=== PATIENT | female | born 1935 | race African-American/Black ===

== ENCOUNTER 2016-08-04 17:17 | Emergency (ER) | payer OTHER ==
--- NOTE | 2016-08-04 17:25 | PDOC ---
History of Present Illness - General Stated Complaint: POSSIBLE UTI Time Seen by Provider: 08/04/16 17:25 - History of Present Illness Initial Comments: 08/04/16 17:28 He patient is a 80 year old female with a history of diabetes, HTN, history of bilateral knee replacement and recurrent UTIs presents complaining of dysuria and fever x2 days. The pt had fever 103 yesterday and 101 today. She also is more lethargic than usual. The pt also noticed that her blood sugar was elevated today to 237 despite taking her diabetic medications. She denies SOB, abdominal pain, N/V, diarrhea, constipation. She denies pain in her right buttock where she has diabetic ulcer. She denies dizziness, headache, LOC. The pt lives alone and has visiting nurse who changes her dressing on right buttock where she has ulcer. PCP: Dr. Coyne Past History - Past Medical History Allergies/Adverse Reactions: Allergies Allergy/AdvReac Type Severity Reaction Status Date / Time No Known Allergies Allergy Verified 09/18/13 16:00 Home Medications: Ambulatory Orders Aspirin [ASA -] 81 mg PO DAILY #30 tab.chew 09/09/13 Lisinopril [Prinivil] 5 mg PO DAILY #30 tablet 09/09/13 Oxycodone HCl/Acetaminophen [Percocet 5-325 mg Tablet] 1 combo PO Q6H PRN #60 tablet 09/09/13 Acetaminophen [Tylenol .Regular Strength -] 650 mg PO Q4H 09/18/13 Calcium 250Mg/Vit-D 125 Units [Oscal 250 mg+D -] 1 combo PO BID 09/18/13 Heparin - 5,000 unit SQ BID 09/18/13 Metformin HCl [Glucophage -] 500 mg PO BID 09/18/13 Sennosides [Senna] 8.6 mg PO HS 09/18/13 Simvastatin [Zocor -] 40 mg PO HS 09/18/13 Ergocalciferol (Vitamin D2) [Vitamin D] 50,000 unit PO WEEKLY 09/24/13 Gabapentin [Neurontin] 100 mg PO BID 09/24/13 Diabetes: Yes (NIDDM) Suicide Attempt (Hx): No - Immunization History Immunization Up to Date: Yes - Psycho/Social/Smoking Cessation Hx Anxiety: No Suicidal Ideation: No Smoking History: Never smoked Number of Cigarettes Smoked Daily: 0 Cigars Per Day: 0 Hx Alcohol Use: No Substance Use Type: Alcohol Review of Systems - Review of Systems Able to Perform ROS?: Yes Comments:: 08/04/16 17:52 REVIEW OF SYSTEMS CONSTITUTIONAL: fever, chills, loss of appetite, generalized weakness, Absent: diaphoresis, malaise, weight change HEENT: Absent: rhinorrhea, nasal congestion, throat pain, throat swelling, difficulty swallowing, mouth swelling, ear pain, eye pain, visual changes CARDIOVASCULAR: Absent: chest pain, syncope, palpitations, irregular heart rate, lightheadedness , peripheral edema RESPIRATORY: Absent: cough, shortness of breath, dyspnea with exertion, orthopnea, wheezing, stridor, hemoptysis GASTROINTESTINAL: Absent: abdominal pain, abdominal distension, nausea, vomiting, diarrhea, constipation, melena, hematochezia GENITOURINARY: dysuria, Absent: frequency, urgency, hesitancy, hematuria, flank pain, genital pain MUSCULOSKELETAL: Absent: myalgia, arthralgia, joint swelling, back pain, neck pain SKIN: Absent: rash, itching, pallor NEUROLOGIC: Absent: headache, focal weakness or paresthesias, dizziness, unsteady gait, seizure, mental status changes, bladder or bowel incontinence Is the patient limited Welsh proficient: No *Physical Exam - Physical Exam Comments: 08/04/16 17:53 GENERAL: The patient is awake, alert, and fully oriented, in no acute distress. HEAD: Normal with no signs of trauma. EYES: PERRL, extraocular movements intact, sclera anicteric, conjunctiva clear. No ptosis. ENT: Ears normal, nares patent, oropharynx clear without exudates, moist mucous membranes. NECK: Trachea midline, full range of motion, supple. LUNGS: Breath sounds equal, clear to auscultation bilaterally, no wheezes, no crackles, no accessory muscle use. HEART: Regular rate and rhythm, S1, S2 without murmur, rub or gallop. ABDOMEN: Obese, soft, nontender, nondistended, normoactive bowel sounds, no guarding, no rebound, no hepatosplenomegaly, no masses. EXTREMITIES: 2+ pulses, warm, well-perfused, no edema, right buttock ulcer, no erythema, weal healing, dressing present. NEUROLOGICAL: Normal speech, gait not observed. PSYCH: Normal mood, normal affect. SKIN: Warm, dry, normal turgor, no rashes or lesions noted, scar in anterior knee B/L. Medical Decision Making - Medical Decision Making 08/04/16 17:54 The pt is a 80 year old female who presents with dysuria, fever, chills. We ordered UA, Ucx, blood cultures, CBC, CMP, Tylenol. 08/04/16 17:59 We added LA, blood cultures and NS. *DC/Admit/Observation/Transfer Diagnosis at time of Disposition: Urinary tract infection
[2016-08-04 17:36] VITALS: BP 103/67; PULSE 93; BMI 32.3
[2016-08-04] MEDS ORDERED: ACETAMINOPHEN 1000 MG/100 ML VIAL (NON FORMULARY) IVPB ONE ×2 (17:44→20:28)
[2016-08-04] MEDS ORDERED: SODIUM CHLORIDE 1,000 ML IV STA (17:57)
--- NOTE | 2016-08-04 18:01 | PDOC ---
Attending Attestation - Resident Resident Name: María Metzger - ED Attending Attestation I have performed the following: I have examined & evaluated the patient, The case was reviewed & discussed with the resident, I agree w/resident's findings & plan, Exceptions are as noted - HPI HPI: 08/04/16 19:06 80-year-old female history of hypertension, diabetes, recurrent urinary tract infections presents with fever for 2 days with MAXIMUM TEMPERATURE 103. Patient is noted dysuria reports that this feels exactly like her urinary tract infection. She had taken Tylenol prior to arrival. Denies chest pain, short of breath, abdominal pain, nausea, vomiting, diarrhea. - Physicial Exam PE: 08/04/16 19:07 GENERAL: Awake, alert, and fully oriented, in no acute distress. Well-appearing HEAD: No signs of trauma EYES: PERRLA, EOMI, sclera anicteric, conjunctiva clear ENT: Auricles normal inspection, hearing grossly normal, nares patent, oropharynx clear without exudates. NECK: Normal ROM, supple, no lymphadenopathy, JVD, or masses LUNGS: Breath sounds equal, clear to auscultation bilaterally. No wheezes, and no crackles HEART: Regular rate and rhythm, normal S1 and S2, no murmurs, rubs or gallops ABDOMEN: Soft, nontender, normoactive bowel sounds. No guarding, no rebound. No masses EXTREMITIES: Normal range of motion, no edema. No clubbing or cyanosis. No cords, erythema, or tenderness NEUROLOGICAL: Cranial nerves II through XII grossly intact. Normal speech, normal gait SKIN: Warm, Dry, normal turgor, no rashes or lesions noted. - Medical Decision Making 08/04/16 19:07 Patient is overall well-appearing and nontoxic. We'll obtain blood work. urine is noticed to be positive for infection. Primary microbiology reviewed. IV antibiotics was given. However, if the patient's laboratory demonstrates no sepsis or and organ damage, we'll likely discharge with Bactrim as patient has been sensitive to Bactrim prior before. Heart Score/ECG Review #1 ECG reviewed & interpreted by me at: 17:30 08/04/16 18:00 NSR 95 with 1st degree AV block, occasional PVC, no std/brendon, QTC 437 msec
[2016-08-04] MEDS ORDERED: CEFTRIAXONE 1 GM in DEXTROSE 5%-WATER - 50 ML IVPB ONE (18:11)
[2016-08-04 18:24] LABS: URINE APPEARANCE TURBID; URINE BILIRUBIN NEGATIVE (NEGATIVE); URINE COLOR YELLOW; URINE GLUCOSE (UA) NEGATIVE (NEGATIVE); URINE KETONE NEGATIVE (NEGATIVE); URINE NITRITE NEGATIVE (NEGATIVE); URINE UROBILINOGEN NEGATIVE E.U./dl (0.2-1.0)
[2016-08-04] MEDS ORDERED: CEFTRIAXONE 50 ML ONE (18:26)
[2016-08-04 18:28] LABS: URINE BLOOD 1+ (NEGATIVE); URINE LEUK ESTERASE 3+ (NEGATIVE); URINE PROTEIN 2+ (NEGATIVE)
[2016-08-04 18:33] LABS: URINE BACTERIA MANY /hpf (NONE SEEN); URINE MUCUS RARE; URINE RBC 19 /hpf (0-3); URINE WBC 3031 /hpf (3-5)
[2016-08-04 18:41] LABS: BASOPHIL 0.3 % (0-2.0); MCH 28.5 pg (25.7-33.7); MCHC 32.5 g/dl (32.0-36.0); MEAN CELL VOLUME 87.6 fl (80-96); MEAN PLT VOLUME 9.2 fl (7.5-11.1); NEUTROPHILS 86.5 % (42.8-82.8); PLATELET COUNT 193 K/MM3 (134-434); RDW 15.7 % (11.6-15.6); WHITE BLOOD COUNT 11.1 K/mm3 (4.0-10.0)
[2016-08-04 19:50] LABS: ANION GAP 13 (8-16); BILIRUBIN,TOTAL 0.5 mg/dL (0.2-1.0); CALCIUM 8.9 mg/dL (8.5-10.1); CO2 25 mmol/L (21-32); GLUCOSE,RANDOM 175 mg/dL (74-106); SGOT/AST 14 U/L (15-37); SGPT/ALT 13 U/L (12-78); TOT PROT 7.5 g/dl (6.4-8.2)
[2016-08-04 19:52] LABS: ALK PHOS 75 U/L (45-117); TROPONIN I < 0.02 ng/ml (0.00-0.05)
[2016-08-04] MEDS ORDERED: ACETAMINOPHEN INJECTION 100 ML IVPB ONE (20:22)
[2016-08-04] MEDS ORDERED: IBUPROFEN 600 MG TABLET (FP) PO ONE (21:35)
[2016-08-04] MEDS ORDERED: SULFAMETHOXAZOLE/TRIMETHOPRIM 800MG/160MG D.S. TABLET PO ONE (21:35)
[2016-08-04] MEDS ORDERED: SULFAMETHOXAZOLE/TRIMETHOPRIM 800MG/160MG D.S. TABLET ONE (21:40)
--- NOTE | 2016-08-04 22:58 | PDOC ---
*Physical Exam - Vital Signs Last Vital Signs Temp Pulse Resp BP Pulse Ox 100.9 F H 93 H 18 103/67 100 08/04/16 20:28 08/04/16 17:31 08/04/16 17:31 08/04/16 17:31 08/04/16 17:31 ED Treatment Course - LABORATORY CBC & Chemistry Diagram: 08/04/16 18:17 08/04/16 18:17 - ADDITIONAL ORDERS Additional order review: Laboratory Results 08/04/16 08/04/16 08/04/16 18:17 18:17 18:17 Sodium 139 Cancelled Potassium 4.1 Cancelled Chloride 101 Cancelled Carbon Dioxide 25 Cancelled Anion Gap 13 Cancelled BUN 21 H D Cancelled Creatinine 1.0 D Cancelled Creat Clearance w eGFR 53.21 Cancelled Random Glucose 175 H D Cancelled Lactic Acid 1.685 Calcium 8.9 Cancelled Total Bilirubin 0.5 D Cancelled AST 14 L D Cancelled ALT 13 D Cancelled Alkaline Phosphatase 75 Cancelled Creatine Kinase 80 Troponin I < 0.02 Total Protein 7.5 Cancelled Albumin 3.0 L Cancelled Urine Color Urine Appearance Urine pH Ur Specific [place] Urine Protein Urine Glucose (UA) Urine Ketones Urine Blood Urine Nitrite Urine Bilirubin Urine Urobilinogen Ur Leukocyte Esterase Urine RBC Urine WBC Ur Epithelial Cells Urine Bacteria Urine Mucus 08/04/16 17:53 Sodium Potassium Chloride Carbon Dioxide Anion Gap BUN Creatinine Creat Clearance w eGFR Random Glucose Lactic Acid Calcium Total Bilirubin AST ALT Alkaline Phosphatase Creatine Kinase Troponin I Total Protein Albumin Urine Color Yellow Urine Appearance Turbid Urine pH 5.0 D Ur Specific [place] 1.015 Urine Protein 2+ H Urine Glucose (UA) Negative Urine Ketones Negative Urine Blood 1+ H Urine Nitrite Negative Urine Bilirubin Negative Urine Urobilinogen Negative Ur Leukocyte Esterase 3+ H Urine RBC 19 Urine WBC 3031 Ur Epithelial Cells Rare Urine Bacteria Many Urine Mucus Rare 08/04/16 18:17 RBC 3.58 L MCV 87.6 MCHC 32.5 RDW 15.7 H D MPV 9.2 Neutrophils % 86.5 H D Lymphocytes % 6.8 L D Monocytes % 6.4 Eosinophils % 0.0 D Basophils % 0.3 - RADIOLOGY Radiology Studies Ordered: Category Date Time Status CHEST X-RAY PORTABLE* [RAD] Stat Radiology 08/04/16 17:58 Completed - Medications Given in the ED: ED Medications Discontinued Medications Generic Name Dose Route Start Last Admin Trade Name Love PRN Reason Stop Dose Admin Acetaminophen 1,000 mg 08/04/16 17:44 08/04/16 18:11 Ofirmev Injection - IVPB 08/04/16 17:45 Not Given ONCE ONE Acetaminophen 1,000 mg 08/04/16 20:28 08/04/16 20:28 Ofirmev Injection - IVPB 08/04/16 20:29 1,000 mg NOW ONE Administration Sodium Chloride 1,000 mls @ 1,000 mls/hr 08/04/16 17:57 08/04/16 18:26 Normal Saline - IV 08/04/16 18:56 1,000 mls/hr ASDIR STA Administration Ceftriaxone Sodium 1 gm/ 50 mls @ 100 mls/hr 08/04/16 18:11 08/04/16 18:26 Dextrose IVPB 08/04/16 18:40 100 mls/hr ONCE ONE Administration Ibuprofen 600 mg 08/04/16 21:35 08/04/16 22:09 Motrin - PO 08/04/16 21:36 600 mg ONCE ONE Administration Trimethoprim/Sulfamethoxazole 1 each 08/04/16 21:35 08/04/16 22:09 Bactrim Ds - PO 08/04/16 21:36 1 each ONCE ONE Administration Medical Decision Making - Medical Decision Making 08/04/16 22:54 CBC, BMP 08/04/16 18:17 08/04/16 18:17 CMP Sodium 139 mmol/L (136-145) 08/04/16 18:17 Potassium 4.1 mmol/L (3.5-5.1) 08/04/16 18:17 Chloride 101 mmol/L (98-107) 08/04/16 18:17 Carbon Dioxide 25 mmol/L (21-32) 08/04/16 18:17 Anion Gap 13 (8-16) 08/04/16 18:17 BUN 21 mg/dL (7-18) H D 08/04/16 18:17 Creatinine 1.0 mg/dL (0.55-1.02) D 08/04/16 18:17 Creat Clearance w eGFR 53.21 (>60) 08/04/16 18:17 Random Glucose 175 mg/dL (74-106) H D 08/04/16 18:17 Lactic Acid 1.685 mmol/L (0.4-2.0) 08/04/16 18:17 Calcium 8.9 mg/dL (8.5-10.1) 08/04/16 18:17 Total Bilirubin 0.5 mg/dL (0.2-1.0) D 08/04/16 18:17 AST 14 U/L (15-37) L D 08/04/16 18:17 ALT 13 U/L (12-78) D 08/04/16 18:17 Alkaline Phosphatase 75 U/L (45-117) 08/04/16 18:17 Creatine Kinase 80 IU/L (26-192) 08/04/16 18:17 Troponin I < 0.02 ng/ml (0.00-0.05) 08/04/16 18:17 Total Protein 7.5 g/dl (6.4-8.2) 08/04/16 18:17 Albumin 3.0 g/dl (3.4-5.0) L 08/04/16 18:17 Urine Test Results Urine Color Yellow 08/04/16 17:53 Urine Appearance Turbid 08/04/16 17:53 Urine pH 5.0 (5.0-8.0) D 08/04/16 17:53 Ur Specific [place] 1.015 (1.001-1.035) 08/04/16 17:53 Urine Protein 2+ (NEGATIVE) H 08/04/16 17:53 Urine Glucose (UA) Negative (NEGATIVE) 08/04/16 17:53 Urine Ketones Negative (NEGATIVE) 08/04/16 17:53 Urine Blood 1+ (NEGATIVE) H 08/04/16 17:53 Urine Nitrite Negative (NEGATIVE) 08/04/16 17:53 Urine Bilirubin Negative (NEGATIVE) 08/04/16 17:53 Ur Leukocyte Esterase 3+ (NEGATIVE) H 08/04/16 17:53 Urine RBC 19 /hpf (0-3) 08/04/16 17:53 Urine WBC 3031 /hpf (3-5) 08/04/16 17:53 Ur Epithelial Cells Rare /hpf (FEW) 08/04/16 17:53 Urine Bacteria Many /hpf (NONE SEEN) 08/04/16 17:53 Urine Mucus Rare 08/04/16 17:53 Labs and UA reviewed. Microbiology was reviewed. The patient appears significantly well. Discharge fever is 99.7 degrees. UTI. Will give bactrim. I had discussed the chest ray results of the feint nodule on the right lung. A copy of the xray given to her. I instructed the patient to follow up with her doctor as a small percentage of these could be potentially malignant. Pt verbalizes understanding and agrees with plan. Return precautions given. Pt will go home with friend. I discussed the physical exam findings, ancillary test results and final diagnoses with the patient. I answered all of the patient's questions. The patient was satisfied with the care received and felt comfortable with the discharge plan and treatment plan. The patient will call their primary care physician within 24 hours to arrange follow-up and will return to the Emergency Department with any new, persistant or worsening symptoms. *DC/Admit/Observation/Transfer Diagnosis at time of Disposition: UTI (urinary tract infection) Qualifiers: Urinary tract infection type: site unspecified Hematuria presence: without hematuria Qualified Code(s): N39.0 - Urinary tract infection, site not specified - Discharge Dispostion Disposition: HOME Condition at time of disposition: Improved Admit: No - Prescriptions Prescriptions: Sulfamethoxazole/Trimethoprim [Bactrim Ds -] 1 tab PO BID #14 tablet Ibuprofen 600 mg PO Q8H PRN #15 tablet PRN Reason: Fever Acetaminophen [Tylenol] 650 mg PO Q4H PRN #20 tablet PRN Reason: Fever - Referrals Referrals: Grabiel Coyne [Primary Care Provider] - - Patient Instructions Printed Discharge Instructions: DI for Urinary Tract Infection (UTI) Additional Instructions: Please take 650 mg tylenol every 4 hours and/or 600 mg ibuprofen every 8 hours as needed for fever. Drink plenty of fluids and rest. Take 1 tablet of bactrim (antibiotics) every 12 hours for the next 7 days. Please bring a copy of your chest xray to your doctor for follow up. - Post Discharge Activity
[2016-08-04 23:04] VITALS: TEMP 99.7
--- NOTE | 2016-08-05 11:48 | EKG ---
Test Reason : Blood Pressure : / mmHG Vent. Rate : 095 BPM Atrial Rate : 095 BPM P-R Int : 212 ms QRS Dur : 082 ms QT Int : 348 ms P-R-T Axes : 032 021 008 degrees QTc Int : 437 ms SINUS RHYTHM WITH 1ST DEGREE A-V BLOCK WITH PREMATURE ATRIAL COMPLEXES WITH ABERRANT CONDUCTION NONSPECIFIC ST ABNORMALITY NO PREVIOUS ECGS AVAILABLE Confirmed by TRISHA SMITH MD ([id number]) on 08/05/2016 11:48:18 AM Referred By: Confirmed By:TRISHA SMITH MD
== END 2016-08-05 01:39 | disposition home or self-care (01) ==
LOC: JER 17:17
PROC: 3E033NZ Introduction of Analgesics, Hypnotics, Sedatives into Peripheral Vein, Percutaneous Approach (ICD-10-PCS; principal; 2016-08-04)
PROC: 3E033GC Introduction of Other Therapeutic Substance into Peripheral Vein, Percutaneous Approach (ICD-10-PCS; 2016-08-04)
PROC: 3E03329 Introduction of Other Anti-infective into Peripheral Vein, Percutaneous Approach (ICD-10-PCS; 2016-08-04)
DX: N39.0 Urinary tract infection, site not specified (principal); E11.9 Type 2 diabetes mellitus without complications; I10 Essential (primary) hypertension; Z87.440 Personal history of urinary (tract) infections; Z96.653 Presence of artificial knee joint, bilateral; Z79.84 Long term (current) use of oral hypoglycemic drugs; Z79.82 Long term (current) use of aspirin
CPT/HCPCS: 36415; 71010-TC; 80053; 81003; 81015; 82550; 83605; 84484; 85025; 87040; 87086; 87186; 93005; 93010; 99285-25

== ENCOUNTER 2016-10-26 10:51 | Inpatient (IN) | payer OTHER ==
[2016-10-26] MEDS ORDERED: SODIUM CHLORIDE 1,000 ML IV STA (11:17)
[2016-10-26] MEDS ORDERED: ACETAMINOPHEN 500 MG TABLET (FP) PO ONE (11:19)
[2016-10-26] MEDS ORDERED: ACETAMINOPHEN 325 MG TABLET (FP) ONE ×2 (11:41→20:25)
[2016-10-26 12:34] LABS: BASOPHIL 0.2 % (0-2.0); EOSINOPHIL 0.1 % (0-4.5); MCH 28.8 pg (25.7-33.7); MCHC 32.3 g/dl (32.0-36.0); MEAN PLT VOLUME 8.6 fl (7.5-11.1); NEUTROPHILS 92.7 % (42.8-82.8); PLATELET COUNT 208 K/MM3 (134-434); RDW 17.9 % (11.6-15.6); WHITE BLOOD COUNT 11.9 K/mm3 (4.0-10.0)
[2016-10-26 12:37] LABS: VENOUS BLOOD GAS HCO3 24.2 meq/L (19-25); VENOUS PH 7.51 (7.32-7.42)
--- NOTE | 2016-10-26 12:40 | PDOC ---
History of Present Illness - General Stated Complaint: SICK Time Seen by Provider: 10/26/16 11:10 History Source: Patient Exam Limitations: No Limitations - History of Present Illness Initial Comments: 10/26/16 12:00 80-year-old female presents to the ED with complaints of fever, chills and generalized weakness since yesterday. Patient states today felt so weak and exhausted that she was unable to get up and told the home health aid to call her son to found her to be weak requiring medical evaluation. Patient denies headache, sore throat, chest pain, abdominal pain dysuria or diarrhea. Timing/Duration: 24 hours Severity: mild Associated Symptoms: reports: fever/chills, weakness Past History - Travel Traveled outside of the country in the last 30 days: No Close contact w/someone who was outside of country & ill: No - Past Medical History Allergies/Adverse Reactions: Allergies Allergy/AdvReac Type Severity Reaction Status Date / Time No Known Allergies Allergy Verified 10/26/16 11:22 Home Medications: Ambulatory Orders Aspirin [ASA -] 81 mg PO DAILY #30 tab.chew 09/09/13 Lisinopril [Prinivil] 5 mg PO DAILY #30 tablet 09/09/13 Metformin HCl [Glucophage -] 500 mg PO BID 09/18/13 Gabapentin [Neurontin] 500 mg PO HS 09/24/13 Acetaminophen [Tylenol] 650 mg PO Q4H PRN #20 tablet 08/04/16 Atorvastatin Ca [Lipitor] 20 mg PO HS 08/04/16 Ibuprofen 600 mg PO Q8H PRN #15 tablet 08/04/16 Meloxicam [Mobic] 7.5 mg PO DAILY 08/04/16 Diabetes: Yes (NIDDM) Suicide Attempt (Hx): No - Immunization History Immunization Up to Date: Yes - Psycho/Social/Smoking Cessation Hx Anxiety: No Suicidal Ideation: No Smoking History: Never smoked Have you smoked in the past 12 months: No Number of Cigarettes Smoked Daily: 0 Cigars Per Day: 0 Information on smoking cessation initiated: No Hx Alcohol Use: No Drug/Substance Use Hx: No Substance Use Type: Alcohol Patient Lives Alone: No 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 Review of Systems - Review of Systems Able to Perform ROS?: Yes Is the patient limited Cymro proficient: No Constitutional: Yes: Fever, Weakness HEENTM: No: Symptoms Reported Respiratory: No: Symptoms reported Cardiac (ROS): No: Symptoms Reported ABD/GI: No: Symptoms Reported : No: Symptoms Reported Musculoskeletal: No: Symptoms Reported Integumentary: No: Symptoms Reported Neurological: Yes: Weakness Hematologic/Lymphatic: No: Symptoms Reported *Physical Exam - Vital Signs Last Vital Signs Temp Pulse Resp BP Pulse Ox 102.2 F H 95 H 18 100/40 99 10/26/16 10:51 10/26/16 10:51 10/26/16 10:51 10/26/16 10:51 10/26/16 10:51 - Physical Exam General Appearance: Yes: Nourished, Appropriately Dressed. No: Apparent Distress HEENT: negative: Pale Conjunctivae Neck: positive: Supple Respiratory/Chest: positive: Lungs Clear, Normal Breath Sounds. negative: Respiratory Distress, Accessory Muscle Use Cardiovascular: positive: Regular Rhythm, Regular Rate. negative: Murmur Gastrointestinal/Abdominal: positive: Soft. negative: Tenderness Extremity: positive: Normal Capillary Refill, Pedal Edema (1+ nonpitting) Integumentary: positive: Normal Color, Warm, Moist Neurologic: positive: Normal Mood/Affect, Motor Strength 5/5 (moving all extremities) ED Treatment Course - LABORATORY CBC & Chemistry Diagram: 10/26/16 12:22 10/26/16 12:22 - RADIOLOGY Radiology Studies Ordered: Category Date Time Status CHEST X-RAY PORTABLE* [RAD] Stat Radiology 10/26/16 11:18 Completed - Medications Given in the ED: ED Medications Discontinued Medications Generic Name Dose Route Start Last Admin Trade Name Freq PRN Reason Stop Dose Admin Acetaminophen 975 mg 10/26/16 11:19 10/26/16 11:43 Tylenol - PO 10/26/16 11:20 975 mg ONCE ONE Administration Medical Decision Making - Medical Decision Making 10/26/16 12:46 Patient complains of generalized weakness and fatigue. Patient has no other complaints. Patient upon arrival found to be febrile with borderline low blood pressure suggestive of sepsis. Patient ordered for septic workup including Tylenol and IV fluids. 10/26/16 14:45 Laboratory Tests 10/26/16 10/26/16 10/26/16 11:18 12:22 12:22 WBC 11.9 H Hgb 9.8 L MCV 89.0 RDW 17.9 H D Neutrophils % 92.7 H INR 1.20 H VBG pH 7.51 H POC VBG pCO2 30.5 L POC VBG pO2 92.7 H Sodium Potassium Chloride Carbon Dioxide Anion Gap BUN Creatinine Random Glucose Lactic Acid Calcium Troponin I Albumin Urine Protein Urine Glucose (UA) Urine Ketones Urine Blood Urine Nitrite Ur Leukocyte Esterase 10/26/16 10/26/16 10/26/16 12:22 12:22 12:38 WBC Hgb MCV RDW Neutrophils % INR VBG pH POC VBG pCO2 POC VBG pO2 Sodium 139 Potassium 4.2 Chloride 104 Carbon Dioxide 25 Anion Gap 10 BUN 17 Creatinine 0.9 Random Glucose 145 H Lactic Acid 1.0 Calcium 8.8 Troponin I < 0.02 Albumin 3.2 L Urine Protein 1+ H Urine Glucose (UA) Negative Urine Ketones Negative Urine Blood 1+ H Urine Nitrite Positive Ur Leukocyte Esterase 3+ H Chest x-ray negative for acute findings. Patient's previous urine culture from July 2016 was positive for Escherichia coli and Klebsiella sensitive to cephalosporins. Patient ordered for ceftriaxone 1 g IV. 10/26/16 16:[address] Valverde and will admit to [facility] inpatient. *DC/Admit/Observation/Transfer Diagnosis at time of Disposition: Urinary tract bacterial infections Sepsis Qualifiers: Sepsis type: sepsis due to unspecified organism Qualified Code(s): A41.9 - Sepsis, unspecified organism - Discharge Dispostion Admit: Yes
[2016-10-26 12:47] LABS: INR 1.2 (0.82-1.09); PROTHROMBIN TIME (PATIENT) 13.3 SEC (9.98-11.88)
[2016-10-26 12:55] LABS: ALBUMIN 3.2 g/dl (3.4-5.0); ANION GAP 10 (8-16); CALCIUM 8.8 mg/dL (8.5-10.1); CO2 25 mmol/L (21-32); CREATININE 0.9 mg/dL (0.55-1.02); GLUCOSE,RANDOM 145 mg/dL (74-106); SGOT/AST 17 U/L (15-37); SGPT/ALT 18 U/L (12-78)
[2016-10-26 12:58] LABS: ALK PHOS 90 U/L (45-117); BILIRUBIN,TOTAL 0.5 mg/dL (0.2-1.0); TOT PROT 7.3 g/dl (6.4-8.2); TROPONIN I < 0.02 ng/ml (0.00-0.05)
--- NOTE | 2016-10-26 13:34 | PDOC ---
*Physical Exam - Vital Signs Last Vital Signs Temp Pulse Resp BP Pulse Ox 102.2 F H 95 H 18 100/40 99 10/26/16 10:51 10/26/16 10:51 10/26/16 11:10 10/26/16 10:51 10/26/16 11:10 Heart Score/ECG Review #1 General ECG Interpretation: Sinus Rhythm, Normal Rate (92), Normal Intervals, No acute ischemic changes ED Treatment Course - LABORATORY CBC & Chemistry Diagram: 10/26/16 12:22 10/26/16 12:22 - ADDITIONAL ORDERS Additional order review: Laboratory Results 10/26/16 10/26/16 10/26/16 12:38 12:22 12:22 VBG pH POC VBG pCO2 POC VBG pO2 Mixed VBG HCO3 Sodium 139 Potassium 4.2 Chloride 104 Carbon Dioxide 25 Anion Gap 10 BUN 17 Creatinine 0.9 Creat Clearance w eGFR > 60 Random Glucose 145 H Lactic Acid 1.0 Calcium 8.8 Total Bilirubin 0.5 AST 17 D ALT 18 D Alkaline Phosphatase 90 Creatine Kinase 57 Troponin I < 0.02 Total Protein 7.3 Albumin 3.2 L Blood Type A POSITIVE Antibody Screen Negative 10/26/16 11:18 VBG pH 7.51 H POC VBG pCO2 30.5 L POC VBG pO2 92.7 H Mixed VBG HCO3 24.2 Sodium Potassium Chloride Carbon Dioxide Anion Gap BUN Creatinine Creat Clearance w eGFR Random Glucose Lactic Acid Calcium Total Bilirubin AST ALT Alkaline Phosphatase Creatine Kinase Troponin I Total Protein Albumin Blood Type Antibody Screen 10/26/16 12:22 RBC 3.41 L MCV 89.0 MCHC 32.3 RDW 17.9 H D MPV 8.6 Neutrophils % 92.7 H Lymphocytes % 2.5 L D Monocytes % 4.5 Eosinophils % 0.1 D Basophils % 0.2 - Medications Given in the ED: ED Medications Discontinued Medications Generic Name Dose Route Start Last Admin Trade Name Freq PRN Reason Stop Dose Admin Acetaminophen 975 mg 10/26/16 11:19 10/26/16 11:43 Tylenol - PO 10/26/16 11:20 975 mg ONCE ONE Administration Sodium Chloride 1,000 mls @ 1,000 mls/hr 10/26/16 11:17 10/26/16 12:36 Normal Saline - IV 10/26/16 12:16 1,000 mls/hr ASDIR STA Administration Medical Decision Making - Medical Decision Making 10/26/16 13:31 80 yo F with h/o frequent UTI's in the past, here today with c/o fever, myalgia , generalized fatigue and weakness. no cough no abd pain no sob. fever unknown no other complaints no change to stool. no n/v /d on exam awake alert, dry mucous membranes. lungs clear bilaterally heart Reg no m/r/g. abd soft NT no cva tenderness. ext wwp no edema. plan: pt with fever, h/o uti, r/o sepsis infection. plan labs ua cultures iv hydration iv abx as needed. cxr /ro other source such as pna. pt seen and examined, care in conjunction with [facility], agree with her plan *DC/Admit/Observation/Transfer Diagnosis at time of Disposition: Sepsis, UTI (urinary tract infection), bacterial
[2016-10-26 14:32] LABS: URINE APPEARANCE SLCLOUDY; URINE BILIRUBIN NEGATIVE (NEGATIVE); URINE COLOR YELLOW; URINE GLUCOSE (UA) NEGATIVE (NEGATIVE); URINE KETONE NEGATIVE (NEGATIVE); URINE NITRITE POSITIVE (NEGATIVE); URINE UROBILINOGEN NEGATIVE E.U./dl (0.2-1.0)
[2016-10-26 14:36] LABS: URINE BLOOD 1+ (NEGATIVE); URINE LEUK ESTERASE 3+ (NEGATIVE); URINE PROTEIN 1+ (NEGATIVE)
[2016-10-26] MEDS ORDERED: CEFTRIAXONE 1 GM in DEXTROSE 5%-WATER - 50 ML IVPB ONE (14:45)
[2016-10-26 15:51] LABS: URINE BACTERIA RARE /hpf (NONE SEEN); URINE HYALINE CAST 1 /lpf; URINE RBC 3 /hpf (0-3); URINE WBC 252 /hpf (3-5)
[2016-10-26] MEDS ORDERED: CEFTRIAXONE 50 ML ONE (16:45)
[2016-10-26] MEDS ORDERED: IBUPROFEN 600 MG TABLET (FP) PO PRN (17:42)
[2016-10-26] MEDS: SODIUM CHLORIDE 1,000 ML IV SCH (18:45)
--- NOTE | 2016-10-26 20:24 | HP ---
Admitting History and Physical - Admission History of Present Illness: 80-year-old female presents to the ED with complaints of fever, chills and generalized weakness since yesterday. Patient states today felt so weak and exhausted that she was unable to get up and told the home health aid to call her son to found her to be weak requiring medical evaluation. Patient denies headache, sore throat, chest pain, abdominal pain dysuria or diarrhea. 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: Other (LEFT FOOT DROP) Cardiovascular: Yes: HTN, Hyperlipdemia Pulmonary: No: Asthma Musculoskeletal: Yes: Osteoarthritis Endocrine: Yes: Diabetes Mellitus - Past Surgical History Past Surgical History: Yes: Joint Replacement - Smoking History Smoking history: Never smoked Have you smoked in the past 12 months: No Aproximately how many cigarettes per day: 0 - Alcohol/Substance Use Hx Alcohol Use: No Home Medications - Allergies Allergies/Adverse Reactions: Allergies Allergy/AdvReac Type Severity Reaction Status Date / Time No Known Allergies Allergy Verified 10/26/16 11:22 - Home Medications Home Medications: Ambulatory Orders Aspirin [ASA -] 81 mg PO DAILY #30 tab.chew 09/09/13 Lisinopril [Prinivil] 5 mg PO DAILY #30 tablet 09/09/13 Metformin HCl [Glucophage -] 500 mg PO BID 09/18/13 Gabapentin [Neurontin] 500 mg PO HS 09/24/13 Acetaminophen [Tylenol] 650 mg PO Q4H PRN #20 tablet 08/04/16 Atorvastatin Ca [Lipitor] 20 mg PO HS 08/04/16 Ibuprofen 600 mg PO Q8H PRN #15 tablet 08/04/16 Meloxicam [Mobic] 7.5 mg PO DAILY 08/04/16 Review of Systems - Review of Systems Cardiovascular: denies: Chest Pain Respiratory: denies: SOB, SOB on Exertion Genitourinary: reports: Dysuria Musculoskeletal: reports: Back Pain Physical Examination Vital Signs: Vital Signs Temperature 98.2 F 10/26/16 17:00 Pulse Rate 77 10/26/16 17:00 Respiratory Rate 16 10/26/16 17:05 Blood Pressure 106/56 10/26/16 17:00 O2 Sat by Pulse Oximetry (%) 99 10/26/16 17:05 Cardiovascular: Yes: Regular Rate and Rhythm Respiratory: Yes: Regular, CTA Bilaterally Gastrointestinal: Yes: Normal Bowel Sounds, Soft. No: Tenderness Extremities: Yes: Other (LEFT FOOT DROP--PAIN OF LEFT FOOT) Edema: Yes Problem List - Problems (1) Sepsis Assessment/Plan: IV ABX ID CONSULT CULTURES Code(s): A41.9 - SEPSIS, UNSPECIFIED ORGANISM Qualifiers: Sepsis type: sepsis due to unspecified organism Qualified Code(s): A41.9 - Sepsis, unspecified organism (2) UTI (urinary tract infection), bacterial Assessment/Plan: ABOVE Code(s): N39.0 - URINARY TRACT INFECTION, SITE NOT SPECIFIED A49.9 - BACTERIAL INFECTION, UNSPECIFIED (3) Osteoarthritis Assessment/Plan: MOBIC Code(s): M19.90 - UNSPECIFIED OSTEOARTHRITIS, UNSPECIFIED SITE (4) Foot drop Assessment/Plan: PT Code(s): M21.379 - FOOT DROP, UNSPECIFIED FOOT (5) Leg pain Assessment/Plan: DUPLEX Code(s): M79.606 - PAIN IN LEG, UNSPECIFIED (6) Diabetes Assessment/Plan: BGM Code(s): E11.9 - TYPE 2 DIABETES MELLITUS WITHOUT COMPLICATIONS
[2016-10-26] MEDS: ACETAMINOPHEN 325 MG TABLET (FP) PO PRN (20:31)
[2016-10-26] MEDS ORDERED: GABAPENTIN 100 MG CAPSULE (FP) PO SCH (22:00)
[2016-10-26] MEDS ORDERED: GABAPENTIN 400 MG CAPSULE (FP) ONE (23:02)
[2016-10-26] MEDS ORDERED: GABAPENTIN 100 MG CAPSULE (FP) ONE (23:02)
[2016-10-26] MEDS: ATORVASTATIN CA 20 MG TABLET (FP) PO SCH (23:06)
[2016-10-26] MEDS: HEPARIN NA (PORCINE) 5,000 UNITS/ML 1ML VIAL SQ SCH (23:06)
[2016-10-26] MEDS: GABAPENTIN 400 MG, GABAPENTIN 100 MG PO SCH (23:06)
[2016-10-26] MEDS: INSULIN SLIDING SCALE (NOVOLOG) 1 VIAL SQ SCH (23:06)
[2016-10-26 23:17] VITALS: BMI 36.3
[2016-10-27] MEDS: ACETAMINOPHEN 325 MG TABLET (FP) PO PRN (06:22)
[2016-10-27] MEDS: INSULIN SLIDING SCALE (NOVOLOG) 1 VIAL SQ SCH ×4 (06:23→21:16)
--- NOTE | 2016-10-27 07:56 | PN ---
Progress Note, Physician History of Present Illness: FEELS A LITTLE BETTER - Current Medication List Current Medications: Active Medications Acetaminophen (Tylenol -) 650 mg PO Q4H PRN PRN Reason: Fever Last Admin: 10/27/16 06:22 Dose: 650 mg Aspirin (Asa -) 81 mg PO DAILY [facility] Atorvastatin Calcium (Lipitor -) 20 mg PO HS [facility] Last Admin: 10/26/16 23:06 Dose: 20 mg Ceftriaxone Sodium (Rocephin 1gm Ivpb (Pre-Docked)) 1 gm IVPB DAILY [facility] Gabapentin 400 mg/ Gabapentin (100 mg) 500 mg PO HS [facility] Last Admin: 10/26/16 23:06 Dose: 500 mg Heparin Sodium (Porcine) (Heparin -) 5,000 unit SQ BID [facility] Last Admin: 10/26/16 23:06 Dose: 5,000 unit Sodium Chloride (Normal Saline -) 1,000 mls @ 50 mls/hr IV ASDIR [facility] Last Admin: 10/26/16 18:45 Dose: 50 mls/hr Insulin Aspart (Novolog Vial Sliding Scale -) 1 vial SQ ACHS [facility] PRN Reason: Protocol Last Admin: 10/27/16 06:23 Dose: Not Given Lisinopril (Prinivil) 5 mg PO DAILY [facility] Non-Formulary Medication (Meloxicam [Mobic]) 7.5 mg PO DAILY [facility] - Objective Vital Signs: Vital Signs Temperature 99.2 F 10/27/16 02:00 Pulse Rate 87 10/26/16 20:32 Respiratory Rate 18 10/26/16 20:32 Blood Pressure 146/84 10/26/16 20:32 O2 Sat by Pulse Oximetry (%) 100 10/26/16 20:32 Cardiovascular: Yes: Regular Rate and Rhythm Respiratory: Yes: Regular, CTA Bilaterally Gastrointestinal: Yes: Normal Bowel Sounds, Soft Extremities: Yes: Other (FOOT DROP PAIN ON MOVEMENT) Labs: INR, PTT INR 1.20 (0.82-1.09) H 10/26/16 12:22 Problem List - Problems (1) Sepsis Assessment/Plan: IV ABX ID CONSULT CULTURES Code(s): A41.9 - SEPSIS, UNSPECIFIED ORGANISM Qualifiers: Sepsis type: sepsis due to unspecified organism Qualified Code(s): A41.9 - Sepsis, unspecified organism (2) UTI (urinary tract infection), bacterial Assessment/Plan: ABOVE Code(s): N39.0 - URINARY TRACT INFECTION, SITE NOT SPECIFIED A49.9 - BACTERIAL INFECTION, UNSPECIFIED (3) Osteoarthritis Assessment/Plan: MOBIC Code(s): M19.90 - UNSPECIFIED OSTEOARTHRITIS, UNSPECIFIED SITE (4) Foot drop Assessment/Plan: PT XRAYS Code(s): M21.379 - FOOT DROP, UNSPECIFIED FOOT (5) Leg pain Assessment/Plan: DUPLEX NEGATIVE URIC ACID Code(s): M79.606 - PAIN IN LEG, UNSPECIFIED (6) Diabetes Assessment/Plan: BGM A1C Code(s): E11.9 - TYPE 2 DIABETES MELLITUS WITHOUT COMPLICATIONS
[2016-10-27 08:43] LABS: MCH 29.1 pg (25.7-33.7); MCHC 32.5 g/dl (32.0-36.0); MEAN CELL VOLUME 89.6 fl (80-96); MEAN PLT VOLUME 8.9 fl (7.5-11.1); PLATELET COUNT 171 K/MM3 (134-434); WHITE BLOOD COUNT 7.4 K/mm3 (4.0-10.0)
[2016-10-27 09:19] LABS: ALBUMIN 2.6 g/dl (3.4-5.0); ANION GAP 7 (8-16); BILIRUBIN,TOTAL 0.6 mg/dL (0.2-1.0); CALCIUM 8.2 mg/dL (8.5-10.1); CO2 25 mmol/L (21-32); CREATININE 0.7 mg/dL (0.55-1.02); GLUCOSE,RANDOM 108 mg/dL (74-106); SGOT/AST 20 U/L (15-37); SGPT/ALT 17 U/L (12-78); TOT PROT 6.5 g/dl (6.4-8.2)
[2016-10-27 09:24] LABS: CHOLESTEROL 115 mg/dL (50-200)
[2016-10-27 09:28] LABS: ALK PHOS 78 U/L (45-117); THYROID STIMULATING HORMONE 0.34 uIU/ml (0.358-3.74)
[2016-10-27 09:34] LABS: CHOLESTEROL 117 mg/dL (50-200); LDL CHOLESTEROL (ONLY SJRH) 50 mg/dL (5-100)
[2016-10-27] MEDS: ASPIRIN 81 MG CHEWABLE TABLETS PO SCH (09:55)
[2016-10-27] MEDS: HEPARIN NA (PORCINE) 5,000 UNITS/ML 1ML VIAL SQ SCH ×2 (09:55→21:20)
[2016-10-27] MEDS: LISINOPRIL 5 MG TABLET (FP) PO SCH (09:55)
[2016-10-27] MEDS ORDERED: PATIENT'S OWN MEDICATION (NON-FORMULARY) (Meloxicam [Mobic] 7.5 MG) PO SCH (10:00)
[2016-10-27] MEDS ORDERED: CEFTRIAXONE 1 GM in DEXTROSE 5%-WATER - 50 ML IVPB SCH (10:00)
[2016-10-27] MEDS ORDERED: cefTRIAXone 1 GM/50 ML BAG (PRE-DOCKED) IVPB SCH (10:00)
--- NOTE | 2016-10-27 12:35 | EKG ---
Test Reason : Blood Pressure : / mmHG Vent. Rate : 092 BPM Atrial Rate : 092 BPM P-R Int : 176 ms QRS Dur : 080 ms QT Int : 344 ms P-R-T Axes : 027 016 004 degrees QTc Int : 425 ms NORMAL SINUS RHYTHM LOW VOLTAGE QRS SEPTAL INFARCT , AGE UNDETERMINED ABNORMAL ECG WHEN COMPARED WITH ECG OF 04-AUG-2016 17:29, ABERRANT CONDUCTION IS NO LONGER PRESENT [place] INTERVAL HAS DECREASED Confirmed by ELIZABETH ZARATE, PIETER ([id number]) on 10/27/2016 12:35:18 PM Referred By: Confirmed By:PIETER JOHNSON MD
--- NOTE | 2016-10-27 13:27 | PN ---
Progress Note (short form) - Note Progress Note: ID Consult dictated UTI/ Possible sepsis secondary to UTI Diabetes mellitus Foot drop with exacerbation , possibly due to sepsis Pending cultures empiric ceftriaxone
--- NOTE | 2016-10-27 13:56 | CONS ---
DATE OF CONSULTATION: DATE OF DICTATION: 10/27/2016 The patient is an 80-year-old female evaluated for sepsis. She lives at home with a home health aide. She reports that approximately 1 day prior to admission, she had developed profound weakness and subjective fever. She has a history of left foot drop but is normally able to ambulate, however, because of the profound weakness and worsening of her foot drop, she was unable to ambulate. EMS was called and she was taken to the emergency room. In the emergency room, temperature was 102.2. The patient states that when these symptoms occur, they usually herald a urinary tract infection. She did complain of urinary frequency, denies any urgency. No complaints of suprapubic or blank pain. Urine culture from July of 2016 grew E coli sensitive to ceftriaxone. At the present time, she continues to complain of generalized weakness and worsen of her left foot drop. Cultures were obtained and she was empirically treated with ceftriaxone. PAST MEDICAL HISTORY: Positive for hypertension, hyperlipidemia, osteoarthritis, diabetes mellitus, recurrent urinary tract infections. No known allergies. MEDICATIONS: Aspirin, lisinopril, Glucophage, Neurontin, Tylenol, Lipitor, Mobic. SOCIAL HISTORY: She lives at home with a home health aide. Nonsmoker, nondrinker. SYSTEMS REVIEW: Neurologic: Positive for left foot drop of several years duration. Cardiac: Negative chest pain or palpitations. Respiratory: Negative cough or sputum production. Gastrointestinal: Negative vomiting or diarrhea. Genitourinary: As per HPI. LABORATORY DATA: White count 7.4, hematocrit 28.1, platelet count 171. BUN 14, creatinine 0.7. Liver enzymes normal. Blood and urine cultures pending. Urinalysis: 252 white cells. Chest x-ray shows pulmonary vascular congestion at the bases. PHYSICAL EXAMINATION: General: She is awake and alert, in no acute distress. Vital Signs: Temperature 99.7. T-max 102.2. Blood pressure 111/51. Pulse 81, regular. Respirations 18 per minute. Eyes: Sclerae anicteric. Heart Sounds: S1, S2. Lungs: Clear. Abdomen: Soft. No tenderness elicited. No mass, rebound or rigidity. No suprapubic or flank tenderness. Extremities: Positive for edema, left foot drop present. IMPRESSION: 1. Urinary tract infection. 2. Possible sepsis secondary to urinary tract infection. 3. Diabetes mellitus. 4. Worsening left foot drop, possible exacerbation secondary to sepsis. Pending cultures, empiric antibiotic coverage with ceftriaxone daily. Await blood and urine culture results. Will follow. Thank you for the kind referral. TRISHA PRICE M.D. [id number]
--- NOTE | 2016-10-27 14:02 | CONSULT ---
Consult Consult Specialty:: PM&R - History of Present Illness Chief Complaint: L ankle pain up to 01/15 History of Present Illness: This is an 80 year old woman with a medical history of HTN, HLD, asthma, diffuse OA s/p B TKR, DM, chronic L foot drop, who presented to the ED 10/26/16 with fevers, chills and generalized weakness. She was diagnosed with UTI, with UCx pending; Ceftriaxone was started. She had L leg pain, with 10/26/16 LLE doppler US negative for DVT, and L ankle/ foot XR showing L medial malleolar fx with degenerative changes. Physiatry is being consulted for further recommendations. 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 (LEFT FOOT DROP) Cardio/Vascular: Yes: HTN, Hyperlipdemia Pulmonary: No: Asthma ...: No Musculoskeletal: Yes: Osteoarthritis Endocrine: Yes: Diabetes Mellitus - Past Surgical History Past Surgical History: Yes: Joint Replacement - Alcohol/Substance Use Hx Alcohol Use: No - Smoking History Smoking history: Never smoked Have you smoked in the past 12 months: No Aproximately how many cigarettes per day: 0 - Social History Usual Living Arrangement: Alone (in condo without steps to elevator; has PRESCHOOL DIRECTOR 8 hours x7 days, ambulated short distances with L AFO and L knee brace) Home Medications - Allergies Allergies/Adverse Reactions: Allergies Allergy/AdvReac Type Severity Reaction Status Date / Time mushroom Allergy Severe Verified 10/27/16 10:36 - Home Medications Home Medications: Ambulatory Orders Aspirin [ASA -] 81 mg PO DAILY #30 tab.chew 09/09/13 Lisinopril [Prinivil] 5 mg PO DAILY #30 tablet 09/09/13 Metformin HCl [Glucophage -] 500 mg PO BID 09/18/13 Gabapentin [Neurontin] 500 mg PO HS 09/24/13 Acetaminophen [Tylenol] 650 mg PO Q4H PRN #20 tablet 08/04/16 Atorvastatin Ca [Lipitor] 20 mg PO HS 08/04/16 Ibuprofen 600 mg PO Q8H PRN #15 tablet 08/04/16 Meloxicam [Mobic] 7.5 mg PO DAILY 08/04/16 Review of Systems Findings/Remarks: denies fevers, chills, changes in vision/ hearing/ mood, CP, SOB, abdominal pain , nausea, vomiting, constipation, diarrhea, dysuria. Notes chronic BLE numbness / tingling due to diabetic neuropathy, and L ankle pain up to 01/15. Physical Exam Vital Signs: Vital Signs Temperature 98.0 F 10/27/16 13:43 Pulse Rate 80 10/27/16 13:43 Respiratory Rate 20 10/27/16 13:43 Blood Pressure 111/50 10/27/16 08:00 O2 Sat by Pulse Oximetry (%) 94 L 10/27/16 09:11 Musculoskeletal: Yes: Other (General: calm elderly AAF sitting in bed NAD, AAO x3 HEENT: NCAT EOMI OP clear N/M: CN II-XII grossly Intact; B shoulder flexion to 45 degrees with 4-/5 MMT due to pain, then 4+/5 BUE. 4/5 R HF then 4+/5 R KE / DF, 1/5 L HF then 0/5 LLE (may be partially due to pain); Pinprick decreased LLE then Intact BUE/ RLE, diffusely hyporeflexic BUE/ BLE, negative B Rollins's sign Extremities: trace BLE pitting edema, no B calf tenderness, +tenderness to palpation L medial ankle) Labs: CBC, BMP 10/27/16 08:26 10/27/16 08:26 Imaging - Results X-ray: Report Reviewed (10/26/16 L ankle/ foot XR shows L medial malleolar fx with degenerative changes) Ultrasound: Report Reviewed (10/26/16 BLE doppler US negative for DVT) Assessment/Plan Impression: 1) Deficits mobility/ ADLs 2) Deconditioning 3) Gait abnormality 4) L medial malleolar fx 5) Chronic L foot drop since 2013, has L knee brace and L AFO at bedside 6) UTI pending UCx 7) hx HTN, HLD 8) hx asthma 9) 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 10) DM with diabetic neuropathy 11) Obesity 12) Up to date flu, no recent pneumovax Recommendations: 1) Recommend Ortho consult for possible CAM walker and for WB status 2) Once cleared by Ortho, start PT for strengthening stretching ROM bed mobility transfers balance ambulation 3) Falls, safety precautions 4) Cardiopulmonary precautions 5) Diabetic precautions 6) Ice L medial ankle prn pain with frequent skin checks due to neuropathy 7) DVT ppx: on hep sc 8) Denies constipation on current bowel regimen 9) Skin protection: float heels, q2 hour turning 10) Monitor CBC given anemia 11) Nutrition consult for weight loss 12) Discharge planning: to be determined, depends on pain control, weight- bearing status, and progress in therapy. She will likely benefit from short- stay inpatient rehabilitation. Thank you for this referral.
[2016-10-27] MEDS ORDERED: BISACODYL 10 MG SUPP.RECT RC PRN (15:00)
[2016-10-27] MEDS: SODIUM CHLORIDE 1,000 ML IV SCH (17:19)
[2016-10-27] MEDS ORDERED: GABAPENTIN 100 MG CAPSULE (FP) ONE (21:19)
[2016-10-27] MEDS ORDERED: GABAPENTIN 400 MG CAPSULE (FP) ONE (21:19)
[2016-10-27] MEDS: GABAPENTIN 400 MG, GABAPENTIN 100 MG PO SCH (21:20)
[2016-10-27] MEDS: ATORVASTATIN CA 20 MG TABLET (FP) PO SCH (21:20)
[2016-10-27] MEDS: PATIENT'S OWN MEDICATION (NON-FORMULARY) (Meloxicam [Mobic] 15 MG) PO SCH (22:33)
[2016-10-27] MEDS ORDERED: PT OWN MED DRAWER 7, Y5N ONE (22:48)
[2016-10-28] MEDS: INSULIN SLIDING SCALE (NOVOLOG) 1 VIAL SQ SCH ×4 (06:15→21:59)
--- NOTE | 2016-10-28 08:24 | PN ---
Progress Note, Physician History of Present Illness: FEELS A LITTLE BETTER ANKLE PAIN--XRAY WITH FX--D/W PT - Current Medication List Current Medications: Active Medications Acetaminophen (Tylenol -) 650 mg PO Q4H PRN PRN Reason: Fever Last Admin: 10/27/16 06:22 Dose: 650 mg Aspirin (Asa -) 81 mg PO DAILY [facility] Last Admin: 10/27/16 09:55 Dose: 81 mg Atorvastatin Calcium (Lipitor -) 20 mg PO HS [facility] Last Admin: 10/27/16 21:20 Dose: 20 mg Bisacodyl (Dulcolax Suppository -) 10 mg RC ONCE PRN PRN Reason: CONSTIPATION Last Admin: 10/27/16 15:00 Dose: 10 mg Gabapentin 400 mg/ Gabapentin (100 mg) 500 mg PO HS [facility] Last Admin: 10/27/16 21:20 Dose: 500 mg Heparin Sodium (Porcine) (Heparin -) 5,000 unit SQ BID [facility] Last Admin: 10/27/16 21:20 Dose: 5,000 unit Sodium Chloride (Normal Saline -) 1,000 mls @ 50 mls/hr IV ASDIR [facility] Last Admin: 10/27/16 17:19 Dose: 50 mls/hr Ceftriaxone Sodium (Rocephin 2gm Ivpb (Pre-Docked)) 100 mls @ 200 mls/hr IVPB DAILY [facility] Insulin Aspart (Novolog Vial Sliding Scale -) 1 vial SQ ACHS [facility] PRN Reason: Protocol Last Admin: 10/28/16 06:15 Dose: Not Given Lisinopril (Prinivil) 5 mg PO DAILY [facility] Last Admin: 10/27/16 09:55 Dose: 5 mg Non-Formulary Medication (Meloxicam [Mobic]) 15 mg PO DAILY [facility] Last Admin: 10/27/16 22:33 Dose: 15 mg - Objective Vital Signs: Vital Signs Temperature 99.6 F 10/28/16 06:00 Pulse Rate 84 10/28/16 06:00 Respiratory Rate 22 10/28/16 06:00 Blood Pressure 130/51 10/28/16 06:00 O2 Sat by Pulse Oximetry (%) 95 10/27/16 21:00 Cardiovascular: Yes: Regular Rate and Rhythm Respiratory: Yes: Regular, CTA Bilaterally Gastrointestinal: Yes: Normal Bowel Sounds, Soft Musculoskeletal: Yes: Joint Swelling, Muscle Weakness, Other (PAIN AND FOOT DROP ) Labs: CBC, BMP 10/27/16 08:26 10/27/16 08:26 INR, PTT INR 1.20 (0.82-1.09) H 10/26/16 12:22 Problem List - Problems (1) Sepsis Assessment/Plan: IV ABX ID CONSULT CULTURES Microbiology 10/26/16 14:00 Urine - Urine Clean Catch Urine Culture - Preliminary Lactose Fermenting Neg Bacilli 10/26/16 12:12 Blood - Peripheral Venous Blood Culture - Preliminary NO GROWTH OBTAINED AFTER 24 HOURS, INCUBATION TO CONTINUE FOR 4 DAYS. 10/26/16 12:12 Blood - Peripheral Venous Blood Culture - Preliminary NO GROWTH OBTAINED AFTER 24 HOURS, INCUBATION TO CONTINUE FOR 4 DAYS. Code(s): A41.9 - SEPSIS, UNSPECIFIED ORGANISM Qualifiers: Sepsis type: sepsis due to unspecified organism Qualified Code(s): A41.9 - Sepsis, unspecified organism (2) UTI (urinary tract infection), bacterial Assessment/Plan: ABOVE Code(s): N39.0 - URINARY TRACT INFECTION, SITE NOT SPECIFIED A49.9 - BACTERIAL INFECTION, UNSPECIFIED (3) Osteoarthritis Assessment/Plan: MOBIC Code(s): M19.90 - UNSPECIFIED OSTEOARTHRITIS, UNSPECIFIED SITE (4) Foot drop Assessment/Plan: PT XRAYS Code(s): M21.379 - FOOT DROP, UNSPECIFIED FOOT (5) Leg pain Assessment/Plan: DUPLEX NEGATIVE URIC ACID XRAY FX--ORTHO CONSULT PT Code(s): M79.606 - PAIN IN LEG, UNSPECIFIED (6) Diabetes Assessment/Plan: BGM A1C Code(s): E11.9 - TYPE 2 DIABETES MELLITUS WITHOUT COMPLICATIONS
--- NOTE | 2016-10-28 09:48 | CONSULT ---
Consult - text type - Consultation Consultation Note: FULL CONSULT DICTATED IMP: MEDIAL MAL FX LEFT ANKLE WITH CHRONIC FOOT DROP, S/P B TKR WITH INSTABILITY OF LEFT KNEE PLAN: AFO WHICH PATIENT ALREADY HAS IS SUFFICIENT FOR FX TREATMENT, KNEE BRACE TO AID IN AMBULATION, DC PLANNING
--- NOTE | 2016-10-28 10:57 | CONS ---
DATE OF CONSULTATION: 10/28/2016 ORTHOPEDIC CONSULTATION HISTORY OF PRESENT ILLNESS: The patient is an 80-year-old female who was admitted to the hospital with fever and chills. She had a questionable fall while she was being aided by the EMS people onto the stretcher to be brought into the hospital, complaining of left ankle pain. The patient is a severe diabetic. She is also status post bilateral total knee replacements. The left knee has not been working well for many years. She can barely bend it and has some instability. She is being treated by Dr. Jamil, who has been treating her with a hinged knee brace for the knee. She also has a chronic foot drop on the left, also status post a fall, for which she has a rigid AFO that she uses to control that. The patient was admitted for urosepsis and is on IV antibiotics. PHYSICAL EXAMINATION: She has tenderness medially in the ankle, less so laterally. The calf is soft and nontender. Minimal pulses in the feet. Chronic foot drop is present but passively correctable. She has poor motion of the left knee. Surgical scars are well-healed. Some instability with varus and valgus. Range of motion is about 0 to 20 degrees, then she has to stop. No swelling or erythema in either knee. DIAGNOSTIC STUDIES: X-rays show a left medial malleolar fracture with a great deal of osteopenia in the ankle and foot. IMPRESSION: Left medial malleolar fracture in a patient admitted with urosepsis and who has chronic foot drop of the left ankle with also instability in the left knee, status post total knee replacement many years ago. PLAN: 1. Left medial malleolar fracture. The rigid AFO that the patient has is sufficient treatment for this medial malleolar fracture. She should use it for ambulation. In bed, she does not need anything. She is comfortable. 2. Instability of the left knee. She has a hinged knee brace in place. She should use that brace to help her with ambulation once she get up with Physical Therapy she is strong enough. She can be discharged when she clears her urosepsis. She will follow up with Dr. Jamil, her orthopedist, upon discharge. AMELIA GRIMES M.D. [id number]
[2016-10-28] MEDS: CEFTRIAXONE 2G/100 ML IVPB SCH (11:25)
[2016-10-28] MEDS: HEPARIN NA (PORCINE) 5,000 UNITS/ML 1ML VIAL SQ SCH ×2 (11:26→21:54)
[2016-10-28] MEDS: ASPIRIN 81 MG CHEWABLE TABLETS PO SCH (11:26)
[2016-10-28] MEDS: PATIENT'S OWN MEDICATION (NON-FORMULARY) (Meloxicam [Mobic] 15 MG) PO SCH (11:26)
[2016-10-28] MEDS: LISINOPRIL 5 MG TABLET (FP) PO SCH (11:26)
--- NOTE | 2016-10-28 13:37 | PN ---
Progress Note, Physician History of Present Illness: C/O L foot pain ( found to have fracture) No c/o dysuria/ hematuria No suprapubic or flank pain Temps down- afebrile WBC improved BC (-) Urine c/s LF - Current Medication List Current Medications: Active Medications Acetaminophen (Tylenol -) 650 mg PO Q4H PRN PRN Reason: Fever Last Admin: 10/27/16 06:22 Dose: 650 mg Aspirin (Asa -) 81 mg PO DAILY [facility] Last Admin: 10/28/16 11:26 Dose: 81 mg Atorvastatin Calcium (Lipitor -) 20 mg PO HS [facility] Last Admin: 10/27/16 21:20 Dose: 20 mg Bisacodyl (Dulcolax Suppository -) 10 mg RC ONCE PRN PRN Reason: CONSTIPATION Last Admin: 10/27/16 15:00 Dose: 10 mg Gabapentin 400 mg/ Gabapentin (100 mg) 500 mg PO HS [facility] Last Admin: 10/27/16 21:20 Dose: 500 mg Heparin Sodium (Porcine) (Heparin -) 5,000 unit SQ BID [facility] Last Admin: 10/28/16 11:26 Dose: 5,000 unit Sodium Chloride (Normal Saline -) 1,000 mls @ 50 mls/hr IV ASDIR [facility] Last Admin: 10/27/16 17:19 Dose: 50 mls/hr Ceftriaxone Sodium (Rocephin 2gm Ivpb (Pre-Docked)) 100 mls @ 200 mls/hr IVPB DAILY [facility] Last Admin: 10/28/16 11:25 Dose: 200 mls/hr Insulin Aspart (Novolog Vial Sliding Scale -) 1 vial SQ ACHS [facility] PRN Reason: Protocol Last Admin: 10/28/16 11:35 Dose: Not Given Lisinopril (Prinivil) 5 mg PO DAILY [facility] Last Admin: 10/28/16 11:26 Dose: 5 mg Non-Formulary Medication (Meloxicam [Mobic]) 15 mg PO DAILY [facility] Last Admin: 10/28/16 11:26 Dose: 15 mg - Objective Vital Signs: Vital Signs Temperature 98.8 F 10/28/16 11:23 Pulse Rate 73 10/28/16 11:23 Respiratory Rate 20 10/28/16 11:23 Blood Pressure 118/72 10/28/16 11:23 O2 Sat by Pulse Oximetry (%) 95 10/27/16 21:00 Constitutional: Yes: No Distress Eyes: Yes: Conjunctiva Clear Cardiovascular: Yes: Regular Rate and Rhythm, S1, S2 Respiratory: Yes: CTA Bilaterally Gastrointestinal: Yes: Normal Bowel Sounds, Soft. No: Tenderness Extremities: Yes: Other (L LE swelling L foot drop) Labs: CBC, BMP 10/27/16 08:26 10/27/16 08:26 INR, PTT INR 1.20 (0.82-1.09) H 10/26/16 12:22 Assessment/Plan UTI/ Possible sepsis secondary to UTI Fever/ leukocytosis- resolved L medial malleolus fracture Await urine c/s result Continue ceftriaxone
[2016-10-28] MEDS: SODIUM CHLORIDE 1,000 ML IV SCH (16:36)
--- NOTE | 2016-10-28 19:13 | CONSULT ---
Consult - text type - Consultation Consultation Note: NEUROLOGY CONSULTATION is greatly appreciated: This 80 yo woman lives alone with CONTRACT ADMIN 8 hrs x 7 days. PMH sig for HTN, DM, Chol, obesity, OA. s/p B/L TKR with instability on the left. Recurrent UTI's. On Lisinopril, metformin, atorvastatin, meloxicam, and gabapentin (500 mg q HS). S/P fall in 2013 at which time she was unable to get off the floor x few days. Has had Left "foot-drop" since that time. At baseline, walks with a Left AFO, Left knee brace and a walker. Now admitted after a few days of feeling unwell, low grade temps, decreasing gait. Slid to floor of Monday and couldn't get up. Here, found to have WBC=11.9K and UTI. C/O left ankle pain and X-rays showed and small non-displace fracture. Seen by Ortho. AFO splint should suffice. DENISSE: Obese. No bruits. Cor: Reg. S/P B/L TKR's. + Left Mane (?). NEURO: MS/speech: Normal CN: II-XII normal Motor: No drift, tremor or cogwheeling. Right leg normal strength. Left leg 3/5 proximally and 0/5 ALL distal ankle mov'ts including Plantarflexion. Areflexic in legs. 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 SUGGEST: Continue hydration and antibiotics. Surveillance U/A as out patient. When ankle is better for weight bearing, aggressive PT with AFO, Knee Brace and walker. Since this is a sciatic MN and not L5 or Peroneal Palsy there will be weakness in Proximal groups and patient may do better with a long leg brace/AFO to stabilize the knee. Weight loss. Check B12, TSH Thank you very much, Arya Stone MD
[2016-10-28] MEDS ORDERED: GABAPENTIN 400 MG CAPSULE (FP) ONE (21:45)
[2016-10-28] MEDS ORDERED: GABAPENTIN 100 MG CAPSULE (FP) ONE (21:45)
[2016-10-28] MEDS: ATORVASTATIN CA 20 MG TABLET (FP) PO SCH (21:53)
[2016-10-28] MEDS: GABAPENTIN 400 MG, GABAPENTIN 100 MG PO SCH (21:54)
[2016-10-28] MEDS: ACETAMINOPHEN 325 MG TABLET (FP) PO PRN (21:55)
[2016-10-29] MEDS: INSULIN SLIDING SCALE (NOVOLOG) 1 VIAL SQ SCH ×2 (06:13→11:30)
[2016-10-29] MEDS: ASPIRIN 81 MG CHEWABLE TABLETS PO SCH (09:57)
[2016-10-29] MEDS: PATIENT'S OWN MEDICATION (NON-FORMULARY) (Meloxicam [Mobic] 15 MG) PO SCH (09:57)
[2016-10-29] MEDS: HEPARIN NA (PORCINE) 5,000 UNITS/ML 1ML VIAL SQ SCH (09:57)
[2016-10-29] MEDS: LISINOPRIL 5 MG TABLET (FP) PO SCH (09:57)
[2016-10-29] MEDS: CEFTRIAXONE 2G/100 ML IVPB SCH (09:58)
[2016-10-29 11:03] LABS: BASOPHIL 0.4 % (0-2.0); EOSINOPHIL 2.8 % (0-4.5); MCH 28.8 pg (25.7-33.7); MCHC 32.1 g/dl (32.0-36.0); MEAN CELL VOLUME 89.7 fl (80-96); MEAN PLT VOLUME 8.5 fl (7.5-11.1); NEUTROPHILS 67.8 % (42.8-82.8); PLATELET COUNT 181 K/MM3 (134-434); RDW 17.4 % (11.6-15.6); WHITE BLOOD COUNT 4.4 K/mm3 (4.0-10.0)
[2016-10-29] MEDS: SODIUM CHLORIDE 1,000 ML IV SCH (11:25)
[2016-10-29 11:27] LABS: ALBUMIN 2.6 g/dl (3.4-5.0); ANION GAP 9 (8-16); BILIRUBIN,TOTAL 0.2 mg/dL (0.2-1.0); CALCIUM 8.6 mg/dL (8.5-10.1); CO2 26 mmol/L (21-32); CREATININE 0.7 mg/dL (0.55-1.02); GLUCOSE,RANDOM 165 mg/dL (74-106); SGOT/AST 18 U/L (15-37); SGPT/ALT 17 U/L (12-78); TOT PROT 6.5 g/dl (6.4-8.2)
[2016-10-29 11:28] LABS: ALK PHOS 78 U/L (45-117)
--- NOTE | 2016-10-29 12:11 | DS ---
Physical Examination Vital Signs: Vital Signs Temperature 98.1 F 10/29/16 06:33 Pulse Rate 67 10/29/16 06:33 Respiratory Rate 20 10/29/16 06:33 Blood Pressure 125/63 10/29/16 06:33 O2 Sat by Pulse Oximetry (%) 95 10/28/16 20:30 Cardiovascular: Yes: Regular Rate and Rhythm Respiratory: Yes: Regular, CTA Bilaterally Gastrointestinal: Yes: Normal Bowel Sounds, Soft. No: Tenderness Labs: CBC, BMP 10/29/16 10:30 10/29/16 10:30 Discharge Summary Reason For Visit: SEPSIS,UTI Current Active Problems Diabetes (Acute) Foot drop (Acute) Leg pain (Acute) Sepsis (Acute) UTI (urinary tract infection), bacterial (Acute) Hospital Course: History of Present Illness: 80-year-old female presents to the ED with complaints of fever, chills and generalized weakness since yesterday. Patient states today felt so weak and exhausted that she was unable to get up and told the home health aid to call her son to found her to be weak requiring medical evaluation. Patient denies headache, sore throat, chest pain, abdominal pain dysuria or diarrhea. 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 10/26/16 12:12 Blood - Peripheral Venous Blood Culture - Preliminary NO GROWTH OBTAINED AFTER 24 HOURS, INCUBATION TO CONTINUE FOR 4 DAYS. Code(s): A41.9 - SEPSIS, UNSPECIFIED ORGANISM Qualifiers: Sepsis type: sepsis due to unspecified organism Qualified Code(s): A41.9 - Sepsis, unspecified organism (2) UTI (urinary tract infection), bacterial Assessment/Plan: ABOVE Code(s): N39.0 - URINARY TRACT INFECTION, SITE NOT SPECIFIED A49.9 - BACTERIAL INFECTION, UNSPECIFIED (3) Osteoarthritis Assessment/Plan: [facility] Code(s): M19.90 - UNSPECIFIED OSTEOARTHRITIS, UNSPECIFIED SITE (4) Foot drop Assessment/Plan: PT XRAYS Code(s): M21.379 - FOOT DROP, UNSPECIFIED FOOT (5) Leg pain--FRACTURE Assessment/Plan: DUPLEX NEGATIVE URIC ACID XRAY FX--ORTHO CONSULT IMP: MEDIAL MAL FX LEFT ANKLE WITH CHRONIC FOOT DROP, S/P B TKR WITH INSTABILITY OF LEFT KNEE PLAN: AFO WHICH PATIENT ALREADY HAS IS SUFFICIENT FOR FX TREATMENT, KNEE BRACE TO AID IN AMBULATION, DC PLANNING LEG, UNSPECIFIED PT Code(s): M79.606 - PAIN IN (6) Diabetes Assessment/Plan: BGM A1C Code(s): E11.9 - TYPE 2 DIABETES MELLITUS WITHOUT COMPLICATIONS Condition: Improved - Instructions Referrals: Grabiel Coyne [Primary Care Provider] - Disposition: RETIREMENT FACILITY - Home Medications Comprehensive Discharge Medication List: Ambulatory Orders Aspirin [ASA -] 81 mg PO DAILY #30 tab.chew 09/09/13 Lisinopril [Prinivil] 5 mg PO DAILY #30 tablet 09/09/13 Acetaminophen [Tylenol] 650 mg PO Q4H PRN #20 tablet 08/04/16 Atorvastatin Ca [Lipitor] 20 mg PO HS 08/04/16 Gabapentin [Neurontin -] 500 mg PO HS tab 10/29/16 Heparin - 5,000 unit SQ BID vial 10/29/16 Levofloxacin [Levaquin -] 500 mg PO DAILY #4 tablet 10/29/16
[2016-10-29 14:07] VITALS: BP 127/69; PULSE 75; TEMP 98.2
[2016-10-29] MEDS ORDERED: PT OWN MED DRAWER 7, Y5N ONE (16:32)
== END 2016-10-29 17:55 | DRG 871 ==
LOC: JER 10:51 → JERBED 16:07 → J6S 21:46
PROVIDERS: ADMIT Family Medicine; ATTEND Family Medicine
DX: A41.9 Sepsis, unspecified organism (principal); G92 Toxic encephalopathy; N39.0 Urinary tract infection, site not specified; M21.372 Foot drop, left foot; I10 Essential (primary) hypertension; E78.5 Hyperlipidemia, unspecified; M19.90 Unspecified osteoarthritis, unspecified site; M79.606 Pain in leg, unspecified; E11.41 Type 2 diabetes mellitus with diabetic mononeuropathy; D72.829 Elevated white blood cell count, unspecified; R26.9 Unspecified abnormalities of gait and mobility; E66.9 Obesity, unspecified; Z68.36 Body mass index [BMI] 36.0-36.9, adult; S82.55XA Nondisplaced fracture of medial malleolus of left tibia, initial encounter for closed fracture; X58.XXXA Exposure to other specified factors, initial encounter; Y93.9 Activity, unspecified; Y92.89 Other specified places as the place of occurrence of the external cause; Y99.9 Unspecified external cause status
CPT/HCPCS: 36415; 71010-TC; 73610-TC-LT; 73630-TC-LT; 80053; 80061; 81003; 81015; 82550; 82803; 83036; 83605; 83721; 83880; 84443; 84484; 84550; 85025; 85027; 85610; 86850; 86900; 86901; 87040; 87086; 87186; 93005; 93010; 93970-TC; 95860-TC; 97161-GP; 99285-25; J1644

== ENCOUNTER 2018-05-10 18:04 | Inpatient (IN) | payer OTHER ==
--- NOTE | 2018-05-10 18:55 | PDOC ---
History of Present Illness - General Chief Complaint: SIRS, Suspected/Possible Stated Complaint: FALL Time Seen by Provider: 05/10/18 18:34 History Source: Patient Exam Limitations: No Limitations - History of Present Illness Initial Comments: 05/10/18 18:49 82YOF with h/o osteoarthritis with b/l knee replacement, left popliteal fossa pressure ulcer, left foot drop (wears brace), spinal stenosis, NIDDM, HTN, and HLD who p/w acute exacerbation of her chronic left knee pain after falling late last night at home. She notes having stood up from bed and trying to walk to her wheelchair when her left knee locked up on her and she fell onto her coccyx. She attempted to call her orthopedist today (Dr. Alonso at [facility]) but was unable to get through to have an appointment. She denies hitting her head, losing consciousness, neck pain, new back pain, etc. She has not taken medications for the pain today. She is feeling that she can no longer take proper care of herself at home with only [facility] (they leave her home at 7 pm). She stayed in her recliner all day today and ate nothing and took none of her medications, also urinated in her diaper and was not able to change it promptly. Past History - Past Medical History Allergies/Adverse Reactions: Allergies Allergy/AdvReac Type Severity Reaction Status Date / Time mushroom Allergy Severe Verified 05/10/18 18:21 Home Medications: Ambulatory Orders Lisinopril [Prinivil] 5 mg PO DAILY #30 tablet 09/09/13 Simvastatin 40 mg PO HS 05/10/18 Diclofenac Sodium [Voltaren] 100 gm TP BID 05/11/18 Gabapentin 300 mg PO HS 05/11/18 Hydrocodone/Acetaminophen [Hydrocodone-Acetamin 5-325 mg] 1 tab Q6H PRN Meloxicam 7.5 mg PO DAILY 05/11/18 metFORMIN HCL [Metformin HCl ER] 500 mg PO BID 05/11/18 COPD: No Diabetes: Yes (NIDDM) - Immunization History Immunization Up to Date: Yes - Suicide/Smoking/Psychosocial Hx Smoking History: Never smoked Have you smoked in the past 12 months: No Number of Cigarettes Smoked Daily: 0 Cigars Per Day: 0 Hx Alcohol Use: No Drug/Substance Use Hx: No Substance Use Type: Alcohol Review of Systems - Review of Systems Able to Perform ROS?: Yes Comments:: 05/10/18 20:12 GEN: malaise, generalized weakness, no fever, chills, or weight change HEENT: no ear pain, sore throat, vision change, or eye pain CV: no chest pain, palpitations, lightheadedness, syncope, or edema RESP: no cough, wheezing, or SOB GI: no abdominal pain, nausea, vomiting, diarrhea, constipation, or white/black/ bloody stool : no dysuria, hematuria, incontinence, retention, bleeding, or discharge MSK: left knee pain, no new amelia/back pain NEURO: no headache, seizure, vertigo, numbness, tingling, or focal weakness PSYCH: no substance use, no behavior change SKIN: no jaundice, no rash ROS otherwise negative except as noted in HPI *Physical Exam - Vital Signs Last Vital Signs Temp Pulse Resp BP Pulse Ox 101.5 F H 88 18 116/66 100 05/10/18 18:19 05/10/18 18:19 05/10/18 18:19 05/10/18 18:19 05/10/18 18:19 - Physical Exam Comments: GENERAL: pleasant, a bit anxious appearing, obese, A/Ox4, no distress, answers questions appropriately HEENT: PERRLA, EOMI, moist mucous membranes NECK/BACK: no midline ttp, no spinal stepoff or deformity, no hematoma, full ROM , neck supple CARDIOVASCULAR: regular rate/rhythm, normal S1S2, no MGR, strong peripheral pulses, capillary refill <2 seconds, extremities wwp, no edema LUNGS/RESPIRATORY: no respiratory distress, CTAB GI/ABDOMEN: symmetric [id number], normoactive BS, soft, no ttp, no midline pulsatile masses : no CVA tenderness EXTREMITIES: left medial knee joint line tenderness, no muscle atrophy, no acute deformity SKIN: left popliteal fossa with partial thickness pressure ulcer with nonmalodorous mild drainage without surrounding erythema, warm and dry, no pallor, no jaundice, no rash, no bruising, no skin breakdown, no cuts, no lesions NEUROLOGICAL: GCS 15, CN II-XII grossly intact, 5/5 strength, no facial droop Moderate Sedation - Procedure Monitoring Vital Signs: Procedure Monitoring Vital Signs Temperature 101.5 F H 05/10/18 18:19 Pulse Rate 88 05/10/18 18:19 Respiratory Rate 18 05/10/18 18:19 Blood Pressure 116/66 05/10/18 18:19 O2 Sat by Pulse Oximetry (%) 100 05/10/18 18:19 Heart Score/ECG Review #1 Sinus tachycardia, rate 102, normal axis and intervals, 2 PVCs, no ischemic ST- T changes ED Treatment Course - LABORATORY CBC & Chemistry Diagram: 05/19/18 07:00 05/18/18 06:40 Medical Decision Making - Medical Decision Making 05/10/18 18:55 Pt p/w knee pain and swelling. Initial Vital Signs Temp Pulse Resp BP Pulse Ox 101.5 F H 88 18 116/66 100 05/10/18 18:19 05/10/18 18:19 05/10/18 18:19 05/10/18 18:19 05/10/18 18:19 Exam: As noted in Physical Exam section. DDX IBNLT: effusion (e.g. 2/2 osteoarthritis, overuse), gout, pseudogout, prepatellar bursitis, septic arthritis, hemarthrosis, edema (e.g. from CHF exacerbation or PVD), gonorrhea, necrotizing soft tissue infection, DVT, superficial venous thrombosis, popliteal cyst (wwo rupture), etc. W/U ordered: Labs as noted below, knee XR, CXR, UA. TX ordered: IVF, Ofirmev EKG: Reviewed; results as noted in ECG Review section. RAD/KNEE 3 POS-LEFT Left knee: Pain. 2 views of the left knee reveal a knee replacement with a possible subluxation at the knee joint. Is no sign of a fracture. Blastic or lytic changes are not seen. There is no sign of loosening. Correlation recommended. If symptoms persist, orthopedic consultation suggested Reported By: Rick Israel MD 05/11/18 0837 Left knee: Pain. 2 views of the left knee reveal a knee replacement with a possible subluxation at the knee joint. Is no sign of a fracture. Blastic or lytic changes are not seen. There is no sign of loosening. Correlation recommended. If symptoms persist, orthopedic consultation suggested CXR: Nothing acute. Laboratory Tests 05/10/18 05/10/18 05/10/18 20:52 20:52 20:52 WBC 13.1 H RBC 3.51 L Hgb 10.1 L Hct 29.9 L MCV 85.2 MCH 28.9 MCHC 33.9 RDW 15.2 D Plt Count 280 D MPV 8.6 Absolute Neuts (auto) 11.3 H Neutrophils % 86.3 H D Lymphocytes % 6.5 L D Monocytes % 7.0 Eosinophils % 0.0 D Basophils % 0.2 Nucleated RBC % 0 Sodium 136 Potassium 3.9 Chloride 104 Carbon Dioxide 21 Anion Gap 11 BUN 17 Creatinine 0.8 Creat Clearance w eGFR > 60 Random Glucose 160 H Calcium 8.9 Magnesium 2.1 Total Bilirubin 0.5 AST 55 H ALT 22 Alkaline Phosphatase 142 H Creatine Kinase > 1000 H Creatine Kinase Index 0.0 CK-MB (CK-2) 9.1 H Total Protein 7.6 Albumin 3.1 L Urine Color Urine Appearance Urine pH Ur Specific Prosperity Urine Protein Urine Glucose (UA) Urine Ketones Urine Blood Urine Nitrite Urine Bilirubin Urine Urobilinogen Ur Leukocyte Esterase Urine WBC (Auto) Urine RBC (Auto) Urine Bacteria Urine Mucus 05/10/18 21:54 WBC RBC Hgb Hct MCV MCH MCHC RDW Plt Count MPV Absolute Neuts (auto) Neutrophils % Lymphocytes % Monocytes % Eosinophils % Basophils % Nucleated RBC % Sodium Potassium Chloride Carbon Dioxide Anion Gap BUN Creatinine Creat Clearance w eGFR Random Glucose Calcium Magnesium Total Bilirubin AST ALT Alkaline Phosphatase Creatine Kinase Creatine Kinase Index CK-MB (CK-2) Total Protein Albumin Urine Color Carla Urine Appearance Cloudy Urine pH 7.0 Ur Specific Prosperity 1.015 Urine Protein 2+ H Urine Glucose (UA) Negative Urine Ketones 1+ H Urine Blood 2+ H Urine Nitrite Negative Urine Bilirubin Negative Urine Urobilinogen Negative Ur Leukocyte Esterase Negative Urine WBC (Auto) 54 Urine RBC (Auto) 3 Urine Bacteria Many Urine Mucus Many I have added on orders for ceftriaxone IV. 05/10/18 22:26 The Pt is unsafe for discharge at this time. They require further hospital observation, workup, and treatment. Microblog sent to [facility] for admission. Blank Decision to Admit order is placed per ED protocol to Dr. Maier. Spoke with admitting team special service representative, in agreement Pt to be admitted. 05/20/18 20:20 *DC/Admit/Observation/Transfer Diagnosis at time of Disposition: Osteoarthritis Qualifiers: Osteoarthritis location: knee Osteoarthritis type: unspecified Laterality: bilateral Qualified Code(s): M17.0 - Bilateral primary osteoarthritis of knee Fall Qualifiers: Encounter type: initial encounter Qualified Code(s): W19.XXXA - Unspecified fall, initial encounter Failure to thrive Qualifiers: Failure to thrive age range: in adult Qualified Code(s): R62.7 - Adult failure to thrive UTI (urinary tract infection) Qualifiers: Urinary tract infection type: acute cystitis Hematuria presence: without hematuria Qualified Code(s): N30.00 - Acute cystitis without hematuria Rhabdomyolysis Qualifiers: Rhabdomyolysis type: non-traumatic Qualified Code(s): M62.82 - Rhabdomyolysis - Discharge Dispostion Condition at time of disposition: Guarded Decision to Admit order: Yes - Referrals - Patient Instructions - Post Discharge Activity
--- NOTE | 2018-05-10 18:57 | PDOC ---
Attending Attestation - HPI HPI: 05/10/18 20:59 The patient is a 82 year old female, with a significant past medical history of osteoarthritis s/p bilateral knee replacements, LLE brace for L foot drop, who presents to the emergency department with complaint of left knee pain and fever today s/p mechanical fall yesterday while transitioning from recliner to walker. She states her left leg gave out and landed on her buttock. She states she was unable to get up unassisted and her son and neighbor came to assist her up. She states she slept in the recliner all night. She states she called the office of Dr. Jamil in attempt to make an appointment, however, the office was closed. NKDA - Physicial Exam PE: 05/10/18 21:02 Constitutional: Awake, alert, oriented. No acute distress. Head: Normocephalic. Atraumatic Eyes: PERRL. EOMI. Conjunctivae are not pale. ENT: Mucous membranes are moist and intact. Posterior pharynx without exudates or erythema. Uvula midline. Neck: Supple. Full ROM. No lymphadenopathy. Cardiovascular: Regular rate. Regular rhythm. S1, S2 regular. Distal pulses are 2+ and symmetric. Pulmonary/Chest: No evidence of respiratory distress. Clear to auscultation bilaterally No wheezing, rales or rhonchi. Abdominal: Soft and non-distended. There is no tenderness. No rebound, guarding or rigidity. No organomegaly. No palpable masses. Good bowel sounds. Back: No CVA tenderness. Musculoskeletal: (+) Pain with both passive and active ROM of left knee LLE brace present. Pt is able to move right LE but ROM is limited secondary to her OA. No edema. No cyanosis. No clubbing. upper extremities have Full range of motion. Nocalf tenderness. Radial/pedal pulses are intact and 2+ bilaterally Skin: (+) Pressure ulcer wound to posterior aspect of left knee. No increase in size. No discharge. Skin is warm and dry. No petechiae. No purpura. Neurological: Alert and oriented to person, place, and time. Cranial nerves II -XII are grossly intact. Normal speech. Strength is grossly symmetric. No sensory deficits. Psychiatric: Good eye contact. Normal interaction, affect and behavior. - Medical Decision Making 05/10/18 21:03 Documentation prepared by Araceli Muñoz, acting as medical clerk for Teresa Perez DO <Araceli Muñoz - Last Filed: 05/10/18 20:59> - Resident Resident Name: Kita Rice - ED Attending Attestation I have performed the following: I have examined & evaluated the patient, The case was reviewed & discussed with the resident, I agree w/resident's findings & plan, Exceptions are as noted - Medical Decision Making 05/10/18 18:57 I, Dr. Teresa Perez, DO, attest that this document has been prepared under my direction and personally reviewed by me in its entirety. I further attest, that it accurately reflects all work, treatment, procedures and medical decision -making performed by me. 05/10/18 19:35 a/p: 82yo female with mechanical fall last night -pt with fever today -sat in her recliner all day -pt wears a diaper -no dysuria, but concern for uti -L knee pain from the fall -bedsore to the posterior aspect of the knee -fever today -will send labs, straight cath for urine -ucx -will obtain xrays -will monitor and reassess 05/10/18 21:36 pt with wbc of 13 no acute findings on xray knee- knee replacement cxr clear 05/10/18 22:01 elevated CK - concern for mild rhabdo pending ua 05/10/18 22:39 pt with mild rhabdo and uti will start abx for uti discussed the case with SYMPH[facility] - Dr. Rebolledo who accepts pt to service <Teresa Perez - Last Filed: 05/10/18 22:40>
[2018-05-10] MEDS ORDERED: ACETAMINOPHEN 1000 MG/100 ML VIAL (NON FORMULARY) IVPB ONE (18:59)
[2018-05-10] MEDS ORDERED: SODIUM CHLORIDE 0.9% 500 ML INFUS.BAG IV ONE (18:59)
[2018-05-10] MEDS ORDERED: ACETAMINOPHEN INJECTION 100 ML IVPB ONE (20:02)
[2018-05-10 21:00] LABS: BASO % 0.2 % (0-2.0); HEMATOCRIT 29.9 % (32.4-45.2); HEMOGLOBIN 10.1 GM/dL (10.7-15.3); LYMPH % 6.5 % (8-40); MCH 28.9 pg (25.7-33.7); MCHC 33.9 g/dl (32.0-36.0); MEAN CELL VOLUME 85.2 fl (80-96); MEAN PLT VOLUME 8.6 fl (7.5-11.1); NEUT % 86.3 % (42.8-82.8); PLATELET COUNT 280 K/MM3 (134-434); RBC 3.51 M/mm3 (3.60-5.2); RDW 15.2 % (11.6-15.6); WHITE BLOOD COUNT 13.1 K/mm3 (4.0-10.0)
[2018-05-10 21:22] LABS: ALBUMIN 3.1 g/dl (3.4-5.0); ALK PHOS 142 U/L (45-117); ANION GAP 11 MMOL/L (8-16); BILIRUBIN,TOTAL 0.5 mg/dL (0.2-1); BLOOD UREA NITROGEN 17 mg/dL (7-18); CALCIUM 8.9 mg/dL (8.5-10.1); CHLORIDE 104 mmol/L (98-107); CO2 21 mmol/L (21-32); CREATININE 0.8 mg/dL (0.55-1.3); GLUCOSE,RANDOM 160 mg/dL (74-106); MAGNESIUM 2.1 mg/dL (1.8-2.4); POTASSIUM 3.9 mmol/L (3.5-5.1); SGOT/AST 55 U/L (15-37); SGPT/ALT 22 U/L (13-61); SODIUM 136 mmol/L (136-145); TOT PROT 7.6 g/dl (6.4-8.2)
[2018-05-10 22:02] LABS: URINE APPEARANCE CLOUDY; URINE BILIRUBIN NEGATIVE (<2.0 mg/dL); URINE COLOR AMBER; URINE GLUCOSE (UA) NEGATIVE (NEGATIVE); URINE KETONE 1+ (NEGATIVE); URINE LEUK ESTERASE NEGATIVE (NEGATIVE); URINE NITRITE NEGATIVE (NEGATIVE); URINE PROTEIN 2+ (NEGATIVE); URINE UROBILINOGEN NEGATIVE mg/dL (0.2-1.0)
[2018-05-10 22:06] LABS: URINE BACTERIA MANY /hpf (NONE SEEN); URINE MUCUS MANY
[2018-05-10] MEDS ORDERED: CEFTRIAXONE 1 GM in DEXTROSE 5%-WATER - 100 ML IVPB ONE (22:24)
--- NOTE | 2018-05-11 00:08 | PN ---
Teaching Attending Note Name of Resident: Rick Rebolledo ATTENDING PHYSICIAN STATEMENT I saw and evaluated the patient. I reviewed the resident's note and discussed the case with the resident. I agree with the resident's findings and plan as documented. SUBJECTIVE: Patient is an 82 year old woman with PMH of osteoarthritis with bilateral knee replacement, left popliteal fossa pressure ulcer, left foot drop (wears brace), spinal stenosis, NIDDM, HTN, and HLD who presents with acute exacerbation of her chronic left knee pain after falling late last night at home. She notes having stood up from bed and trying to walk to her wheelchair when her left knee locked up on her and she fell onto her coccyx. She attempted to call her orthopedist today (Dr. Alonso at [facility]) but was unable to get through to have an appointment. She denies hitting her head, losing consciousness, neck pain, new back pain, etc. She has not taken medications for the pain today. She is feeling that she can no longer take proper care of herself at home with only [facility] (they leave her home at 7 pm). She stayed in her recliner all day today and ate nothing and took none of her medications, also urinated in her diaper and was not able to change it promptly. OBJECTIVE: Alert Vital Signs Period Temp Pulse Resp BP Sys/Jaimes Pulse Ox Last 24 Hr 101.5 F 88 18 116/66 100 HEENT: No Jaundice, eye redness or discharge, PERRLA, EOMI. Normocephalic, atraumatic. External ears are normal and hearing is grossly intact. No nasal discharge. Neck: Supple, nontender. No palpable adenopathy or thyromegaly. No JVD Chest: Good effort. Clear to auscultation and percussion. Heart: Regular. No S3, rub or murmur Abdomen: Not distended, soft, nontender and no HSM. No rebound or guarding. Normoactive bowel sounds. Ext: Peripheral pulses intact. Left leg brace with orthopedic shoes; has pain on movement of left leg; deep stage 4 -tunneled ulcer in left popliteal fossa with pus drainage. No leg edema. Skin: Warm and dry. No petechiae, rash or ecchymosis. Neuro: Alert. Oriented x3. CN 2-12 grossly intact. Sensation grossly intact in all four extremities and DTR are symmetric. Home Medications Medication Instructions Recorded Aspirin [ASA -] 81 mg PO DAILY #30 tab.chew 09/09/13 Lisinopril [Prinivil] 5 mg PO DAILY #30 tablet 09/09/13 Acetaminophen [Tylenol] 650 mg PO Q4H PRN #20 tablet 08/04/16 Atorvastatin Ca [Lipitor] 20 mg PO HS 08/04/16 Gabapentin [Neurontin -] 500 mg PO HS tab 10/29/16 Simvastatin 40 mg PO HS 05/10/18 Abnormal Lab Results 05/10/18 05/10/18 05/10/18 20:52 20:52 20:52 WBC 13.1 H RBC 3.51 L Hgb 10.1 L Hct 29.9 L Absolute Neuts (auto) 11.3 H Neutrophils % 86.3 H D Lymphocytes % 6.5 L D Random Glucose 160 H AST 55 H Alkaline Phosphatase 142 H Creatine Kinase > 1000 H CK-MB (CK-2) 9.1 H Albumin 3.1 L Urine Protein Urine Ketones Urine Blood 05/10/18 21:54 WBC RBC Hgb Hct Absolute Neuts (auto) Neutrophils % Lymphocytes % Random Glucose AST Alkaline Phosphatase Creatine Kinase CK-MB (CK-2) Albumin Urine Protein 2+ H Urine Ketones 1+ H Urine Blood 2+ H ASSESSMENT AND PLAN: 1. Fall/UTI/Infected left popliteal ulcer - Most likely a mechanical fall due to her impaired mobility and chronic knee problems. No evidence of fracture on xray. While the fall may be the cause of rhabdomyolysis, she is also taking two statin drugs - artorvastatin and simvastatin - which may be contributing to rhabdomyolysis. Will stop simvastatin. Has dysuria and pyuria, but negative leukocyte esterase - will treat with Rocephin. Her left popliteal ulcer which was initially caused and exacerbated by her knee brace looks terrible, because she does the dressing herself at home and is not compliant with PCP/Wound center? visits. Furthermore she is unable to stand or rollover for a caregiver to have proper access to the back of her leg. Wound culture sent. Needs PRN analgesic so she can rollover/move the leg, to permit proper care of the wound. Started on vancomycin. Consult wound care and PT. 2. Hypoalbuminemia - Possibly due to combined effects of malnutrition and inflammation associated with comorbid chronic conditions. Will ensure adequate dietary protein intake and also consult researcher. 3. DM - For now, we will hold the home diabetes drugs and implement sliding scale insulin regimen. Provide comprehensive diabetes care with patient teaching and counseling about the importance of euglycemia, eye care and foot care. 4. Obesity - Her documented weight and BMI (68 Kg and 24.2) are incorrect. Will rectify once a bed scale is available. Will provide patient all the necessary assistance, counseling and positive reinforcement to facilitate weight loss. Consult researcher. 4. DVT prophylaxis - Lovenox 40 mg SQ q 24 hours. 5. Advance directives - Full code
--- NOTE | 2018-05-11 00:10 | HP ---
CHIEF COMPLAINT: PCP: dioni HISTORY OF PRESENT ILLNESS: 82 yo F PMH of osteoarthritis with b/l knee replacement, left popliteal fossa pressure ulcer, left foot drop (wears brace), spinal stenosis, NIDDM, HTN, and HLD p/w acute exacerbation of her chronic left knee pain s/p mechanical fall at home. She notes having stood up from bed and trying to walk to her wheelchair when her left knee locked up on her and she fell onto her coccyx. She called her son who helped her get to her chair. However over the next day or so she was unable to get up to ambulate. She stayed in her recliner all day today and ate nothing and took none of her medications, also urinated in her diaper and was not able to change it promptly. She attempted to call her orthopedist today (Dr. Alonso at [facility]) but was unable to get through to have an appointment. She denies lightheadedness prior to fall, hitting her head, LOC, neck pain, new back pain, etc. She has not taken medications for the pain today. She is feeling that she can no longer take proper care of herself at home with only motor vehicle parts interpreter home health (they leave her home at 7 pm). Denies fevers, chills, cp, sob, n/v/d, MICHEL Of note she has noticed some dysuria for past few days Of note says she takes both Lipitor and simvastatin Of note, has noticed more drainainge from left popliteal fossa pressure ulcer. Ulcer which was initially caused and exacerbated by her knee brace has worsened , because she does the dressing herself at home and is not compliant with PCP/ Wound center visits. Furthermore she is unable to stand or rollover for a caregiver to have proper access to the back of her leg. ER course was notable for: (1) 1 L NS, tylenol, CTX (2) UA - wbc 54, many bacteria. CK>1000 (3) Recent Travel: PAST MEDICAL HISTORY: per hpi PAST SURGICAL HISTORY: per hpi Social History: Smoking: denies Alcohol:denies Drugs: denies Family History: Allergies mushroom Allergy (Severe, Verified 05/10/18 18:21) HOME MEDICATIONS: Home Medications Medication Instructions Recorded Aspirin [ASA -] 81 mg PO DAILY #30 tab.chew 09/09/13 Lisinopril [Prinivil] 5 mg PO DAILY #30 tablet 09/09/13 Acetaminophen [Tylenol] 650 mg PO Q4H PRN #20 tablet 08/04/16 Atorvastatin Ca [Lipitor] 20 mg PO HS 08/04/16 Gabapentin [Neurontin -] 500 mg PO HS tab 10/29/16 Simvastatin 40 mg PO HS 05/10/18 REVIEW OF SYSTEMS as per hpi PHYSICAL EXAMINATION Vital Signs - 24 hr 05/10/18 05/10/18 05/11/18 18:19 22:40 00:08 Temperature 101.5 F H 100.1 F H Pulse Rate 88 Pulse Rate [ 86 Right Radial] Respiratory 18 16 Rate Blood Pressure 116/66 Blood Pressure 110/64 [Left Arm] O2 Sat by Pulse 100 98 Oximetry (%) GENERAL: AOX3 mild distress HEAD: NCAT EYES: Pupils equal, round and reactive to light, extraocular movements intact, sclera anicteric, conjunctiva clear. No lid lag. EARS, NOSE, THROAT: nares patent, oropharynx clear without exudates. MMM NECK: Normal range of motion, supple without lymphadenopathy, JVD, or masses. LUNGS: CTAB HEART: RRR, normal S1 and S2 without m/R/G ABDOMEN: Soft, NTND, normoactive bowel sounds, no guarding, no rebound, no masses. MUSCULOSKELETAL: Normal range of motion at all joints. No bony deformities or tenderness. UPPER EXTREMITIES: 2+ pulses, warm, well-perfused. No cyanosis. No clubbing. No peripheral edema. LOWER EXTREMITIES: 2+ pulses, warm, well-perfused. No calf tenderness. No peripheral edema. Left leg brace with orthopedic shoes; has pain on movement of left leg; deep stage 4 -tunneled ulcer in left popliteal fossa with pus drainage. NEUROLOGICAL: Cranial nerves II-XII intact. Normal speech. PSYCHIATRIC: Cooperative. Good eye contact. Appropriate mood and affect. SKIN: Warm, dry, normal turgor, no rashes or lesions noted, normal capillary refill. Laboratory Results - last 24 hr 05/10/18 05/10/18 05/10/18 20:52 20:52 20:52 WBC 13.1 H RBC 3.51 L Hgb 10.1 L Hct 29.9 L MCV 85.2 MCH 28.9 MCHC 33.9 RDW 15.2 D Plt Count 280 D MPV 8.6 Absolute Neuts (auto) 11.3 H Neutrophils % 86.3 H D Lymphocytes % 6.5 L D Monocytes % 7.0 Eosinophils % 0.0 D Basophils % 0.2 Nucleated RBC % 0 Sodium 136 Potassium 3.9 Chloride 104 Carbon Dioxide 21 Anion Gap 11 BUN 17 Creatinine 0.8 Creat Clearance w eGFR > 60 Random Glucose 160 H Calcium 8.9 Magnesium 2.1 Total Bilirubin 0.5 AST 55 H ALT 22 Alkaline Phosphatase 142 H Creatine Kinase > 1000 H Creatine Kinase Index 0.0 CK-MB (CK-2) 9.1 H Total Protein 7.6 Albumin 3.1 L Urine Color Urine Appearance Urine pH Ur Specific [place] Urine Protein Urine Glucose (UA) Urine Ketones Urine Blood Urine Nitrite Urine Bilirubin Urine Urobilinogen Ur Leukocyte Esterase Urine WBC (Auto) Urine RBC (Auto) Urine Bacteria Urine Mucus 05/10/18 21:54 WBC RBC Hgb Hct MCV MCH MCHC RDW Plt Count MPV Absolute Neuts (auto) Neutrophils % Lymphocytes % Monocytes % Eosinophils % Basophils % Nucleated RBC % Sodium Potassium Chloride Carbon Dioxide Anion Gap BUN Creatinine Creat Clearance w eGFR Random Glucose Calcium Magnesium Total Bilirubin AST ALT Alkaline Phosphatase Creatine Kinase Creatine Kinase Index CK-MB (CK-2) Total Protein Albumin Urine Color Carla Urine Appearance Cloudy Urine pH 7.0 Ur Specific [place] 1.015 Urine Protein 2+ H Urine Glucose (UA) Negative Urine Ketones 1+ H Urine Blood 2+ H Urine Nitrite Negative Urine Bilirubin Negative Urine Urobilinogen Negative Ur Leukocyte Esterase Negative Urine WBC (Auto) 54 Urine RBC (Auto) 3 Urine Bacteria Many Urine Mucus Many ASSESSMENT/PLAN: 82 yo F PMH of osteoarthritis with b/l knee replacement, left popliteal fossa pressure ulcer, left foot drop (wears brace), spinal stenosis, NIDDM, HTN, and HLD p/w acute exacerbation of her chronic left knee pain s/p mechanical fall at home. Sepsis 2/2 UTI and DM left popliteal ulcer - fevers, leukocytosis, dysuria and UA w/ pyuria, but negative leukocyte esterase. ulcer in left popliteal fossa with pus drainage and poor wound care s/p 1 L NS, tylenol, CTX in ED ID consult vanc/CTX wound care consult NS 75cc Wound culture sent. f/u ucx pain ctl so she can rollover/move the leg, to permit proper care of the wound Mechanical Fall - impaired mobility of L knee on chronic knee problems. No evidence of fracture on xray. pain ctl - IV morphine 2mg q4h prn/tylenol PT eval consider ortho consult Rhabdomyolysis - CK >1000s. May be 2/2 fall, however she is also taking two statin drugs - artorvastatin and simvastatin - which may be contributing to rhabdomyolysis. Will stop simvastatin. IVF trend CK monitor Cr DM - BGM ACHS ISS Hold home PO meds neurontin home dose HTN hold lisinopril in setting of low BP and sepsis and rhabdo as anticipate NINI Obesity - Her documented weight and BMI (68 Kg and 24.2) are incorrect. Will rectify once a bed scale is available. c/w ASA FEN NS 75cc replete prn DM, low salt, low choles diet DVT prophylaxis - Lovenox 40 mg SQ q 24 hours. Full code Dispo med surg Visit type - Emergency Visit Emergency Visit: Yes ED Registration Date: 05/10/18 Care time: The patient presented to the Emergency Department on the above date and was hospitalized for further evaluation of their emergent condition. - New Patient This patient is new to me today: Yes Date on this admission: 05/11/18 - Critical Care Critical Care patient: No
[2018-05-11] MEDS ORDERED: CEFTRIAXONE 1 GM/50 ML BAG ONE (00:34)
[2018-05-11] MEDS ORDERED: MORPHINE SULFATE 2 MG/ML VIAL IVPUSH ONE (00:55)
[2018-05-11] MEDS ORDERED: MORPHINE SULFATE 2 MG/ML VIAL ONE (01:04)
[2018-05-11] MEDS ORDERED: MORPHINE SULFATE 2 MG/ML VIAL IVPUSH PRN (01:21)
[2018-05-11] MEDS ORDERED: LACTATED RINGERS SOLUTION 1,000 ML IV SCH (01:30)
[2018-05-11] MEDS ORDERED: VANCOMYCIN 1 GRAM (PRE-DOCKED) 1,000 MG/250 ML BAG IVPB ONE ×2 (02:15→02:34)
[2018-05-11] MEDS: SODIUM CHLORIDE 1,000 ML IV SCH (02:55)
[2018-05-11] MEDS: INSULIN SLIDING SCALE (NOVOLOG) 1 VIAL SQ SCH ×4 (06:57→21:32)
--- NOTE | 2018-05-11 07:56 | PN ---
Physical Exam: SUBJECTIVE: Patient seen and examined this AM. She is complaining of pain in her knees, specifically the wound in her left posterior leg. OBJECTIVE: Vital Signs Period Temp Pulse Resp BP Sys/Jaimes Pulse Ox Last 24 Hr 97.6 F-101.5 F 86-107 16-18 97-120/52-66 98-100 GENERAL: A&O, no acute distress, morbidly obese HEAD: Normocephalic, atraumatic. EYES: PERRL, no scleral icterus EARS, NOSE, THROAT: oropharynx clear without exudates. Moist mucous membranes. NECK: supple without lymphadenopathy LUNGS: CTA b/l, no crackles or wheezes HEART: Regular rate and rhythm, normal S1 and S2 without murmur ABDOMEN: Soft, nontender to palpation, normoactive bowel sounds MUSCULOSKELETAL: No bony deformities or tenderness. EXTREMITIES: 2+ pulses, warm, well-perfused. No peripheral edema. Left posterior 3x3 cm ulceration with some tracking 2 or 3 cm deep NEUROLOGICAL: Cranial nerves II-XII grossly intact. Normal speech. Laboratory Results - last 24 hr 05/10/18 05/10/18 05/10/18 20:52 20:52 20:52 WBC 13.1 H RBC 3.51 L Hgb 10.1 L Hct 29.9 L MCV 85.2 MCH 28.9 MCHC 33.9 RDW 15.2 D Plt Count 280 D MPV 8.6 Absolute Neuts (auto) 11.3 H Neutrophils % 86.3 H D Lymphocytes % 6.5 L D Monocytes % 7.0 Eosinophils % 0.0 D Basophils % 0.2 Nucleated RBC % 0 Sodium 136 Potassium 3.9 Chloride 104 Carbon Dioxide 21 Anion Gap 11 BUN 17 Creatinine 0.8 Creat Clearance w eGFR > 60 Random Glucose 160 H Calcium 8.9 Magnesium 2.1 Total Bilirubin 0.5 AST 55 H ALT 22 Alkaline Phosphatase 142 H Creatine Kinase > 1000 H Creatine Kinase Index 0.0 CK-MB (CK-2) 9.1 H Total Protein 7.6 Albumin 3.1 L Urine Color Urine Appearance Urine pH Ur Specific [place] Urine Protein Urine Glucose (UA) Urine Ketones Urine Blood Urine Nitrite Urine Bilirubin Urine Urobilinogen Ur Leukocyte Esterase Urine WBC (Auto) Urine RBC (Auto) Urine Bacteria Urine Mucus 05/10/18 21:54 WBC RBC Hgb Hct MCV MCH MCHC RDW Plt Count MPV Absolute Neuts (auto) Neutrophils % Lymphocytes % Monocytes % Eosinophils % Basophils % Nucleated RBC % Sodium Potassium Chloride Carbon Dioxide Anion Gap BUN Creatinine Creat Clearance w eGFR Random Glucose Calcium Magnesium Total Bilirubin AST ALT Alkaline Phosphatase Creatine Kinase Creatine Kinase Index CK-MB (CK-2) Total Protein Albumin Urine Color Carla Urine Appearance Cloudy Urine pH 7.0 Ur Specific [place] 1.015 Urine Protein 2+ H Urine Glucose (UA) Negative Urine Ketones 1+ H Urine Blood 2+ H Urine Nitrite Negative Urine Bilirubin Negative Urine Urobilinogen Negative Ur Leukocyte Esterase Negative Urine WBC (Auto) 54 Urine RBC (Auto) 3 Urine Bacteria Many Urine Mucus Many Active Medications Generic Name Dose Route Start Last Admin Trade Name Freq PRN Reason Stop Dose Admin Acetaminophen 650 mg 05/11/18 01:21 Tylenol - PO Q4H PRN PAIN LEVEL 6-10 Aspirin 81 mg 05/11/18 10:00 Asa - PO DAILY EMY Enoxaparin Sodium 40 mg 05/11/18 10:00 Lovenox - SQ DAILY EMY Gabapentin 400 mg/ Gabapentin 500 mg 05/11/18 22:00 100 mg PO HS EMY Vancomycin HCl 1,000 mg in 250 mls @ 200 mls/hr 05/11/18 22:00 Vancomycin (Pre-Docked) IVPB Q24H EMY Protocol Ceftriaxone Sodium 1 gm/ 50 mls @ 100 mls/hr 05/11/18 22:00 Dextrose IVPB 05/11/18 22:29 ONCE ONE Sodium Chloride 1,000 mls @ 75 mls/hr 05/11/18 02:00 05/11/18 02:55 Normal Saline - IV 75 mls/hr ASDIR EMY Administration Insulin Aspart 1 vial 05/11/18 07:00 05/11/18 06:57 Novolog Vial Sliding Scale - SQ 2 units ACHS EMY Administration Protocol Morphine Sulfate 2 mg 05/11/18 01:21 Morphine Sulfate IVPUSH Q4H PRN PAIN LEVEL 7 - 10 ASSESSMENT/PLAN: 82 yo F PMH of osteoarthritis with b/l knee replacement, left popliteal fossa pressure ulcer, left foot drop (wears brace), spinal stenosis, NIDDM, HTN, and HLD admitted with acute exacerbation of her chronic left knee pain s/p mechanical fall at home, found to likely have rhabdo Sepsis secondary to Left Popliteal Wound vs UTI -Febrile to 102 today with WBC count 13 on admission -UA with 2+ blood and 54 WBCs, pt with clinical symptoms of UTI, dysuria/ frequency -Left popliteal wound with worsening of her chronic knee pain, wound with purulent drainage noted on gauze -Wound Care consult appreciated -Ortho consult placed due to depth of wound with worsening of chronic knee pain and distant history of total knee replacement -Ceftriaxone/Vancomycin -ID consult appreciated Fall with possible Rhabdo -Elevated CK > 1000, repeat 3600 -Pt did not spend more than 30 minutes on the ground -NS @ 75 cc/hr -Trend BMP to monitor renal function -Pt claims to take atorvastatin AND simvastatin at home, pharmacy only verifies simvastatin NIDDM -Gabapentin 300 mg PO HS HTN -Lisinopril 5 mg PO Daily HLD -Simvastatin 40 mg PO HS DVT Prophylaxis -Lovenox 40 mg SQ Daily FEN -Fluids: NS @ 75 cc/hr -Electrolytes: No electrolyte abnormalities, BMP in AM -Nutrition: Na controlled, diabetic diet Disposition Med/Surg Visit type - Emergency Visit Emergency Visit: Yes ED Registration Date: 05/10/18 Care time: The patient presented to the Emergency Department on the above date and was hospitalized for further evaluation of their emergent condition. - New Patient This patient is new to me today: No - Critical Care Critical Care patient: No
[2018-05-11 08:10] LABS: BASO % 0.2 % (0-2.0); EOS % 0.1 % (0-4.5); HEMATOCRIT 31.4 % (32.4-45.2); HEMOGLOBIN 9.9 GM/dL (10.7-15.3); LYMPH % 11.2 % (8-40); MCH 27.4 pg (25.7-33.7); MCHC 31.6 g/dl (32.0-36.0); MEAN CELL VOLUME 86.8 fl (80-96); MEAN PLT VOLUME 8.7 fl (7.5-11.1); MONO % 4.6 % (3.8-10.2); NEUT % 83.9 % (42.8-82.8); PLATELET COUNT 279 K/MM3 (134-434); RBC 3.62 M/mm3 (3.60-5.2); RDW 15.4 % (11.6-15.6); WHITE BLOOD COUNT 9.5 K/mm3 (4.0-10.0)
[2018-05-11 08:23] LABS: INR 1.39 (0.83-1.09); PROTHROMBIN TIME (PATIENT) 16.4 SEC (9.7-13.0)
[2018-05-11 08:25] LABS: ACTIVATED PTT 27.9 SECONDS (25.2-36.5)
[2018-05-11] MEDS: ACETAMINOPHEN 325 MG TABLET (FP) PO PRN ×2 (08:34→18:59)
--- NOTE | 2018-05-11 09:31 | EKG ---
Test Reason : Blood Pressure : / mmHG Vent. Rate : 102 BPM Atrial Rate : 102 BPM P-R Int : 000 ms QRS Dur : 084 ms QT Int : 340 ms P-R-T Axes : 000 059 056 degrees QTc Int : 443 ms SINUS TACHYCARDIA WITH OCCASIONAL PREMATURE VENTRICULAR COMPLEXES OTHERWISE NORMAL ECG WHEN COMPARED WITH ECG OF 26-OCT-2016 11:06, PREMATURE VENTRICULAR COMPLEXES ARE NOW PRESENT NONSPECIFIC T WAVE ABNORMALITY NO LONGER EVIDENT IN INFERIOR LEADS Confirmed by FRANKI ZARATE, KEE ([id number]) on 05/11/2018 9:30:46 AM Referred By: Confirmed By:KEE DOAN MD
[2018-05-11 11:13] LABS: CO2 24 mmol/L (21-32); CREATININE 0.8 mg/dL (0.55-1.3)
[2018-05-11] MEDS: ENOXAPARIN NA (PORCINE) 40 MG/0.4 ML DISP.SYRIN SQ SCH (11:13)
[2018-05-11 11:14] LABS: ALBUMIN 2.8 g/dl (3.4-5.0)
[2018-05-11] MEDS: ASPIRIN 81 MG CHEWABLE TABLETS PO SCH (11:14)
[2018-05-11 11:16] LABS: ALK PHOS 132 U/L (45-117); ANION GAP 10 MMOL/L (8-16); BILIRUBIN,TOTAL 0.5 mg/dL (0.2-1); BLOOD UREA NITROGEN 17 mg/dL (7-18); CALCIUM 8.7 mg/dL (8.5-10.1); CHLORIDE 102 mmol/L (98-107); GLUCOSE,RANDOM 140 mg/dL (74-106); MAGNESIUM 2.1 mg/dL (1.8-2.4); POTASSIUM 3.6 mmol/L (3.5-5.1); SGOT/AST 103 U/L (15-37); SGPT/ALT 30 U/L (13-61); SODIUM 136 mmol/L (136-145); TOT PROT 7.3 g/dl (6.4-8.2)
--- NOTE | 2018-05-11 12:18 | PN ---
Progress Note (short form) - Note Progress Note: ID CONSULT DICTATED FEVER R/O SEPSIS ? SOURCE ? SKIN NON HEALING LE ULCER ?RHABDO PENDING SEPSIS WORKUP EMPIRIC CEFTRIAXONE/ VANCOMYCIN
--- NOTE | 2018-05-11 12:38 | CONSULT ---
- Consultation REQUESTING PROVIDER: CONSULT REQUEST: We have been asked to surgically evaluate this patient for ( Left posterior popliteal ulcer). PCP:Lai Lomas MD HISTORY OF PRESENT ILLNESS: 82 y/o F w/ PMHx OA, h/o left foot drop (wears brace) after a fall in 2013, spinal stenosis, NIDDM, HTN, and HLD now admitted w/ acute exacerbation of chronic left knee pain s/p mechanical fall at home. Vascular consulted for L popliteal ulcer. Pt states ulcer initially began in February due to an ill- fitting leg brace. Pt reports she was sent to a Vascular surgeon at [facility] in [facility] for evaluation. Has been doing local wound care BID with Bacitracin ointment. States she does not look at the ulcer when doing the dressings as she does not want to visualize it. Has a [employer] 10hrs per day x 5 days per week, however does not let the MERCH[employer]ISE EXAMINER assist with dressing changes. Denies fever/chills, n/v/d, chacorta pain/edema, h/o tobacco abuse, prior vascular surgery interventions. At baseline, pt lives home alone with [employer]CH[employer] EXAMIN[employer]. Is able to ambulate minimally around the house with a walker, has a wheelchair which she utilizes the majority of the time. PMHx: as above PSHx: b/l knee replacements >20 years ago Home Medications Medication Instructions Recorded Aspirin [ASA -] 81 mg PO DAILY #30 tab.chew 09/09/13 Lisinopril [Prinivil] 5 mg PO DAILY #30 tablet 09/09/13 Acetaminophen [Tylenol] 650 mg PO Q4H PRN #20 tablet 08/04/16 Atorvastatin Ca [Lipitor] 20 mg PO HS 08/04/16 Gabapentin [Neurontin -] 500 mg PO HS tab 10/29/16 Simvastatin 40 mg PO HS 05/10/18 Allergies Allergy/AdvReac Type Severity Reaction Status Date / Time mushroom Allergy Severe Verified 05/10/18 18:21 REVIEW OF SYSTEMS: CONSTITUTIONAL: Absent: fever, chills CARDIOVASCULAR: Absent: chest pain RESPIRATORY: Absent: cough, shortness of breath GASTROINTESTINAL: Absent: abdominal pain SKIN: +ulcer PHYSICAL EXAM: GENERAL: Awake, alert, and fully oriented, in no acute distress. HEAD: Normal with no signs of trauma. LUNGS: No accessory muscle use. LOWER EXTREMITIES: LLE with approx 5.5x 4.5cm distal portion of ulcer with + tracking 2cm distally (limited exam secondary to pts body habitus and functional status). Wound bed clean based proximally with moderate fibrinous exudate distally. Moderate serous drainage. No purulent drainage. No erythema, no crepitus, no palpable fluid collection. No calf tenderness. Vasc: bounding dp b/l, faint pt b/l Vital Signs Temperature 102.7 F H 05/11/18 08:06 Pulse Rate 110 H 05/11/18 08:06 Respiratory Rate 18 05/11/18 08:06 Blood Pressure 123/66 05/11/18 08:06 O2 Sat by Pulse Oximetry (%) 98 05/11/18 05:55 Lab Results WBC 9.5 K/mm3 (4.0-10.0) 05/11/18 07:40 RBC 3.62 M/mm3 (3.60-5.2) 05/11/18 07:40 Hgb 9.9 GM/dL (10.7-15.3) L 05/11/18 07:40 Hct 31.4 % (32.4-45.2) L 05/11/18 07:40 MCV 86.8 fl (80-96) 05/11/18 07:40 MCHC 31.6 g/dl (32.0-36.0) L 05/11/18 07:40 RDW 15.4 % (11.6-15.6) 05/11/18 07:40 Plt Count 279 K/MM3 (134-434) 05/11/18 07:40 Sodium 136 mmol/L (136-145) 05/11/18 07:40 Potassium 3.6 mmol/L (3.5-5.1) 05/11/18 07:40 Chloride 102 mmol/L (98-107) 05/11/18 07:40 Carbon Dioxide 24 mmol/L (21-32) 05/11/18 07:40 Anion Gap 10 MMOL/L (8-16) 05/11/18 07:40 BUN 17 mg/dL (7-18) 05/11/18 07:40 Creatinine 0.8 mg/dL (0.55-1.3) 05/11/18 07:40 Random Glucose 140 mg/dL (74-106) H 05/11/18 07:40 Calcium 8.7 mg/dL (8.5-10.1) 05/11/18 07:40 INR 1.39 (0.83-1.09) H 05/11/18 07:40 A/P: 82 y/o F w/ PMHx OA, h/o left foot drop (wears brace) after a fall in 2013 , spinal stenosis, NIDDM, HTN, and HLD now admitted w/ acute exacerbation of chronic left knee pain s/p mechanical fall at home. Vascular consulted for L popliteal ulcer. +leukocytosis to 13k (now resolved), febrile to 102.7 this AM. Pt with chronic ulcer at L popliteal fossa, does not appear clinically infected at this time. -Wound care with Collagenase ointment (cover with damp 4x4 and kerlix) -Offloading to area of ulcer with pillow at all times while in bed -Abx and infection workup per ID -Pt should continue to follow up with vascular for wound care as outpt. Reports Kyle Herrera is far for her commute, if more suitable pt can follow up with wound care at [facility] (Dr Mendoza) -Discussed importance of having someone visualize ulcer daily in order to monitor for signs of infection as well as healing of ulcer. Pt agreeable to have [employer] or son visualize ulcer daily during dressing changes. above d/w attending Dr Mendoza
--- NOTE | 2018-05-11 12:49 | CONS ---
DATE OF CONSULTATION: DATE OF DICTATION: 05/11/2018 HISTORY OF PRESENT ILLNESS: The patient is an 82-year-old female who was evaluated for fever. She has a history of osteoarthritis, bilateral total knee replacements, a nonhealing left popliteal ulcer and a left foot drop. The patient was admitted to the hospital after a mechanical fall at home. She stood up after getting up from bed, tried to walk to her wheelchair and fell onto her coccyx. She was unable to get up for the next day or so and was unable to ambulate. She attempted to call her orthopedist for an appointment but was unsuccessful. She presented to the emergency room, where she was evaluated. She was admitted to the hospital for possible rhabdomyolysis after she was noted to have an elevated CPK. Her course has now been complicated by a fever of 102.7. The patient did complain of dysuria and urinary frequency. She denies any suprapubic pain or flank pain. The patient has a nonhealing ulcer at the left popliteal fossa which occurred as the result of wearing a brace on her left lower extremity for her foot drop. She denies any purulent drainage, although she has been unable to see the wound because of its location. She has had urinary tract infections in the past but has no history of resistant urinary tract pathogens. PAST MEDICAL HISTORY: Positive for osteoarthritis, spinal stenosis, diabetes mellitus, hypertension and hyperlipidemia. PAST SURGICAL HISTORY: Status post bilateral total knee replacements. ALLERGIES: No known drug allergies. MEDICATIONS: Aspirin, lisinopril, Lipitor, Neurontin, Levaquin. SOCIAL HISTORY: She lives at home alone. She has a home health aide for a limited number of hours. Nonsmoker, nondrinker. REVIEW OF SYSTEMS: Neurologic: No loss of consciousness, seizure activity or focal weakness. Cardiac: Negative for chest pain or palpitations. Respiratory: Negative for cough or sputum production. Gastrointestinal: Negative for vomiting or diarrhea. Genitourinary: As per HPI. LABORATORY DATA: White blood cell count 9.5, hematocrit 31.4, platelets 279, creatinine 0.8. Urinalysis shows 54 white cells. Cultures are pending. A chest x-ray is negative for acute infiltrate. PHYSICAL EXAMINATION: General: She is awake and alert. She is seated in bed eating lunch. She does not appear to be acutely toxic. Vital Signs: T-max is 102.7, pulse 110 and regular, blood pressure 123/66, respiratory rate 18 per minute. HEENT:: Sclerae anicteric. Heart: Heart sounds S1, S2. Lungs: Clear. Abdomen: Soft. No tenderness elicited. No suprapubic or flank pain. Extremities: Positive for lower extremity edema. There are bilateral total knee replacement scars. On examination of the left popliteal fossa, there is an ulceration with serous drainage. No surrounding erythema or foul odor. IMPRESSION: 1. Fever; rule out sepsis. 2. Urinary tract infection; rule out sepsis secondary to urinary tract infection. 3. Possible infected, non-healing left lower extremity ulcer. 4. Rule out rhabdomyolysis. PLAN: 1. Await cultures. 2. Empiric antibiotic coverage with vancomycin and ceftriaxone. 3. Local wound care. 4. Further recommendations pending cultures. Will follow. Thanks for the kind referral. TRISHA PRICE M.D. [id number]
[2018-05-11] MEDS ORDERED: DEXTROSE 5%-WATER 100 ML IVPB ONE (14:38)
[2018-05-11] MEDS: CEFTRIAXONE 2 GM in DEXTROSE 5%-WATER 100 ML IVPB SCH (14:41)
--- NOTE | 2018-05-11 16:16 | CONSULT ---
Consult - History of Present Illness History of Present Illness: 82 year old female c/o left knee pain after she fell trying to get into bed 2 days ago. She states she walks with a walker and is usually able to only take a few steps. She has a history of drop foot on the left and wears a brace for the foot. She usually wears a brace for the left knee as well and developed a ulcer from the brace so she stopped wearing it. She has a hx of EDGAR of the left knee. She states she was able to stand with the assistance of the physical therapist yesterday. 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, ambulated short distances with L AFO and L knee brace) Home Medications - Allergies Allergies/Adverse Reactions: Allergies Allergy/AdvReac Type Severity Reaction Status Date / Time mushroom Allergy Severe Verified 05/10/18 18:21 - Home Medications Home Medications: Ambulatory Orders Lisinopril [Prinivil] 5 mg PO DAILY #30 tablet 09/09/13 Simvastatin 40 mg PO HS 05/10/18 Diclofenac Sodium [Voltaren] 100 gm TP BID 05/11/18 Gabapentin 300 mg PO HS 05/11/18 Hydrocodone/Acetaminophen [Hydrocodone-Acetamin 5-325 mg] 1 tab Q6H PRN Meloxicam 7.5 mg PO DAILY 05/11/18 Metformin HCl [Metformin HCl ER] 500 mg PO BID 05/11/18 Review of Systems - Review of Systems Constitutional: reports: No Symptoms Eyes: reports: No Symptoms HENT: reports: No Symptoms Neck: reports: No Symptoms Cardiovascular: reports: No Symptoms Respiratory: reports: No Symptoms Gastrointestinal: reports: No Symptoms Genitourinary: reports: No Symptoms Breasts: reports: No Symptoms Reported Musculoskeletal: reports: Extremity Pain Integumentary: reports: Blister Neurological: reports: No Symptoms Endocrine: reports: No Symptoms Hematology/Lymphatic: reports: No Symptoms Psychiatric: reports: No Symptoms Physical Exam Vital Signs: Vital Signs Temperature 98.9 F 05/11/18 14:18 Pulse Rate 89 05/11/18 14:18 Respiratory Rate 18 05/11/18 14:18 Blood Pressure 123/53 L 05/11/18 14:18 O2 Sat by Pulse Oximetry (%) 98 05/11/18 05:55 Constitutional: Yes: Well Nourished, No Distress, Calm HENT: Yes: Atraumatic, Normocephalic Musculoskeletal: Yes: Other (Left knee: healed surgical incison from prior EDGAR. Obese body habitius. Dressing covering ulcer just distal to the knee posteriorly. There is diffuse TTP along the knee and lower leg. Pain with motion of the knee and the extremity is very weak which she states is normal for her. She is able to flex and extend the toes but cannot dorsiflex the ankle. sensation intact.) Labs: CBC, BMP 05/11/18 07:40 05/11/18 07:40 Imaging - Results X-ray: Report Reviewed, Image Reviewed (No fracture, EDGAR) Assessment/Plan #1 Left knee sprain, drop foot and LLE ulcer -No fracture or hardware loosening -Pt is able to bear weight. Recommend PT, WBAT -No orthopedic intervention at this time. She will f/u with her orthopedist Dr. Abreu once discharged
--- NOTE | 2018-05-11 16:49 | PN ---
Teaching Attending Note Name of Resident: Feliciano Kowalski ATTENDING PHYSICIAN STATEMENT I saw and evaluated the patient. I reviewed the resident's note and discussed the case with the resident. I agree with the resident's findings and plan as documented. SUBJECTIVE: Feels ok, some discomfort R knee. OBJECTIVE: T max 102.7. Hemodynamically Stable. Last Vital Signs Temp Pulse Resp BP Pulse Ox 98.9 F 89 18 123/53 L 98 05/11/18 14:18 05/11/18 14:18 05/11/18 14:18 05/11/18 14:18 05/11/18 05:55 HEENT - Atraumatic, Normocephalic Heart - S1, S2, RRR Lungs - clear to auscultation. No crackles/wheeze. Abdomen - soft, non-tender. Bowel Sounds normal. Extremities - Tender R knee. No clear effusion. Some decrease in ROM/flexion. R popliteal ulcer, appears to be tracking with purulent discharge, minimal surrounding erythema. Neuro- AAO x 3. Foot drop on L with brace. Laboratory Results - last 24 hr 05/10/18 05/10/18 05/10/18 20:52 20:52 20:52 WBC 13.1 H RBC 3.51 L Hgb 10.1 L Hct 29.9 L MCV 85.2 MCH 28.9 MCHC 33.9 RDW 15.2 D Plt Count 280 D MPV 8.6 Absolute Neuts (auto) 11.3 H Neutrophils % 86.3 H D Lymphocytes % 6.5 L D Monocytes % 7.0 Eosinophils % 0.0 D Basophils % 0.2 Nucleated RBC % 0 PT with INR INR PTT (Actin FS) Sodium 136 Potassium 3.9 Chloride 104 Carbon Dioxide 21 Anion Gap 11 BUN 17 Creatinine 0.8 Creat Clearance w eGFR > 60 POC Glucometer Random Glucose 160 H Calcium 8.9 Phosphorus Magnesium 2.1 Total Bilirubin 0.5 AST 55 H ALT 22 Alkaline Phosphatase 142 H Creatine Kinase > 1000 H Creatine Kinase Index 0.0 CK-MB (CK-2) 9.1 H Total Protein 7.6 Albumin 3.1 L Urine Color Urine Appearance Urine pH Ur Specific [place] Urine Protein Urine Glucose (UA) Urine Ketones Urine Blood Urine Nitrite Urine Bilirubin Urine Urobilinogen Ur Leukocyte Esterase Urine WBC (Auto) Urine RBC (Auto) Urine Bacteria Urine Mucus 05/10/18 05/11/18 05/11/18 21:54 07:40 07:40 WBC 9.5 RBC 3.62 Hgb 9.9 L Hct 31.4 L MCV 86.8 MCH 27.4 MCHC 31.6 L RDW 15.4 Plt Count 279 MPV 8.7 Absolute Neuts (auto) 8.0 Neutrophils % 83.9 H Lymphocytes % 11.2 D Monocytes % 4.6 Eosinophils % 0.1 D Basophils % 0.2 Nucleated RBC % 0 PT with INR 16.40 H INR 1.39 H PTT (Actin FS) 27.9 Sodium Potassium Chloride Carbon Dioxide Anion Gap BUN Creatinine Creat Clearance w eGFR POC Glucometer Random Glucose Calcium Phosphorus Magnesium Total Bilirubin AST ALT Alkaline Phosphatase Creatine Kinase Creatine Kinase Index CK-MB (CK-2) Total Protein Albumin Urine Color Carla Urine Appearance Cloudy Urine pH 7.0 Ur Specific [place] 1.015 Urine Protein 2+ H Urine Glucose (UA) Negative Urine Ketones 1+ H Urine Blood 2+ H Urine Nitrite Negative Urine Bilirubin Negative Urine Urobilinogen Negative Ur Leukocyte Esterase Negative Urine WBC (Auto) 54 Urine RBC (Auto) 3 Urine Bacteria Many Urine Mucus Many 05/11/18 05/11/18 07:40 12:02 WBC RBC Hgb Hct MCV MCH MCHC RDW Plt Count MPV Absolute Neuts (auto) Neutrophils % Lymphocytes % Monocytes % Eosinophils % Basophils % Nucleated RBC % PT with INR INR PTT (Actin FS) Sodium 136 Potassium 3.6 Chloride 102 Carbon Dioxide 24 Anion Gap 10 BUN 17 Creatinine 0.8 Creat Clearance w eGFR > 60 POC Glucometer 166 Random Glucose 140 H Calcium 8.7 Phosphorus 2.0 L Magnesium 2.1 Total Bilirubin 0.5 AST 103 H ALT 30 Alkaline Phosphatase 132 H Creatine Kinase 3652 H Creatine Kinase Index 0.1 CK-MB (CK-2) 6.9 H Total Protein 7.3 Albumin 2.8 L Urine Color Urine Appearance Urine pH Ur Specific [place] Urine Protein Urine Glucose (UA) Urine Ketones Urine Blood Urine Nitrite Urine Bilirubin Urine Urobilinogen Ur Leukocyte Esterase Urine WBC (Auto) Urine RBC (Auto) Urine Bacteria Urine Mucus Current Medications Generic Name Dose Route Start Last Admin Trade Name Freq PRN Reason Stop Dose Admin Acetaminophen 650 mg 05/11/18 01:21 05/11/18 08:34 Tylenol - PO 650 mg Q4H PRN Administration PAIN LEVEL 6-10 Aspirin 81 mg 05/11/18 10:00 05/11/18 11:14 Asa - PO 81 mg DAILY EMY Administration Collagenase 1 applic 05/11/18 13:11 Santyl - TP DAILY [facility] Protocol Enoxaparin Sodium 40 mg 05/11/18 10:00 05/11/18 11:13 Lovenox - SQ 40 mg DAILY EMY Administration Gabapentin 400 mg/ Gabapentin 500 mg 05/11/18 22:00 100 mg PO [facility] Sodium Chloride 1,000 mls @ 75 mls/hr 05/11/18 02:00 05/11/18 02:55 Normal Saline - IV 75 mls/hr ASDIR EMY Administration Ceftriaxone Sodium 2 gm/ 100 mls @ 100 mls/hr 05/11/18 13:15 05/11/18 14:41 Dextrose IVPB 100 mls/hr DAILY [facility] Administration Protocol Vancomycin HCl 1,000 mg in 250 mls @ 200 mls/hr 05/11/18 22:00 Vancomycin (Pre-Docked) IVPB [facility] Protocol Insulin Aspart 1 vial 05/11/18 07:00 05/11/18 12:14 Novolog Vial Sliding Scale - SQ 2 units ACHS [facility] Administration Protocol Morphine Sulfate 2 mg 05/11/18 01:21 Morphine Sulfate IVPUSH Q4H PRN PAIN LEVEL 7 - 10 Home Medications Medication Instructions Recorded Lisinopril [Prinivil] 5 mg PO DAILY #30 tablet 09/09/13 Simvastatin 40 mg PO HS 05/10/18 Diclofenac Sodium [Voltaren] 100 gm TP BID 05/11/18 Gabapentin 300 mg PO HS 05/11/18 Hydrocodone/Acetaminophen 1 tab Q6H PRN 05/11/18 [Hydrocodone-Acetamin 5-325 mg] Meloxicam 7.5 mg PO DAILY 05/11/18 Metformin HCl [Metformin HCl ER] 500 mg PO BID 05/11/18 ASSESSMENT/PLAN: 82 year old female with OA s/p bilateral knee replacement, chronic L popliteal pressure ulcer (follows with wound care), left foot drop (fitted with brace), DM 2, HTN, HLD, presents with Left knee pain and inability to ambulate 1 day s/ p mechanical fall, found to have fever and admitted for sepsis and rhabdomyolysis. She denies preceding CP/palps or any head injury or LOC. Complains only of dysuria for several days. 1. Sepsis secondary to A. L popliteal infected ulcer. T 102.7, HR 110, leukocytosis Wound Cx sent Continue IV fluids and Ceftriaxone/Vanco pending Cx results. Wound Care, PT. B. Possible UTI UA pos for WBC, awaiting Urine Cx On Ceftriaxone. 2. Acute Rhabdomyolysis Likely related to fall Will hydrate and monitor CPK Renal function ok. Statin held. 3. Fall, mechanical PT eval for ambulatory dysfunction 4. Left knee pain s/p fall s/p L TKR Ortho consult to ensure hardware integrity and to assess for possiblity of septic joint given proximity of infected popliteal ulcer. Continue Meloxicam and Oxycodone which she takes at home. 5. DM 2 with peripheral neuropathy - Maintain on sliding scale. Metformin held. Continue Gabapentin. 6. HTN - normally on Lisinopril. Will resume on Sepsis resolves. 7. Hypophosphatemia - repleted. DVT PX - Lovenox SQ
[2018-05-11] MEDS ORDERED: POTASSIUM PHOSPHATE 15 MM in SODIUM CHLORIDE 250 ML IVPB ONE (16:51)
[2018-05-11] MEDS: COLLAGENASE CLOSTRIDIUM HIST. 30 GRAMS TUBE TP SCH (18:57)
[2018-05-11] MEDS ORDERED: GABAPENTIN 100 MG CAPSULE (FP) ONE (20:43)
[2018-05-11] MEDS ORDERED: GABAPENTIN 400 MG CAPSULE (FP) ONE (20:43)
[2018-05-11] MEDS: GABAPENTIN 400 MG, GABAPENTIN 100 MG PO SCH (21:25)
[2018-05-11] MEDS: VANCOMYCIN 1 GRAM (PRE-DOCKED) 1,000 MG/250 ML BAG IVPB SCH (21:25)
[2018-05-11] MEDS ORDERED: CEFTRIAXONE 1 GM in DEXTROSE 5%-WATER - 50 ML IVPB ONE (22:00)
[2018-05-11] MEDS ORDERED: GABAPENTIN 400 MG CAPSULE (FP) PO SCH (22:00)
[2018-05-11] MEDS ORDERED: VANCOMYCIN 1 GRAM (PRE-DOCKED) 1,000 MG/250 ML BAG IVPB SCH (22:00)
[2018-05-12] MEDS: ACETAMINOPHEN 325 MG TABLET (FP) PO PRN ×3 (05:43→21:17)
[2018-05-12] MEDS: SODIUM CHLORIDE 1,000 ML IV SCH ×2 (05:43→11:01)
[2018-05-12] MEDS: INSULIN SLIDING SCALE (NOVOLOG) 1 VIAL SQ SCH ×4 (06:07→21:28)
[2018-05-12] MEDS ORDERED: DEXTROSE 5%-WATER 100 ML IVPB ONE (10:13)
[2018-05-12 10:17] LABS: ANION GAP 10 MMOL/L (8-16); BLOOD UREA NITROGEN 10 mg/dL (7-18); CALCIUM 7.8 mg/dL (8.5-10.1); CHLORIDE 107 mmol/L (98-107); CO2 21 mmol/L (21-32); CREATININE 0.6 mg/dL (0.55-1.3); GLUCOSE,RANDOM 153 mg/dL (74-106); POTASSIUM 3.5 mmol/L (3.5-5.1); SODIUM 138 mmol/L (136-145)
[2018-05-12] MEDS: ASPIRIN 81 MG CHEWABLE TABLETS PO SCH (10:54)
[2018-05-12] MEDS: COLLAGENASE CLOSTRIDIUM HIST. 30 GRAMS TUBE TP SCH (10:55)
[2018-05-12] MEDS: oxyCODONE HCL 5 MG TABLET PO PRN ×2 (10:55→21:17)
[2018-05-12] MEDS: ENOXAPARIN NA (PORCINE) 40 MG/0.4 ML DISP.SYRIN SQ SCH (10:56)
[2018-05-12] MEDS: CEFTRIAXONE 2 GM in DEXTROSE 5%-WATER 100 ML IVPB SCH (10:56)
--- NOTE | 2018-05-12 13:14 | PN ---
Physical Exam: SUBJECTIVE: Patient seen and examined. Had a fever this am. Reports poor appetite. Still unable to flex LLE. Popliteal fossa wound still draining foul smelling pus. OBJECTIVE: Vital Signs Period Temp Pulse Resp BP Sys/Jaimes Pulse Ox Last 24 Hr 98.4 F-102.1 F 89-103 17-18 119-156/53-89 98 Vital Signs Temp 99.3 F 05/12/18 10:45 Pulse 95 H 05/12/18 10:45 Resp 18 05/12/18 10:45 BP 133/62 05/12/18 10:45 Pulse Ox 98 05/11/18 21:00 Intake & Output 05/11/18 05/12/18 05/12/18 23:59 11:59 23:59 Intake Total 400 200 Balance 400 200 Intake: Oral 400 200 Other: Voiding Method Diaper Diaper # Unmeasured Voids Void 2 1 Bowel Movement No No GENERAL: The patient is awake, alert, and fully oriented, in no mild pain with movement of LLE NECK: supple. LUNGS: Breath sounds equal, clear to auscultation bilaterally, no wheezes, no crackles HEART: Regular rate and rhythm, S1, S2 ABDOMEN: Soft, nontender, nondistended, normoactive bowel sounds EXTREMITIES: Obese. Able to lift RLE. Unable to actively lift LLE. In marked pain from passive movement of LLE. L popliteal fossa with ulcer about 6x2 cm, draining yellowish pus like, foul smelling discharge. NEUROLOGICAL: Cranial nerves II through XII grossly intact. Normal speech, gait not observed. CBC, BMP 05/11/18 07:40 05/12/18 08:00 Laboratory Results - last 24 hr 05/11/18 05/11/18 05/12/18 17:35 21:31 05:37 Sodium Potassium Chloride Carbon Dioxide Anion Gap BUN Creatinine Creat Clearance w eGFR POC Glucometer 126 146 117 Random Glucose Calcium Phosphorus Creatine Kinase Creatine Kinase Index CK-MB (CK-2) 05/12/18 05/12/18 08:00 12:07 Sodium 138 Potassium 3.5 Chloride 107 Carbon Dioxide 21 Anion Gap 10 BUN 10 Creatinine 0.6 Creat Clearance w eGFR > 60 POC Glucometer 171 Random Glucose 153 H Calcium 7.8 L Phosphorus 2.0 L Creatine Kinase 1106 H Creatine Kinase Index 0.0 CK-MB (CK-2) < 1.0 Current Medications Acetaminophen (Tylenol -) 650 mg PO Q4H PRN PRN Reason: PAIN LEVEL 6-10 Last Admin: 05/12/18 05:43 Dose: 650 mg Acetaminophen (Tylenol -) 325 mg PO Q6H PRN PRN Reason: PAIN LEVEL 6-10 Last Admin: 05/12/18 10:54 Dose: 325 mg Aspirin (Asa -) 81 mg PO DAILY [facility] Last Admin: 05/12/18 10:54 Dose: 81 mg Collagenase (Santyl -) 1 applic TP DAILY [facility]; Protocol Last Admin: 05/12/18 10:55 Dose: 1 applic Enoxaparin Sodium (Lovenox -) 40 mg SQ DAILY [facility] Last Admin: 05/12/18 10:56 Dose: 40 mg Gabapentin 400 mg/ Gabapentin (100 mg) 500 mg PO [facility] Last Admin: 05/11/18 21:25 Dose: 500 mg Sodium Chloride (Normal Saline -) 1,000 mls @ 75 mls/hr IV ASDIR [facility] Last Admin: 05/12/18 11:01 Dose: 75 mls/hr Ceftriaxone Sodium 2 gm/ (Dextrose) 100 mls @ 100 mls/hr IVPB DAILY [facility]; Protocol Last Admin: 05/12/18 10:56 Dose: 100 mls/hr Vancomycin HCl (Vancomycin (Pre-Docked)) 1,000 mg in 250 mls @ 200 mls/hr IVPB [facility]; Protocol Last Admin: 05/11/18 21:25 Dose: 200 mls/hr Potassium Phosphate 15 mm/ (Sodium Chloride) 255 mls @ 42.5 mls/hr IVPB ONCE ONE Stop: 05/12/18 19:53 Insulin Aspart (Novolog Vial Sliding Scale -) 1 vial SQ ACHS [facility]; Protocol Last Admin: 05/12/18 12:08 Dose: 2 units Non-Formulary Medication (Meloxicam [Meloxicam]) 7.5 mg PO DAILY [facility] Oxycodone HCl (Roxicodone -) 5 mg PO Q6H PRN PRN Reason: PAIN LEVEL 6-10 Last Admin: 05/12/18 10:55 Dose: 5 mg Ambulatory Orders Lisinopril [Prinivil] 5 mg PO DAILY #30 tablet 09/09/13 Simvastatin 40 mg PO HS 05/10/18 Diclofenac Sodium [Voltaren] 100 gm TP BID 05/11/18 Gabapentin 300 mg PO HS 05/11/18 Hydrocodone/Acetaminophen [Hydrocodone-Acetamin 5-325 mg] 1 tab Q6H PRN Meloxicam 7.5 mg PO DAILY 05/11/18 Metformin HCl [Metformin HCl ER] 500 mg PO BID 05/11/18 Microbiology 05/11/18 01:50 Ulcer Gram Stain - Final 05/11/18 01:50 Ulcer Wound Culture - Preliminary Lactose Fermenting Neg Bacilli Lactose Fermenting Neg Bacilli#2 Staphylococcus Coagulase Neg Pending Organism Pending Organism#2 05/10/18 21:54 Urine - Urine Clean Catch Urine Culture - Preliminary Lactose Fermenting Neg Bacilli Pending Organism 05/11/18 02:00 Blood - Peripheral Venous Blood Culture - Preliminary NO GROWTH OBTAINED AFTER 24 HOURS, INCUBATION TO CONTINUE FOR 4 DAYS. 05/11/18 02:00 Blood - Peripheral Venous Blood Culture - Preliminary NO GROWTH OBTAINED AFTER 24 HOURS, INCUBATION TO CONTINUE FOR 4 DAYS. ASSESSMENT/PLAN: 82 yo F PMH of osteoarthritis with b/l knee replacement, left popliteal fossa pressure ulcer, left foot drop (wears brace), spinal stenosis, NIDDM, HTN, and HLD admitted with acute exacerbation of her chronic left knee pain s/p mechanical fall at home, found to likely have rhabdo and L popliteal fossa wound Sepsis secondary to Left Popliteal Wound vs UTI -Still spiking fevers -UA with 2+ blood and 54 WBCs, pt with clinical symptoms of UTI, dysuria/ frequency -Left popliteal wound with worsening of her chronic knee pain, wound with purulent drainage noted on gauze -Wound Care consult appreciated- local wound care instructions noted and for outpatient follow up with Dr Mendoza -Ortho consult placed due to depth of wound with worsening of chronic knee pain and distant history of total knee replacement- ortho eval noted, for outpatient follow up -Ceftriaxone/Vancomycin -ID consult appreciated -Wound cx as above -Collagenase Fall with possible Rhabdo -Elevated CK > 1000, repeat 3600>>1106 -Pt did not spend more than 30 minutes on the ground -NS @ 75 cc/hr -Trend BMP to monitor renal function -Pt claims to take atorvastatin AND simvastatin at home, pharmacy only verifies simvastatin NIDDM -Gabapentin 300 mg PO HS -ISS ACHS -BGM ACHS HTN -Lisinopril 5 mg PO Daily HLD -Simvastatin 40 mg PO HS -ASA DVT Prophylaxis -Lovenox 40 mg SQ Daily FEN -Fluids: NS @ 75 cc/hr -Monitor Electrolytes, replete as needed , continue to trend CK -Nutrition: Na controlled, diabetic diet Disposition Med/Surg Visit type - Emergency Visit Emergency Visit: Yes ED Registration Date: 05/10/18 Care time: The patient presented to the Emergency Department on the above date and was hospitalized for further evaluation of their emergent condition. - New Patient This patient is new to me today: Yes Date on this admission: 05/12/18 - Critical Care Critical Care patient: No - Discharge Referral Referred to [facility] Med P.C.: No
--- NOTE | 2018-05-12 13:52 | PN ---
Teaching Attending Note Name of Resident: Kena Aguilar ATTENDING PHYSICIAN STATEMENT I saw and evaluated the patient. I reviewed the resident's note and discussed the case with the resident. I agree with the resident's findings and plan as documented. SUBJECTIVE: Still complains of Left knee pain and fever. No abdominal pain/ nausea/vomiting/diarrhea. OBJECTIVE: Afebrile, hemodynamically Stable. Last Vital Signs Temp Pulse Resp BP Pulse Ox 99.3 F 95 H 18 133/62 98 05/12/18 10:45 05/12/18 10:45 05/12/18 10:45 05/12/18 10:45 05/11/18 21:00 HEENT - Atraumatic, Normocephalic Heart - S1, S2, SM Lungs - clear to auscultation. No crackles/wheeze. Abdomen - soft, non-tender. Bowel Sounds normal. Extremities - Tender R knee. No clear effusion. Decrease in ROM/flexion. R popliteal ulcer, appears to be tracking with purulent discharge, minimal surrounding erythema. Edema +. Neuro- AAO x 3. Foot drop on L with brace. Laboratory Results - last 24 hr 05/11/18 05/11/18 05/12/18 17:35 21:31 05:37 Sodium Potassium Chloride Carbon Dioxide Anion Gap BUN Creatinine Creat Clearance w eGFR POC Glucometer 126 146 117 Random Glucose Calcium Phosphorus Creatine Kinase Creatine Kinase Index CK-MB (CK-2) 05/12/18 05/12/18 08:00 12:07 Sodium 138 Potassium 3.5 Chloride 107 Carbon Dioxide 21 Anion Gap 10 BUN 10 Creatinine 0.6 Creat Clearance w eGFR > 60 POC Glucometer 171 Random Glucose 153 H Calcium 7.8 L Phosphorus 2.0 L Creatine Kinase 1106 H Creatine Kinase Index 0.0 CK-MB (CK-2) < 1.0 Current Medications Generic Name Dose Route Start Last Admin Trade Name Freq PRN Reason Stop Dose Admin Acetaminophen 650 mg 05/11/18 01:21 05/12/18 05:43 Tylenol - PO 650 mg Q4H PRN Administration PAIN LEVEL 6-10 Acetaminophen 325 mg 05/11/18 17:03 05/12/18 10:54 Tylenol - PO 325 mg Q6H PRN Administration PAIN LEVEL 6-10 Aspirin 81 mg 05/11/18 10:00 05/12/18 10:54 Asa - PO 81 mg DAILY EMY Administration Collagenase 1 applic 05/11/18 13:11 05/12/18 10:55 Santyl - TP 1 applic DAILY EMY Administration Protocol Enoxaparin Sodium 40 mg 05/11/18 10:00 05/12/18 10:56 Lovenox - SQ 40 mg DAILY EMY Administration Gabapentin 400 mg/ Gabapentin 500 mg 05/11/18 22:00 05/11/18 21:25 100 mg PO 500 mg HS EMY Administration Sodium Chloride 1,000 mls @ 75 mls/hr 05/11/18 02:00 05/12/18 11:01 Normal Saline - IV 75 mls/hr ASDIR EMY Administration Ceftriaxone Sodium 2 gm/ 100 mls @ 100 mls/hr 05/11/18 13:15 05/12/18 10:56 Dextrose IVPB 100 mls/hr DAILY EMY Administration Protocol Vancomycin HCl 1,000 mg in 250 mls @ 200 mls/hr 05/11/18 22:00 05/11/18 21:25 Vancomycin (Pre-Docked) IVPB 200 mls/hr HS [facility]Y Administration Protocol Insulin Aspart 1 vial 05/11/18 07:00 05/12/18 12:08 Novolog Vial Sliding Scale - SQ 2 units ACHS [facility]Y Administration Protocol Non-Formulary Medication 7.5 mg 05/11/18 17:00 Meloxicam [Meloxicam] PO DAILY [facility]Y Oxycodone HCl 5 mg 05/11/18 17:03 05/12/18 10:55 Roxicodone - PO 5 mg Q6H PRN Administration PAIN LEVEL 6-10 ASSESSMENT/PLAN: 82 year old female with OA s/p bilateral knee replacement, chronic L popliteal pressure ulcer (follows with wound care), left foot drop (fitted with brace), DM 2, HTN, HLD, presents with Left knee pain and inability to ambulate s/p mechanical fall, found to have fever and admitted for sepsis and rhabdomyolysis. She denies preceding CP/palps or any head injury or LOC. Complained only of dysuria for several days prior to fall. 1. Sepsis secondary to A. L popliteal infected ulcer. Tmax 101.9, leukocytosis resolved Wound Cx - LFNB, Coag neg Staph Continue IV fluids and Ceftriaxone/Vanco pending ID eval. Wound Care/Vascular Sx, PT. B. UTI UCx pos for LFNB On Ceftriaxone/Vanco - ID to review. 2. Acute Rhabdomyolysis Likely related to fall CPK improving with IV fluids Renal function ok. Statin held. 3. Fall, mechanical PT eval for ambulatory dysfunction 4. Left knee pain s/p fall s/p L TKR Ortho consulted - no intervention recommended currently. Continue Meloxicam and Oxycodone which she takes at home. 5. DM 2 with peripheral neuropathy - Maintain on sliding scale. Metformin held. Continue Gabapentin. 6. HTN - normally on Lisinopril. Will resume on Sepsis resolves. 7. Hypophosphatemia - recurrent - will replete. DVT PX - Lovenox SQ
[2018-05-12] MEDS ORDERED: POTASSIUM PHOSPHATE 15 MM in SODIUM CHLORIDE 250 ML IVPB ONE (13:54)
--- NOTE | 2018-05-12 17:06 | PN ---
Progress Note, Physician History of Present Illness: Remains intermittantly febrile C/O L LE pain WBC improved Wound c/s mixed organisms Urine c/s GNR - Current Medication List Current Medications: Active Medications Acetaminophen (Tylenol -) 650 mg PO Q4H PRN PRN Reason: PAIN LEVEL 6-10 Last Admin: 05/12/18 05:43 Dose: 650 mg Acetaminophen (Tylenol -) 325 mg PO Q6H PRN PRN Reason: PAIN LEVEL 6-10 Last Admin: 05/12/18 10:54 Dose: 325 mg Aspirin (Asa -) 81 mg PO DAILY [facility] Last Admin: 05/12/18 10:54 Dose: 81 mg Collagenase (Santyl -) 1 applic TP DAILY [facility]; Protocol Last Admin: 05/12/18 10:55 Dose: 1 applic Enoxaparin Sodium (Lovenox -) 40 mg SQ DAILY [facility] Last Admin: 05/12/18 10:56 Dose: 40 mg Gabapentin 400 mg/ Gabapentin (100 mg) 500 mg PO [facility] Last Admin: 05/11/18 21:25 Dose: 500 mg Sodium Chloride (Normal Saline -) 1,000 mls @ 75 mls/hr IV ASDIR [facility] Last Admin: 05/12/18 11:01 Dose: 75 mls/hr Ceftriaxone Sodium 2 gm/ (Dextrose) 100 mls @ 100 mls/hr IVPB DAILY [facility]; Protocol Last Admin: 05/12/18 10:56 Dose: 100 mls/hr Vancomycin HCl (Vancomycin (Pre-Docked)) 1,000 mg in 250 mls @ 200 mls/hr IVPB HS [facility]; Protocol Last Admin: 05/11/18 21:25 Dose: 200 mls/hr Potassium Phosphate 15 mm/ (Sodium Chloride) 255 mls @ 42.5 mls/hr IVPB ONCE ONE Stop: 05/12/18 19:53 Last Admin: 05/12/18 15:26 Dose: 42.5 mls/hr Insulin Aspart (Novolog Vial Sliding Scale -) 1 vial SQ ACHS [facility]; Protocol Last Admin: 05/12/18 12:08 Dose: 2 units Non-Formulary Medication (Meloxicam [Meloxicam]) 7.5 mg PO DAILY [facility] Oxycodone HCl (Roxicodone -) 5 mg PO Q6H PRN PRN Reason: PAIN LEVEL 6-10 Last Admin: 05/12/18 10:55 Dose: 5 mg - Objective Vital Signs: Vital Signs Temperature 98.6 F 05/12/18 14:45 Pulse Rate 89 05/12/18 14:45 Respiratory Rate 16 05/12/18 14:45 Blood Pressure 115/64 05/12/18 14:45 O2 Sat by Pulse Oximetry (%) 98 05/11/18 21:00 Constitutional: Yes: No Distress Cardiovascular: Yes: Regular Rate and Rhythm, S1, S2 Respiratory: Yes: CTA Bilaterally Gastrointestinal: Yes: Normal Bowel Sounds, Soft Extremities: Yes: Other (L popliteal fossa wound) Edema: Yes Labs: CBC, BMP 05/11/18 07:40 05/12/18 08:00 INR, PTT INR 1.39 (0.83-1.09) H 05/11/18 07:40 Assessment/Plan Fever/ leukocytosis v. wound source UTI Infected L leg wound Leukocytosis-improved Await c/s Continue vancomycin/ ceftriaxone
[2018-05-12] MEDS ORDERED: GABAPENTIN 100 MG CAPSULE (FP) ONE (20:38)
[2018-05-12] MEDS ORDERED: GABAPENTIN 400 MG CAPSULE (FP) ONE (20:38)
[2018-05-12] MEDS: VANCOMYCIN 1 GRAM (PRE-DOCKED) 1,000 MG/250 ML BAG IVPB SCH (21:18)
[2018-05-12] MEDS: GABAPENTIN 400 MG, GABAPENTIN 100 MG PO SCH (21:28)
[2018-05-13] MEDS: SODIUM CHLORIDE 1,000 ML IV SCH ×2 (02:01→10:53)
[2018-05-13] MEDS: INSULIN SLIDING SCALE (NOVOLOG) 1 VIAL SQ SCH ×4 (06:02→21:52)
[2018-05-13] MEDS ORDERED: DEXTROSE 5%-WATER 100 ML IVPB ONE (10:35)
[2018-05-13] MEDS: ENOXAPARIN NA (PORCINE) 40 MG/0.4 ML DISP.SYRIN SQ SCH (10:50)
[2018-05-13] MEDS: oxyCODONE HCL 5 MG TABLET PO PRN (10:51)
[2018-05-13] MEDS: CEFTRIAXONE 2 GM in DEXTROSE 5%-WATER 100 ML IVPB SCH (10:51)
[2018-05-13] MEDS: COLLAGENASE CLOSTRIDIUM HIST. 30 GRAMS TUBE TP SCH (10:52)
[2018-05-13] MEDS: ASPIRIN 81 MG CHEWABLE TABLETS PO SCH (10:52)
[2018-05-13] MEDS: ACETAMINOPHEN 325 MG TABLET (FP) PO PRN ×2 (10:52→18:33)
[2018-05-13 12:32] LABS: ALK PHOS 106 U/L (45-117); ANION GAP 7 MMOL/L (8-16); BILIRUBIN,TOTAL 0.3 mg/dL (0.2-1); BLOOD UREA NITROGEN 10 mg/dL (7-18); CALCIUM 7.8 mg/dL (8.5-10.1); CHLORIDE 108 mmol/L (98-107); CO2 23 mmol/L (21-32); CREATININE 0.5 mg/dL (0.55-1.3); GLUCOSE,RANDOM 111 mg/dL (74-106); MAGNESIUM 1.9 mg/dL (1.8-2.4); PHOSPHOROUS 2.3 mg/dL (2.5-4.9); POTASSIUM 3.6 mmol/L (3.5-5.1); SGOT/AST 35 U/L (15-37); SGPT/ALT 20 U/L (13-61); SODIUM 139 mmol/L (136-145)
[2018-05-13] MEDS: CYCLOBENZAPRINE HCL 10 MG TABLET (FP) PO SCH (13:24)
[2018-05-13 13:53] VITALS: BMI 29.3
[2018-05-13 14:00] LABS: BASO % 0.3 % (0-2.0); EOS % 0.5 % (0-4.5); HEMATOCRIT 26.4 % (32.4-45.2); HEMOGLOBIN 8.3 GM/dL (10.7-15.3); LYMPH % 12.6 % (8-40); MCH 27.3 pg (25.7-33.7); MCHC 31.5 g/dl (32.0-36.0); MEAN CELL VOLUME 86.6 fl (80-96); MEAN PLT VOLUME 9.4 fl (7.5-11.1); MONO % 6.6 % (3.8-10.2); PLATELET COUNT 249 K/MM3 (134-434); RBC 3.06 M/mm3 (3.60-5.2); RDW 15.6 % (11.6-15.6); WHITE BLOOD COUNT 6.8 K/mm3 (4.0-10.0)
[2018-05-13] MEDS ORDERED: POTASSIUM PHOSPHATE 30 MM in SODIUM CHLORIDE 500 ML IVPB ONE (15:15)
--- NOTE | 2018-05-13 15:24 | PN ---
Progress Note (short form) - Note Progress Note: SUBJECTIVE: Still complains of Left knee pain with associated cramps and fever. No abdominal pain/nausea/vomiting/diarrhea. No further dysuria. OBJECTIVE: T 102.5 max, hemodynamically Stable. Last Vital Signs Temp Pulse Resp BP Pulse Ox 99 F 92 H 18 116/75 98 05/13/18 14:35 05/13/18 14:35 05/13/18 14:35 05/13/18 14:35 05/12/18 21:00 HEENT - Atraumatic, Normocephalic Heart - S1, S2, SM Lungs - clear to auscultation. No crackles/wheeze. Abdomen - soft, non-tender. Bowel Sounds normal. Extremities - Tender L knee. No clear effusion. Decrease in ROM/flexion. L popliteal ulcer, appears to be tracking with purulent discharge, minimal surrounding erythema. Edema +. Neuro- AAO x 3. Foot drop on L with brace. Laboratory Results - last 24 hr 05/12/18 05/12/18 05/13/18 18:14 21:26 05:37 WBC RBC Hgb Hct MCV MCH MCHC RDW Plt Count MPV Absolute Neuts (auto) Neutrophils % Lymphocytes % Monocytes % Eosinophils % Basophils % Nucleated RBC % Sodium Potassium Chloride Carbon Dioxide Anion Gap BUN Creatinine Creat Clearance w eGFR POC Glucometer 153 180 128 Random Glucose Calcium Phosphorus Magnesium Total Bilirubin AST ALT Alkaline Phosphatase Creatine Kinase Creatine Kinase Index CK-MB (CK-2) Total Protein Albumin 05/13/18 05/13/18 05/13/18 06:35 06:35 13:18 WBC 6.8 RBC 3.06 L Hgb 8.3 L Hct 26.4 L D MCV 86.6 MCH 27.3 MCHC 31.5 L RDW 15.6 Plt Count 249 MPV 9.4 Absolute Neuts (auto) 5.4 Neutrophils % 80.0 Lymphocytes % 12.6 Monocytes % 6.6 Eosinophils % 0.5 D Basophils % 0.3 Nucleated RBC % 0 Sodium 139 Potassium 3.6 Chloride 108 H Carbon Dioxide 23 Anion Gap 7 L BUN 10 Creatinine 0.5 L Creat Clearance w eGFR > 60 POC Glucometer 213 Random Glucose 111 H Calcium 7.8 L Phosphorus 2.3 L Magnesium 1.9 Total Bilirubin 0.3 AST 35 ALT 20 Alkaline Phosphatase 106 Creatine Kinase 516 H Creatine Kinase Index 0.1 CK-MB (CK-2) < 1.0 Total Protein 6.0 L Albumin 2.0 L Current Medications Generic Name Dose Route Start Last Admin Trade Name Love PRN Reason Stop Dose Admin Acetaminophen 650 mg 05/11/18 01:21 05/12/18 21:17 Tylenol - PO 650 mg Q4H PRN Administration PAIN LEVEL 6-10 Acetaminophen 325 mg 05/11/18 17:03 05/13/18 10:52 Tylenol - PO 325 mg Q6H PRN Administration PAIN LEVEL 6-10 Aspirin 81 mg 05/11/18 10:00 05/13/18 10:52 Asa - PO 81 mg DAILY EMY Administration Collagenase 1 applic 05/11/18 13:11 05/13/18 10:52 Santyl - TP 1 applic DAILY EMY Administration Protocol Cyclobenzaprine HCl 5 mg 05/13/18 11:45 05/13/18 13:24 Flexeril - PO 5 mg DAILY EMY Administration Enoxaparin Sodium 40 mg 05/11/18 10:00 05/13/18 10:50 Lovenox - SQ 40 mg DAILY EMY Administration Gabapentin 400 mg/ Gabapentin 500 mg 05/11/18 22:00 05/12/18 21:28 100 mg PO 500 mg HS EMY Administration Sodium Chloride 1,000 mls @ 75 mls/hr 05/11/18 02:00 05/13/18 10:53 Normal Saline - IV 75 mls/hr ASDIR EMY Administration Vancomycin HCl 1,000 mg in 250 mls @ 200 mls/hr 05/11/18 22:00 05/12/18 21:18 Vancomycin (Pre-Docked) IVPB 200 mls/hr HS EMY Administration Protocol Potassium Phosphate 30 mm/ 510 mls @ 62.5 mls/hr 05/13/18 15:15 Sodium Chloride IVPB 05/13/18 23:24 ONCE ONE Meropenem 500 mg/ Dextrose 100 mls @ 200 mls/hr 05/13/18 15:15 IVPB Q8H-IV EMY Insulin Aspart 1 vial 05/11/18 07:00 05/13/18 13:26 Novolog Vial Sliding Scale - SQ 2 units ACHS EMY Administration Protocol Non-Formulary Medication 7.5 mg 05/11/18 17:00 Meloxicam [Meloxicam] PO DAILY EMY Oxycodone HCl 5 mg 05/11/18 17:03 05/13/18 10:51 Roxicodone - PO 5 mg Q6H PRN Administration PAIN LEVEL 6-10 ASSESSMENT/PLAN: 82 year old female with OA s/p bilateral knee replacement, chronic L popliteal pressure ulcer (follows with wound care), left foot drop (fitted with brace), DM 2, HTN, HLD, presents with Left knee pain and inability to ambulate s/p mechanical fall, found to have fever and admitted for sepsis and rhabdomyolysis. She denies preceding CP/palps or any head injury or LOC. Complained only of dysuria for several days prior to fall. 1. Sepsis secondary to A. L popliteal infected ulcer. Tmax overnight 102.5, leukocytosis resolved Wound Cx - LFNB, Coag neg Staph Wound Care/Vascular Sx/Ortho evaluated. PT requested. Given ongoing Fever, will request CT LLE. Continue IV fluids and Ceftriaxone/Vanco pending ID re-eval. Flexeril for LLE spasms. B. UTI UCx pos for LFNB On Ceftriaxone/Vanco - ID to review. 2. Acute Rhabdomyolysis Likely related to fall CPK improving with IV fluids - down to 516 Renal function ok. Statin held. 3. Fall, mechanical PT eval for ambulatory dysfunction 4. Left knee pain s/p fall s/p L TKR Ortho consulted - no intervention recommended currently. Continue Meloxicam and Oxycodone which she takes at home. CT LLE requested. 5. DM 2 with peripheral neuropathy - Maintain on sliding scale. Metformin held. Continue Gabapentin. 6. HTN - normally on Lisinopril. Will resume on Sepsis resolves. 7. Hypophosphatemia - recurrent - will replete. 8. Anemia, normocytic, etiology unclear, likely chronic disease. Will send Anemia work-up including Ferritin/Iron/TIBC/Folate/B12. DVT PX - Lovenox SQ Visit type - Emergency Visit Emergency Visit: Yes ED Registration Date: 05/10/18 Care time: The patient presented to the Emergency Department on the above date and was hospitalized for further evaluation of their emergent condition. - New Patient This patient is new to me today: No - Critical Care Critical Care patient: No - Discharge Referral Referred to [facility] No
[2018-05-13] MEDS: MEROPENEM 500 MG in DEXTROSE 5%-WATER 100 ML IVPB SCH ×3 (17:23→22:40)
[2018-05-13] MEDS ORDERED: GABAPENTIN 400 MG CAPSULE (FP) ONE (20:54)
[2018-05-13] MEDS ORDERED: GABAPENTIN 100 MG CAPSULE (FP) ONE (20:54)
[2018-05-13] MEDS ORDERED: PT OWN MED DRAWER 7, Y5N ONE (20:55)
[2018-05-13] MEDS: VANCOMYCIN 1 GRAM (PRE-DOCKED) 1,000 MG/250 ML BAG IVPB SCH (21:42)
[2018-05-13] MEDS: GABAPENTIN 400 MG, GABAPENTIN 100 MG PO SCH (21:42)
[2018-05-14] MEDS: MEROPENEM 500 MG in DEXTROSE 5%-WATER 100 ML IVPB SCH ×6 (00:30→17:15)
[2018-05-14] MEDS: oxyCODONE HCL 5 MG TABLET PO PRN ×2 (01:24→11:18)
[2018-05-14] MEDS: ACETAMINOPHEN 325 MG TABLET (FP) PO PRN ×3 (01:25→22:06)
[2018-05-14] MEDS: SODIUM CHLORIDE 1,000 ML IV SCH ×2 (04:28→16:56)
[2018-05-14] MEDS: INSULIN SLIDING SCALE (NOVOLOG) 1 VIAL SQ SCH ×4 (06:07→22:02)
[2018-05-14] MEDS ORDERED: PT OWN MED DRAWER 7, Y5N ONE ×2 (07:02→16:37)
[2018-05-14 08:17] LABS: BASO % 0.3 % (0-2.0); EOS % 0.9 % (0-4.5); HEMATOCRIT 23.1 % (32.4-45.2); HEMOGLOBIN 8.1 GM/dL (10.7-15.3); LYMPH % 13.3 % (8-40); MCH 29.2 pg (25.7-33.7); MCHC 34.9 g/dl (32.0-36.0); MEAN CELL VOLUME 83.5 fl (80-96); MEAN PLT VOLUME 8.8 fl (7.5-11.1); MONO % 8.6 % (3.8-10.2); NEUT % 76.9 % (42.8-82.8); PLATELET COUNT 276 K/MM3 (134-434); RBC 2.77 M/mm3 (3.60-5.2); RDW 15.6 % (11.6-15.6); WHITE BLOOD COUNT 6.5 K/mm3 (4.0-10.0)
[2018-05-14 08:40] LABS: ANION GAP 8 MMOL/L (8-16); BLOOD UREA NITROGEN 8 mg/dL (7-18); CALCIUM 7.9 mg/dL (8.5-10.1); CHLORIDE 108 mmol/L (98-107); CO2 23 mmol/L (21-32); CREATININE 0.5 mg/dL (0.55-1.3); GLUCOSE,RANDOM 120 mg/dL (74-106); PHOSPHOROUS 3.2 mg/dL (2.5-4.9); POTASSIUM 3.8 mmol/L (3.5-5.1); SODIUM 139 mmol/L (136-145)
[2018-05-14] MEDS ORDERED: POTASSIUM CHLORIDE TABS 20 MEQ TABLET.ER (FP) PO ONE (09:23)
[2018-05-14] MEDS: COLLAGENASE CLOSTRIDIUM HIST. 30 GRAMS TUBE TP SCH (10:00)
--- NOTE | 2018-05-14 11:11 | PN ---
Physical Exam: SUBJECTIVE: Patient seen and examined this AM. She states that her pain is controlled and that her appetite is okay. OBJECTIVE: Vital Signs Period Temp Pulse Resp BP Sys/Jaimes Pulse Ox Last 24 Hr 99 F-102.9 F 90-101 18-18 116-154/63-76 97 GENERAL: A&O, no acute distress, morbidly obese HEAD: Normocephalic, atraumatic. EYES: PERRL, no scleral icterus EARS, NOSE, THROAT: oropharynx clear without exudates. Moist mucous membranes. NECK: supple without lymphadenopathy LUNGS: CTA b/l, no crackles or wheezes HEART: Regular rate and rhythm, normal S1 and S2 without murmur ABDOMEN: Soft, nontender to palpation, normoactive bowel sounds MUSCULOSKELETAL: No bony deformities or tenderness. EXTREMITIES: 2+ pulses, warm, well-perfused. No peripheral edema. Left posterior 3x3 cm ulceration with some tracking 2 or 3 cm deep NEUROLOGICAL: Cranial nerves II-XII grossly intact. Normal speech. Laboratory Results - last 24 hr 05/13/18 05/13/18 05/13/18 06:35 06:35 13:18 WBC 6.8 RBC 3.06 L Hgb 8.3 L Hct 26.4 L D MCV 86.6 MCH 27.3 MCHC 31.5 L RDW 15.6 Plt Count 249 MPV 9.4 Absolute Neuts (auto) 5.4 Neutrophils % 80.0 Lymphocytes % 12.6 Monocytes % 6.6 Eosinophils % 0.5 D Basophils % 0.3 Nucleated RBC % 0 Sodium 139 Potassium 3.6 Chloride 108 H Carbon Dioxide 23 Anion Gap 7 L BUN 10 Creatinine 0.5 L Creat Clearance w eGFR > 60 POC Glucometer 213 Random Glucose 111 H Calcium 7.8 L Phosphorus 2.3 L Magnesium 1.9 Ferritin Total Bilirubin 0.3 AST 35 ALT 20 Alkaline Phosphatase 106 Creatine Kinase 516 H Creatine Kinase Index 0.1 CK-MB (CK-2) < 1.0 Total Protein 6.0 L Albumin 2.0 L Vitamin B12 Serum Folate 05/13/18 05/13/18 05/14/18 17:39 21:42 05:57 WBC RBC Hgb Hct MCV MCH MCHC RDW Plt Count MPV Absolute Neuts (auto) Neutrophils % Lymphocytes % Monocytes % Eosinophils % Basophils % Nucleated RBC % Sodium Potassium Chloride Carbon Dioxide Anion Gap BUN Creatinine Creat Clearance w eGFR POC Glucometer 111 143 132 Random Glucose Calcium Phosphorus Magnesium Ferritin Total Bilirubin AST ALT Alkaline Phosphatase Creatine Kinase Creatine Kinase Index CK-MB (CK-2) Total Protein Albumin Vitamin B12 Serum Folate 05/14/18 05/14/18 05/14/18 06:30 06:30 06:30 WBC 6.5 RBC 2.77 L Hgb 8.1 L Hct 23.1 L MCV 83.5 MCH 29.2 MCHC 34.9 RDW 15.6 Plt Count 276 MPV 8.8 Absolute Neuts (auto) 5.0 Neutrophils % 76.9 Lymphocytes % 13.3 Monocytes % 8.6 Eosinophils % 0.9 Basophils % 0.3 Nucleated RBC % 0 Sodium 139 Potassium 3.8 Chloride 108 H Carbon Dioxide 23 Anion Gap 8 BUN 8 Creatinine 0.5 L Creat Clearance w eGFR > 60 POC Glucometer Random Glucose 120 H Calcium 7.9 L Phosphorus 3.2 Magnesium Ferritin 453.1 H Total Bilirubin AST ALT Alkaline Phosphatase Creatine Kinase Creatine Kinase Index CK-MB (CK-2) Total Protein Albumin Vitamin B12 2737 H Serum Folate 25 H Active Medications Generic Name Dose Route Start Last Admin Trade Name Freq PRN Reason Stop Dose Admin Acetaminophen 650 mg 05/11/18 01:21 05/13/18 18:33 Tylenol - PO 650 mg Q4H PRN Administration PAIN LEVEL 6-10 Acetaminophen 325 mg 05/11/18 17:03 05/14/18 01:25 Tylenol - PO 325 mg Q6H PRN Administration PAIN LEVEL 6-10 Aspirin 81 mg 05/11/18 10:00 05/13/18 10:52 Asa - PO 81 mg DAILY EMY Administration Collagenase 1 applic 05/11/18 13:11 05/13/18 10:52 Santyl - TP 1 applic DAILY EMY Administration Protocol Cyclobenzaprine HCl 5 mg 05/13/18 11:45 05/13/18 13:24 Flexeril - PO 5 mg DAILY EMY Administration Enoxaparin Sodium 40 mg 05/11/18 10:00 05/13/18 10:50 Lovenox - SQ 40 mg DAILY EMY Administration Gabapentin 400 mg/ Gabapentin 500 mg 05/11/18 22:00 05/13/18 21:42 100 mg PO 500 mg HS EMY Administration Sodium Chloride 1,000 mls @ 75 mls/hr 05/11/18 02:00 05/14/18 04:28 Normal Saline - IV Not Given ASDIR COUNTS INCLUDE 234 BEDS AT THE [facility] Vancomycin HCl 1,000 mg in 250 mls @ 200 mls/hr 05/11/18 22:00 05/13/18 21:42 Vancomycin (Pre-Docked) IVPB 200 mls/hr HS COUNTS INCLUDE 234 BEDS AT THE [facility] Administration Protocol Meropenem 500 mg/ Dextrose 100 mls @ 200 mls/hr 05/13/18 15:15 05/14/18 06:54 IVPB 200 mls/hr Q8H-IV EMY Administration Insulin Aspart 1 vial 05/11/18 07:00 05/14/18 06:07 Novolog Vial Sliding Scale - SQ Not Given ACHS COUNTS INCLUDE 234 BEDS AT THE [facility] Protocol Non-Formulary Medication 7.5 mg 05/11/18 17:00 Meloxicam [Meloxicam] PO DAILY COUNTS INCLUDE 234 BEDS AT THE [facility] Oxycodone HCl 5 mg 05/11/18 17:03 05/14/18 01:24 Roxicodone - PO 5 mg Q6H PRN Administration PAIN LEVEL 6-10 ASSESSMENT/PLAN: 82 yo F PMH of osteoarthritis with b/l knee replacement, left popliteal fossa pressure ulcer, left foot drop (wears brace), spinal stenosis, NIDDM, HTN, and HLD admitted with acute exacerbation of her chronic left knee pain s/p mechanical fall at home, found to likely have rhabdo Sepsis secondary to Left Popliteal Wound vs UTI -Febrile to 102 today with WBC count 13 on admission -UA with 2+ blood and 54 WBCs, pt with clinical symptoms of UTI, dysuria/ frequency -Left popliteal wound with worsening of her chronic knee pain, wound with purulent drainage noted on gauze -Wound Care consult appreciated -Ortho consult placed due to depth of wound with worsening of chronic knee pain and distant history of total knee replacement -Vancomycin, Rocephin escalated to Meropenem 05/14, wound and urine cultures noted with ESBL Klebsialla -ID consult appreciated Fall with possible Rhabdo -Elevated CK > 1000, repeat 3600, down to 516 -Pt did not spend more than 30 minutes on the ground -NS @ 75 cc/hr -Trend BMP to monitor renal function -Pt claims to take atorvastatin AND simvastatin at home, pharmacy only verifies simvastatin, hold for now NIDDM -Gabapentin 300 mg PO HS HTN -Lisinopril 5 mg PO Daily HLD -Simvastatin 40 mg PO HS, hold DVT Prophylaxis -Lovenox 40 mg SQ Daily FEN -Fluids: NS @ 75 cc/hr -Electrolytes: HypoK, replete, BMP in AM -Nutrition: Na controlled, diabetic diet Disposition Med/Surg Visit type - Emergency Visit Emergency Visit: Yes ED Registration Date: 05/10/18 Care time: The patient presented to the Emergency Department on the above date and was hospitalized for further evaluation of their emergent condition. - New Patient This patient is new to me today: No - Critical Care Critical Care patient: No
[2018-05-14] MEDS: ENOXAPARIN NA (PORCINE) 40 MG/0.4 ML DISP.SYRIN SQ SCH (11:18)
[2018-05-14] MEDS: ASPIRIN 81 MG CHEWABLE TABLETS PO SCH (11:19)
[2018-05-14] MEDS: CYCLOBENZAPRINE HCL 10 MG TABLET (FP) PO SCH (11:19)
--- NOTE | 2018-05-14 11:39 | PN ---
Teaching Attending Note Name of Resident: Feliciano Kowalski ATTENDING PHYSICIAN STATEMENT I saw and evaluated the patient. I reviewed the resident's note and discussed the case with the resident. I agree with the resident's findings and plan as documented. SUBJECTIVE: Still complains of Left knee pain and fevers. No abdominal pain/ nausea/vomiting/diarrhea. No further dysuria. OBJECTIVE: T 102.9 max, hemodynamically Stable. Last Vital Signs Temp Pulse Resp BP Pulse Ox 99.3 F 92 H 18 135/72 97 05/14/18 06:00 05/14/18 06:00 05/14/18 06:00 05/14/18 06:00 05/13/18 21:00 HEENT - Atraumatic, Normocephalic Heart - S1, S2, SM Lungs - clear to auscultation. No crackles/wheeze. Abdomen - soft, non-tender. Bowel Sounds normal. Extremities - Tender L knee. No clear effusion. Decrease in ROM/flexion. large L popliteal ulcer, appears to be tracking with purulent discharge, minimal surrounding erythema. Edema +. Neuro- AAO x 3. Foot drop on L with brace. Laboratory Results - last 24 hr 05/13/18 05/13/18 05/13/18 06:35 06:35 13:18 WBC 6.8 RBC 3.06 L Hgb 8.3 L Hct 26.4 L D MCV 86.6 MCH 27.3 MCHC 31.5 L RDW 15.6 Plt Count 249 MPV 9.4 Absolute Neuts (auto) 5.4 Neutrophils % 80.0 Lymphocytes % 12.6 Monocytes % 6.6 Eosinophils % 0.5 D Basophils % 0.3 Nucleated RBC % 0 Sodium 139 Potassium 3.6 Chloride 108 H Carbon Dioxide 23 Anion Gap 7 L BUN 10 Creatinine 0.5 L Creat Clearance w eGFR > 60 POC Glucometer 213 Random Glucose 111 H Calcium 7.8 L Phosphorus 2.3 L Magnesium 1.9 Ferritin Total Bilirubin 0.3 AST 35 ALT 20 Alkaline Phosphatase 106 Creatine Kinase 516 H Creatine Kinase Index 0.1 CK-MB (CK-2) < 1.0 Total Protein 6.0 L Albumin 2.0 L Vitamin B12 Serum Folate 05/13/18 05/13/18 05/14/18 17:39 21:42 05:57 WBC RBC Hgb Hct MCV MCH MCHC RDW Plt Count MPV Absolute Neuts (auto) Neutrophils % Lymphocytes % Monocytes % Eosinophils % Basophils % Nucleated RBC % Sodium Potassium Chloride Carbon Dioxide Anion Gap BUN Creatinine Creat Clearance w eGFR POC Glucometer 111 143 132 Random Glucose Calcium Phosphorus Magnesium Ferritin Total Bilirubin AST ALT Alkaline Phosphatase Creatine Kinase Creatine Kinase Index CK-MB (CK-2) Total Protein Albumin Vitamin B12 Serum Folate 05/14/18 05/14/18 05/14/18 06:30 06:30 06:30 WBC 6.5 RBC 2.77 L Hgb 8.1 L Hct 23.1 L MCV 83.5 MCH 29.2 MCHC 34.9 RDW 15.6 Plt Count 276 MPV 8.8 Absolute Neuts (auto) 5.0 Neutrophils % 76.9 Lymphocytes % 13.3 Monocytes % 8.6 Eosinophils % 0.9 Basophils % 0.3 Nucleated RBC % 0 Sodium 139 Potassium 3.8 Chloride 108 H Carbon Dioxide 23 Anion Gap 8 BUN 8 Creatinine 0.5 L Creat Clearance w eGFR > 60 POC Glucometer Random Glucose 120 H Calcium 7.9 L Phosphorus 3.2 Magnesium Ferritin 453.1 H Total Bilirubin AST ALT Alkaline Phosphatase Creatine Kinase Creatine Kinase Index CK-MB (CK-2) Total Protein Albumin Vitamin B12 2737 H Serum Folate 25 H Current Medications Generic Name Dose Route Start Last Admin Trade Name Freq PRN Reason Stop Dose Admin Acetaminophen 650 mg 05/11/18 01:21 05/13/18 18:33 Tylenol - PO 650 mg Q4H PRN Administration PAIN LEVEL 6-10 Acetaminophen 325 mg 05/11/18 17:03 05/14/18 11:18 Tylenol - PO 325 mg Q6H PRN Administration PAIN LEVEL 6-10 Aspirin 81 mg 05/11/18 10:00 05/14/18 11:19 Asa - PO 81 mg DAILY EMY Administration Collagenase 1 applic 05/11/18 13:11 05/13/18 10:52 Santyl - TP 1 applic DAILY EMY Administration Protocol Cyclobenzaprine HCl 5 mg 05/13/18 11:45 05/14/18 11:19 Flexeril - PO 5 mg DAILY EMY Administration Enoxaparin Sodium 40 mg 05/11/18 10:00 05/14/18 11:18 Lovenox - SQ 40 mg DAILY EMY Administration Gabapentin 400 mg/ Gabapentin 500 mg 05/11/18 22:00 05/13/18 21:42 100 mg PO 500 mg HS EMY Administration Sodium Chloride 1,000 mls @ 75 mls/hr 05/11/18 02:00 05/14/18 04:28 Normal Saline - IV Not Given ASDIR EMY Vancomycin HCl 1,000 mg in 250 mls @ 200 mls/hr 05/11/18 22:00 05/13/18 21:42 Vancomycin (Pre-Docked) IVPB 200 mls/hr HS EMY Administration Protocol Meropenem 500 mg/ Dextrose 100 mls @ 200 mls/hr 05/13/18 15:15 05/14/18 06:54 IVPB 200 mls/hr Q8H-IV EMY Administration Insulin Aspart 1 vial 05/11/18 07:00 05/14/18 06:07 Novolog Vial Sliding Scale - SQ Not Given ACHS EMY Protocol Non-Formulary Medication 7.5 mg 05/11/18 17:00 Meloxicam [Meloxicam] PO DAILY EMY Oxycodone HCl 5 mg 05/11/18 17:03 05/14/18 11:18 Roxicodone - PO 5 mg Q6H PRN Administration PAIN LEVEL 6-10 ASSESSMENT/PLAN: 82 year old female with OA s/p bilateral knee replacement, chronic L popliteal pressure ulcer (follows with wound care), left foot drop (fitted with brace), DM 2, HTN, HLD, presents with Left knee pain and inability to ambulate s/p mechanical fall, found to have fever and admitted for sepsis and rhabdomyolysis. She denies preceding CP/palps or any head injury or LOC. Complained only of dysuria for several days prior to fall. 1. Sepsis secondary to A. L popliteal infected ulcer. Fevers ongoing. Tmax overnight 102.7, leukocytosis resolved Wound Cx - ESBL, coag neg Staph Wound Care/Vascular Sx/Ortho evaluated. PT requested. Given ongoing Fever, CT LLE requested, awaiting report. Previously on Ceftriaxone/Vanco. Ceftriaxone changed to Meropenem (05/13/18). Will discuss with ID need to continue Vancomycin. Flexeril for LLE spasms. B. UTI UCx pos for ESBL, Strep viridans Ceftriaxone changed to Meropenem. 2. Acute Rhabdomyolysis Likely related to fall CPK improving with IV fluids Renal function ok. Statin held. 3. Fall, mechanical PT eval for ambulatory dysfunction 4. Left knee pain s/p fall s/p L TKR Ortho consulted - no intervention recommended currently. Continue Meloxicam and Oxycodone which she takes at home. CT LLE pending 5. DM 2 with peripheral neuropathy - Maintain on sliding scale. Metformin held. Continue Gabapentin. 6. HTN - normally on Lisinopril. Will resume once Sepsis resolves. 7. Hypophosphatemia - resolved s/p repletion.. 8. Anemia, normocytic, etiology unclear, likely chronic disease. Ferritin/Folate /B12 levels high. Iron/TIBC still pending. DVT PX - Lovenox SQ
--- NOTE | 2018-05-14 16:56 | PN ---
Progress Note, Physician History of Present Illness: Awake, alert Supine in bed temps lower grade No urinary tract complaints C/O L LE pain WBC improved Wound c/s mixed organisms Urine c/s GNR - Current Medication List Current Medications: Active Medications Acetaminophen (Tylenol -) 650 mg PO Q4H PRN PRN Reason: PAIN LEVEL 6-10 Last Admin: 05/13/18 18:33 Dose: 650 mg Acetaminophen (Tylenol -) 325 mg PO Q6H PRN PRN Reason: PAIN LEVEL 6-10 Last Admin: 05/14/18 11:18 Dose: 325 mg Aspirin (Asa -) 81 mg PO DAILY [facility] Last Admin: 05/14/18 11:19 Dose: 81 mg Collagenase (Santyl -) 1 applic TP DAILY [facility]; Protocol Last Admin: 05/13/18 10:52 Dose: 1 applic Cyclobenzaprine HCl (Flexeril -) 5 mg PO DAILY [facility] Last Admin: 05/14/18 11:19 Dose: 5 mg Enoxaparin Sodium (Lovenox -) 40 mg SQ DAILY [facility] Last Admin: 05/14/18 11:18 Dose: 40 mg Gabapentin 400 mg/ Gabapentin (100 mg) 500 mg PO HS [facility] Last Admin: 05/13/18 21:42 Dose: 500 mg Sodium Chloride (Normal Saline -) 1,000 mls @ 75 mls/hr IV ASDIR [facility] Last Admin: 05/14/18 04:28 Dose: Not Given Meropenem 500 mg/ Dextrose 100 mls @ 200 mls/hr IVPB Q8H-IV [facility] Last Admin: 05/14/18 06:54 Dose: 200 mls/hr Insulin Aspart (Novolog Vial Sliding Scale -) 1 vial SQ ACHS [facility]; Protocol Last Admin: 05/14/18 06:07 Dose: Not Given Non-Formulary Medication (Meloxicam [Meloxicam]) 7.5 mg PO DAILY [facility] Oxycodone HCl (Roxicodone -) 5 mg PO Q6H PRN PRN Reason: PAIN LEVEL 6-10 Last Admin: 05/14/18 11:18 Dose: 5 mg - Objective Vital Signs: Vital Signs Temperature 100.0 F H 05/14/18 15:25 Pulse Rate 91 H 05/14/18 15:25 Respiratory Rate 18 05/14/18 15:25 Blood Pressure 120/69 05/14/18 15:25 O2 Sat by Pulse Oximetry (%) 97 05/13/18 21:00 Constitutional: Yes: No Distress Cardiovascular: Yes: Regular Rate and Rhythm, S1, S2 Respiratory: Yes: CTA Bilaterally Gastrointestinal: Yes: Normal Bowel Sounds, Soft. No: Tenderness Extremities: Yes: Other (L popliteal fossa wound with malodorous drainage) Edema: Yes Labs: CBC, BMP 05/14/18 06:30 05/14/18 06:30 INR, PTT INR 1.39 (0.83-1.09) H 05/11/18 07:40 Assessment/Plan Fever/ leukocytosis v. wound source UTI Infected L leg wound polymicrobial, including ESBL Leukocytosis-improved Await final c/s Continue meropenem D/C vancomycin Surgical evaluation
--- NOTE | 2018-05-14 19:39 | PN ---
Progress Note (short form) - Note Progress Note: Vascular Surgery Pt seen and examined. Left popliteal fossa examined. Area probed and pus draining from area. Will wash out wound and do debridement rosio afternoon. Joni Mendoza DO
[2018-05-14] MEDS ORDERED: GABAPENTIN 400 MG CAPSULE (FP) ONE (21:33)
[2018-05-14] MEDS ORDERED: GABAPENTIN 100 MG CAPSULE (FP) ONE (21:33)
[2018-05-14] MEDS: GABAPENTIN 400 MG, GABAPENTIN 100 MG PO SCH (22:02)
[2018-05-15] MEDS: MEROPENEM 500 MG in DEXTROSE 5%-WATER 100 ML IVPB SCH ×3 (02:07→18:46)
[2018-05-15 04:17] LABS: SERUM IRON SATURATION 9 % (15-55); TOTAL IRON BINDING CAPACITY 120 ug/dL (250-450); UIBC 109 ug/dL (118-369)
[2018-05-15] MEDS ORDERED: PT OWN MED DRAWER 7, Y5N ONE ×3 (06:40→18:43)
[2018-05-15] MEDS: SODIUM CHLORIDE 1,000 ML IV SCH ×3 (06:50→17:30)
[2018-05-15] MEDS: INSULIN SLIDING SCALE (NOVOLOG) 1 VIAL SQ SCH ×4 (06:51→21:48)
[2018-05-15 08:10] LABS: HEMATOCRIT 27.6 % (32.4-45.2); HEMOGLOBIN 8.5 GM/dL (10.7-15.3); MCH 26.8 pg (25.7-33.7); MEAN CELL VOLUME 86.7 fl (80-96); MEAN PLT VOLUME 8.4 fl (7.5-11.1); PLATELET COUNT 266 K/MM3 (134-434); RBC 3.18 M/mm3 (3.60-5.2); RDW 15.9 % (11.6-15.6)
[2018-05-15 08:32] LABS: ANION GAP 10 MMOL/L (8-16); BLOOD UREA NITROGEN 9 mg/dL (7-18); CALCIUM 8.6 mg/dL (8.5-10.1); CHLORIDE 107 mmol/L (98-107); CO2 23 mmol/L (21-32); CREATININE 0.5 mg/dL (0.55-1.3); GLUCOSE,RANDOM 115 mg/dL (74-106); SODIUM 140 mmol/L (136-145)
[2018-05-15] MEDS: CYCLOBENZAPRINE HCL 10 MG TABLET (FP) PO SCH (10:02)
[2018-05-15] MEDS: ASPIRIN 81 MG CHEWABLE TABLETS PO SCH (10:02)
[2018-05-15] MEDS: ENOXAPARIN NA (PORCINE) 40 MG/0.4 ML DISP.SYRIN SQ SCH (10:03)
[2018-05-15] MEDS: PATIENT'S OWN MEDICATION (NON-FORMULARY) (Meloxicam [Meloxicam] 7.5 MG) PO SCH ×2 (10:22→17:58)
[2018-05-15] MEDS: COLLAGENASE CLOSTRIDIUM HIST. 30 GRAMS TUBE TP SCH (10:23)
--- NOTE | 2018-05-15 11:05 | PN ---
Physical Exam: SUBJECTIVE: Patient seen and examined this AM. She says she is doing okay. She is for OR washout today. OBJECTIVE: Vital Signs Period Temp Pulse Resp BP Sys/Jaimes Pulse Ox Last 24 Hr 98.2 F-102.8 F 81-91 18-18 109-145/56-72 97 GENERAL: A&O, no acute distress, morbidly obese HEAD: Normocephalic, atraumatic. EYES: PERRL, no scleral icterus EARS, NOSE, THROAT: oropharynx clear without exudates. Moist mucous membranes. NECK: supple without lymphadenopathy LUNGS: CTA b/l, no crackles or wheezes HEART: Regular rate and rhythm, normal S1 and S2 without murmur ABDOMEN: Soft, nontender to palpation, normoactive bowel sounds MUSCULOSKELETAL: No bony deformities or tenderness. EXTREMITIES: 2+ pulses, warm, well-perfused. No peripheral edema. Left posterior 3x3 cm ulceration with some tracking 2 or 3 cm deep, draining greenish yellow purulent material NEUROLOGICAL: Cranial nerves II-XII grossly intact. Normal speech. Laboratory Results - last 24 hr 05/14/18 05/14/18 05/14/18 06:30 16:53 21:11 WBC RBC Hgb Hct MCV MCH MCHC RDW Plt Count MPV Sodium Potassium Chloride Carbon Dioxide Anion Gap BUN Creatinine Creat Clearance w eGFR POC Glucometer 128 150 Random Glucose Calcium Iron 11 L TIBC 120 L Iron Saturation 9 L 05/15/18 05/15/18 05/15/18 06:31 07:30 07:30 WBC 7.0 RBC 3.18 L Hgb 8.5 L Hct 27.6 L D MCV 86.7 MCH 26.8 MCHC 31.0 L RDW 15.9 H Plt Count 266 MPV 8.4 Sodium 140 Potassium 4.0 Chloride 107 Carbon Dioxide 23 Anion Gap 10 BUN 9 Creatinine 0.5 L Creat Clearance w eGFR > 60 POC Glucometer 130 Random Glucose 115 H Calcium 8.6 Iron TIBC Iron Saturation Active Medications Generic Name Dose Route Start Last Admin Trade Name Freq PRN Reason Stop Dose Admin Acetaminophen 650 mg 05/11/18 01:21 05/14/18 22:06 Tylenol - PO 650 mg Q4H PRN Administration PAIN LEVEL 6-10 Acetaminophen 325 mg 05/11/18 17:03 05/14/18 11:18 Tylenol - PO 325 mg Q6H PRN Administration PAIN LEVEL 6-10 Aspirin 81 mg 05/11/18 10:00 05/14/18 11:19 Asa - PO 81 mg DAILY EMY Administration Collagenase 1 applic 05/11/18 13:11 05/14/18 10:00 Santyl - TP 1 applic DAILY EMY Administration Protocol Cyclobenzaprine HCl 5 mg 05/13/18 11:45 05/14/18 11:19 Flexeril - PO 5 mg DAILY EMY Administration Enoxaparin Sodium 40 mg 05/11/18 10:00 05/14/18 11:18 Lovenox - SQ 40 mg DAILY EMY Administration Gabapentin 400 mg/ Gabapentin 500 mg 05/11/18 22:00 05/14/18 22:02 100 mg PO 500 mg HS EMY Administration Sodium Chloride 1,000 mls @ 75 mls/hr 05/11/18 02:00 05/15/18 09:59 Normal Saline - IV 75 mls/hr ASDIR EMY Administration Meropenem 500 mg/ Dextrose 100 mls @ 200 mls/hr 05/13/18 15:15 05/15/18 09:58 IVPB 200 mls/hr Q8H-IV EMY Administration Insulin Aspart 1 vial 05/11/18 07:00 05/15/18 06:51 Novolog Vial Sliding Scale - SQ Not Given ACHS [facility] Protocol Non-Formulary Medication 7.5 mg 05/11/18 17:00 Meloxicam [Meloxicam] PO DAILY [facility] Oxycodone HCl 5 mg 05/11/18 17:03 05/14/18 11:18 Roxicodone - PO 5 mg Q6H PRN Administration PAIN LEVEL 6-10 ASSESSMENT/PLAN: 82 yo F PMH of osteoarthritis with b/l knee replacement, left popliteal fossa pressure ulcer, left foot drop (wears brace), spinal stenosis, NIDDM, HTN, and HLD admitted with acute exacerbation of her chronic left knee pain s/p mechanical fall at home, found to likely have rhabdo Sepsis secondary to Left Popliteal Wound vs UTI -Febrile to 102 today with WBC count 13 on admission -UA with 2+ blood and 54 WBCs, pt with clinical symptoms of UTI, dysuria/ frequency -Left popliteal wound with worsening of her chronic knee pain, wound with purulent drainage noted on gauze -Wound Care consult appreciated, for OR washout today -Vancomycin, Rocephin escalated to Meropenem 05/14, wound and urine cultures noted with ESBL Klebsialla -ID consult appreciated Fall with possible Rhabdo -Elevated CK > 1000, repeat 3600, down to 516 -Pt did not spend more than 30 minutes on the ground -NS @ 75 cc/hr -Trend BMP to monitor renal function -Pt claims to take atorvastatin AND simvastatin at home, pharmacy only verifies simvastatin, hold for now NIDDM -Gabapentin 300 mg PO HS HTN -Lisinopril 5 mg PO Daily HLD -Simvastatin 40 mg PO HS, hold DVT Prophylaxis -Lovenox 40 mg SQ Daily FEN -Fluids: NS @ 75 cc/hr -Electrolytes: HypoK, replete, BMP in AM -Nutrition: Na controlled, diabetic diet Disposition Med/Surg Visit type - Emergency Visit Emergency Visit: Yes ED Registration Date: 05/10/18 Care time: The patient presented to the Emergency Department on the above date and was hospitalized for further evaluation of their emergent condition. - New Patient This patient is new to me today: No - Critical Care Critical Care patient: No
--- NOTE | 2018-05-15 11:35 | PN ---
Teaching Attending Note Name of Resident: Feliciano Kowalski ATTENDING PHYSICIAN STATEMENT I saw and evaluated the patient. I reviewed the resident's note and discussed the case with the resident. I agree with the resident's findings and plan as documented. SUBJECTIVE: Patient complains of left knee pain. OBJECTIVE: Vital Signs Period Temp Pulse Resp BP Sys/Jaimes Pulse Ox Last 24 Hr 98.2 F-102.8 F 81-91 18-18 109-145/56-72 97-97 HEART: S1S2, RRR LUNGS: Clear ABDOMEN: Soft, non-tender, non-distended, normal BS EXTREMITIES: No edema. Left popliteal fossa wound with purulent drainage Laboratory Results - last 24 hr 05/14/18 05/14/18 05/14/18 06:30 16:53 21:11 WBC RBC Hgb Hct MCV MCH MCHC RDW Plt Count MPV Sodium Potassium Chloride Carbon Dioxide Anion Gap BUN Creatinine Creat Clearance w eGFR POC Glucometer 128 150 Random Glucose Calcium Iron 11 L TIBC 120 L Iron Saturation 9 L 05/15/18 05/15/18 05/15/18 06:31 07:30 07:30 WBC 7.0 RBC 3.18 L Hgb 8.5 L Hct 27.6 L D MCV 86.7 MCH 26.8 MCHC 31.0 L RDW 15.9 H Plt Count 266 MPV 8.4 Sodium 140 Potassium 4.0 Chloride 107 Carbon Dioxide 23 Anion Gap 10 BUN 9 Creatinine 0.5 L Creat Clearance w eGFR > 60 POC Glucometer 130 Random Glucose 115 H Calcium 8.6 Iron TIBC Iron Saturation Current Medications Generic Name Dose Route Start Last Admin Trade Name Love PRN Reason Stop Dose Admin Acetaminophen 650 mg 05/11/18 01:21 05/14/18 22:06 Tylenol - PO 650 mg Q4H PRN Administration PAIN LEVEL 6-10 Acetaminophen 325 mg 05/11/18 17:03 05/14/18 11:18 Tylenol - PO 325 mg Q6H PRN Administration PAIN LEVEL 6-10 Aspirin 81 mg 05/11/18 10:00 05/14/18 11:19 Asa - PO 81 mg DAILY EMY Administration Collagenase 1 applic 05/11/18 13:11 05/14/18 10:00 Santyl - TP 1 applic DAILY EMY Administration Protocol Cyclobenzaprine HCl 5 mg 05/13/18 11:45 05/14/18 11:19 Flexeril - PO 5 mg DAILY EMY Administration Enoxaparin Sodium 40 mg 05/11/18 10:00 05/14/18 11:18 Lovenox - SQ 40 mg DAILY EMY Administration Gabapentin 400 mg/ Gabapentin 500 mg 05/11/18 22:00 05/14/18 22:02 100 mg PO 500 mg HS EMY Administration Sodium Chloride 1,000 mls @ 75 mls/hr 05/11/18 02:00 05/15/18 09:59 Normal Saline - IV 75 mls/hr ASDIR EMY Administration Meropenem 500 mg/ Dextrose 100 mls @ 200 mls/hr 05/13/18 15:15 05/15/18 09:58 IVPB 200 mls/hr Q8H-IV EMY Administration Insulin Aspart 1 vial 05/11/18 07:00 05/15/18 06:51 Novolog Vial Sliding Scale - SQ Not Given ACHS [facility] Protocol Non-Formulary Medication 7.5 mg 05/11/18 17:00 Meloxicam [Meloxicam] PO DAILY [facility] Oxycodone HCl 5 mg 05/11/18 17:03 05/14/18 11:18 Roxicodone - PO 5 mg Q6H PRN Administration PAIN LEVEL 6-10 ASSESSMENT AND PLAN: This is an 82 year old woman with a history of OA, bilateral TKRs, chronic left popliteal pressure ulcer, left foot drop, type 2 DM, HTN, hyperlipidemia who presented to the ED with left knee pain and inability to ambulate after a fall. 1. Sepsis secondary to infected left popliteal pressure ulcer, UTI - Temp 102.8 last night - Wound culture growing ESBL (+) Klebsiella, coag neg Staph, group B Strep, Strep viridans - Urine culture growing ESBL (+) Klebsiella, Strep viridans - Continue meropenem - Plan for wash out and debridement of wound today 2. Rhabdomyolysis - Improved 3. Left knee pain - History of bilateral TKRs - CT limited secondary to artifact from prosthesis - Continue meloxicam, oxycodone as needed - Ortho follow up 4. Type 2 DM with peripheral neuropathy - Metformin held - Continue Novolog sliding scale, Neurontin 5. HTN - BP ok off lisinopril 6. Hyperlipidemia 7. Hypophosphatemia - Improved 8. 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
--- NOTE | 2018-05-15 12:39 | PN ---
Progress Note, Physician History of Present Illness: Awake, alert Supine in bed High grade fever overnight No urinary tract complaints C/O L LE pain Wound c/s mixed organisms including ESBL Urine c/s ESBL - Current Medication List Current Medications: Active Medications Acetaminophen (Tylenol -) 650 mg PO Q4H PRN PRN Reason: PAIN LEVEL 6-10 Last Admin: 05/14/18 22:06 Dose: 650 mg Acetaminophen (Tylenol -) 325 mg PO Q6H PRN PRN Reason: PAIN LEVEL 6-10 Last Admin: 05/14/18 11:18 Dose: 325 mg Aspirin (Asa -) 81 mg PO DAILY [facility] Last Admin: 05/14/18 11:19 Dose: 81 mg Collagenase (Santyl -) 1 applic TP DAILY [facility]; Protocol Last Admin: 05/14/18 10:00 Dose: 1 applic Cyclobenzaprine HCl (Flexeril -) 5 mg PO DAILY [facility] Last Admin: 05/14/18 11:19 Dose: 5 mg Enoxaparin Sodium (Lovenox -) 40 mg SQ DAILY [facility] Last Admin: 05/14/18 11:18 Dose: 40 mg Gabapentin 400 mg/ Gabapentin (100 mg) 500 mg PO HS [facility] Last Admin: 05/14/18 22:02 Dose: 500 mg Sodium Chloride (Normal Saline -) 1,000 mls @ 75 mls/hr IV ASDIR [facility] Last Admin: 05/15/18 09:59 Dose: 75 mls/hr Meropenem 500 mg/ Dextrose 100 mls @ 200 mls/hr IVPB Q8H-IV [facility] Last Admin: 05/15/18 09:58 Dose: 200 mls/hr Insulin Aspart (Novolog Vial Sliding Scale -) 1 vial SQ ACHS [facility]; Protocol Last Admin: 05/15/18 11:53 Dose: Not Given Non-Formulary Medication (Meloxicam [Meloxicam]) 7.5 mg PO DAILY [facility] Oxycodone HCl (Roxicodone -) 5 mg PO Q6H PRN PRN Reason: PAIN LEVEL 6-10 Last Admin: 05/14/18 11:18 Dose: 5 mg - Objective Vital Signs: Vital Signs Temperature 99.2 F 05/15/18 10:00 Pulse Rate 84 05/15/18 10:00 Respiratory Rate 18 05/15/18 10:00 Blood Pressure 145/72 05/15/18 10:00 O2 Sat by Pulse Oximetry (%) 97 05/15/18 09:00 Constitutional: Yes: No Distress Cardiovascular: Yes: Regular Rate and Rhythm, S1, S2 Respiratory: Yes: CTA Bilaterally Gastrointestinal: Yes: Normal Bowel Sounds, Soft. No: Tenderness Extremities: Yes: Other (+ L popliteal fossa wound) Edema: Yes Labs: CBC, BMP 05/15/18 07:30 05/15/18 07:30 INR, PTT INR 1.39 (0.83-1.09) H 05/11/18 07:40 Assessment/Plan Fever/ leukocytosis v. wound source UTI Infected L leg wound polymicrobial, including ESBL Leukocytosis-improved Continue meropenem D/C vancomycin Surgical evaluation appreciated For wound debridement today
[2018-05-15] MEDS: ACETAMINOPHEN 325 MG TABLET (FP) PO PRN (14:07)
[2018-05-15] MEDS ORDERED: LIDOCAINE HCL 1%, 10 MG/ML (20ML VIAL) ONE (14:48)
[2018-05-15] MEDS ORDERED: BACITRACIN 15 GM TUBE TOPICAL OINTMENT ONE (15:32)
[2018-05-15] MEDS ORDERED: LIDOCAINE HCL/PF 2% SDV 5ML VIAL ONE (15:44)
[2018-05-15] MEDS ORDERED: PROPOFOL 20 ML ONE ×2 (15:44→15:47)
[2018-05-15] MEDS ORDERED: BACITRACIN 50,000 UNITS VIAL NR ONE (15:50)
--- NOTE | 2018-05-15 16:41 | OP ---
Operative Note - Note: Operative Date: 05/15/18 Pre-Operative Diagnosis: left popliteal gonzales abscess Operation: left popliteal artery washout and drainage of abscess Post-Operative Diagnosis: Same as Pre-op Surgeon: Joni Mendoza Anesthesia: Fractional Estimated Blood Loss (mls): 20 Operative Report Dictated: Yes
--- NOTE | 2018-05-15 16:44 | PN ---
Progress Note (short form) - Note Progress Note: Vascular Surgery S/P washout of left popliteal fossa. Abscess drained. The wound probes down to bone. High suspicion that this osteo. The wound has been present for a long time. Will pack daily. Minimal pus found. Area washed out. Joni Mendoza DO
[2018-05-15] MEDS ORDERED: ACETAMINOPHEN 325 MG TABLET (FP) PO PRN (17:16)
[2018-05-15] MEDS ORDERED: ENOXAPARIN NA (PORCINE) 40 MG/0.4 ML DISP.SYRIN SQ ONE (18:00)
[2018-05-15] MEDS ORDERED: CYCLOBENZAPRINE HCL 5 MG TABLET PO ONE ×2 (18:01→18:45)
[2018-05-15] MEDS ORDERED: ASPIRIN COATED 81 MG TABLET.EC ONE (18:30)
[2018-05-15] MEDS ORDERED: ASPIRIN COATED 81 MG TABLET.EC PO ONE (18:45)
--- NOTE | 2018-05-15 18:50 | OP ---
DATE OF OPERATION: 05/15/2018 PREOPERATIVE DIAGNOSIS: Left popliteal fossa abscess. POSTOPERATIVE DIAGNOSIS: Left popliteal fossa abscess. PROCEDURE: Left popliteal fossa washout with drainage of abscess. SURGEON: Joni Landry DO ANESTHESIA: Fractional. BLOOD LOSS: 20 mL. The patient is an 82-year-old female who comes into the hospital with a UTI and also has recurring fevers. Upon examination of her left popliteal fossa, she has an ulcer that she has had now for months, but it is draining some pus. ID is covering the patient with appropriate antibiotics. It was decided that after examination that it would need to be washed out. The patient was consented for the procedure, understanding all risks, benefits, and alternatives, and taken to the operating room. Once in the operating room, laid on the operating table in the supine manner. The patient was positioned right side down. We then went ahead and prepped and draped the left popliteal fossa with betadine in a sterile surgical manner. We then went ahead and injected 15 mL of lidocaine 1% in the area. We then went ahead and did a finger sweep to make sure there were no abscess pockets. Upon probing the wound, we could get all of the way down to bone. There is a strong suspicion that there could be osteomyelitis here in play. We were able to break up the pocket and there was some pus that drained out. We then used a pulse transfer coordinator with bacitracin and irrigated the wound copiously. We then packed the wound with 2-inch Iodoform packing, 4 x 4's, ABD pads, and Kerlix were placed. Patient tolerated the procedure with no complications. Total blood loss was 20 mL. Patient was transferred to the PACU in stable condition. JONI LANDRY DO [employer]/[id number]
[2018-05-15] MEDS ORDERED: GABAPENTIN 400 MG CAPSULE (FP) ONE (21:46)
[2018-05-15] MEDS ORDERED: GABAPENTIN 100 MG CAPSULE (FP) ONE (21:46)
[2018-05-15] MEDS: GABAPENTIN 400 MG, GABAPENTIN 100 MG PO SCH (21:48)
[2018-05-16] MEDS ORDERED: PT OWN MED DRAWER 7, Y5N ONE ×4 (00:20→17:11)
[2018-05-16] MEDS: MEROPENEM 500 MG in DEXTROSE 5%-WATER 100 ML IVPB SCH ×3 (01:56→17:29)
[2018-05-16] MEDS: INSULIN SLIDING SCALE (NOVOLOG) 1 VIAL SQ SCH ×4 (06:33→21:59)
[2018-05-16] MEDS: SODIUM CHLORIDE 1,000 ML IV SCH ×2 (06:34→23:52)
[2018-05-16 06:45] LABS: BASO % 0.3 % (0-2.0); EOS % 0.9 % (0-4.5); HEMATOCRIT 26.6 % (32.4-45.2); HEMOGLOBIN 8.3 GM/dL (10.7-15.3); LYMPH % 18.8 % (8-40); MCH 26.9 pg (25.7-33.7); MCHC 31.1 g/dl (32.0-36.0); MEAN CELL VOLUME 86.5 fl (80-96); MEAN PLT VOLUME 8.3 fl (7.5-11.1); MONO % 9.4 % (3.8-10.2); NEUT % 70.6 % (42.8-82.8); PLATELET COUNT 277 K/MM3 (134-434); RBC 3.08 M/mm3 (3.60-5.2); RDW 15.8 % (11.6-15.6); WHITE BLOOD COUNT 6.1 K/mm3 (4.0-10.0)
[2018-05-16 07:09] LABS: ANION GAP 9 MMOL/L (8-16); BLOOD UREA NITROGEN 7 mg/dL (7-18); CALCIUM 8.3 mg/dL (8.5-10.1); CHLORIDE 106 mmol/L (98-107); CO2 26 mmol/L (21-32); CREATININE 0.5 mg/dL (0.55-1.3); GLUCOSE,RANDOM 112 mg/dL (74-106); MAGNESIUM 1.9 mg/dL (1.8-2.4); PHOSPHOROUS 3.3 mg/dL (2.5-4.9); POTASSIUM 3.7 mmol/L (3.5-5.1); SODIUM 140 mmol/L (136-145)
[2018-05-16] MEDS: PATIENT'S OWN MEDICATION (NON-FORMULARY) (Meloxicam [Meloxicam] 7.5 MG) PO SCH ×2 (07:22→07:26)
[2018-05-16] MEDS ORDERED: MAGNESIUM OXIDE 400 MG TABLET (FP) PO ONE (08:03)
[2018-05-16] MEDS: ASPIRIN 81 MG CHEWABLE TABLETS PO SCH (09:15)
[2018-05-16] MEDS: ENOXAPARIN NA (PORCINE) 40 MG/0.4 ML DISP.SYRIN SQ SCH (09:15)
[2018-05-16] MEDS: POTASSIUM CHLORIDE TABS 20 MEQ TABLET.ER (FP) PO SCH ×2 (09:16→23:52)
[2018-05-16] MEDS: CYCLOBENZAPRINE HCL 10 MG TABLET (FP) PO SCH (09:16)
[2018-05-16] MEDS ORDERED: PATIENT'S OWN MEDICATION (NON-FORMULARY) (Meloxicam [Meloxicam] 7.5 MG) PO SCH (10:00)
[2018-05-16] MEDS: COLLAGENASE CLOSTRIDIUM HIST. 30 GRAMS TUBE TP SCH (10:14)
--- NOTE | 2018-05-16 10:42 | PN ---
Progress Note (short form) - Note Progress Note: POD#1 Pt without any complaints today. No pain in her leg. Vital Signs Period Temp Pulse Resp BP Sys/Jaimes Pulse Ox Last 24 Hr 98.3 F-103 F 74-95 15-25 114-159/58-95 98-99 GEn: A&0x3, NAD Left knee: posterior area without any erythema. Dressing changed today. Packing removed with minimal amount of purulent drainage. No foul odor. CBC, BMP 05/16/18 06:00 05/16/18 06:00 Microbiology 05/11/18 01:50 Ulcer Gram Stain - Final 05/11/18 01:50 Ulcer Wound Culture - Final Klebsiella Pneumoniae - Esbl Klebsiella Pneumoniae - Esbl#2 Staphylococcus Coagulase Neg Strep Agalactiae Group B Streptococcus Viridans 05/13/18 17:31 Blood - Peripheral Venous Blood Culture - Preliminary NO GROWTH OBTAINED AFTER 48 HOURS, INCUBATION TO CONTINUE FOR 3 DAYS. 05/13/18 17:26 Blood - Peripheral Venous Blood Culture - Preliminary NO GROWTH OBTAINED AFTER 48 HOURS, INCUBATION TO CONTINUE FOR 3 DAYS. A/p: 82 yo female s/p Left posterior knee I&D Continue local wound care with iodoform packing daily Pain medications as needed IV abx as per ID on Meropenem D/w Dr. Mendoza Monitor fever curve, pt with ioslated temp to 103 last pm
--- NOTE | 2018-05-16 12:34 | PN ---
Progress Note (short form) - Note Progress Note: Anesthesia post op note, POD#1 S/P I&D left poplital fossa, Under MAC. Pat seen and examined. VSS. No apparent post anesthesia complications. Signed Off.
[2018-05-16] MEDS: oxyCODONE HCL 5 MG TABLET PO PRN (14:06)
[2018-05-16] MEDS: ACETAMINOPHEN 325 MG TABLET (FP) PO PRN (14:07)
--- NOTE | 2018-05-16 17:03 | PN ---
Physical Exam: SUBJECTIVE: Patient seen and examined this AM. She states she is feeling better today than yesterday. Still febrile overnight OBJECTIVE: Vital Signs Period Temp Pulse Resp BP Sys/Jaimes Pulse Ox Last 24 Hr 98.3 F-103 F 74-95 19-23 123-159/58-79 99-99 GENERAL: A&O, no acute distress, morbidly obese HEAD: Normocephalic, atraumatic. EYES: PERRL, no scleral icterus EARS, NOSE, THROAT: oropharynx clear without exudates. Moist mucous membranes. NECK: supple without lymphadenopathy LUNGS: CTA b/l, no crackles or wheezes HEART: Regular rate and rhythm, normal S1 and S2 without murmur ABDOMEN: Soft, nontender to palpation, normoactive bowel sounds MUSCULOSKELETAL: No bony deformities or tenderness. EXTREMITIES: 2+ pulses, warm, well-perfused. No peripheral edema. Left posterior 3x3 cm ulceration with some tracking 3 cm deep less drainage following washout NEUROLOGICAL: Cranial nerves II-XII grossly intact. Normal speech. Laboratory Results - last 24 hr 05/15/18 05/15/18 05/16/18 17:36 21:34 05:56 WBC RBC Hgb Hct MCV MCH MCHC RDW Plt Count MPV Absolute Neuts (auto) Neutrophils % Lymphocytes % Monocytes % Eosinophils % Basophils % Nucleated RBC % Sodium Potassium Chloride Carbon Dioxide Anion Gap BUN Creatinine Creat Clearance w eGFR POC Glucometer 115 140 119 Random Glucose Calcium Phosphorus Magnesium 05/16/18 05/16/18 05/16/18 06:00 06:00 12:00 WBC 6.1 RBC 3.08 L Hgb 8.3 L Hct 26.6 L MCV 86.5 MCH 26.9 MCHC 31.1 L RDW 15.8 H Plt Count 277 MPV 8.3 Absolute Neuts (auto) 4.3 Neutrophils % 70.6 Lymphocytes % 18.8 D Monocytes % 9.4 Eosinophils % 0.9 Basophils % 0.3 Nucleated RBC % 0 Sodium 140 Potassium 3.7 Chloride 106 Carbon Dioxide 26 Anion Gap 9 BUN 7 Creatinine 0.5 L Creat Clearance w eGFR > 60 POC Glucometer 129 Random Glucose 112 H Calcium 8.3 L Phosphorus 3.3 Magnesium 1.9 Active Medications Generic Name Dose Route Start Last Admin Trade Name Freq PRN Reason Stop Dose Admin Acetaminophen 650 mg 05/15/18 17:16 05/16/18 00:29 Tylenol - PO 650 mg Q4H PRN Administration PAIN LEVEL 4 - 6 Acetaminophen 325 mg 05/15/18 17:16 05/16/18 14:07 Tylenol - PO 325 mg Q6H PRN Administration PAIN LEVEL 6-10 Aspirin 81 mg 05/16/18 10:00 05/16/18 09:15 Asa - PO 81 mg DAILY [facility]Y Administration Collagenase 1 applic 05/16/18 10:00 05/16/18 10:14 Santyl - TP 1 applic DAILY [facility]Y Administration Protocol Cyclobenzaprine HCl 5 mg 05/16/18 10:00 05/16/18 09:16 Flexeril - PO 5 mg DAILY EMY Administration Enoxaparin Sodium 40 mg 05/16/18 10:00 05/16/18 09:15 Lovenox - SQ 40 mg DAILY [facility]Y Administration Gabapentin 400 mg/ Gabapentin 500 mg 05/15/18 22:00 05/15/18 21:48 100 mg PO 500 mg HS EMY Administration Meropenem 500 mg/ Dextrose 100 mls @ 200 mls/hr 05/15/18 18:00 05/16/18 09:15 IVPB 200 mls/hr Q8H-IV EMY Administration Sodium Chloride 1,000 mls @ 75 mls/hr 05/15/18 17:16 05/16/18 06:34 Normal Saline - IV 75 mls/hr ASDIR EMY Administration Insulin Aspart 1 vial 05/15/18 22:00 05/16/18 17:01 Novolog Vial Sliding Scale - SQ 2 unit ACHS [facility]Y Administration Protocol Oxycodone HCl 5 mg 05/15/18 17:16 05/16/18 14:06 Roxicodone - PO 5 mg Q6H PRN Administration PAIN LEVEL 6-10 Potassium Chloride 40 meq 05/16/18 10:00 05/16/18 09:16 K-Dur - PO 05/16/18 22:01 40 meq BID EMY Administration ASSESSMENT/PLAN: 82 yo F PMH of osteoarthritis with b/l knee replacement, left popliteal fossa pressure ulcer, left foot drop (wears brace), spinal stenosis, NIDDM, HTN, and HLD admitted with acute exacerbation of her chronic left knee pain s/p mechanical fall at home, found to likely have rhabdo Sepsis secondary to Left Popliteal Wound vs UTI -Febrile to 103 overnight, WBC count 13 on admission but now resolved -UA with 2+ blood and 54 WBCs, pt with clinical symptoms of UTI, dysuria/ frequency -Left popliteal wound with worsening of her chronic knee pain, wound with purulent drainage noted on gauze -Wound Care consult appreciated, POD 1 popliteal washout -Vancomycin, Rocephin escalated to Meropenem 05/14, wound and urine cultures noted with ESBL Klebsialla -ID consult appreciated -Will attempt MRI to evaluate for osteo, CT difficult to read with knee replacement hardware Fall with possible Rhabdo -Elevated CK > 1000, repeat 3600, down to 516 -Pt did not spend more than 30 minutes on the ground -NS @ 75 cc/hr -Trend BMP to monitor renal function -Pt claims to take atorvastatin AND simvastatin at home, pharmacy only verifies simvastatin, hold for now NIDDM -Gabapentin 300 mg PO HS HTN -Lisinopril 5 mg PO Daily HLD -Simvastatin 40 mg PO HS, hold DVT Prophylaxis -Lovenox 40 mg SQ Daily FEN -Fluids: NS @ 75 cc/hr -Electrolytes: HypoK, replete, BMP in AM -Nutrition: Na controlled, diabetic diet Disposition Med/Surg Visit type - Emergency Visit Emergency Visit: Yes ED Registration Date: 05/10/18 Care time: The patient presented to the Emergency Department on the above date and was hospitalized for further evaluation of their emergent condition. - New Patient This patient is new to me today: No - Critical Care Critical Care patient: No
--- NOTE | 2018-05-16 18:52 | PN ---
Teaching Attending Note Name of Resident: Feliciano Kowalski ATTENDING PHYSICIAN STATEMENT I saw and evaluated the patient. I reviewed the resident's note and discussed the case with the resident. I agree with the resident's findings and plan as documented. SUBJECTIVE: Patient reports less pain in left leg. OBJECTIVE: Vital Signs Period Temp Pulse Resp BP Sys/Jaimes Pulse Ox Last 24 Hr 98.3 F-103 F 78-95 19-22 124-159/58-79 99-99 HEART: S1S2, RRR LUNGS: Clear ABDOMEN: Soft, non-tender, non-distended, normal BS EXTREMITIES: No edema. Left popliteal wound packed and dressed. Laboratory Results - last 24 hr 05/15/18 05/16/18 05/16/18 21:34 05:56 06:00 WBC 6.1 RBC 3.08 L Hgb 8.3 L Hct 26.6 L MCV 86.5 MCH 26.9 MCHC 31.1 L RDW 15.8 H Plt Count 277 MPV 8.3 Absolute Neuts (auto) 4.3 Neutrophils % 70.6 Lymphocytes % 18.8 D Monocytes % 9.4 Eosinophils % 0.9 Basophils % 0.3 Nucleated RBC % 0 Sodium Potassium Chloride Carbon Dioxide Anion Gap BUN Creatinine Creat Clearance w eGFR POC Glucometer 140 119 Random Glucose Calcium Phosphorus Magnesium 05/16/18 05/16/18 05/16/18 06:00 12:00 16:58 WBC RBC Hgb Hct MCV MCH MCHC RDW Plt Count MPV Absolute Neuts (auto) Neutrophils % Lymphocytes % Monocytes % Eosinophils % Basophils % Nucleated RBC % Sodium 140 Potassium 3.7 Chloride 106 Carbon Dioxide 26 Anion Gap 9 BUN 7 Creatinine 0.5 L Creat Clearance w eGFR > 60 POC Glucometer 129 192 Random Glucose 112 H Calcium 8.3 L Phosphorus 3.3 Magnesium 1.9 Current Medications Generic Name Dose Route Start Last Admin Trade Name Freq PRN Reason Stop Dose Admin Acetaminophen 650 mg 05/15/18 17:16 05/16/18 00:29 Tylenol - PO 650 mg Q4H PRN Administration PAIN LEVEL 4 - 6 Acetaminophen 325 mg 05/15/18 17:16 05/16/18 14:07 Tylenol - PO 325 mg Q6H PRN Administration PAIN LEVEL 6-10 Aspirin 81 mg 05/16/18 10:00 05/16/18 09:15 Asa - PO 81 mg DAILY [facility]Y Administration Collagenase 1 applic 05/16/18 10:00 05/16/18 10:14 Santyl - TP 1 applic DAILY [facility] Administration Protocol Cyclobenzaprine HCl 5 mg 05/16/18 10:00 05/16/18 09:16 Flexeril - PO 5 mg DAILY [facility]Y Administration Enoxaparin Sodium 40 mg 05/16/18 10:00 05/16/18 09:15 Lovenox - SQ 40 mg DAILY [facility] Administration Gabapentin 400 mg/ Gabapentin 500 mg 05/15/18 22:00 05/15/18 21:48 100 mg PO 500 mg HS EMY Administration Meropenem 500 mg/ Dextrose 100 mls @ 200 mls/hr 05/15/18 18:00 05/16/18 17:29 IVPB 200 mls/hr Q8H-IV EMY Administration Sodium Chloride 1,000 mls @ 75 mls/hr 05/15/18 17:16 05/16/18 06:34 Normal Saline - IV 75 mls/hr ASDIR EMY Administration Insulin Aspart 1 vial 05/15/18 22:00 05/16/18 17:01 Novolog Vial Sliding Scale - SQ 2 unit ACHS [facility]Y Administration Protocol Oxycodone HCl 5 mg 05/15/18 17:16 05/16/18 14:06 Roxicodone - PO 5 mg Q6H PRN Administration PAIN LEVEL 6-10 Potassium Chloride 40 meq 05/16/18 10:00 05/16/18 09:16 K-Dur - PO 05/16/18 22:01 40 meq BID EMY Administration ASSESSMENT AND PLAN: This is an 82 year old woman with a history of OA, bilateral TKRs, chronic left popliteal pressure ulcer, left foot drop, type 2 DM, HTN, hyperlipidemia who presented to the ED with left knee pain and inability to ambulate after a fall. 1. Sepsis secondary to infected left popliteal pressure ulcer, UTI - s/p left popliteal wash out and abscess drainage 05/15 - Temp 103.0 this morning - Wound culture growing ESBL (+) Klebsiella, coag neg Staph, group B Strep, Strep viridans - Urine culture growing ESBL (+) Klebsiella, Strep viridans - Blood cultures negative - Continue meropenem 2. Rhabdomyolysis - Improved 3. Left knee pain - History of bilateral TKRs - CT limited secondary to artifact from prosthesis - Continue meloxicam, oxycodone as needed - Ortho follow up 4. Type 2 DM with peripheral neuropathy - Metformin held - Continue Novolog sliding scale, Neurontin 5. HTN - BP ok off lisinopril 6. Hyperlipidemia 7. Hypophosphatemia - Improved 8. 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
--- NOTE | 2018-05-16 19:38 | PN ---
Progress Note, Physician History of Present Illness: Awake, alert Supine in bed S/P debridement of L popliteal wound High grade fever overnight No urinary tract complaints C/O L LE pain Wound c/s mixed organisms including ESBL Urine c/s ESBL WBC WNL - Current Medication List Current Medications: Active Medications Acetaminophen (Tylenol -) 650 mg PO Q4H PRN PRN Reason: PAIN LEVEL 4 - 6 Last Admin: 05/16/18 00:29 Dose: 650 mg Acetaminophen (Tylenol -) 325 mg PO Q6H PRN PRN Reason: PAIN LEVEL 6-10 Last Admin: 05/16/18 14:07 Dose: 325 mg Aspirin (Asa -) 81 mg PO DAILY [facility] Last Admin: 05/16/18 09:15 Dose: 81 mg Collagenase (Santyl -) 1 applic TP DAILY [facility]; Protocol Last Admin: 05/16/18 10:14 Dose: 1 applic Cyclobenzaprine HCl (Flexeril -) 5 mg PO DAILY [facility] Last Admin: 05/16/18 09:16 Dose: 5 mg Enoxaparin Sodium (Lovenox -) 40 mg SQ DAILY [facility] Last Admin: 05/16/18 09:15 Dose: 40 mg Gabapentin 400 mg/ Gabapentin (100 mg) 500 mg PO HS [facility] Last Admin: 05/15/18 21:48 Dose: 500 mg Meropenem 500 mg/ Dextrose 100 mls @ 200 mls/hr IVPB Q8H-IV [facility] Last Admin: 05/16/18 17:29 Dose: 200 mls/hr Sodium Chloride (Normal Saline -) 1,000 mls @ 75 mls/hr IV ASDIR [facility] Last Admin: 05/16/18 06:34 Dose: 75 mls/hr Insulin Aspart (Novolog Vial Sliding Scale -) 1 vial SQ ACHS [facility]; Protocol Last Admin: 05/16/18 17:01 Dose: 2 unit Oxycodone HCl (Roxicodone -) 5 mg PO Q6H PRN PRN Reason: PAIN LEVEL 6-10 Last Admin: 05/16/18 14:06 Dose: 5 mg Potassium Chloride (K-Dur -) 40 meq PO BID [facility] Stop: 05/16/18 22:01 Last Admin: 05/16/18 09:16 Dose: 40 meq - Objective Vital Signs: Vital Signs Temperature 98.9 F 05/16/18 14:59 Pulse Rate 86 05/16/18 14:59 Respiratory Rate 22 H 05/16/18 14:59 Blood Pressure 135/68 05/16/18 14:59 O2 Sat by Pulse Oximetry (%) 99 05/16/18 09:00 Constitutional: Yes: No Distress Eyes: Yes: Conjunctiva Clear Cardiovascular: Yes: Regular Rate and Rhythm, S1, S2 Respiratory: Yes: CTA Bilaterally Gastrointestinal: Yes: Normal Bowel Sounds, Soft Edema: Yes Labs: CBC, BMP 05/16/18 06:00 05/16/18 06:00 INR, PTT INR 1.39 (0.83-1.09) H 05/11/18 07:40 Assessment/Plan Fever/ leukocytosis v. wound source UTI Infected L leg wound polymicrobial, including ESBL S/P debridement Operative findings noted Leukocytosis-resolved Continue meropenem Local wound care
[2018-05-16] MEDS ORDERED: GABAPENTIN 100 MG CAPSULE (FP) ONE (23:43)
[2018-05-16] MEDS ORDERED: GABAPENTIN 400 MG CAPSULE (FP) ONE (23:43)
[2018-05-16] MEDS: GABAPENTIN 400 MG, GABAPENTIN 100 MG PO SCH (23:52)
[2018-05-17] MEDS: MEROPENEM 500 MG in DEXTROSE 5%-WATER 100 ML IVPB SCH ×4 (01:24→17:04)
[2018-05-17] MEDS: INSULIN SLIDING SCALE (NOVOLOG) 1 VIAL SQ SCH ×4 (06:30→22:14)
[2018-05-17 07:32] LABS: HEMATOCRIT 26.2 % (32.4-45.2); HEMOGLOBIN 8.2 GM/dL (10.7-15.3); MCH 26.7 pg (25.7-33.7); MCHC 31.3 g/dl (32.0-36.0); MEAN CELL VOLUME 85.4 fl (80-96); MEAN PLT VOLUME 8.6 fl (7.5-11.1); PLATELET COUNT 316 K/MM3 (134-434); RBC 3.07 M/mm3 (3.60-5.2); RDW 15.5 % (11.6-15.6); WHITE BLOOD COUNT 5.9 K/mm3 (4.0-10.0)
[2018-05-17 07:42] LABS: ANION GAP 6 MMOL/L (8-16); BLOOD UREA NITROGEN 8 mg/dL (7-18); CALCIUM 8.7 mg/dL (8.5-10.1); CHLORIDE 104 mmol/L (98-107); CO2 27 mmol/L (21-32); CREATININE 0.5 mg/dL (0.55-1.3); GLUCOSE,RANDOM 107 mg/dL (74-106); PHOSPHOROUS 2.9 mg/dL (2.5-4.9); POTASSIUM 4.4 mmol/L (3.5-5.1); SODIUM 136 mmol/L (136-145)
[2018-05-17] MEDS: CYCLOBENZAPRINE HCL 10 MG TABLET (FP) PO SCH (11:04)
[2018-05-17] MEDS: ASPIRIN 81 MG CHEWABLE TABLETS PO SCH (11:04)
[2018-05-17] MEDS: ENOXAPARIN NA (PORCINE) 40 MG/0.4 ML DISP.SYRIN SQ SCH (11:05)
--- NOTE | 2018-05-17 12:56 | PN ---
Physical Exam: SUBJECTIVE: Patient seen and examined this AM. She states she is doing well and that her pain is controlled when she is still but she is still having significant pain on movement OBJECTIVE: Vital Signs Period Temp Pulse Resp BP Sys/Jaimes Pulse Ox Last 24 Hr 98.6 F-100.1 F 80-92 20-22 121-160/62-77 99 GENERAL: A&O, no acute distress, morbidly obese HEAD: Normocephalic, atraumatic. EYES: no scleral icterus EARS, NOSE, THROAT: oropharynx clear without exudates. Moist mucous membranes. NECK: supple without lymphadenopathy LUNGS: CTA b/l, no crackles or wheezes HEART: Regular rate and rhythm, normal S1 and S2 without murmur ABDOMEN: Soft, nontender to palpation, normoactive bowel sounds MUSCULOSKELETAL: No bony deformities or tenderness. EXTREMITIES: 2+ pulses, warm, well-perfused. No peripheral edema. Left posterior 3x3 cm ulceration with some tracking 3 cm deep less drainage following washout NEUROLOGICAL: Cranial nerves II-XII grossly intact. Normal speech. Laboratory Results - last 24 hr 05/16/18 05/16/18 05/17/18 16:58 21:55 05:43 WBC RBC Hgb Hct MCV MCH MCHC RDW Plt Count MPV Sodium Potassium Chloride Carbon Dioxide Anion Gap BUN Creatinine Creat Clearance w eGFR POC Glucometer 192 112 114 Random Glucose Calcium Phosphorus Magnesium 05/17/18 05/17/18 05/17/18 06:30 06:30 11:06 WBC 5.9 RBC 3.07 L Hgb 8.2 L Hct 26.2 L MCV 85.4 MCH 26.7 MCHC 31.3 L RDW 15.5 Plt Count 316 MPV 8.6 Sodium 136 Potassium 4.4 Chloride 104 Carbon Dioxide 27 Anion Gap 6 L BUN 8 Creatinine 0.5 L Creat Clearance w eGFR > 60 POC Glucometer 133 Random Glucose 107 H Calcium 8.7 Phosphorus 2.9 Magnesium 2.0 Active Medications Generic Name Dose Route Start Last Admin Trade Name Freq PRN Reason Stop Dose Admin Acetaminophen 650 mg 05/15/18 17:16 05/16/18 00:29 Tylenol - PO 650 mg Q4H PRN Administration PAIN LEVEL 4 - 6 Acetaminophen 325 mg 05/15/18 17:16 05/16/18 14:07 Tylenol - PO 325 mg Q6H PRN Administration PAIN LEVEL 6-10 Aspirin 81 mg 05/16/18 10:00 05/17/18 11:04 Asa - PO 81 mg DAILY [facility] Administration Collagenase 1 applic 05/16/18 10:00 05/16/18 10:14 Santyl - TP 1 applic DAILY [facility] Administration Protocol Cyclobenzaprine HCl 5 mg 05/16/18 10:00 05/17/18 11:04 Flexeril - PO 5 mg DAILY [facility] Administration Enoxaparin Sodium 40 mg 05/16/18 10:00 05/17/18 11:05 Lovenox - SQ 40 mg DAILY [facility] Administration Gabapentin 400 mg/ Gabapentin 500 mg 05/15/18 22:00 05/16/18 23:52 100 mg PO 500 mg HS [facility] Administration Meropenem 500 mg/ Dextrose 100 mls @ 200 mls/hr 05/15/18 18:00 05/17/18 11:03 IVPB 200 mls/hr Q8H-IV [facility] Administration Sodium Chloride 1,000 mls @ 75 mls/hr 05/15/18 17:16 05/16/18 23:52 Normal Saline - IV 75 mls/hr ASDIR [facility] Administration Insulin Aspart 1 vial 05/15/18 22:00 05/17/18 11:10 Novolog Vial Sliding Scale - SQ Not Given ACHS [facility] Protocol Oxycodone HCl 5 mg 05/15/18 17:16 05/16/18 14:06 Roxicodone - PO 5 mg Q6H PRN Administration PAIN LEVEL 6-10 ASSESSMENT/PLAN: 82 yo F PMH of osteoarthritis with b/l knee replacement, left popliteal fossa pressure ulcer, left foot drop (wears brace), spinal stenosis, NIDDM, HTN, and HLD admitted with acute exacerbation of her chronic left knee pain s/p mechanical fall at home, found to likely have rhabdo Sepsis secondary to Left Popliteal Wound vs UTI -Afebrile overnight, though recent spikes noted, WBC count 13 on admission but now resolved -UA with 2+ blood and 54 WBCs, pt with clinical symptoms of UTI, dysuria/ frequency -Left popliteal wound with worsening of her chronic knee pain, wound with purulent drainage noted on gauze -Wound Care consult appreciated, POD 1 popliteal washout -Vancomycin, Rocephin escalated to Meropenem 05/14, wound and urine cultures noted with ESBL Klebsialla -ID consult appreciated -CT difficult to read with knee replacement hardware -MRI severely limited exam, radiology recommends 3 phase bone scan for osteomyelitis evaluation Fall with possible Rhabdo -Elevated CK > 1000, repeat 3600, down to 516 -Pt did not spend more than 30 minutes on the ground -NS @ 75 cc/hr -Trend BMP to monitor renal function -Pt claims to take atorvastatin AND simvastatin at home, pharmacy only verifies simvastatin, hold for now NIDDM -Gabapentin 300 mg PO HS HTN -Lisinopril 5 mg PO Daily HLD -Simvastatin 40 mg PO HS, hold DVT Prophylaxis -Lovenox 40 mg SQ Daily FEN -Fluids: NS @ 75 cc/hr -Electrolytes: No abnormalities, BMP in AM -Nutrition: Na controlled, diabetic diet Disposition Med/Surg Visit type - Emergency Visit Emergency Visit: Yes ED Registration Date: 05/10/18 Care time: The patient presented to the Emergency Department on the above date and was hospitalized for further evaluation of their emergent condition. - New Patient This patient is new to me today: No - Critical Care Critical Care patient: No
[2018-05-17] MEDS: oxyCODONE HCL 5 MG TABLET PO PRN (13:11)
[2018-05-17] MEDS: ACETAMINOPHEN 325 MG TABLET (FP) PO PRN (13:12)
[2018-05-17] MEDS: SODIUM CHLORIDE 1,000 ML IV SCH ×2 (13:15→17:37)
--- NOTE | 2018-05-17 16:51 | PN ---
Progress Note (short form) - Note Progress Note: Pod 2, s/p Left popliteal ulcer washout Pt seen and examined. States she is having a dlot of pain over her knee as well as increased swelling. Reports pain at ulcer site with dressing change. Had fever overnight (100.1). Vital Signs Temp 98.4 F 05/17/18 14:56 Pulse 76 05/17/18 14:56 Resp 22 H 05/17/18 14:56 BP 137/83 05/17/18 14:56 Pulse Ox 99 05/16/18 21:00 Intake & Output 05/16/18 05/17/18 05/17/18 23:59 11:59 23:59 Intake Total 860 855 250 Balance 860 855 250 Intake: IV 525 Normal Saline - 1,000 ml 525 @ 75 mls/hr IV ASDIR [facility]Y Rx#:[id number] IVPB 100 Oral 860 230 250 Other: Voiding Method Incontinent Diaper Diaper # Unmeasured Voids Void 1 Bowel Movement Yes Yes # Bowel Movements 1 1 Body Mass Index (BMI) 29.3 CBC, BMP 05/17/18 06:30 05/17/18 06:30 Gen: awake, alert, nad Ext: LLE dressing removed with moderate serous exudate +green tinged concerning for pseudomonas. Ulcer tracks to bone with some fibrinous exudate at edges. No foul odor. No ttp during examination of ulcer. No surrounding erythema. Ulcer irrigated with 10cc NS, no purulent drainage expressed after probing with qtip. L knee edematous with small effusion, ttp. -Recommend orthopedic consult for evaluation of knee (?septic joint) -Continue abx per ID -BID dressing changes (wash wound with NS flushes, dry with 4x4 and pack with Iodoform packing, cover with 4x4 and abd pad) -Will continue to follow above d/w attending Dr Mendoza
[2018-05-17] MEDS: COLLAGENASE CLOSTRIDIUM HIST. 30 GRAMS TUBE TP SCH (17:01)
--- NOTE | 2018-05-17 17:16 | PN ---
Teaching Attending Note Name of Resident: Feliciano Kowalski ATTENDING PHYSICIAN STATEMENT I saw and evaluated the patient. I reviewed the resident's note and discussed the case with the resident. I agree with the resident's findings and plan as documented. SUBJECTIVE: Patient reports she still has left knee pain with movement. OBJECTIVE: Vital Signs Period Temp Pulse Resp BP Sys/Jaimes Pulse Ox Last 24 Hr 98.4 F-100.1 F 76-92 20-22 121-160/62-83 99 HEART: S1S2, RRR LUNGS: Clear ABDOMEN: Soft, non-tender, non-distended, normal BS EXTREMITIES: No edema. Left popliteal wound packed and dressed. Laboratory Results - last 24 hr 05/16/18 05/16/18 05/17/18 16:58 21:55 05:43 WBC RBC Hgb Hct MCV MCH MCHC RDW Plt Count MPV Sodium Potassium Chloride Carbon Dioxide Anion Gap BUN Creatinine Creat Clearance w eGFR POC Glucometer 192 112 114 Random Glucose Calcium Phosphorus Magnesium 05/17/18 05/17/18 05/17/18 06:30 06:30 11:06 WBC 5.9 RBC 3.07 L Hgb 8.2 L Hct 26.2 L MCV 85.4 MCH 26.7 MCHC 31.3 L RDW 15.5 Plt Count 316 MPV 8.6 Sodium 136 Potassium 4.4 Chloride 104 Carbon Dioxide 27 Anion Gap 6 L BUN 8 Creatinine 0.5 L Creat Clearance w eGFR > 60 POC Glucometer 133 Random Glucose 107 H Calcium 8.7 Phosphorus 2.9 Magnesium 2.0 05/17/18 16:00 WBC RBC Hgb Hct MCV MCH MCHC RDW Plt Count MPV Sodium Potassium Chloride Carbon Dioxide Anion Gap BUN Creatinine Creat Clearance w eGFR POC Glucometer 110 Random Glucose Calcium Phosphorus Magnesium Current Medications Generic Name Dose Route Start Last Admin Trade Name Freq PRN Reason Stop Dose Admin Acetaminophen 650 mg 05/15/18 17:16 05/16/18 00:29 Tylenol - PO 650 mg Q4H PRN Administration PAIN LEVEL 4 - 6 Acetaminophen 325 mg 05/15/18 17:16 05/17/18 13:12 Tylenol - PO 325 mg Q6H PRN Administration PAIN LEVEL 6-10 Aspirin 81 mg 05/16/18 10:00 05/17/18 11:04 Asa - PO 81 mg DAILY [facility] Administration Collagenase 1 applic 05/16/18 10:00 05/17/18 17:01 Santyl - TP Not Given DAILY [facility] Protocol Cyclobenzaprine HCl 5 mg 05/16/18 10:00 05/17/18 11:04 Flexeril - PO 5 mg DAILY [facility]Y Administration Enoxaparin Sodium 40 mg 05/16/18 10:00 05/17/18 11:05 Lovenox - SQ 40 mg DAILY [facility] Administration Gabapentin 400 mg/ Gabapentin 500 mg 05/15/18 22:00 05/16/18 23:52 100 mg PO 500 mg HS EMY Administration Meropenem 500 mg/ Dextrose 100 mls @ 200 mls/hr 05/15/18 18:00 05/17/18 17:04 IVPB 200 mls/hr Q8H-IV [facility]Y Administration Sodium Chloride 1,000 mls @ 75 mls/hr 05/15/18 17:16 05/17/18 13:15 Normal Saline - IV 75 mls/hr ASDIR [facility]Y Administration Insulin Aspart 1 vial 05/15/18 22:00 05/17/18 16:34 Novolog Vial Sliding Scale - SQ Not Given ACHS [facility] Protocol Oxycodone HCl 5 mg 05/15/18 17:16 05/17/18 13:11 Roxicodone - PO 5 mg Q6H PRN Administration PAIN LEVEL 6-10 ASSESSMENT AND PLAN: This is an 82 year old woman with a history of OA, bilateral TKRs, chronic left popliteal pressure ulcer, left foot drop, type 2 DM, HTN, hyperlipidemia who presented to the ED with left knee pain and inability to ambulate after a fall. 1. Sepsis secondary to infected left popliteal pressure ulcer, UTI - s/p left popliteal wash out and abscess drainage 05/15 - Fevers improving - Had temp 100.1 this morning - Wound culture growing ESBL (+) Klebsiella, coag neg Staph, group B Strep, Strep viridans - Urine culture growing ESBL (+) Klebsiella, Strep viridans - Blood cultures negative - Continue meropenem 2. Rhabdomyolysis - Improved 3. Left knee pain - History of bilateral TKRs - CT and MRI limited secondary to artifact from prosthesis - triple phase bone scan recommended - Continue meloxicam, oxycodone as needed - Ortho follow up 4. Type 2 DM with peripheral neuropathy - Metformin held - Continue Novolog sliding scale, Neurontin 5. HTN - Lisinopril held 6. Hyperlipidemia 7. Hypophosphatemia - Improved 8. 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
[2018-05-17] MEDS ORDERED: GABAPENTIN 400 MG CAPSULE (FP) ONE (20:49)
[2018-05-17] MEDS ORDERED: GABAPENTIN 100 MG CAPSULE (FP) ONE (20:49)
[2018-05-17] MEDS: GABAPENTIN 400 MG, GABAPENTIN 100 MG PO SCH (22:14)
[2018-05-18] MEDS: SODIUM CHLORIDE 1,000 ML IV SCH (02:24)
[2018-05-18] MEDS: MEROPENEM 500 MG in DEXTROSE 5%-WATER 100 ML IVPB SCH ×3 (02:24→17:31)
[2018-05-18] MEDS: INSULIN SLIDING SCALE (NOVOLOG) 1 VIAL SQ SCH ×4 (06:37→21:37)
[2018-05-18] MEDS ORDERED: oxyCODONE HCL 5 MG TABLET PO PRN (07:07)
[2018-05-18] MEDS ORDERED: ACETAMINOPHEN 325 MG TABLET (FP) PO PRN ×2 (07:10→07:11)
[2018-05-18 07:47] LABS: HEMATOCRIT 27.6 % (32.4-45.2); HEMOGLOBIN 8.7 GM/dL (10.7-15.3); MCH 26.9 pg (25.7-33.7); MCHC 31.7 g/dl (32.0-36.0); MEAN PLT VOLUME 8.3 fl (7.5-11.1); PLATELET COUNT 322 K/MM3 (134-434); RBC 3.25 M/mm3 (3.60-5.2); RDW 15.5 % (11.6-15.6); WHITE BLOOD COUNT 6.5 K/mm3 (4.0-10.0)
[2018-05-18 08:09] LABS: ANION GAP 8 MMOL/L (8-16); BLOOD UREA NITROGEN 7 mg/dL (7-18); CHLORIDE 102 mmol/L (98-107); CO2 28 mmol/L (21-32); CREATININE 0.5 mg/dL (0.55-1.3); GLUCOSE,RANDOM 107 mg/dL (74-106); MAGNESIUM 2.1 mg/dL (1.8-2.4); PHOSPHOROUS 3.1 mg/dL (2.5-4.9); POTASSIUM 3.7 mmol/L (3.5-5.1); SODIUM 137 mmol/L (136-145)
--- NOTE | 2018-05-18 10:28 | CONSULT ---
Consult - text type - Consultation Consultation Note: FULL CONSULT DICTATED IMP: CHRONIC SUBLUXED AND SEPTIC L TKR PLAN: PATIENT WILL THINK ABOUT OPTIONS AND THEN WE WILL DECIDE ON DEFINITIVE TREATMENT
[2018-05-18] MEDS ORDERED: PT OWN MED DRAWER 7, Y5N ONE ×2 (11:11→17:28)
[2018-05-18] MEDS: ENOXAPARIN NA (PORCINE) 40 MG/0.4 ML DISP.SYRIN SQ SCH (11:34)
[2018-05-18] MEDS: CYCLOBENZAPRINE HCL 10 MG TABLET (FP) PO SCH (11:35)
[2018-05-18] MEDS: ASPIRIN 81 MG CHEWABLE TABLETS PO SCH (11:36)
[2018-05-18] MEDS: ACETAMINOPHEN 325 MG TABLET (FP) PO PRN (11:37)
[2018-05-18] MEDS: oxyCODONE HCL 5 MG TABLET PO PRN (11:37)
--- NOTE | 2018-05-18 15:20 | CONS ---
DATE OF CONSULTATION: 05/18/2018 ORTHOPEDIC CONSULTATION Patient is an 82-year-old female admitted to the hospital a few days ago with a wound and infection in the popliteal fossa. Patient was taken to the operating room by Dr. Mendoza, vascular surgeon, who did a debridement and palpated that the sinus tract went down to bone posteriorly. This necessitated an Orthopedic consultation. Patient is status post a bilateral total knee replacement done many years ago in the early 90s. Patient notes suffering with the left lower extremity especially. I did do a years ago when patient sustained a footdrop on the left side. She also has had an unstable knee and has been treated with a brace to hold the knee in some stability. The brace could have been the pressure phenomenon that . The patient is a marginal ambulatory at best. Mostly goes from bed to her wheelchair. PHYSICAL EXAMINATION: She has a chronic footdrop that is not with any equinus contracture on the left lower extremity. She has jagged, well-healed incision on the anterior aspect of the left knee. She has a packed wound in the popliteal fossa. She has no stability to varus/valgus stress of the knee, and no gross erythema or swelling or ecchymosis. X-RAYS: Evaluated showed a posteriorly subluxed femoral component on an anterior tibial component with angulation. This was on varus/valgus as well. No franked loosening of the component. 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 PLAN: Patient is on IV antibiotics. Patient needs to think about options being either chronic suppressive antibiotics, using the brace, or removing the component and putting antibiotic spacer with potentially a revision hinged knee component. Patient states that she is Dr. Jamil's patient at [facility]. I attempted to contact Dr. Jamil's office and Dr. Leroy, his partner, to get their input into this care. AMELIA GRIMES M.D. [id number]
--- NOTE | 2018-05-18 15:59 | PN ---
Physical Exam: SUBJECTIVE: Patient seen and examined this AM. She states she does not know how she is doing. Says that her pain is still controlled when still but very painful with movement. OBJECTIVE: Vital Signs Period Temp Pulse Resp BP Sys/Jaimes Pulse Ox Last 24 Hr 98 F-99 F 73-96 19-20 129-158/52-88 100 GENERAL: A&O, no acute distress, morbidly obese HEAD: Normocephalic, atraumatic. EYES: no scleral icterus EARS, NOSE, THROAT: oropharynx clear without exudates. Moist mucous membranes. NECK: supple without lymphadenopathy LUNGS: CTA b/l, no crackles or wheezes HEART: Regular rate and rhythm, normal S1 and S2 without murmur ABDOMEN: Soft, nontender to palpation, normoactive bowel sounds MUSCULOSKELETAL: No bony deformities or tenderness. EXTREMITIES: 2+ pulses, warm, well-perfused. No peripheral edema. Left posterior 3x3 cm ulceration with some tracking 3 cm deep less drainage following washout NEUROLOGICAL: Cranial nerves II-XII grossly intact. Normal speech. Laboratory Results - last 24 hr 05/17/18 05/17/18 05/18/18 16:00 21:06 06:10 WBC RBC Hgb Hct MCV MCH MCHC RDW Plt Count MPV Sodium Potassium Chloride Carbon Dioxide Anion Gap BUN Creatinine Creat Clearance w eGFR POC Glucometer 110 136 123 Random Glucose Calcium Phosphorus Magnesium 05/18/18 05/18/18 05/18/18 06:40 06:40 11:33 WBC 6.5 RBC 3.25 L Hgb 8.7 L Hct 27.6 L MCV 85.0 MCH 26.9 MCHC 31.7 L RDW 15.5 Plt Count 322 MPV 8.3 Sodium 137 Potassium 3.7 Chloride 102 Carbon Dioxide 28 Anion Gap 8 BUN 7 Creatinine 0.5 L Creat Clearance w eGFR > 60 POC Glucometer 110 Random Glucose 107 H Calcium 9.0 Phosphorus 3.1 Magnesium 2.1 Active Medications Generic Name Dose Route Start Last Admin Trade Name Freq PRN Reason Stop Dose Admin Acetaminophen 325 mg 05/18/18 07:12 05/18/18 11:37 Tylenol - PO 325 mg Q6H PRN Administration PAIN LEVEL 6-10 Aspirin 81 mg 05/16/18 10:00 05/18/18 11:36 Asa - PO 81 mg DAILY [facility] Administration Cyclobenzaprine HCl 5 mg 05/16/18 10:00 05/18/18 11:35 Flexeril - PO 5 mg DAILY [facility] Administration Enoxaparin Sodium 40 mg 05/16/18 10:00 05/18/18 11:34 Lovenox - SQ 40 mg DAILY [facility] Administration Gabapentin 400 mg/ Gabapentin 500 mg 05/15/18 22:00 05/17/18 22:14 100 mg PO 500 mg HS EMY Administration Meropenem 500 mg/ Dextrose 100 mls @ 200 mls/hr 05/15/18 18:00 05/18/18 11:35 IVPB 200 mls/hr Q8H-IV [facility] Administration Sodium Chloride 1,000 mls @ 75 mls/hr 05/15/18 17:16 05/18/18 02:24 Normal Saline - IV 75 mls/hr ASDIR [facility] Administration Insulin Aspart 1 vial 05/15/18 22:00 05/18/18 11:43 Novolog Vial Sliding Scale - SQ Not Given ACHS [facility] Protocol Oxycodone HCl 5 mg 05/18/18 07:11 05/18/18 11:37 Roxicodone - PO 5 mg Q6H PRN Administration PAIN LEVEL 6-10 ASSESSMENT/PLAN: 82 yo F PMH of osteoarthritis with b/l knee replacement, left popliteal fossa pressure ulcer, left foot drop (wears brace), spinal stenosis, NIDDM, HTN, and HLD admitted with acute exacerbation of her chronic left knee pain s/p mechanical fall at home, found to likely have rhabdo Sepsis secondary to Left Popliteal Wound vs UTI -Afebrile overnight, though recent spikes noted, WBC count 13 on admission but now resolved -UA with 2+ blood and 54 WBCs, pt with clinical symptoms of UTI, dysuria/ frequency -Left popliteal wound with worsening of her chronic knee pain, wound with purulent drainage noted on gauze -Wound Care consult appreciated, POD 1 popliteal washout -Vancomycin, Rocephin escalated to Meropenem 05/14 (Day4 of Lesa), wound and urine cultures noted with ESBL Klebsialla -ID consult appreciated -CT difficult to read with knee replacement hardware -MRI severely limited exam, radiology recommends 3 phase bone scan for osteomyelitis evaluation -Ortho consult appreciated, deciding about possible removal of hardware and possibility of replacement vs just giving IV Abx for 6 weeks and reevaluating Fall with possible Rhabdo -Elevated CK > 1000, repeat 3600, down to 516 -Pt did not spend more than 30 minutes on the ground -NS @ 75 cc/hr -Trend BMP to monitor renal function -Pt claims to take atorvastatin AND simvastatin at home, pharmacy only verifies simvastatin, hold for now NIDDM -Gabapentin 300 mg PO HS HTN -Lisinopril 5 mg PO Daily HLD -Simvastatin 40 mg PO HS, hold DVT Prophylaxis -Lovenox 40 mg SQ Daily FEN -Fluids: NS @ 75 cc/hr -Electrolytes: No abnormalities, BMP in AM -Nutrition: Na controlled, diabetic diet Disposition Med/Surg Visit type - Emergency Visit Emergency Visit: Yes ED Registration Date: 05/10/18 Care time: The patient presented to the Emergency Department on the above date and was hospitalized for further evaluation of their emergent condition. - New Patient This patient is new to me today: No - Critical Care Critical Care patient: No
--- NOTE | 2018-05-18 18:01 | PN ---
Progress Note, Physician History of Present Illness: Awake, alert Supine in bed S/P debridement of L popliteal wound C/O L LE pain with movement No urinary tract complaints Temps down Afebrile Wound c/s mixed organisms including ESBL Urine c/s ESBL WBC WNL - Current Medication List Current Medications: Active Medications Acetaminophen (Tylenol -) 325 mg PO Q6H PRN PRN Reason: PAIN LEVEL 6-10 Last Admin: 05/18/18 11:37 Dose: 325 mg Aspirin (Asa -) 81 mg PO DAILY [facility] Last Admin: 05/18/18 11:36 Dose: 81 mg Cyclobenzaprine HCl (Flexeril -) 5 mg PO DAILY [facility] Last Admin: 05/18/18 11:35 Dose: 5 mg Enoxaparin Sodium (Lovenox -) 40 mg SQ DAILY [facility] Last Admin: 05/18/18 11:34 Dose: 40 mg Gabapentin 400 mg/ Gabapentin (100 mg) 500 mg PO HS [facility] Last Admin: 05/17/18 22:14 Dose: 500 mg Meropenem 500 mg/ Dextrose 100 mls @ 200 mls/hr IVPB Q8H-IV [facility] Last Admin: 05/18/18 17:31 Dose: 200 mls/hr Sodium Chloride (Normal Saline -) 1,000 mls @ 75 mls/hr IV ASDIR [facility] Last Admin: 05/18/18 02:24 Dose: 75 mls/hr Insulin Aspart (Novolog Vial Sliding Scale -) 1 vial SQ ACHS [facility]; Protocol Last Admin: 05/18/18 11:43 Dose: Not Given Oxycodone HCl (Roxicodone -) 5 mg PO Q6H PRN PRN Reason: PAIN LEVEL 6-10 Last Admin: 05/18/18 11:37 Dose: 5 mg - Objective Vital Signs: Vital Signs Temperature 98.8 F 05/18/18 14:34 Pulse Rate 96 H 05/18/18 14:34 Respiratory Rate 20 05/18/18 14:34 Blood Pressure 129/52 L 05/18/18 14:34 O2 Sat by Pulse Oximetry (%) 100 05/17/18 21:00 Constitutional: Yes: No Distress Cardiovascular: Yes: Regular Rate and Rhythm, S1, S2 Respiratory: Yes: CTA Bilaterally Gastrointestinal: Yes: Normal Bowel Sounds, Soft Extremities: Yes: Other (L popliteal wound no purulent drainage or foul odor) Labs: CBC, BMP 05/18/18 06:40 05/18/18 06:40 INR, PTT INR 1.39 (0.83-1.09) H 05/11/18 07:40 Assessment/Plan Fever/ leukocytosis improved Infected L leg wound polymicrobial, including ESBL S/P debridement Probable infected TKR Fever/Leukocytosis-resolved Continue meropenem Ortho eval appreciated Will need chcf IV antibiotic therapy at minimum Local wound care
--- NOTE | 2018-05-18 18:46 | PN ---
Teaching Attending Note Name of Resident: Feliciano Kowalski ATTENDING PHYSICIAN STATEMENT I saw and evaluated the patient. I reviewed the resident's note and discussed the case with the resident. I agree with the resident's findings and plan as documented. SUBJECTIVE: Patient complains of pain in her left knee, especially with movement. OBJECTIVE: Vital Signs Period Temp Pulse Resp BP Sys/Jaimes Pulse Ox Last 24 Hr 98 F-99 F 75-96 19-20 129-158/52-88 100 HEART: S1S2, RRR LUNGS: Clear ABDOMEN: Soft, non-tender, non-distended, normal BS EXTREMITIES: No edema. Left popliteal wound packed and dressed. Laboratory Results - last 24 hr 05/17/18 05/18/18 05/18/18 21:06 06:10 06:40 WBC 6.5 RBC 3.25 L Hgb 8.7 L Hct 27.6 L MCV 85.0 MCH 26.9 MCHC 31.7 L RDW 15.5 Plt Count 322 MPV 8.3 Sodium Potassium Chloride Carbon Dioxide Anion Gap BUN Creatinine Creat Clearance w eGFR POC Glucometer 136 123 Random Glucose Calcium Phosphorus Magnesium 05/18/18 05/18/18 05/18/18 06:40 11:33 17:32 WBC RBC Hgb Hct MCV MCH MCHC RDW Plt Count MPV Sodium 137 Potassium 3.7 Chloride 102 Carbon Dioxide 28 Anion Gap 8 BUN 7 Creatinine 0.5 L Creat Clearance w eGFR > 60 POC Glucometer 110 147 Random Glucose 107 H Calcium 9.0 Phosphorus 3.1 Magnesium 2.1 Current Medications Generic Name Dose Route Start Last Admin Trade Name Freq PRN Reason Stop Dose Admin Acetaminophen 325 mg 05/18/18 07:12 05/18/18 11:37 Tylenol - PO 325 mg Q6H PRN Administration PAIN LEVEL 6-10 Aspirin 81 mg 05/16/18 10:00 05/18/18 11:36 Asa - PO 81 mg DAILY [facility]Y Administration Cyclobenzaprine HCl 5 mg 05/16/18 10:00 05/18/18 11:35 Flexeril - PO 5 mg DAILY EMY Administration Enoxaparin Sodium 40 mg 05/16/18 10:00 05/18/18 11:34 Lovenox - SQ 40 mg DAILY [facility]Y Administration Gabapentin 400 mg/ Gabapentin 500 mg 05/15/18 22:00 05/17/18 22:14 100 mg PO 500 mg HS EMY Administration Meropenem 500 mg/ Dextrose 100 mls @ 200 mls/hr 05/15/18 18:00 05/18/18 17:31 IVPB 200 mls/hr Q8H-IV EMY Administration Sodium Chloride 1,000 mls @ 75 mls/hr 05/15/18 17:16 05/18/18 02:24 Normal Saline - IV 75 mls/hr ASDIR EMY Administration Insulin Aspart 1 vial 05/15/18 22:00 05/18/18 18:14 Novolog Vial Sliding Scale - SQ Not Given ACHS [facility] Protocol Oxycodone HCl 5 mg 05/18/18 07:11 05/18/18 11:37 Roxicodone - PO 5 mg Q6H PRN Administration PAIN LEVEL 6-10 ASSESSMENT AND PLAN: This is an 82 year old woman with a history of OA, bilateral TKRs, chronic left popliteal pressure ulcer, left foot drop, type 2 DM, HTN, hyperlipidemia who presented to the ED with left knee pain and inability to ambulate after a fall. 1. Sepsis secondary to infected left popliteal pressure ulcer, UTI - s/p left popliteal wash out and abscess drainage 05/15 - Afebrile - Wound culture growing ESBL (+) Klebsiella, coag neg Staph, group B Strep, Strep viridans - Urine culture growing ESBL (+) Klebsiella, Strep viridans - Blood cultures negative - Continue meropenem 2. Rhabdomyolysis - Improved 3. Left knee pain - History of bilateral TKRs - CT and MRI limited secondary to artifact from prosthesis - Triple phase bone scan shows nonspecific diffuse left knee periprosthetic increased blood flow, blood pool, and delayed activity - Continue meloxicam, oxycodone as needed - Ortho follow up appreciated - Thought to be failed left TKR with foot drop and infected wound communicating with left knee joint - Options offered included chronic suppressive antibiotic therapy, brace, hardware removal and antibiotic spacer 4. Type 2 DM with peripheral neuropathy - Metformin held - Continue Novolog sliding scale, Neurontin 5. HTN - Lisinopril held 6. Hyperlipidemia 7. Hypophosphatemia - Improved 8. 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
[2018-05-18] MEDS ORDERED: GABAPENTIN 400 MG CAPSULE (FP) ONE (21:22)
[2018-05-18] MEDS ORDERED: GABAPENTIN 100 MG CAPSULE (FP) ONE (21:23)
[2018-05-18] MEDS: GABAPENTIN 400 MG, GABAPENTIN 100 MG PO SCH (21:38)
[2018-05-19] MEDS: SODIUM CHLORIDE 1,000 ML IV SCH ×3 (02:07→22:03)
[2018-05-19] MEDS: MEROPENEM 500 MG in DEXTROSE 5%-WATER 100 ML IVPB SCH ×3 (02:07→17:46)
[2018-05-19] MEDS: INSULIN SLIDING SCALE (NOVOLOG) 1 VIAL SQ SCH ×4 (07:15→22:03)
[2018-05-19 08:14] LABS: HEMATOCRIT 25.4 % (32.4-45.2); MCH 26.6 pg (25.7-33.7); MCHC 31.6 g/dl (32.0-36.0); MEAN CELL VOLUME 84.4 fl (80-96); MEAN PLT VOLUME 8.6 fl (7.5-11.1); PLATELET COUNT 344 K/MM3 (134-434); RBC 3.01 M/mm3 (3.60-5.2); RDW 15.7 % (11.6-15.6); WHITE BLOOD COUNT 8.7 K/mm3 (4.0-10.0)
[2018-05-19] MEDS ORDERED: PT OWN MED DRAWER 7, Y5N ONE ×2 (09:46→17:38)
[2018-05-19] MEDS: CYCLOBENZAPRINE HCL 10 MG TABLET (FP) PO SCH (09:56)
[2018-05-19] MEDS: ASPIRIN 81 MG CHEWABLE TABLETS PO SCH (09:56)
[2018-05-19] MEDS: ENOXAPARIN NA (PORCINE) 40 MG/0.4 ML DISP.SYRIN SQ SCH (09:57)
[2018-05-19] MEDS: oxyCODONE HCL 5 MG TABLET PO PRN ×2 (10:07→18:07)
[2018-05-19] MEDS: ACETAMINOPHEN 325 MG TABLET (FP) PO PRN ×2 (10:08→18:08)
--- NOTE | 2018-05-19 10:24 | PN ---
Progress Note (short form) - Note Progress Note: She still have pain in her left leg no fever no distress pain is essentially unchanged from yesterday vs Vital Signs Period Temp Pulse Resp BP Sys/Jaimes Pulse Ox Last 24 Hr 98.6 F-99.6 F 85-96 20-20 125-141/52-85 Heent paler present lungs clear heart normal heart sound abd non tender and bs normal ext no edema tender in her left knee area and dressing in place on posterior knee labs Laboratory Results - last 24 hr 05/18/18 05/18/18 05/18/18 11:33 17:32 21:12 WBC RBC Hgb Hct MCV MCH MCHC RDW Plt Count MPV POC Glucometer 110 147 136 05/19/18 05/19/18 07:00 07:00 WBC 8.7 RBC 3.01 L Hgb 8.0 L Hct 25.4 L MCV 84.4 MCH 26.6 MCHC 31.6 L RDW 15.7 H Plt Count 344 MPV 8.6 POC Glucometer 122 Current Medications Acetaminophen (Tylenol -) 325 mg PO Q6H PRN PRN Reason: PAIN LEVEL 6-10 Last Admin: 05/19/18 10:08 Dose: 325 mg Aspirin (Asa -) 81 mg PO DAILY [facility] Last Admin: 05/19/18 09:56 Dose: 81 mg Cyclobenzaprine HCl (Flexeril -) 5 mg PO DAILY [facility] Last Admin: 05/19/18 09:56 Dose: 5 mg Enoxaparin Sodium (Lovenox -) 40 mg SQ DAILY [facility] Last Admin: 05/19/18 09:57 Dose: 40 mg Gabapentin 400 mg/ Gabapentin (100 mg) 500 mg PO HS [facility] Last Admin: 05/18/18 21:38 Dose: 500 mg Meropenem 500 mg/ Dextrose 100 mls @ 200 mls/hr IVPB Q8H-IV [facility] Last Admin: 05/19/18 09:56 Dose: 200 mls/hr Sodium Chloride (Normal Saline -) 1,000 mls @ 75 mls/hr IV ASDIR [facility] Last Admin: 05/19/18 02:07 Dose: 75 mls/hr Insulin Aspart (Novolog Vial Sliding Scale -) 1 vial SQ ACHS [facility]; Protocol Last Admin: 05/19/18 07:15 Dose: Not Given Oxycodone HCl (Roxicodone -) 5 mg PO Q6H PRN PRN Reason: PAIN LEVEL 6-10 Last Admin: 05/19/18 10:07 Dose: 5 mg All Problems Failure to thrive (Acute) Fall (Acute) Osteoarthritis (Acute) Rhabdomyolysis (Acute) UTI (urinary tract infection) (Acute) Diabetes (Acute) Foot drop (Acute) Hip pain, chronic (Acute) Leg pain (Acute) Sepsis (Acute) UTI (urinary tract infection), bacterial (Acute) ASSESSMENT AND PLAN: This is an 82 year old woman with a history of OA, bilateral TKRs, chronic left popliteal pressure ulcer, left foot drop, type 2 DM, HTN, hyperlipidemia who presented to the ED with left knee pain and inability to ambulate after a fall. 1. Sepsis secondary to infected left popliteal pressure ulcer, UTI - s/p left popliteal wash out and abscess drainage - Continue meropenem 2. Rhabdomyolysis - Improved 3. Left knee pain - seen by dr mahmood - Ortho follow up appreciated - Thought to be failed left TKR with foot drop and infected wound communicating with left knee joint - Options offered included chronic suppressive antibiotic therapy, brace, hardware removal and antibiotic spacer 4. Type 2 DM with peripheral neuropathy sugar control is great on current meds - Continue Novolog sliding scale, 5. HTN stable off lisinopril 6. Hyperlipidemia stable 7. 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
[2018-05-19] MEDS ORDERED: GABAPENTIN 400 MG CAPSULE (FP) ONE (21:10)
[2018-05-19] MEDS ORDERED: GABAPENTIN 100 MG CAPSULE (FP) ONE (21:11)
[2018-05-19] MEDS: GABAPENTIN 400 MG, GABAPENTIN 100 MG PO SCH (22:02)
[2018-05-20] MEDS ORDERED: PT OWN MED DRAWER 7, Y5N ONE ×3 (00:50→18:24)
[2018-05-20] MEDS: MEROPENEM 500 MG in DEXTROSE 5%-WATER 100 ML IVPB SCH ×3 (01:06→18:35)
[2018-05-20] MEDS: INSULIN SLIDING SCALE (NOVOLOG) 1 VIAL SQ SCH ×4 (06:14→22:35)
[2018-05-20] MEDS: CYCLOBENZAPRINE HCL 10 MG TABLET (FP) PO SCH (10:33)
[2018-05-20] MEDS: ENOXAPARIN NA (PORCINE) 40 MG/0.4 ML DISP.SYRIN SQ SCH (10:33)
[2018-05-20] MEDS: ASPIRIN 81 MG CHEWABLE TABLETS PO SCH (10:33)
[2018-05-20] MEDS: oxyCODONE HCL 5 MG TABLET PO PRN ×2 (10:34→18:43)
[2018-05-20] MEDS: ACETAMINOPHEN 325 MG TABLET (FP) PO PRN (10:37)
[2018-05-20] MEDS ORDERED: ACETAMINOPHEN 325 MG TABLET (FP) PO PRN (10:49)
[2018-05-20] MEDS: SODIUM CHLORIDE 1,000 ML IV SCH ×3 (12:24→17:16)
--- NOTE | 2018-05-20 13:08 | PN ---
Physical Exam: SUBJECTIVE: Patient seen and examined. No fevers (per pt since debridement), no n/v/chest pain. Had L popliteal fossa dressing changed this am. Still has pain up to 12/15 after medication. OBJECTIVE: Vital Signs Period Temp Pulse Resp BP Sys/Jaimes Pulse Ox Last 24 Hr 97.6 F-98.6 F 75-84 19-20 115-144/61-72 98-98 Vital Signs Temp 98.5 F 05/20/18 10:30 Pulse 75 05/20/18 10:30 Resp 20 05/20/18 10:30 BP 122/63 05/20/18 10:30 Pulse Ox 98 05/20/18 11:00 Intake & Output 05/19/18 05/20/18 05/20/18 23:59 11:59 23:59 Intake Total 1610 1045 Balance 1610 1045 Intake: IV 1050 525 Normal Saline - 1,000 ml 1050 525 @ 75 mls/hr IV ASDIR [facility] Rx#:[id number] IVPB 100 100 Oral 460 420 Other: Voiding Method Incontinent Incontinent # Unmeasured Voids Void 1 1 Bowel Movement Yes Yes GENERAL: The patient is awake, alert, and fully oriented, in no acute distress. EYES: PERRL, extraocular movements intact ENT: moist mucous membranes. LUNGS: Breath sounds equal, clear to auscultation bilaterally, no wheezes, no crackles HEART: Regular rate and rhythm, S1, S2, 3/6 systolic murmur ABDOMEN: Soft, nontender, nondistended, normoactive bowel sounds, no guarding EXTREMITIES: 2+ pulses, warm, well-perfused, mild edema b/l. Tender LLE. Dressing clean and dry, no exudate over left Popliteal fossa wound. NEUROLOGICAL: Cranial nerves II through XII grossly intact. Normal speech, gait not observed. Laboratory Results - last 24 hr 05/19/18 05/19/18 05/20/18 16:53 22:01 06:13 POC Glucometer 125 124 117 05/20/18 11:50 POC Glucometer 126 Active Medications Generic Name Dose Route Start Last Admin Trade Name Freq PRN Reason Stop Dose Admin Acetaminophen 650 mg 05/20/18 10:49 Tylenol - PO Q6H PRN PAIN LEVEL 6-10 Aspirin 81 mg 05/16/18 10:00 05/20/18 10:33 Asa - PO 81 mg DAILY [facility] Administration Cyclobenzaprine HCl 5 mg 05/16/18 10:00 05/20/18 10:33 Flexeril - PO 5 mg DAILY [facility] Administration Enoxaparin Sodium 40 mg 05/16/18 10:00 05/20/18 10:33 Lovenox - SQ 40 mg DAILY [facility] Administration Gabapentin 400 mg/ Gabapentin 500 mg 05/15/18 22:00 05/19/18 22:02 100 mg PO 500 mg HS EMY Administration Meropenem 500 mg/ Dextrose 100 mls @ 200 mls/hr 05/15/18 18:00 05/20/18 10:33 IVPB 200 mls/hr Q8H-IV [facility] Administration Sodium Chloride 1,000 mls @ 75 mls/hr 05/15/18 17:16 05/20/18 12:27 Normal Saline - IV 75 mls/hr ASDIR [facility] Administration Insulin Aspart 1 vial 05/15/18 22:00 05/20/18 11:51 Novolog Vial Sliding Scale - SQ Not Given ACHS [facility] Protocol Oxycodone HCl 10 mg 05/20/18 10:49 Roxicodone - PO Q6H PRN PAIN LEVEL 6-10 Microbiology 05/13/18 17:26 Blood - Peripheral Venous Blood Culture - Final NO GROWTH AFTER 5 DAYS INCUBATION 05/13/18 17:31 Blood - Peripheral Venous Blood Culture - Final NO GROWTH AFTER 5 DAYS INCUBATION 05/11/18 02:00 Blood - Peripheral Venous Blood Culture - Final NO GROWTH AFTER 5 DAYS INCUBATION 05/11/18 02:00 Blood - Peripheral Venous Blood Culture - Final NO GROWTH AFTER 5 DAYS INCUBATION 05/11/18 01:50 Ulcer Gram Stain - Final 05/11/18 01:50 Ulcer Wound Culture - Final Klebsiella Pneumoniae - Esbl Klebsiella Pneumoniae - Esbl#2 Staphylococcus Coagulase Neg Strep Agalactiae Group B Streptococcus Viridans 05/10/18 21:54 Urine - Urine Clean Catch Urine Culture - Final Klebsiella Pneumoniae - Esbl Streptococcus Viridans ASSESSMENT/PLAN: 82 yo F PMH of osteoarthritis with b/l knee replacement, left popliteal fossa pressure ulcer, left foot drop (wears brace), spinal stenosis, NIDDM, HTN, and HLD admitted with acute exacerbation of her chronic left knee pain s/p mechanical fall at home, found to likely have rhabdo #Sepsis secondary to Left Popliteal Wound (LTKR) vs UTI -Afebrile overnight, WBC count 13 on admission but now resolved -UA with 2+ blood and 54 WBCs, pt with clinical symptoms of UTI, dysuria/ frequency- completed ceftriaxone, resolved symptoms -Left popliteal wound with worsening of her chronic knee pain s/p debridement ( popliteal washout)- 05/15 -Wound Care consult appreciated -Vancomycin, Rocephin escalated to Meropenem 05/14 (Day 6 of [facility]), wound and urine cultures noted with ESBL Klebsialla -ID consult appreciated -MRI severely limited exam, radiology recommends 3 phase bone scan for osteomyelitis evaluation -Ortho consult appreciated, deciding about possible removal of hardware and possibility of replacement vs just giving IV Abx for 6 weeks and reevaluating -escalate to perccet 10 Q6H -Cont wound mx #Left Popliteal Wound (LTKR) with L septic joint -Meropenem 05/14 (Day 6 of [facility]), -Negative bld cx -Local care per wound care -Ortho mx for definitive mx -Pain mx -PT Fall with possible Rhabdo -Elevated CK > 1000>3600>> 516 -Pt did not spend more than 30 minutes on the ground -Trend BMP to monitor renal function -Pt claims to take atorvastatin AND simvastatin at home, pharmacy only verifies simvastatin, hold for now #NIDDM -Gabapentin 300 mg PO HS -ACHS BGM -ACHS ISS #HTN -Lisinopril 5 mg PO Daily #HLD -Simvastatin 40 mg PO HS, hold #DVT Prophylaxis -Lovenox 40 mg SQ Daily #FEN -Fluids: No fluids -Electrolytes: No abnormalities, BMP in AM -Nutrition: Na controlled, diabetic diet Disposition Med/Surg Visit type - Emergency Visit Emergency Visit: Yes ED Registration Date: 05/10/18 Care time: The patient presented to the Emergency Department on the above date and was hospitalized for further evaluation of their emergent condition. - New Patient This patient is new to me today: No - Critical Care Critical Care patient: No - Discharge Referral Referred to [facility] Med P.C.: No
--- NOTE | 2018-05-20 14:15 | PN ---
Teaching Attending Note Name of Resident: Kena Aguilar ATTENDING PHYSICIAN STATEMENT I saw and evaluated the patient. I reviewed the resident's note and discussed the case with the resident. I agree with the resident's findings and plan as documented. 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 and mild discharge on dressing Current Medications Acetaminophen (Tylenol -) 650 mg PO Q6H PRN PRN Reason: PAIN LEVEL 6-10 Aspirin (Asa -) 81 mg PO DAILY [facility] Last Admin: 05/20/18 10:33 Dose: 81 mg Cyclobenzaprine HCl (Flexeril -) 5 mg PO DAILY [facility] Last Admin: 05/20/18 10:33 Dose: 5 mg Enoxaparin Sodium (Lovenox -) 40 mg SQ DAILY [facility] Last Admin: 05/20/18 10:33 Dose: 40 mg Gabapentin 400 mg/ Gabapentin (100 mg) 500 mg PO HS [facility] Last Admin: 05/19/18 22:02 Dose: 500 mg Meropenem 500 mg/ Dextrose 100 mls @ 200 mls/hr IVPB Q8H-IV [facility] Last Admin: 05/20/18 10:33 Dose: 200 mls/hr Sodium Chloride (Normal Saline -) 1,000 mls @ 75 mls/hr IV ASDIR [facility] Last Admin: 05/20/18 12:27 Dose: 75 mls/hr Insulin Aspart (Novolog Vial Sliding Scale -) 1 vial SQ ACHS [facility]; Protocol Last Admin: 05/20/18 11:51 Dose: Not Given Oxycodone HCl (Roxicodone -) 10 mg PO Q6H PRN PRN Reason: PAIN LEVEL 6-10 ASSESSMENT AND PLAN: This is an 82 year old woman with a history of OA, bilateral TKRs, chronic left popliteal pressure ulcer, left foot drop, type 2 DM, HTN, hyperlipidemia who presented to the ED with left knee pain and inability to ambulate after a fall. 1. Sepsis secondary to infected left popliteal pressure ulcer, UTI - s/p left popliteal wash out and abscess drainage - Continue meropenem -seen by ortho today no need for intervention will start on pt and rehab increase pain meds to oxycodone 10 mg prn
[2018-05-20] MEDS ORDERED: GABAPENTIN 400 MG CAPSULE (FP) ONE (22:10)
[2018-05-20] MEDS ORDERED: GABAPENTIN 100 MG CAPSULE (FP) ONE (22:10)
[2018-05-20] MEDS: GABAPENTIN 400 MG, GABAPENTIN 100 MG PO SCH (22:35)
[2018-05-21] MEDS: MEROPENEM 500 MG in DEXTROSE 5%-WATER 100 ML IVPB SCH ×3 (01:45→17:28)
[2018-05-21] MEDS: SODIUM CHLORIDE 1,000 ML IV SCH ×3 (01:46→22:54)
[2018-05-21] MEDS: INSULIN SLIDING SCALE (NOVOLOG) 1 VIAL SQ SCH ×4 (07:03→22:50)
[2018-05-21 07:28] LABS: BASO % 0.3 % (0-2.0); EOS % 1.9 % (0-4.5); HEMATOCRIT 25.2 % (32.4-45.2); HEMOGLOBIN 7.8 GM/dL (10.7-15.3); LYMPH % 17.9 % (8-40); MCH 26.6 pg (25.7-33.7); MCHC 31.1 g/dl (32.0-36.0); MEAN CELL VOLUME 85.5 fl (80-96); MEAN PLT VOLUME 8.3 fl (7.5-11.1); MONO % 9.6 % (3.8-10.2); NEUT % 70.3 % (42.8-82.8); PLATELET COUNT 372 K/MM3 (134-434); RBC 2.95 M/mm3 (3.60-5.2); WHITE BLOOD COUNT 6.1 K/mm3 (4.0-10.0)
[2018-05-21 08:15] LABS: ALBUMIN 1.9 g/dl (3.4-5.0); ALK PHOS 90 U/L (45-117); ANION GAP 5 MMOL/L (8-16); BILIRUBIN,TOTAL 0.3 mg/dL (0.2-1); BLOOD UREA NITROGEN 9 mg/dL (7-18); CALCIUM 9.1 mg/dL (8.5-10.1); CHLORIDE 103 mmol/L (98-107); CO2 31 mmol/L (21-32); CREATININE 0.5 mg/dL (0.55-1.3); GLUCOSE,RANDOM 96 mg/dL (74-106); MAGNESIUM 2.1 mg/dL (1.8-2.4); PHOSPHOROUS 2.5 mg/dL (2.5-4.9); POTASSIUM 3.6 mmol/L (3.5-5.1); SGOT/AST 18 U/L (15-37); SGPT/ALT 23 U/L (13-61); SODIUM 139 mmol/L (136-145)
--- NOTE | 2018-05-21 08:42 | PN ---
Progress Note (short form) - Note Progress Note: ID NOTE APPRECIATED PLAN: PATIENT MUST DECIDE BETWEEN LOCAL WOUND CARE AND CHRONIC SUPPRESSIVE ABX V. REMOVAL OF TOTAL KNEE COMPONENTS AND ARTHRODESIS V REMOVAL OF TOTAL KNEE COMPONENTS AND ANTIBIOTIC SPACER AND EVENTUAL REVISION TOTAL KNEE REPLACEMENT V. AMPUTATION. i HAD A LONG DISCUSSION WITH THE PATIENT. sHE WANTS TO WAIT UNTIL I DISCUSS THE CASE WITH HER PROXY BEFORE DECIDING
[2018-05-21] MEDS ORDERED: PT OWN MED DRAWER 7, Y5N ONE ×2 (11:17→17:26)
[2018-05-21] MEDS: ENOXAPARIN NA (PORCINE) 40 MG/0.4 ML DISP.SYRIN SQ SCH (11:30)
[2018-05-21] MEDS: CYCLOBENZAPRINE HCL 10 MG TABLET (FP) PO SCH (11:30)
[2018-05-21] MEDS: ASPIRIN 81 MG CHEWABLE TABLETS PO SCH (11:30)
--- NOTE | 2018-05-21 14:09 | PN ---
Physical Exam: SUBJECTIVE: Patient seen and examined this AM. 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 OBJECTIVE: Vital Signs Period Temp Pulse Resp BP Sys/Jaimes Pulse Ox Last 24 Hr 97.2 F-98.6 F 75-95 18-20 125-150/57-82 97 GENERAL: A&O, no acute distress, morbidly obese HEAD: Normocephalic, atraumatic. EYES: no scleral icterus EARS, NOSE, THROAT: oropharynx clear without exudates. Moist mucous membranes. NECK: supple without lymphadenopathy LUNGS: CTA b/l, no crackles or wheezes HEART: Regular rate and rhythm, normal S1 and S2 without murmur ABDOMEN: Soft, nontender to palpation, normoactive bowel sounds MUSCULOSKELETAL: No bony deformities or tenderness. EXTREMITIES: 2+ pulses, warm, well-perfused. No peripheral edema. Left posterior 3x3 cm ulceration with some tracking 3 cm deep. dressing clean and dry NEUROLOGICAL: Cranial nerves II-XII grossly intact. Normal speech. Laboratory Results - last 24 hr 05/20/18 05/20/18 05/21/18 17:39 22:35 06:30 WBC 6.1 RBC 2.95 L Hgb 7.8 L Hct 25.2 L MCV 85.5 MCH 26.6 MCHC 31.1 L RDW 16.0 H Plt Count 372 MPV 8.3 Absolute Neuts (auto) 4.3 Neutrophils % 70.3 Lymphocytes % 17.9 Monocytes % 9.6 Eosinophils % 1.9 D Basophils % 0.3 Nucleated RBC % 0 ESR Sodium Potassium Chloride Carbon Dioxide Anion Gap BUN Creatinine Creat Clearance w eGFR POC Glucometer 103 148 Random Glucose Calcium Phosphorus Magnesium Total Bilirubin AST ALT Alkaline Phosphatase C-Reactive Protein Total Protein Albumin 05/21/18 05/21/18 05/21/18 06:30 06:30 06:30 WBC RBC Hgb Hct MCV MCH MCHC RDW Plt Count MPV Absolute Neuts (auto) Neutrophils % Lymphocytes % Monocytes % Eosinophils % Basophils % Nucleated RBC % ESR 108 H Sodium 139 Potassium 3.6 Chloride 103 Carbon Dioxide 31 Anion Gap 5 L BUN 9 Creatinine 0.5 L Creat Clearance w eGFR > 60 POC Glucometer Random Glucose 96 Calcium 9.1 Phosphorus 2.5 Magnesium 2.1 Total Bilirubin 0.3 AST 18 ALT 23 Alkaline Phosphatase 90 C-Reactive Protein 14.9 H Total Protein 6.0 L Albumin 1.9 L 05/21/18 05/21/18 07:02 11:34 WBC RBC Hgb Hct MCV MCH MCHC RDW Plt Count MPV Absolute Neuts (auto) Neutrophils % Lymphocytes % Monocytes % Eosinophils % Basophils % Nucleated RBC % ESR Sodium Potassium Chloride Carbon Dioxide Anion Gap BUN Creatinine Creat Clearance w eGFR POC Glucometer 103 128 Random Glucose Calcium Phosphorus Magnesium Total Bilirubin AST ALT Alkaline Phosphatase C-Reactive Protein Total Protein Albumin Active Medications Generic Name Dose Route Start Last Admin Trade Name Freq PRN Reason Stop Dose Admin Acetaminophen 650 mg 05/20/18 10:49 05/20/18 18:44 Tylenol - PO 650 mg Q6H PRN Administration PAIN LEVEL 6-10 Aspirin 81 mg 05/16/18 10:00 05/21/18 11:30 Asa - PO 81 mg DAILY [facility] Administration Cyclobenzaprine HCl 5 mg 05/16/18 10:00 05/21/18 11:30 Flexeril - PO 5 mg DAILY [facility] Administration Enoxaparin Sodium 40 mg 05/16/18 10:00 05/21/18 11:30 Lovenox - SQ 40 mg DAILY [facility] Administration Gabapentin 400 mg/ Gabapentin 500 mg 05/15/18 22:00 05/20/18 22:35 100 mg PO 500 mg HS [facility] Administration Meropenem 500 mg/ Dextrose 100 mls @ 200 mls/hr 05/15/18 18:00 05/21/18 11:47 IVPB 200 mls/hr Q8H-IV [facility] Administration Sodium Chloride 1,000 mls @ 75 mls/hr 05/15/18 17:16 05/21/18 01:46 Normal Saline - IV 75 mls/hr ASDIR [facility] Administration Insulin Aspart 1 vial 05/15/18 22:00 05/21/18 11:41 Novolog Vial Sliding Scale - SQ Not Given ACHS [facility] Protocol Oxycodone HCl 10 mg 05/20/18 10:49 05/20/18 18:43 Roxicodone - PO 10 mg Q6H PRN Administration PAIN LEVEL 6-10 ASSESSMENT/PLAN: 82 yo F PMH of osteoarthritis with b/l knee replacement, left popliteal fossa pressure ulcer, left foot drop (wears brace), spinal stenosis, NIDDM, HTN, and HLD admitted with acute exacerbation of her chronic left knee pain s/p mechanical fall at home, found to likely have rhabdo Sepsis secondary to Left Popliteal Wound vs UTI -Afebrile overnight, WBC count 13 on admission but now resolved -UA with 2+ blood and 54 WBCs, pt with clinical symptoms of UTI, dysuria/ frequency, resolved -Left popliteal wound with worsening of her chronic knee pain, wound with purulent drainage noted on gauze -Wound Care consult appreciated, POD 1 popliteal washout -Vancomycin, Rocephin escalated to Meropenem 05/14 (Day 7 of [facility]), wound and urine cultures noted with ESBL Klebsialla -ID consult appreciated -CT difficult to read with knee replacement hardware -MRI severely limited exam -Bone scan with increased blood flow, blood pooling, and delayed activity to left knee periprosthetic area -Ortho consult appreciated, deciding about possible removal of hardware and possibility of replacement vs IV Abx for 6 weeks and reevaluating Fall with possible Rhabdo -Elevated CK > 1000, repeat 3600, resolved -Pt did not spend more than 30 minutes on the ground -NS @ 75 cc/hr -Trend BMP to monitor renal function -Pt claims to take atorvastatin AND simvastatin at home, pharmacy only verifies simvastatin, hold for now NIDDM -Gabapentin 300 mg PO HS HTN -Lisinopril 5 mg PO Daily HLD -Simvastatin 40 mg PO HS, hold DVT Prophylaxis -Lovenox 40 mg SQ Daily FEN -Fluids: NS @ 75 cc/hr -Electrolytes: No abnormalities, BMP in AM -Nutrition: Na controlled, diabetic diet Disposition Med/Surg Visit type - Emergency Visit Emergency Visit: Yes ED Registration Date: 05/10/18 Care time: The patient presented to the Emergency Department on the above date and was hospitalized for further evaluation of their emergent condition. - New Patient This patient is new to me today: No - Critical Care Critical Care patient: No
--- NOTE | 2018-05-21 16:52 | PN ---
Teaching Attending Note Name of Resident: Feliciano Kowalski ATTENDING PHYSICIAN STATEMENT I saw and evaluated the patient. I reviewed the resident's note and discussed the case with the resident. I agree with the resident's findings and plan as documented. SUBJECTIVE: Feeling better - no fever/chills. OBJECTIVE: Afebrile/Hemodynamically Stable. Last Vital Signs Temp Pulse Resp BP Pulse Ox 98.1 F 81 18 123/76 97 05/21/18 15:15 05/21/18 15:15 05/21/18 15:15 05/21/18 15:15 05/21/18 09:00 HEENT - Atraumatic, Normocephalic. Heart - S1, S2, RRR Lungs - clear to auscultation. Abdomen - Soft, non-tender. Bowel Sounds normal. Extremities - L popliteal ulcer packed and drained. Laboratory Results - last 24 hr 05/20/18 05/20/18 05/21/18 17:39 22:35 06:30 WBC 6.1 RBC 2.95 L Hgb 7.8 L Hct 25.2 L MCV 85.5 MCH 26.6 MCHC 31.1 L RDW 16.0 H Plt Count 372 MPV 8.3 Absolute Neuts (auto) 4.3 Neutrophils % 70.3 Lymphocytes % 17.9 Monocytes % 9.6 Eosinophils % 1.9 D Basophils % 0.3 Nucleated RBC % 0 ESR Sodium Potassium Chloride Carbon Dioxide Anion Gap BUN Creatinine Creat Clearance w eGFR POC Glucometer 103 148 Random Glucose Calcium Phosphorus Magnesium Total Bilirubin AST ALT Alkaline Phosphatase C-Reactive Protein Total Protein Albumin 05/21/18 05/21/18 05/21/18 06:30 06:30 06:30 WBC RBC Hgb Hct MCV MCH MCHC RDW Plt Count MPV Absolute Neuts (auto) Neutrophils % Lymphocytes % Monocytes % Eosinophils % Basophils % Nucleated RBC % ESR 108 H Sodium 139 Potassium 3.6 Chloride 103 Carbon Dioxide 31 Anion Gap 5 L BUN 9 Creatinine 0.5 L Creat Clearance w eGFR > 60 POC Glucometer Random Glucose 96 Calcium 9.1 Phosphorus 2.5 Magnesium 2.1 Total Bilirubin 0.3 AST 18 ALT 23 Alkaline Phosphatase 90 C-Reactive Protein 14.9 H Total Protein 6.0 L Albumin 1.9 L 05/21/18 05/21/18 07:02 11:34 WBC RBC Hgb Hct MCV MCH MCHC RDW Plt Count MPV Absolute Neuts (auto) Neutrophils % Lymphocytes % Monocytes % Eosinophils % Basophils % Nucleated RBC % ESR Sodium Potassium Chloride Carbon Dioxide Anion Gap BUN Creatinine Creat Clearance w eGFR POC Glucometer 103 128 Random Glucose Calcium Phosphorus Magnesium Total Bilirubin AST ALT Alkaline Phosphatase C-Reactive Protein Total Protein Albumin Current Medications Generic Name Dose Route Start Last Admin Trade Name Freq PRN Reason Stop Dose Admin Acetaminophen 650 mg 05/20/18 10:49 05/20/18 18:44 Tylenol - PO 650 mg Q6H PRN Administration PAIN LEVEL 6-10 Aspirin 81 mg 05/16/18 10:00 05/21/18 11:30 Asa - PO 81 mg DAILY EMY Administration Cyclobenzaprine HCl 5 mg 05/16/18 10:00 05/21/18 11:30 Flexeril - PO 5 mg DAILY EMY Administration Enoxaparin Sodium 40 mg 05/16/18 10:00 05/21/18 11:30 Lovenox - SQ 40 mg DAILY EMY Administration Gabapentin 400 mg/ Gabapentin 500 mg 05/15/18 22:00 05/20/18 22:35 100 mg PO 500 mg HS EMY Administration Meropenem 500 mg/ Dextrose 100 mls @ 200 mls/hr 05/15/18 18:00 05/21/18 11:47 IVPB 200 mls/hr Q8H-IV EMY Administration Sodium Chloride 1,000 mls @ 75 mls/hr 05/15/18 17:16 05/21/18 01:46 Normal Saline - IV 75 mls/hr ASDIR EMY Administration Insulin Aspart 1 vial 05/15/18 22:00 05/21/18 11:41 Novolog Vial Sliding Scale - SQ Not Given ACHS [facility] Protocol Oxycodone HCl 10 mg 05/20/18 10:49 05/20/18 18:43 Roxicodone - PO 10 mg Q6H PRN Administration PAIN LEVEL 6-10 ASSESSMENT AND PLAN: 82 year old female with OA s/p bilateral TKRs, Chronic left popliteal pressure ulcer, Left foot drop, DM 2, HTN, HLD who presented to the ED with left knee pain and inability to ambulate after a fall. 1. Sepsis secondary to infected left popliteal pressure ulcer and UTI s/p left popliteal wash out and abscess drainage 05/15 Fevers appear to have resolved. Wound culture growing ESBL (+) Klebsiella, coag neg Staph, group B Strep, Strep viridans Urine culture growing ESBL (+) Klebsiella, Strep viridans Blood cultures negative Continue Meropenem 2. Rhabdomyolysis - resolved. 3. Left knee pain History of bilateral TKRs CT and MRI limited secondary to artifact from prosthesis NM Bone Scan triple phase - Nonspecific diffuse left knee periprosthetic increased blood flow, blood pool and delayed activity - infection +/- losening. Ortho re-evaluated and recommended trial of long-term Abx versus hardware removal +/- joint spacer. Continue Oxycodone and Flexeril. 4. DM 2 with peripheral neuropathy Metformin held. Continue Novolog sliding scale, Neurontin 5. HTN - Lisinopril held 6. Hyperlipidemia 7. Hypophosphatemia - resolved. 8. Anemia secondary to chronic disease. Ferritin 453, B12 2737, Folate 25. H/H 7.8/25.2. Will monitor. DVT Px - Lovenox SQ
--- NOTE | 2018-05-21 17:06 | PN ---
Progress Note (short form) - Note Progress Note: THE PATIENT HAS ELECTED NOT TO HAVE ANY FURTHER SURGERY. SHE WANT ASSISTED SUPPRESSIVE ABX AND TO CONTINUE WITH HER BRACE. sHE MAY THEN BE DISCHARGED WHENEVER VASCULAR SURGERY HAS CLEARED HER POPLITEAL WOUND AND ID SETS UP HOME OR OUTPATIENT ABX. SHE MAY F/U WITH ME OR WITH DR DAVIS AN OUTPATIENT
[2018-05-21] MEDS: oxyCODONE HCL 5 MG TABLET PO PRN (17:28)
[2018-05-21] MEDS ORDERED: GABAPENTIN 400 MG CAPSULE (FP) ONE (22:41)
[2018-05-21] MEDS ORDERED: GABAPENTIN 100 MG CAPSULE (FP) ONE (22:41)
[2018-05-21] MEDS: GABAPENTIN 400 MG, GABAPENTIN 100 MG PO SCH (22:51)
[2018-05-22] MEDS: MEROPENEM 500 MG in DEXTROSE 5%-WATER 100 ML IVPB SCH ×3 (01:54→17:30)
[2018-05-22] MEDS: INSULIN SLIDING SCALE (NOVOLOG) 1 VIAL SQ SCH ×3 (06:02→16:43)
[2018-05-22 07:54] LABS: HEMATOCRIT 25.1 % (32.4-45.2); HEMOGLOBIN 8.5 GM/dL (10.7-15.3); MCH 28.5 pg (25.7-33.7); MCHC 33.8 g/dl (32.0-36.0); MEAN CELL VOLUME 84.4 fl (80-96); MEAN PLT VOLUME 8.3 fl (7.5-11.1); PLATELET COUNT 406 K/MM3 (134-434); RBC 2.97 M/mm3 (3.60-5.2); RDW 16.2 % (11.6-15.6); WHITE BLOOD COUNT 5.4 K/mm3 (4.0-10.0)
[2018-05-22 08:25] LABS: ANION GAP 8 MMOL/L (8-16); BLOOD UREA NITROGEN 9 mg/dL (7-18); CALCIUM 8.8 mg/dL (8.5-10.1); CHLORIDE 106 mmol/L (98-107); CO2 27 mmol/L (21-32); CREATININE 0.4 mg/dL (0.55-1.3); GLUCOSE,RANDOM 94 mg/dL (74-106); PHOSPHOROUS 2.6 mg/dL (2.5-4.9); POTASSIUM 3.9 mmol/L (3.5-5.1); SODIUM 141 mmol/L (136-145)
[2018-05-22] MEDS ORDERED: PT OWN MED DRAWER 7, Y5N ONE ×2 (08:58→17:29)
[2018-05-22] MEDS: CYCLOBENZAPRINE HCL 10 MG TABLET (FP) PO SCH (09:26)
[2018-05-22] MEDS: ENOXAPARIN NA (PORCINE) 40 MG/0.4 ML DISP.SYRIN SQ SCH (09:27)
[2018-05-22] MEDS: ASPIRIN 81 MG CHEWABLE TABLETS PO SCH (09:27)
[2018-05-22] MEDS ORDERED: FERROUS GLUCONATE 324 MG TAB (FP) PO SCH (10:00)
--- NOTE | 2018-05-22 12:56 | PN ---
Teaching Attending Note Name of Resident: Feliciano Kowalski ATTENDING PHYSICIAN STATEMENT I saw and evaluated the patient. I reviewed the resident's note and discussed the case with the resident. I agree with the resident's findings and plan as documented. SUBJECTIVE: Feeling better - no fever/chills. LLE pain better controlled. OBJECTIVE: Afebrile/Hemodynamically Stable. Last Vital Signs Temp Pulse Resp BP Pulse Ox 98.1 F 87 18 133/67 97 05/22/18 10:00 05/22/18 10:00 05/22/18 10:00 05/22/18 10:00 05/22/18 09:00 HEENT - Atraumatic, Normocephalic. Heart - S1, S2, RRR Lungs - clear to auscultation. Abdomen - Soft, non-tender. Bowel Sounds normal. Extremities - L popliteal ulcer packed and drained. Neuro - AAO x 3. L foot drop. Laboratory Results - last 24 hr 05/21/18 05/21/18 05/22/18 17:31 22:49 06:00 WBC 5.4 RBC 2.97 L Hgb 8.5 L Hct 25.1 L MCV 84.4 MCH 28.5 MCHC 33.8 RDW 16.2 H Plt Count 406 MPV 8.3 Sodium Potassium Chloride Carbon Dioxide Anion Gap BUN Creatinine Creat Clearance w eGFR POC Glucometer 118 137 Random Glucose Calcium Phosphorus Magnesium 05/22/18 05/22/18 05/22/18 06:00 06:01 12:20 WBC RBC Hgb Hct MCV MCH MCHC RDW Plt Count MPV Sodium 141 Potassium 3.9 Chloride 106 Carbon Dioxide 27 Anion Gap 8 BUN 9 Creatinine 0.4 L Creat Clearance w eGFR > 60 POC Glucometer 114 114 Random Glucose 94 Calcium 8.8 Phosphorus 2.6 Magnesium 2.0 Current Medications Generic Name Dose Route Start Last Admin Trade Name Freq PRN Reason Stop Dose Admin Acetaminophen 650 mg 05/20/18 10:49 05/20/18 18:44 Tylenol - PO 650 mg Q6H PRN Administration PAIN LEVEL 6-10 Aspirin 81 mg 05/16/18 10:00 05/22/18 09:27 Asa - PO 81 mg DAILY EMY Administration Cyclobenzaprine HCl 5 mg 05/16/18 10:00 05/22/18 09:26 Flexeril - PO 5 mg DAILY EMY Administration Enoxaparin Sodium 40 mg 05/16/18 10:00 05/22/18 09:27 Lovenox - SQ 40 mg DAILY EMY Administration Ferrous Gluconate 324 mg 05/22/18 10:00 05/22/18 09:26 Fergon - PO 324 mg DAILY EMY Administration Gabapentin 400 mg/ Gabapentin 500 mg 05/15/18 22:00 05/21/18 22:51 100 mg PO 500 mg HS EMY Administration Meropenem 500 mg/ Dextrose 100 mls @ 200 mls/hr 05/15/18 18:00 05/22/18 09:26 IVPB 200 mls/hr Q8H-IV EMY Administration Insulin Aspart 1 vial 05/15/18 22:00 05/22/18 12:23 Novolog Vial Sliding Scale - SQ Not Given ACHS [facility] Protocol Oxycodone HCl 10 mg 05/20/18 10:49 05/21/18 17:28 Roxicodone - PO 10 mg Q6H PRN Administration PAIN LEVEL 6-10 ASSESSMENT AND PLAN: 82 year old female with OA s/p bilateral TKRs, Chronic left popliteal pressure ulcer, Left foot drop, DM 2, HTN, HLD who presented to the ED with left knee pain and inability to ambulate after a fall. 1. Sepsis secondary to infected left popliteal pressure ulcer and UTI s/p left popliteal wash out and abscess drainage 1 Fevers resolved. Wound culture growing ESBL (+) Klebsiella, coag neg Staph, group B Strep, Strep viridans Urine culture growing ESBL (+) Klebsiella, Strep viridans Blood cultures negative Continue Meropenem - ID to advise regarding Abx regimen and duration on discharge. Wound Care on discharge. Outpatient ID and Ortho follow up. 2. Acute Rhabdomyolysis - resolved. 3. L DJD s/p TKR, possible joint involvement with draining popliteal sinus CT and MRI limited secondary to artifact from prosthesis NM Bone Scan triple phase - Nonspecific diffuse left knee periprosthetic increased blood flow, blood pool and delayed activity - infection +/- losening. Ortho re-evaluated and recommended trial of long-term Abx versus hardware removal +/- joint spacer. Patient opts for trial of Abx therapy - for PICC and continued IV Abx at SNF. Continue Oxycodone and Flexeril. 4. DM 2 with peripheral neuropathy On Novolog sliding scale, Neurontin. Metformin to resume on discharge. 5. HTN - Lisinopril to resume on discharge. 6. Hyperlipidemia - resume Statin on discharge with CPK level in 1-2 weeks 7. Hypophosphatemia - resolved. 8. Anemia secondary to chronic disease. Ferritin 453, B12 level 2737, Folate 25. H/H 8.5/25. Medically Stable for discharge on IV Abx as per ID recommendations.
[2018-05-22 15:01] VITALS: BP 122/67; PULSE 81; TEMP 97.9
--- NOTE | 2018-05-22 16:13 | DS ---
Physical Exam: SUBJECTIVE: Patient seen and examined this AM. She states that she would like to receive IV antibiotics and not pursue surgical intervention at this time and that she will reevaluate following the IV abx therapy. OBJECTIVE: Vital Signs Period Temp Pulse Resp BP Sys/Jaimes Pulse Ox Last 24 Hr 97.9 F-99.4 F 77-89 18-18 122-155/63-74 97-97 PHYSICAL EXAM GENERAL: A&O, no acute distress, morbidly obese HEAD: Normocephalic, atraumatic. EYES: no scleral icterus EARS, NOSE, THROAT: oropharynx clear without exudates. Moist mucous membranes. NECK: supple without lymphadenopathy LUNGS: CTA b/l, no crackles or wheezes HEART: Regular rate and rhythm, normal S1 and S2 without murmur ABDOMEN: Soft, nontender to palpation, normoactive bowel sounds MUSCULOSKELETAL: No bony deformities or tenderness. EXTREMITIES: 2+ pulses, warm, well-perfused. No peripheral edema. Left posterior 3x3 cm ulceration with some tracking 3 cm deep. dressing clean and dry NEUROLOGICAL: Cranial nerves II-XII grossly intact. Normal speech. LABS Laboratory Results - last 24 hr 05/21/18 05/21/18 05/22/18 17:31 22:49 06:00 WBC 5.4 RBC 2.97 L Hgb 8.5 L Hct 25.1 L MCV 84.4 MCH 28.5 MCHC 33.8 RDW 16.2 H Plt Count 406 MPV 8.3 Sodium Potassium Chloride Carbon Dioxide Anion Gap BUN Creatinine Creat Clearance w eGFR POC Glucometer 118 137 Random Glucose Calcium Phosphorus Magnesium 05/22/18 05/22/18 05/22/18 06:00 06:01 12:20 WBC RBC Hgb Hct MCV MCH MCHC RDW Plt Count MPV Sodium 141 Potassium 3.9 Chloride 106 Carbon Dioxide 27 Anion Gap 8 BUN 9 Creatinine 0.4 L Creat Clearance w eGFR > 60 POC Glucometer 114 114 Random Glucose 94 Calcium 8.8 Phosphorus 2.6 Magnesium 2.0 HOSPITAL COURSE: Date of Admission:05/10/18 Date of Discharge: 05/22/18 HPI on Admission: 82 yo F PMH of osteoarthritis with b/l knee replacement, left popliteal fossa pressure ulcer, left foot drop (wears brace), spinal stenosis, NIDDM, HTN, and HLD p/w acute exacerbation of her chronic left knee pain s/p mechanical fall at home. She notes having stood up from bed and trying to walk to her wheelchair when her left knee locked up on her and she fell onto her coccyx. She called her son who helped her get to her chair. However over the next day or so she was unable to get up to ambulate. She stayed in her recliner all day today and ate nothing and took none of her medications, also urinated in her diaper and was not able to change it promptly. She attempted to call her orthopedist today (Dr. Alonso at [facility]) but was unable to get through to have an appointment. She denies lightheadedness prior to fall, hitting her head, LOC, neck pain, new back pain, etc. She has not taken medications for the pain today. She is feeling that she can no longer take proper care of herself at home with only group fitness assistant department head home health (they leave her home at 7 pm). Denies fevers, chills, cp, sob, n/v/d, MICHEL Of note she has noticed some dysuria for past few days Of note says she takes both Lipitor and simvastatin Of note, has noticed more drainainge from left popliteal fossa pressure ulcer. Ulcer which was initially caused and exacerbated by her knee brace has worsened , because she does the dressing herself at home and is not compliant with PCP/ Wound center visits. Furthermore she is unable to stand or rollover for a caregiver to have proper access to the back of her leg. Hospital Course: She was seen by ID, Ortho, and Wound care. Vascular surgery (wound care). She was found to have a UTI and her Urine and wound cultures both grew ESBL Klebsiella. She was given meropenem. She was taken to the OR by vascular surgery for a washout of her popliteal fossa wound. She was seen by ortho who offered her conservative management with IV Abx, left knee hardware removal with joint fusion, or AKA. Pt elected to attempt conservative management. She was deemed medically safe for discharge and was discharged to SNF with Abx for 5 more weeks in addition to wound care follow up with the wound care center with Dr. Mendoza and Dr. Marshall in 2 weeks. Minutes to complete discharge: 45 Discharge Summary Reason For Visit: PAIN OF LOWER EXTREMITY URINARY TRACT INFECTION FA Current Active Problems Failure to thrive (Acute) Fall (Acute) Osteoarthritis (Acute) Rhabdomyolysis (Acute) UTI (urinary tract infection) (Acute) Condition: Stable - Instructions Diet, Activity, Other Instructions: You were admitted to the hospital with a severe infection that was likely secondary to your leg wound and a urinary tract infection. You were treated with antibiotics. You were taken to the operating room by a vascular surgeon to wash out and clean your wound. Multiple imaging studies were done and it is presumed that the bone in your knee is infected and you will require IV antibiotics for 5 more weeks. You were seen by an orthopedic surgeon who presented you with the option of IV antibiotics as conservative management or surgical removal of your knee joint or amputation. You elected to start with just the IV antibiotics. At this point you are medically safe for discharge. You should resume all of your home meds as they were prescribed prior to this hospitalization. In addition, you should continue to receive IV Meropenem for 5 more weeks. You were found to have an iron deficiency anemia. You were started on Oral Iron therapy. You should take one Ferrous Gluconate 324 mg per day. You should follow up with your primary doctor in 1 week. You should have your kidney function (BUN/Creatinine) checked as well as a CPK level. You should follow up with your orthopedic surgeon in one month for reevaluation of your left knee joint. You should follow up in a wound care center. The information for the vascular surgeon who saw you here has been provided. If you have severe worsening of pain or additional fevers, you should be seen by your doctor or return to the emergency department. Referrals: Abram Marshall MD [Staff Physician] - 2 Weeks Grabiel Coyne [Primary Care Provider] - 1 Week Arya Bender MD [Staff Physician] - 1 Month Joni Mendoza MD [Staff Physician] - Disposition: [facility] - Home Medications Comprehensive Discharge Medication List: Ambulatory Orders Lisinopril [Prinivil] 5 mg PO DAILY #30 tablet 09/09/13 Simvastatin 40 mg PO HS 05/10/18 Diclofenac Sodium [Voltaren] 100 gm TP BID 05/11/18 Gabapentin 300 mg PO HS 05/11/18 Hydrocodone/Acetaminophen [Hydrocodone-Acetamin 5-325 mg] 1 tab Q6H PRN Meloxicam 7.5 mg PO DAILY 05/11/18 metFORMIN HCL [Metformin ER Osmotic] 500 mg PO BID 05/11/18 Aspirin [ASA -] 81 mg PO DAILY tab.chew 05/22/18 Cyclobenzaprine HCl [Flexeril -] 5 mg PO DAILY tablet 05/22/18 Ferrous Gluconate [Fergon -] 324 mg PO DAILY tab 05/22/18 Meropenem [Merrem (Restricted To Id) -] 500 mg IVPB Q8H-IV vial 05/22/18 This patient is new to me today: No Emergency Visit: Yes ED Registration Date: 05/10/18 Care time: The patient presented to the Emergency Department on the above date and was hospitalized for further evaluation of their emergent condition. Critical Care patient: No - Discharge Referral Referred to [facility] Med P.C.: No
--- NOTE | 2018-05-22 18:30 | PN ---
Progress Note, Physician History of Present Illness: Awake, alert No c/o leg pain S/P debridement of L popliteal wound No urinary tract complaints Afebrile Wound c/s mixed organisms including ESBL Urine c/s ESBL ESR 108 CRP 6.0 - Current Medication List Current Medications: Active Medications Acetaminophen (Tylenol -) 650 mg PO Q6H PRN PRN Reason: PAIN LEVEL 6-10 Last Admin: 05/20/18 18:44 Dose: 650 mg Aspirin (Asa -) 81 mg PO DAILY [facility] Last Admin: 05/22/18 09:27 Dose: 81 mg Cyclobenzaprine HCl (Flexeril -) 5 mg PO DAILY [facility] Last Admin: 05/22/18 09:26 Dose: 5 mg Enoxaparin Sodium (Lovenox -) 40 mg SQ DAILY [facility] Last Admin: 05/22/18 09:27 Dose: 40 mg Ferrous Gluconate (Fergon -) 324 mg PO DAILY [facility] Last Admin: 05/22/18 09:26 Dose: 324 mg Gabapentin 400 mg/ Gabapentin (100 mg) 500 mg PO HS [facility] Last Admin: 05/21/18 22:51 Dose: 500 mg Meropenem 500 mg/ Dextrose 100 mls @ 200 mls/hr IVPB Q8H-IV [facility] Last Admin: 05/22/18 17:30 Dose: 200 mls/hr Insulin Aspart (Novolog Vial Sliding Scale -) 1 vial SQ ACHS [facility]; Protocol Last Admin: 05/22/18 16:43 Dose: Not Given Oxycodone HCl (Roxicodone -) 10 mg PO Q6H PRN PRN Reason: PAIN LEVEL 6-10 Last Admin: 05/21/18 17:28 Dose: 10 mg - Objective Vital Signs: Vital Signs Temperature 97.9 F 05/22/18 15:00 Pulse Rate 81 05/22/18 15:00 Respiratory Rate 18 05/22/18 15:00 Blood Pressure 122/67 05/22/18 15:00 O2 Sat by Pulse Oximetry (%) 97 05/22/18 09:00 Constitutional: Yes: No Distress Eyes: Yes: Conjunctiva Clear Cardiovascular: Yes: Regular Rate and Rhythm, S1, S2 Respiratory: Yes: CTA Bilaterally Gastrointestinal: Yes: Normal Bowel Sounds, Soft. No: Tenderness Extremities: Yes: Other (dressing in place L LE) Labs: CBC, BMP 05/22/18 06:00 05/22/18 06:00 INR, PTT INR 1.39 (0.83-1.09) H 05/11/18 07:40 Assessment/Plan Infected L leg wound polymicrobial, including ESBL S/P debridement Probable infected TKR Fever/Leukocytosis-resolved Continue meropenem day #9 To complete 42d course Local wound care Will follow up in Wound care center
== END 2018-05-22 18:40 | DRG 853 ==
LOC: JER 18:04 → JERBED 22:27 → J5S 05-11 04:51
PROVIDERS: ADMIT Internal Medicine
PROC: 0J9P0ZZ Drainage of Left Lower Leg Subcutaneous Tissue and Fascia, Open Approach (ICD-10-PCS; 2018-05-15)
PROC: 02HV33Z Insertion of Infusion Device into Superior Vena Cava, Percutaneous Approach (ICD-10-PCS; 2018-05-15)
PROC: B518ZZA Fluoroscopy of Superior Vena Cava, Guidance (ICD-10-PCS; 2018-05-15)
PROC: 0KDT0ZZ Extraction of Left Lower Leg Muscle, Open Approach (ICD-10-PCS; principal; 2018-05-15 15:00)
DX: A41.9 Sepsis, unspecified organism (principal); L89.893 Pressure ulcer of other site, stage 3; M62.82 Rhabdomyolysis; N39.0 Urinary tract infection, site not specified; L02.416 Cutaneous abscess of left lower limb; T84.54XA Infection and inflammatory reaction due to internal left knee prosthesis, initial encounter; M00.262 Other streptococcal arthritis, left knee; E83.39 Other disorders of phosphorus metabolism; I10 Essential (primary) hypertension; E11.42 Type 2 diabetes mellitus with diabetic polyneuropathy; Z96.653 Presence of artificial knee joint, bilateral; M21.372 Foot drop, left foot; M19.90 Unspecified osteoarthritis, unspecified site; E78.5 Hyperlipidemia, unspecified; R62.7 Adult failure to thrive; M17.0 Bilateral primary osteoarthritis of knee; E66.9 Obesity, unspecified; Z68.29 Body mass index [BMI] 29.0-29.9, adult; Z79.84 Long term (current) use of oral hypoglycemic drugs; D63.8 Anemia in other chronic diseases classified elsewhere; B95.4 Other streptococcus as the cause of diseases classified elsewhere; B96.1 Klebsiella pneumoniae [K. pneumoniae] as the cause of diseases classified elsewhere; Z16.12 Extended spectrum beta lactamase (ESBL) resistance; L89.322 Pressure ulcer of left buttock, stage 2
CPT/HCPCS: 36415; 36569; 71046-TC-FY; 73562-TC-LT-FY; 73701-TC-RT; 73723-LT; 77001-TC-FY; 78315-TC; 80048; 80053; 81003; 81015; 82550; 82553; 82607; 82728; 82746; 82962; 83540; 83550; 83735; 84100; 85025; 85027; 85610; 85651; 85730; 86140; 87040; 87070; 87077; 87086; 87186; 87205; 93005; 93010; 94760; 97116-GP; 97162-GP; 99284-25; A9503; C1751; J0131; J7030

== ENCOUNTER 2019-04-18 21:41 | Emergency (ER) | payer OTHER ==
[2019-04-18 22:03] VITALS: BP 135/80; PULSE 92; TEMP 98.9; BMI 29.0
--- NOTE | 2019-04-18 22:05 | PDOC ---
History of Present Illness - General Chief Complaint: Blood Sugar Problem Stated Complaint: welfare check Time Seen by Provider: 04/18/19 21:52 - History of Present Illness Initial Comments: 04/18/19 22:04 83 yo F PMH HTN, HLD, IDDM, non-healing ulcer below L knee (follows with Dr. Mendoza, last dressing change this morning) that has left the patient unable to walk, peripheral neuropathy (loss of feeling below L mid-hargorve), L foot drop, BIBEMS due to hunger. Patient reports that she ate a small muffin this morning, but had nothing else since then. She called her son repeatedly starting at around 1999 to come and prepare some dinner, but after receiving no response, the patient decided to call an ambulance 2/2 fear of hypoglycemia. Per EMS, blood glucose in the field was 114. Patient has no complaints other than being hungry. Specifically denies dizziness, lightheadedness, CP, SOB, abd pain, urinary changes, constipation/diarrhea, fevers/chills, MICHEL, N/V. Past History - Past Medical History Allergies/Adverse Reactions: Allergies Allergy/AdvReac Type Severity Reaction Status Date / Time mushroom Allergy Severe Verified 05/10/18 18:21 Home Medications: Ambulatory Orders Lisinopril [Prinivil] 5 mg PO DAILY #30 tablet 09/09/13 Simvastatin 40 mg PO HS 05/10/18 Gabapentin 300 mg PO HS 05/11/18 Hydrocodone/Acetaminophen [Hydrocodone-Acetamin 5-325 mg] 1 tab Q6H PRN Meloxicam 7.5 mg PO DAILY 05/11/18 metFORMIN HCL [Metformin ER Osmotic] 500 mg PO BID 05/11/18 Aspirin [ASA -] 81 mg PO DAILY tab.chew 05/22/18 Vitamin C 500 mg PO DAILY 06/12/18 Doxycycline Hyclate 1 cap PO BID 12/21/18 Anemia: No Asthma: No Cancer: No Cardiac Disorders: No CVA: No COPD: No CHF: No Dementia: No Diabetes: Yes GI Disorders: No Disorders: No HTN: Yes Hypercholesterolemia: Yes Liver Disease: No Seizures: No Thyroid Disease: No Other medical history: ulcer to leg - Surgical History Neurologic Surgery: No Orthopedic Surgery: (b/l knee replacement) - Immunization History Immunization Up to Date: Yes - Psycho Social/Smoking Cessation Hx Smoking History: Never smoked Have you smoked in the past 12 months: No Number of Cigarettes Smoked Daily: 0 Cigars Per Day: 0 Hx Alcohol Use: No Drug/Substance Use Hx: No Substance Use Type: Alcohol Review of Systems - Review of Systems Comments:: 04/18/19 23:53 GENERAL/CONSTITUTIONAL: No fever or chills. No weakness. HEAD, EYES, EARS, NOSE AND THROAT: No change in vision. No ear pain or discharge. No sore throat. CARDIOVASCULAR: No chest pain or shortness of breath. RESPIRATORY: No cough, wheezing, or hemoptysis. GASTROINTESTINAL: No nausea, vomiting, diarrhea or constipation. GENITOURINARY: No dysuria, frequency, or change in urination. MUSCULOSKELETAL: No joint or muscle swelling or pain. No neck or back pain. SKIN: No rash NEUROLOGIC: No headache, vertigo, loss of consciousness, or change in strength/ sensation. ENDOCRINE: No increased thirst. No abnormal weight change. HEMATOLOGIC/LYMPHATIC: No anemia, easy bleeding, or history of blood clots. ALLERGIC/IMMUNOLOGIC: No hives or skin allergy *Physical Exam - Vital Signs Last Vital Signs Temp Pulse Resp BP Pulse Ox 98.9 F 92 H 18 135/80 97 04/18/19 21:56 04/18/19 21:56 04/18/19 21:56 04/18/19 21:56 04/18/19 21:56 - Physical Exam 04/18/19 22:50 Gen: well-developed, well-nourished, NAD Neuro: AAOX4, CN II-XII intact, FTN intact, EOMI, PERRLA, 5/5 strength, SILT except L leg below mid-hargrove. HEENT: atraumatic, normocephalic, dry mucous membranes Neck: trachea midline, supple CV: regular rate, regular rhythm, no murmurs, rubs, or gallops Pulm: CTA b/l, no wheezing Abd: soft, non-distended, non-tender MSK: full ROM, intact pulses Extr: no edema, no deformities Skin: warm, dry. Wound on L leg below L knee with dressing in place. Medical Decision Making - Medical Decision Making 04/18/19 22:09 Concern for diabetic without recent food. - blood glucose check - [facility] [place] [facility] 04/18/19 22:45 POC glucose 100. Discharge - Discharge Information Problems reviewed: Yes Clinical Impression/Diagnosis: Hunger Condition: Improved Disposition: HOME - Admission No - Follow up/Referral - Patient Discharge Instructions Additional Instructions: You were seen after being hungry without food since this morning. Your blood glucose was found to be normal, and your hunger improved with food. Follow up with your primary care doctor within 1 week. Return to the ED if you develop worsening symptoms. - Post Discharge Activity
--- NOTE | 2019-04-18 22:36 | PDOC ---
Attending Attestation - Resident Resident Name: LealBrigette - ED Attending Attestation I have performed the following: I have examined & evaluated the patient, The case was reviewed & discussed with the resident, I agree w/resident's findings & plan, Exceptions are as noted - HPI HPI: 04/18/19 22:14 Ms Lopez is an 83 yo F who presents to the ER due to fear of hypoglycemia She has a PMH HTN, HLD, IDDM, non-healing ulcer below L knee (followed with Dr. Mendoza, being treated with doxycycline), difficulty with ambulation, peripheral neuropathy. 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 Pt denies dizziness, lightheadedness, CP, SOB, abd pain, constipation/diarrhea, fevers/chills, MICHEL, N/V. Does report unchanged, chronic incontinence. Of note: Patient states that she was started on doxycycline approximately 2 weeks ago for her left lower extremity ulcer. She developed a rash after starting this antibiotic involving bilateral upper extremities. Patient states the rash was itchy, did not involve mucosal membranes, was not located in any other location but the distal portion of both hands. Patient states actually what I am seeing now is a vast improvement from what the rash had been. She did show this rash to a nurse at wound care, however did not show Dr. Mendoza. Patient states the rash has improved since decreasing the dose of doxycycline from twice daily to daily 04/18/19 22:38 - Physicial Exam PE: 04/18/19 22:36 GENERAL: The patient is in no acute distress, A&O x 3, eating a sandwich with no difficulty. ENT: Ears normal, nares patent, oropharynx clear without exudates. Moist mucous membranes. NECK: Normal range of motion, supple LUNGS: Breath sounds equal, clear to auscultation bilaterally. No wheezes, and no crackles. HEART:Regular rate and rhythm, normal S1 and S2 without murmur, rub or gallop. ABDOMEN: Soft, nontender, normoactive bowel sounds. EXTREMITIES: Normal range of motion, no edema. NEUROLOGICAL: Cranial nerves II through XII grossly intact. Normal speech. No focal neurological deficits. SKIN: Dressed left lower extremity ulcer Rash of the volar surface of both upper extremities noted macular lesions all scabbed involving the volar surface of both hands, sparing the palms No vesicles, no drainage, no erythema - Medical Decision Making 04/19/19 00:14 Pt fingerstick repeated - 10 Pt given sandwich and juice to eat Pt resting comfortably Pt will be discharged to home Follow up with PMD Pt son could not be reached Pt with no complaints Will discharge to home Follow up with PMD
== END 2019-04-19 00:27 | disposition home or self-care (01) ==
LOC: JER 21:41
DX: T73.0XXA Starvation, initial encounter (principal); Z91.018 Allergy to other foods; E11.9 Type 2 diabetes mellitus without complications; E78.5 Hyperlipidemia, unspecified; I10 Essential (primary) hypertension; Z96.653 Presence of artificial knee joint, bilateral; E78.00 Pure hypercholesterolemia, unspecified
CPT/HCPCS: 82962; 99282-25

== ENCOUNTER 2019-10-22 11:43 | Inpatient (IN) | payer OTHER ==
--- NOTE | 2019-10-22 12:09 | PDOC ---
History of Present Illness - General Chief Complaint: Weakness Stated Complaint: Altered Mental Status Time Seen by Provider: 10/22/19 12:08 History Source: Patient, Family (son) Exam Limitations: Clinical Condition - History of Present Illness Initial Comments: 10/22/19 12:10 83 yo F PMH HTN, HLD, IDDM, non-healing ulcer below L knee that has left the patient unable to walk, peripheral neuropathy (loss of feeling below L mid- hargrove), L foot drop presenting w AMS. Pt is a poor historian, doesn't know why she's in hospital. Per her son, he found her lethargic, minimally responsive to command when she woke up this morning at 9am. Pt did not eat anything today. Son denies pt recently coughing. Past History - Medical History Allergies/Adverse Reactions: Allergies Allergy/AdvReac Type Severity Reaction Status Date / Time mushroom Allergy Severe Verified 05/10/18 18:21 Home Medications: Ambulatory Orders Lisinopril [Prinivil] 5 mg PO DAILY #30 tablet 09/09/13 Simvastatin 40 mg PO HS 05/10/18 Gabapentin 300 mg PO HS 05/11/18 Hydrocodone/Acetaminophen [Hydrocodone-Acetamin 5-325 mg] 1 tab Q6H PRN 05/11/18 Meloxicam 7.5 mg PO DAILY 05/11/18 metFORMIN HCL [Metformin ER Osmotic] 500 mg PO BID 05/11/18 Aspirin [ASA -] 81 mg PO DAILY tab.chew 05/22/18 Vitamin C 500 mg PO DAILY 06/12/18 Doxycycline Hyclate 1 cap PO BID 12/21/18 Anemia: No Asthma: No Cancer: No Cardiac Disorders: No CVA: No COPD: No CHF: No Dementia: No Diabetes: Yes GI Disorders: No Disorders: No HTN: Yes Hypercholesterolemia: Yes Liver Disease: No Seizures: No Thyroid Disease: No - Surgical History Neurologic Surgery: No Orthopedic Surgery: (b/l knee replacement) - Immunization History Immunization Up to Date: Yes - Psycho-Social/Smoking History Smoking History: Never smoked Have you smoked in the past 12 months: No Number of Cigarettes Smoked Daily: 0 Cigars Per Day: 0 Review of Systems - Review of Systems Able to Perform ROS?: No (clinical condition) *Physical Exam - Physical Exam General Appearance: Yes: Nourished, Appropriately Dressed. No: Apparent Distress HEENT: positive: EOMI, ROMAN, Normal Voice, Hearing Grossly Normal. negative: Scleral Icterus (R), Scleral Icterus (L) Respiratory/Chest: positive: Lungs Clear, Normal Breath Sounds. negative: Chest Tender, Respiratory Distress, Crackles, Rales, Rhonchi, Stridor, Wheezing Cardiovascular: positive: Regular Rhythm, S1, S2, Tachycardia. negative: Edema, Murmur Gastrointestinal/Abdominal: positive: Normal Bowel Sounds, Flat, Soft. negative: Tender, Organomegaly Integumentary: positive: Normal Color, Warm. negative: Rash, Bruising Neurologic: positive: Alert, Normal Mood/Affect, Normal Response, Responsive. negative: Fully Oriented (AOx2 (not oriented to place)), Motor Strength 09/09 ED Treatment Course - LABORATORY CBC & Chemistry Diagram: 10/22/19 12:52 10/22/19 12:32 Medical Decision Making - Medical Decision Making 10/22/19 13:[address] - no acute intracranial pathology Chest/A/P CT - several nonobstructing solo renal calculi, mild L hydro, 3-4mm L mid ureteral calculus, small amount of air in L renal system POCUS - L moderate hydronephrosis CXR - mild cardiomegaly, solo increased interstitial markings EKG - sinus tachycardia, HR 108, QTc 442, no ST changes BG 122 --- 83 yo F PMH HTN, HLD, IDDM, non-healing ulcer below L knee that has left the patient unable to walk, peripheral neuropathy (loss of feeling below L mid- harg[place]), L foot drop presenting w AMS, hypoxia 92, tachycardic 108, lactate 3.7 Sepsis 2/2 UTI. May have covid PNA. Low concern for hypoglycemia vs CVA (no localizing deficits, neg CT) vs ACS (neg trop). CT showed multiple renal calculi, mild L hydro, 3mm L mid ureteral calculus Given vanc, zosyn, 30mL/kg NS, tylenol. Started 2L NC (92 to 100) Admit m/s hospitalist for sepsis, AMS, acute respiratory failure requiring supplemental O2, pyelonephritis, suspected covid Discharge - Discharge Information Problems reviewed: Yes Clinical Impression/Diagnosis: Sepsis Qualifiers: Sepsis type: sepsis due to unspecified organism Sepsis acute organ dysfunction status: with acute organ dysfunction Severe sepsis acute organ dysfunction type: acute respiratory failure Acute respiratory failure type: with hypoxia Severe sepsis shock status: without septic shock Qualified Code(s): A41.9 - Sepsis, unspecified organism UTI (urinary tract infection) Qualifiers: Urinary tract infection type: acute pyelonephritis Qualified Code(s): N10 - Acute pyelonephritis Acute respiratory failure Qualifiers: Respiratory failure complication: hypoxia Qualified Code(s): J96.01 - Acute respiratory failure with hypoxia Condition: Stable - Follow up/Referral Referrals: Grabiel Coyne [Primary Care Provider] - - Patient Discharge Instructions - Post Discharge Activity
[2019-10-22] MEDS ORDERED: SODIUM CHLORIDE 0.9% 500 ML INFUS.BAG IV ONE (12:33)
[2019-10-22] MEDS ORDERED: ACETAMINOPHEN 1000 MG/100 ML VIAL (NON FORMULARY) IVPB ONE (12:33)
[2019-10-22] MEDS ORDERED: PIPERACILLIN/TAZOB 4.5 GM 4.5 GM in DEXTROSE 5%-WATER 100 ML IVPB ONE (12:47)
[2019-10-22] MEDS ORDERED: VANCOMYCIN 1 GM in D5W (PRE-DOCKED) 1,000 MG/250 ML IVPB ONE (12:47)
--- NOTE | 2019-10-22 13:12 | PDOC ---
Attending Attestation - Resident Resident Name: Kristopher Clark - ED Attending Attestation I have performed the following: I have examined & evaluated the patient, The case was reviewed & discussed with the resident, I agree w/resident's findings & plan, Exceptions are as noted - HPI HPI: 10/22/19 13:12 83y F hx of HTN, IDDM, HLD, chronic wound sp PICC line presents with AMS, per son, pt was found to be lethargic and difficult to arouse, and confused not knowing where she was. Pt is a poor historian and cannot tell me why she is in the ER. ROS: Limited due to patient condition Physical exam: General: No distress Pulm: CTA b/l Cardiac: rrr, no mrg abd: soft nontender Neuro: no facial assymetry, moving all 4 extreitie spontaneously and synmetrically, ao x 2 - Physicial Exam PE: 10/25/19 16:36 see above - Medical Decision Making 10/22/19 14:42 pt noted to be febrile/atachycardic sepsis order set obtained fluids for hydration pts UA c/w UTI likely urosepsis 10/22/19 15:41 pt with hydro on bedisie US - will botian CT abd to ro kidney stone pts cxr noted for b/l infiltrates wioll obtian CT chest to evaluate for possible COVID pna pt written for vanc/zosyn anticipate admission for further management Heart Score/ECG Review - ECG Impressions Comment:: 10/22/19 14:44 Twelve-lead EKG was performed and reviewed by me. There is normal sinus rhythm with a rate of 108 The axis is normal. The intervals are normal. There is normal R wave progression There are no ST or T wave abnormalities. Impression: sinus tachcyardia Discharge - Discharge Information Problems reviewed: Yes Clinical Impression/Diagnosis: Sepsis Qualifiers: Sepsis type: sepsis due to unspecified organism Sepsis acute organ dysfunction status: with acute organ dysfunction Severe sepsis acute organ dysfunction type: acute respiratory failure Acute respiratory failure type: with hypoxia Severe sepsis shock status: without septic shock Qualified Code(s): A41.9 - Sepsis, unspecified organism UTI (urinary tract infection) Qualifiers: Urinary tract infection type: acute pyelonephritis Qualified Code(s): N10 - Acute pyelonephritis Acute respiratory failure Qualifiers: Respiratory failure complication: hypoxia Qualified Code(s): J96.01 - Acute respiratory failure with hypoxia Condition: Stable - Follow up/Referral - Patient Discharge Instructions - Post Discharge Activity
[2019-10-22 13:21] VITALS: BMI 27.4
[2019-10-22 13:26] LABS: INR 1.11 (0.83-1.09); PROTHROMBIN TIME (PATIENT) 13.1 SEC (9.7-13.0)
[2019-10-22 13:28] LABS: ACTIVATED PTT 28.6 SECONDS (25.2-36.5)
[2019-10-22] MEDS ORDERED: SODIUM CHLORIDE 2,313 ML IV ONE (13:36)
[2019-10-22 13:41] LABS: BASO % 0.1 % (0-2.0); EOS % 0.1 % (0-4.5); HEMOGLOBIN 10.9 GM/dL (10.7-15.3); LYMPH % 2.9 % (8-40); MCH 27.2 pg (25.7-33.7); MEAN PLT VOLUME 9.2 fl (7.5-11.1); MONO % 0.4 % (3.8-10.2); NEUT % 96.5 % (42.8-82.8); PLATELET COUNT 312 K/MM3 (134-434); RDW 16.5 % (11.6-15.6); WHITE BLOOD COUNT 5.4 K/mm3 (4.0-10.0)
[2019-10-22 13:52] LABS: ALBUMIN 2.7 g/dl (3.4-5.0); BILIRUBIN,TOTAL 0.5 mg/dL (0.2-1); CALCIUM 9.5 mg/dL (8.5-10.1); CREATININE 0.7 mg/dL (0.55-1.3); TOT PROT 7.2 g/dl (6.4-8.2)
[2019-10-22] MEDS ORDERED: ACETAMINOPHEN INJECTION 100 ML IVPB ONE (13:57)
[2019-10-22] MEDS ORDERED: VANCOMYCIN 1 GRAM (PRE-DOCKED) 1,000 MG/250 ML BAG IVPB ONE (13:58)
[2019-10-22] MEDS ORDERED: PIPERACILLIN/TAZOB 4.5 GM 4.5 GM/100 ML BAG IVPB ONE (13:58)
[2019-10-22 14:20] LABS: EPI CELLS 17 /uL (0-25.1); HYALINE CASTS 7 /uL (0-3.1); PH,URINE 6.5 (5.0-8.0); URINE APPEARANCE TURBID; URINE BILIRUBIN NEGATIVE (NEGATIVE); URINE COLOR YELLOW; URINE GLUCOSE (UA) NEGATIVE (NEGATIVE); URINE KETONE NEGATIVE (NEGATIVE); URINE LEUK ESTERASE 3+ (NEGATIVE); URINE NITRITE NEGATIVE (NEGATIVE); URINE PROTEIN 1+ (NEGATIVE); URINE UROBILINOGEN 0.2 mg/dL (0.2-1.0); URINE WBC 8104 /uL (0-25.8)
--- NOTE | 2019-10-22 15:05 | EKG ---
Test Reason : Blood Pressure : / mmHG Vent. Rate : 108 BPM Atrial Rate : 108 BPM P-R Int : 206 ms QRS Dur : 080 ms QT Int : 330 ms P-R-T Axes : 031 009 072 degrees QTc Int : 442 ms SINUS TACHYCARDIA OTHERWISE NORMAL ECG WHEN COMPARED WITH ECG OF 11-MAY-2018 08:56, PREMATURE VENTRICULAR COMPLEXES ARE NO LONGER PRESENT Confirmed by Ponce Coles ([id number]) on 10/22/2019 3:05:09 PM Referred By: Confirmed By:Ponce Coles
[2019-10-22 15:09] LABS: ANISOCYTOSIS 1+; MACROCYTOSIS 1+; PLATELET ESTIMATE NORMAL
[2019-10-22 15:59] LABS: URINE RBC 879 /uL (0-23.9); YEAST NONE SEEN (NEGATIVE)
[2019-10-22] MEDS ORDERED: ACETAMINOPHEN 1000 MG/100 ML VIAL (NON FORMULARY) IVPB PRN (20:07)
--- NOTE | 2019-10-22 20:10 | HP ---
CHIEF COMPLAINT: AMS, Lethargy PCP: Dr Grabiel Coyne HISTORY OF PRESENT ILLNESS: This is a 83 y/o female with a PMHx of HTN, HLD, IDDM, Peripheral Neuropathy, Non-Healing Ulcer to below left Knee. Who presents to the ED with AMS and lethargy. Per ED records: Per her son, he found her lethargic, minimally r esponsive to command when she woke up this morning at 9am. Patient did not eat anything today. Son denies patient having any cough. Patient on interview is alert to name, but confused unable to provide HPI. ER course was notable for: (1) Head CT- Moderate atrophy and moderate periventricular chronic microvascular ischemic disease changes. No acute intracranial pathology (2) Chest Xray- mild cardiomegaly and bilateral increased interstitial markings without gross evidence of focal infiltrates (3) Chest CT- somewhat limited exam due to respiratory motion artifact. mild bibasilar discoid atelectasis/scarring noted, ?mild interstitial pulmonary vascular congestion (4) CTAP- somewhat limited exam due to motion artifact. several nonobstructing bilateral renal calculi. mild to moderate left hydronephrosis. there appears to be approximately 3-4 mm left mid ureteral calculus. nonspecific b/l perirenal soft tissue stranding (5) UTI- +1 protein, +2 blood, +3 leukocyte esterase, 8104 WBC, >10,000 Bacteria Recent Travel: None PAST MEDICAL HISTORY: See HPI PAST SURGICAL HISTORY: Bilateral Knee Replacement Social History: Smoking: Never (per medical records) Alcohol: None Drugs: None Lives with Adult Son Allergies mushroom Allergy (Severe, Verified 05/10/18 18:21) HOME MEDICATIONS: Home Medications Medication Instructions Recorded Lisinopril [Prinivil] 5 mg PO DAILY #30 tablet 09/09/13 Simvastatin 40 mg PO HS 05/10/18 Gabapentin 300 mg PO HS 05/11/18 Hydrocodone/Acetaminophen 1 tab Q6H PRN 05/11/18 [Hydrocodone-Acetamin 5-325 mg] Meloxicam 7.5 mg PO DAILY 05/11/18 metFORMIN HCL [Metformin ER 500 mg PO BID 05/11/18 Osmotic] Aspirin [ASA -] 81 mg PO DAILY tab.chew 05/22/18 Vitamin C 500 mg PO DAILY 06/12/18 Doxycycline Hyclate 1 cap PO BID 12/21/18 REVIEW OF SYSTEMS: Unable to obtain- Clinical Condition CONSTITUTIONAL: Absent: fever, chills, diaphoresis, generalized weakness, malaise, loss of appetite, weight change HEENT: Absent: rhinorrhea, nasal congestion, throat pain, throat swelling, difficulty swallowing, mouth swelling, ear pain, eye pain, visual changes CARDIOVASCULAR: Absent: chest pain, syncope, palpitations, irregular heart rate, lighthea dedness, peripheral edema RESPIRATORY: Absent: cough, shortness of breath, dyspnea with exertion, orthopnea, wheezing, stridor, hemoptysis GASTROINTESTINAL: Absent: abdominal pain, abdominal distension, nausea, vomiting, diarrhea, constipation, melena, hematochezia GENITOURINARY: Absent: dysuria, frequency, urgency, hesitancy, hematuria, flank pain, genital pain MUSCULOSKELETAL: Absent: myalgia, arthralgia, joint swelling, back pain, neck pain SKIN: Absent: rash, itching, pallor HEMATOLOGIC/IMMUNOLOGIC: Absent: easy bleeding, easy bruising, lymphadenopathy, frequent infections ENDOCRINE: Absent: unexplained weight gain, unexplained weight loss, heat intolerance, cold intolerance NEUROLOGIC: Absent: headache, focal weakness or paresthesias, dizziness, unsteady gait, seizure, mental status changes, bladder or bowel incontinence PSYCHIATRIC: Absent: anxiety, depression, suicidal or homicidal ideation, hallucinations. PHYSICAL EXAMINATION Vital Signs - 24 hr 10/22/19 10/22/19 11:44 13:03 Temperature 100.8 F H Pulse Rate 104 H Respiratory 16 Rate Blood Pressure 118/72 O2 Sat by Pulse 100 95 Oximetry (%) GENERAL: Confused. Awake, alert, in no acute distress. HEAD: Normal with no signs of trauma. EYES: Pupils equal, round and reactive to light, extraocular movements intact, sclera anicteric, conjunctiva clear. No lid lag. EARS, NOSE, THROAT:Dry mucous membranes. Ears normal, nares patent, oropharynx clear without exudates. NECK: Normal range of motion, supple without lymphadenopathy, JVD, or masses. LUNGS: Breath sounds diminished at bases. + diffuse rhonchi. No wheezes. No accessory muscle use. HEART: Regular rate and rhythm, normal S1 and S2 without murmur, rub or gallop. ABDOMEN: hypoactive bowel sounds. Soft, nontender, not distended, no guarding, no rebound, no masses. No hepatomegaly or splenomegaly. MUSCULOSKELETAL: Normal range of motion at all joints. No bony deformities or tenderness. No CVA tenderness. UPPER EXTREMITIES: 2+ pulses, warm, well-perfused. No cyanosis. No clubbing. No peripheral edema. LOWER EXTREMITIES: 2+ pulses, warm, well-perfused. No calf tenderness. No peripheral edema. NEUROLOGICAL: Cranial nerves II-XII intact. Normal speech. Gait not observed. PSYCHIATRIC: Cooperative. Good eye contact. Appropriate mood and affect. SKIN: Warm, dry, normal turgor, no rashes or lesions noted, normal capillary refill. Laboratory Results - last 24 hr 10/22/19 10/22/19 10/22/19 12:32 12:52 12:52 WBC 5.4 RBC 4.00 Hgb 10.9 Hct 34.0 D MCV 85.0 MCH 27.2 MCHC 32.0 RDW 16.5 H Plt Count 312 D MPV 9.2 D Absolute Neuts (auto) 5.2 Neutrophils % 96.5 H D Neutrophils % (Manual) 80.0 Band Neutrophils % 13.0 Lymphocytes % 2.9 L D Lymphocytes % (Manual) 5.0 L Monocytes % 0.4 L D Monocytes % (Manual) 2 L Eosinophils % 0.1 D Eosinophils % (Manual) 0.0 Basophils % 0.1 Basophils % (Manual) 0.0 Myelocytes % (Man) 0 Promyelocytes % (Man) 0 Blast Cells % (Manual) 0 Nucleated RBC % 1 H Metamyelocytes 0 Hypochromia 0 Platelet Estimate Normal Polychromasia 0 Poikilocytosis 0 Anisocytosis 1+ Microcytosis 0 Macrocytosis 1+ PT with INR 13.10 H INR 1.11 H PTT (Actin FS) 28.6 Sodium 140 Potassium 4.0 Chloride 105 Carbon Dioxide 23 Anion Gap 12 BUN 16.0 Creatinine 0.7 Est GFR (CKD-EPI)AfAm 92.21 Est GFR (CKD-EPI)NonAf 79.56 Random Glucose 122 H Lactic Acid Calcium 9.5 Ferritin 141.1 Total Bilirubin 0.5 AST 25 ALT 10 L Alkaline Phosphatase 87 LD Total 360 H Troponin I 0.04 Total Protein 7.2 Albumin 2.7 L Urine Color Urine Appearance Urine pH Ur Specific Turrell Urine Protein Urine Glucose (UA) Urine Ketones Urine Blood Urine Nitrite Urine Bilirubin Urine Urobilinogen Ur Leukocyte Esterase Urine WBC (Auto) Urine RBC (Auto) Urine Casts (Auto) U Pathogenic Cast Auto U Epithel Cells (Auto) Urine Bacteria (Auto) Urine Yeast (Auto) 10/22/19 10/22/19 12:52 12:52 WBC RBC Hgb Hct MCV MCH MCHC RDW Plt Count MPV Absolute Neuts (auto) Neutrophils % Neutrophils % (Manual) Band Neutrophils % Lymphocytes % Lymphocytes % (Manual) Monocytes % Monocytes % (Manual) Eosinophils % Eosinophils % (Manual) Basophils % Basophils % (Manual) Myelocytes % (Man) Promyelocytes % (Man) Blast Cells % (Manual) Nucleated RBC % Metamyelocytes Hypochromia Platelet Estimate Polychromasia Poikilocytosis Anisocytosis Microcytosis Macrocytosis PT with INR INR PTT (Actin FS) Sodium Potassium Chloride Carbon Dioxide Anion Gap BUN Creatinine Est GFR (CKD-EPI)AfAm Est GFR (CKD-EPI)NonAf Random Glucose Lactic Acid 3.7 H* Calcium Ferritin Total Bilirubin AST ALT Alkaline Phosphatase LD Total Troponin I Total Protein Albumin Urine Color Yellow Urine Appearance Turbid Urine pH 6.5 Ur Specific Turrell 1.013 Urine Protein 1+ H Urine Glucose (UA) Negative Urine Ketones Negative Urine Blood 2+ H Urine Nitrite Negative Urine Bilirubin Negative Urine Urobilinogen 0.2 Ur Leukocyte Esterase 3+ H Urine WBC (Auto) 8104 Urine RBC (Auto) 879 Urine Casts (Auto) 7 U Pathogenic Cast Auto None seen U Epithel Cells (Auto) 17 Urine Bacteria (Auto) >10,000 Urine Yeast (Auto) None seen ASSESSMENT/PLAN: This is a 83 y/o female with a PMHx of HTN, HLD, IDDM, Peripheral Neuropathy, non-healing ulcer below L- Knee. Admitted for Sepsis, UTI, Acute Respiratory Failure with Hypoxia, Acute Metabolic Encephalopathy, Suspected COVID-19 In fection for further evaluation of their emergent condition. Plan: See Problem List FEN Replete Lytes prn NPO DVT ppx OOB SCDs Heparin SQ Dispo: Requires Inpatient Care Family Medical History Family History: Unable to Obtain Problem List - Problem (1) Sepsis Assessment/Plan: Likely secondary to UTI UA- +3 leukocyte esterase, 8104 WBC, >10,000 Bacteria Urine Culture-pending Blood Culture- pending Sepsis Criteria Met: T 100.8, P 104, Lactic Acid 3.7 Appreciate ID consult Zosyn, Vancomycin given in ED, will continue Monitor CBC, CMP Monitor vitals Ofirmev Maintain MAP > 65 Code(s): A41.9 - SEPSIS, UNSPECIFIED ORGANISM Qualifiers: Sepsis type: sepsis due to unspecified organism Sepsis acute organ dysfunction status: with acute organ dysfunction Severe sepsis acute organ dysfunction type: acute respiratory failure Acute respiratory failure type: with hypoxia Severe sepsis shock status: without septic shock Qualified Code(s): A41.9 - Sepsis, unspecified organism; R65.20 - Severe sepsis without septic shock; J96.01 - Acute respiratory failure with hypoxia (2) UTI (urinary tract infection) Assessment/Plan: Urine Culture-pending Continue Zosyn, Vancomycin Appreciate ID consult Monitor CBC Monitor vitals Code(s): N39.0 - URINARY TRACT INFECTION, SITE NOT SPECIFIED Qualifiers: Urinary tract infection type: acute pyelonephritis Qualified Code(s): N10 - Acute pyelonephritis (3) Acute respiratory failure with hypoxia Assessment/Plan: Likely secondary to Sepsis Chest Xray- mild cardiomegaly and bilateral increased interstitial markings without evidence of focal infiltrates O2 improved with O2 Appreciate Pulmonology consult Monitor vitals Code(s): J96.01 - ACUTE RESPIRATORY FAILURE WITH HYPOXIA (4) Acute metabolic encephalopathy Assessment/Plan: Likely secondary to Sepsis Head CT- microvascular changes, no acute ICH Fall Precautions Neurochecks Monitor vitals Code(s): G93.41 - METABOLIC ENCEPHALOPATHY (5) Diabetes Assessment/Plan: stable BGMs Monitor CMP Hold Metformin secondary to Lactic Acidosis Code(s): E11.9 - TYPE 2 DIABETES MELLITUS WITHOUT COMPLICATIONS (6) HTN (hypertension) Assessment/Plan: stable Monitor BP Hold home meds Monitor renal function Code(s): I10 - ESSENTIAL (PRIMARY) HYPERTENSION (7) HLD (hyperlipidemia) Assessment/Plan: stable No current home med Code(s): E78.5 - HYPERLIPIDEMIA, UNSPECIFIED Visit type - Emergency Visit Emergency Visit: Yes ED Registration Date: 10/22/19 Care time: The patient presented to the Emergency Department on the above date and was hospitalized for further evaluation of their emergent condition. - New Patient This patient is new to me today: Yes Date on this admission: 10/22/19 - Critical Care Critical Care patient: No
[2019-10-22] MEDS ORDERED: SODIUM CHLORIDE 250 ML IV STA (21:40)
[2019-10-22] MEDS ORDERED: PIPERACILLIN/TAZOBACTAM 4.5 GM VIAL IVPB ONE (22:19)
[2019-10-22] MEDS ORDERED: DEXTROSE 5%-WATER 100 ML IVPB ONE (22:19)
[2019-10-22] MEDS: HEPARIN NA (PORCINE) 5,000 UNITS/ML 1ML VIAL SQ SCH (22:23)
[2019-10-22] MEDS: PIPERACILLIN/TAZOB 4.5 GM 4.5 GM in DEXTROSE 5%-WATER 100 ML IVPB SCH (22:42)
[2019-10-22] MEDS ORDERED: PT OWN MED DRAWER 7, Y5N ONE (23:54)
[2019-10-23] MEDS: VANCOMYCIN HCL 1,250 MG in DEXTROSE 5%-WATER - 250 ML IVPB SCH ×3 (00:08→16:06)
[2019-10-23] MEDS ORDERED: DEXTROSE 5%-WATER 100 ML IVPB ONE ×2 (03:32→09:00)
[2019-10-23] MEDS ORDERED: PIPERACILLIN/TAZOBACTAM 4.5 GM VIAL IVPB ONE ×2 (03:32→09:00)
[2019-10-23] MEDS: PIPERACILLIN/TAZOB 4.5 GM 4.5 GM in DEXTROSE 5%-WATER 100 ML IVPB SCH ×3 (03:48→14:50)
--- NOTE | 2019-10-23 07:27 | PN ---
Progress Note (short form) - Note Progress Note: PULMONARY CONSULTATION DICTATED 10/23/19 IMP HYPOXEMIA ALTERED MENTAL STATUS SUSPECTED COVID 19 R/O SEPSIS HTN HLD IDDM FEVER ANEMIA ELEVATED LACTATE LEVEL PLAN O2 NEEDED ABX PER ID CULTURES WOUND CARE MONITOR INFLAMMATORY MARKERS,LYTES COVID PCR PENDING IVF TREND LACTATE DR HBUER Problem List - Problems (1) Acute metabolic encephalopathy Code(s): G93.41 - METABOLIC ENCEPHALOPATHY (2) Acute respiratory failure with hypoxia Code(s): J96.01 - ACUTE RESPIRATORY FAILURE WITH HYPOXIA (3) Diabetic neuropathy Code(s): E11.40 - TYPE 2 DIABETES MELLITUS WITH DIABETIC NEUROPATHY, UNSP (4) HLD (hyperlipidemia) Code(s): E78.5 - HYPERLIPIDEMIA, UNSPECIFIED (5) HTN (hypertension) Code(s): I10 - ESSENTIAL (PRIMARY) HYPERTENSION (7) Sepsis Code(s): A41.9 - SEPSIS, UNSPECIFIED ORGANISM Qualifiers: Sepsis type: sepsis due to unspecified organism Sepsis acute organ dysfunction status: with acute organ dysfunction Severe sepsis acute organ dysfunction type: acute respiratory failure Acute respiratory failure type: with hypoxia Severe sepsis shock status: without septic shock Qualified Code(s): A41.9 - Sepsis, unspecified organism; R65.20 - Severe sepsis without septic shock; J96.01 - Acute respiratory failure with hypoxia (8) Diabetes Code(s): E11.9 - TYPE 2 DIABETES MELLITUS WITHOUT COMPLICATIONS
--- NOTE | 2019-10-23 07:32 | PN ---
Progress Note, Physician Chief Complaint: Seen and examined in bed History of Present Illness: This is a 83 y/o female with a PMHx of HTN, HLD, IDDM, Peripheral Neuropathy, non-healing ulcer below L- Knee. Admitted for Sepsis, UTI, Acute Respiratory Failure with Hypoxia, Acute Metabolic Encephalopathy, Suspected COVID-19 Infection for further evaluation of their emergent condition. - Current Medication List Current Medications: Active Medications Acetaminophen (Ofirmev Injection -) 1,000 mg IVPB Q6H PRN PRN Reason: FEVER Stop: 10/23/19 20:07 Last Admin: 10/23/19 02:12 Dose: 1,000 mg Documented by: Heparin Sodium (Porcine) (Heparin -) 5,000 unit SQ BID EMY Last Admin: 10/22/19 22:23 Dose: 5,000 unit Documented by: Piperacillin Sod/Tazobactam (Sod 4.5 gm/ Dextrose) 100 mls @ 200 mls/hr IVPB Q6H-IV EMY; Protocol Vancomycin HCl 1,250 mg/ (Dextrose) 250 mls @ 166.667 mls/hr IVPB Q12H EMY; Protocol Piperacillin Sod/Tazobactam (Sod 4.5 gm/ Dextrose) 100 mls @ 200 mls/hr IVPB Q6H-IV EMY; Protocol Stop: 10/23/19 15:29 Last Admin: 10/23/19 03:48 Dose: 200 mls/hr Documented by: Vancomycin HCl 1,250 mg/ (Dextrose) 250 mls @ 166.667 mls/hr IVPB Q12H EMY; Protocol Stop: 10/23/19 10:44 Last Admin: 10/23/19 00:08 Dose: 166.667 mls/hr Documented by: - Objective Vital Signs: Vital Signs Temperature 97.8 F 10/23/19 06:13 Pulse Rate 87 10/23/19 06:13 Respiratory Rate 20 10/23/19 06:13 Blood Pressure 98/53 L 10/23/19 06:13 O2 Sat by Pulse Oximetry (%) 98 10/22/19 21:47 Constitutional: Yes: Well Nourished, No Distress, Calm Eyes: Yes: WNL, Conjunctiva Clear HENT: Yes: WNL, Atraumatic, Normocephalic Cardiovascular: Yes: WNL, Regular Rate and Rhythm Respiratory: Yes: WNL, Regular, CTA Bilaterally, Diminished (at bases), Rhonchi (scattered) Gastrointestinal: Yes: WNL, Normal Bowel Sounds, Soft ...Rectal Exam: Yes: Deferred Genitourinary: Yes: WNL Breast(s): Yes: WNL Musculoskeletal: Yes: WNL Extremities: Yes: Deformity (left foot drop) Edema: Yes Edema: LLE: 1+, RLE: 1+ Peripheral Pulses WNL: Yes Peripheral Pulses: Left Radial: 2+, Right Radial: 2+, Left Doralis Pedis: 2+, Right Dorsalis Pedis: 2+, Left Femoral: 2+, Right Femoral: 2+ Integumentary: Yes: Other (left posterior knee wound.) Wound/Incision: Yes: Draining (yelloe exudate to posterior knee) Neurological: Yes: WNL, Alert ...Motor Strength: LLE, RLE (generalized weakness) Psychiatric: Yes: WNL, Alert Labs: INR, PTT INR 1.11 (0.83-1.09) H 10/22/19 12:52 - ....Imaging Chest X-ray: Report Reviewed ((2) Chest Xray- mild cardiomegaly and bilateral increased interstitial markings without gross evidence of focal infiltrates) Cat Scan: Report Reviewed (HCT: Moderate atrophy and moderate periventricular chronic microvascular ischemic disease changes. No acute intracranial pathology Chest CT- somewhat limited exam due to respiratory motion artifact. mild bibasilar discoid atelectasis/scarring noted, ?mild interstitial pulmonary vascular congestion (4) CTAP- somewhat limited exam due to motion artifact. several nonobstructing bilateral renal calculi. mild to moderate left hydronephrosis. there appears to be approximately 3-4 mm left mid ureteral calculus. nonspecific b/l perirenal soft tissue stranding) Problem List - Problems (1) COVID-19 Assessment/Plan: COVID Suspicion low suspicion for COVID-19 based on clinical findings maintain SPO2 > 88% INH bronchodilators prn ID following, appreciate consultation strict airborne/droplet precautions Code(s): U07.1 - COVID POSITIVE (2) Acute metabolic encephalopathy Assessment/Plan: improving multifactorail, age, sepsis supportive care fall precautions Code(s): G93.41 - METABOLIC ENCEPHALOPATHY (3) Acute respiratory failure with hypoxia Assessment/Plan: improving on NC maintain SPO2>88% with supplemental O2 pulmonary following, appreciate consult Code(s): J96.01 - ACUTE RESPIRATORY FAILURE WITH HYPOXIA (4) HLD (hyperlipidemia) Assessment/Plan: c/w atorvastatin Code(s): E78.5 - HYPERLIPIDEMIA, UNSPECIFIED (5) HTN (hypertension) Assessment/Plan: hold lisinipril Code(s): I10 - ESSENTIAL (PRIMARY) HYPERTENSION (6) Diabetes Assessment/Plan: BGM AC/HS with novolog sliding scale diabetic diet Code(s): E11.9 - TYPE 2 DIABETES MELLITUS WITHOUT COMPLICATIONS (7) Prophylactic measure Assessment/Plan: FEN Fluids: poor PO intake, IVF until improves Electrolytes: monitor & replete as needed Nutrition: diabetic diet DVT moderate risk sq heparin Dispo Maintain as inpatient full code discharge planning Code(s): Z29.9 - ENCOUNTER FOR PROPHYLACTIC MEASURES, UNSPECIFIED (8) Diabetic neuropathy Assessment/Plan: hold lyrica until mental status retrurns to baseline Code(s): E11.40 - TYPE 2 DIABETES MELLITUS WITH DIABETIC NEUROPATHY, UNSP (9) Non-healing ulcer Assessment/Plan: following in wound clinic with Dr Mendoza will request for consult (10) Left foot drop Assessment/Plan: maintain left foot in neutral position Code(s): M21.372 - FOOT DROP, LEFT FOOT (11) Sepsis Assessment/Plan: Afebrile now, T max 100.8 WBC 21 from 5 [id number] hold BP meds Ucx with LFGNR BCx with GNR ID following c/w Vanco/zosyn until speciated would consult placed maintin on tele Code(s): A41.9 - SEPSIS, UNSPECIFIED ORGANISM Qualifiers: Sepsis type: sepsis due to unspecified organism Sepsis acute organ dysfunction status: with acute organ dysfunction Severe sepsis acute organ dysfunction type: acute respiratory failure Acute respiratory failure type: with hypoxia Severe sepsis shock status: without septic shock Qualified Code(s): A41.9 - Sepsis, unspecified organism; R65.20 - Severe sepsis without septic shock; J96.01 - Acute respiratory failure with hypoxia (12) UTI (urinary tract infection) Assessment/Plan: Ucx with LFGNR c/w vanco and zosyn Code(s): N39.0 - URINARY TRACT INFECTION, SITE NOT SPECIFIED Qualifiers: Urinary tract infection type: acute pyelonephritis Qualified Code(s): N10 - Acute pyelonephritis (13) Failure to thrive Assessment/Plan: poor po intake nutritional supplements RD consultation requested Code(s): [id number] - Qualifiers: Failure to thrive age range: in adult Qualified Code(s): R62.7 - Adult failure to thrive Visit type - Emergency Visit Emergency Visit: Yes ED Registration Date: 10/22/19 Care time: The patient presented to the Emergency Department on the above date and was hospitalized for further evaluation of their emergent condition. - New Patient This patient is new to me today: Yes Date on this admission: 10/23/19 - Critical Care Critical Care patient: No - Discharge Referral Referred to [facility] Med P.C.: No
[2019-10-23 07:36] LABS: BASO % 0.1 % (0-2.0); HEMATOCRIT 30.5 % (32.4-45.2); HEMOGLOBIN 9.7 GM/dL (10.7-15.3); LYMPH % 2.5 % (8-40); MCH 26.6 pg (25.7-33.7); MCHC 31.7 g/dl (32.0-36.0); MEAN CELL VOLUME 83.7 fl (80-96); MEAN PLT VOLUME 8.8 fl (7.5-11.1); MONO % 3.5 % (3.8-10.2); NEUT % 93.9 % (42.8-82.8); PLATELET COUNT 218 K/MM3 (134-434); RBC 3.64 M/mm3 (3.60-5.2); RDW 16.3 % (11.6-15.6); WHITE BLOOD COUNT 21.6 K/mm3 (4.0-10.0)
[2019-10-23 08:12] LABS: ALBUMIN 2.2 g/dl (3.4-5.0); BILIRUBIN,TOTAL 0.5 mg/dL (0.2-1); CALCIUM 8.7 mg/dL (8.5-10.1); MAGNESIUM 1.8 mg/dL (1.8-2.4); POTASSIUM 3.1 mmol/L (3.5-5.1)
[2019-10-23] MEDS: HEPARIN NA (PORCINE) 5,000 UNITS/ML 1ML VIAL SQ SCH ×2 (09:11→21:21)
[2019-10-23 10:45] LABS: ANISOCYTOSIS 0; MACROCYTOSIS 0; PLATELET ESTIMATE NORMAL
--- NOTE | 2019-10-23 13:48 | CON.ID ---
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, ambulated short distances with L AFO and L knee brace) Home Medications - Allergies Allergies/Adverse Reactions: Allergies Allergy/AdvReac Type Severity Reaction Status Date / Time mushroom Allergy Severe Verified 05/10/18 18:21 - Home Medications Home Medications: Ambulatory Orders Lisinopril [Prinivil] 5 mg PO DAILY #30 tablet 09/09/13 Simvastatin 40 mg PO HS 05/10/18 Gabapentin 300 mg PO HS 05/11/18 Hydrocodone/Acetaminophen [Hydrocodone-Acetamin 5-325 mg] 1 tab Q6H PRN 05/11/18 Meloxicam 7.5 mg PO DAILY 05/11/18 metFORMIN HCL [Metformin ER Osmotic] 500 mg PO BID 05/11/18 Aspirin [ASA -] 81 mg PO DAILY tab.chew 05/22/18 Vitamin C 500 mg PO DAILY 06/12/18 Doxycycline Hyclate 1 cap PO BID 12/21/18 Physical Exam Vital Signs: Vital Signs Temperature 97.6 F 10/23/19 13:37 Pulse Rate 89 10/23/19 13:37 Respiratory Rate 18 10/23/19 13:37 Blood Pressure 92/56 L 10/23/19 13:37 O2 Sat by Pulse Oximetry (%) 98 10/22/19 21:47 Labs: CBC, BMP 10/23/19 06:45 10/23/19 06:45
[2019-10-23] MEDS: KCL 10 MEQ IVPB 10 MEQ/100 ML INFUS.BAG IVPB SCH ×4 (14:34→17:45)
[2019-10-23] MEDS ORDERED: PT OWN MED DRAWER 7, Y5N ONE (15:54)
[2019-10-23] MEDS: INSULIN SLIDING SCALE (NOVOLOG) 1 VIAL SQ SCH ×2 (16:32→21:21)
--- NOTE | 2019-10-23 16:40 | PN ---
Progress Note (short form) - Note Progress Note: VASCULAR SURGERY 83yo F was consulted to vascular surgery to evaluate LLE wound. Pt states that the wound has been present for many years and that it just won't heal. Pt admitted for urosepsis. Last Vital Signs Temp Pulse Resp BP Pulse Ox 97.6 F 89 18 92/56 L 98 10/23/19 13:37 10/23/19 13:37 10/23/19 13:37 10/23/19 13:37 10/22/19 21:47 CBC, BMP 10/23/19 06:45 10/23/19 06:45 PE: Gen: A&O x3 Resp: breathing comfortably LLE: +2 pedal pulse, +1 edema, 5mm ulcer posterior knee over old scar, no erythema, no discharge, no evidence of collection. Problem List - Problems (1) Non-healing ulcer Assessment/Plan: Plan -no need for acute surgical intervention. -place allevyn dressing over wound -follow up with wound care clinic as outpatient Pt discussed with Dr. Mendoza who agrees with plan
[2019-10-23] MEDS ORDERED: PIPERACILLIN/TAZOBACTAM 3.375 GM VIAL IVPB ONE (17:42)
[2019-10-23] MEDS ORDERED: DEXTROSE 5%-WATER - 50 ML IVPB ONE (17:42)
[2019-10-23] MEDS: PIPERACILLIN/TAZOB 3.375 GM 3.375 GM in DEXTROSE 5%-WATER - 50 ML IVPB SCH (18:28)
[2019-10-23] MEDS ORDERED: ACETAMINOPHEN 325 MG TABLET (FP) PO ONE (21:59)
[2019-10-24] MEDS ORDERED: DEXTROSE 5%-WATER - 50 ML IVPB ONE ×3 (00:33→17:25)
[2019-10-24] MEDS ORDERED: PIPERACILLIN/TAZOBACTAM 3.375 GM VIAL IVPB ONE ×3 (00:33→17:25)
[2019-10-24] MEDS: PIPERACILLIN/TAZOB 3.375 GM 3.375 GM in DEXTROSE 5%-WATER - 50 ML IVPB SCH ×3 (02:11→17:48)
[2019-10-24] MEDS: INSULIN SLIDING SCALE (NOVOLOG) 1 VIAL SQ SCH ×4 (06:14→21:21)
[2019-10-24 06:56] LABS: BASO % 0.1 % (0-2.0); HEMATOCRIT 30.7 % (32.4-45.2); HEMOGLOBIN 9.7 GM/dL (10.7-15.3); LYMPH % 4.5 % (8-40); MCH 27.1 pg (25.7-33.7); MCHC 31.7 g/dl (32.0-36.0); MEAN CELL VOLUME 85.4 fl (80-96); MEAN PLT VOLUME 8.9 fl (7.5-11.1); MONO % 2.6 % (3.8-10.2); NEUT % 91.8 % (42.8-82.8); PLATELET COUNT 213 K/MM3 (134-434); RBC 3.59 M/mm3 (3.60-5.2); RDW 16.6 % (11.6-15.6); WHITE BLOOD COUNT 17.8 K/mm3 (4.0-10.0)
[2019-10-24 07:22] LABS: ALBUMIN 2.2 g/dl (3.4-5.0); BILIRUBIN,TOTAL 0.3 mg/dL (0.2-1); BLOOD UREA NITROGEN 16.6 mg/dL (7-18); CALCIUM 8.9 mg/dL (8.5-10.1); CREATININE 0.7 mg/dL (0.55-1.3); MAGNESIUM 2.1 mg/dL (1.8-2.4); POTASSIUM 3.1 mmol/L (3.5-5.1); TOT PROT 6.3 g/dl (6.4-8.2)
--- NOTE | 2019-10-24 07:28 | PN ---
Progress Note, Physician Chief Complaint: Seen and examined in bed. States she feels much better today. Afebrile. COVID PCR negative History of Present Illness: This is a 83 y/o female with a PMHx of HTN, HLD, IDDM, Peripheral Neuropathy, non-healing ulcer below L- Knee. Admitted for Sepsis, UTI, Acute Respiratory Fa ilure with Hypoxia, Acute Metabolic Encephalopathy, Suspected COVID-19 Infection for further evaluation of their emergent condition. - Current Medication List Current Medications: Active Medications Ascorbic Acid (Vitamin C -) 500 mg PO DAILY EMY Aspirin (Asa -) 81 mg PO DAILY EMY Heparin Sodium (Porcine) (Heparin -) 5,000 unit SQ BID MEY Last Admin: 10/23/19 21:21 Dose: 5,000 unit Documented by: Piperacillin Sod/Tazobactam (Sod 3.375 gm/ Dextrose) 50 mls @ 100 mls/hr IVPB Q8H-IV EMY; Protocol Last Admin: 10/24/19 02:11 Dose: 100 mls/hr Documented by: Insulin Aspart (Novolog Vial Sliding Scale -) 1 vial SQ ACHS EMY; Protocol Last Admin: 10/24/19 06:14 Dose: Not Given Documented by: Multivitamins/Minerals (Theragran-M) 1 each PO DAILY EMY - Objective Vital Signs: Vital Signs Temperature 98.1 F 10/24/19 04:00 Pulse Rate 79 10/24/19 04:00 Respiratory Rate 20 10/24/19 04:00 Blood Pressure 135/77 10/24/19 04:00 O2 Sat by Pulse Oximetry (%) 99 10/23/19 21:00 Additional Findings/Remarks: Constitutional: Yes: Well Nourished, No Distress, Calm Eyes: Yes: WNL, Conjunctiva Clear HENT: Yes: WNL, Atraumatic, Normocephalic Cardiovascular: Yes: WNL, Regular Rate and Rhythm Respiratory: Yes: WNL, Regular, CTA Bilaterally, Diminished (at bases), Rhonchi (scattered) Gastrointestinal: Yes: WNL, Normal Bowel Sounds, Soft ...Rectal Exam: Yes: Deferred Genitourinary: Yes: WNL Breast(s): Yes: WNL Musculoskeletal: Yes: WNL Extremities: Yes: Deformity (left foot drop) Edema: Yes Edema: LLE: 1+, RLE: 1+ Peripheral Pulses WNL: Yes Peripheral Pulses: Left Radial: 2+, Right Radial: 2+, Left Doralis Pedis: 2+, Right Dorsalis Pedis: 2+, Left Femoral: 2+, Right Femoral: 2+ Integumentary: Yes: Other (left posterior knee wound.) Wound/Incision: Yes: Draining (less drainage from posterior knee) Neurological: Yes: WNL, Alert ...Motor Strength: LLE, RLE (generalized weakness) Psychiatric: Yes: WNL, Alert Labs: CBC, BMP 10/24/19 06:01 10/24/19 06:01 INR, PTT INR 1.11 (0.83-1.09) H 10/22/19 12:52 Problem List - Problems (1) COVID-19 Assessment/Plan: COVID PCR negative Code(s): U07.1 - COVID POSITIVE (2) Acute metabolic encephalopathy Assessment/Plan: improved back to baseline supportive care maintain fall precautions Code(s): G93.41 - METABOLIC ENCEPHALOPATHY (3) Acute respiratory failure with hypoxia Assessment/Plan: improved on NC/RA maintain SPO2>88% with supplemental O2 pulmonary following, appreciate consult Code(s): J96.01 - ACUTE RESPIRATORY FAILURE WITH HYPOXIA (4) HLD (hyperlipidemia) Assessment/Plan: c/w atorvastatin Code(s): E78.5 - HYPERLIPIDEMIA, UNSPECIFIED (5) HTN (hypertension) Assessment/Plan: restart lisinipril with hold parameters Code(s): I10 - ESSENTIAL (PRIMARY) HYPERTENSION (6) Diabetes Assessment/Plan: BGM AC/HS with novolog sliding scale diabetic diet Code(s): E11.9 - TYPE 2 DIABETES MELLITUS WITHOUT COMPLICATIONS (7) Prophylactic measure Assessment/Plan: FEN Fluids: improved PO intake, can stop IVF Electrolytes: monitor & replete as needed Nutrition: diabetic diet DVT moderate risk sq lovenox Dispo Maintain as inpatient full code discharge planning Code(s): Z29.9 - ENCOUNTER FOR PROPHYLACTIC MEASURES, UNSPECIFIED (8) Diabetic neuropathy Assessment/Plan: hold lyrica until mental status returns to baseline can most likely restart tomorrow Code(s): E11.40 - TYPE 2 DIABETES MELLITUS WITH DIABETIC NEUROPATHY, UNSP (9) Non-healing ulcer Assessment/Plan: following in wound clinic with Dr Mendoza seen yesterday no need for acute surgical intervention c/w allevyn dressing over wound f/u with wound care clinic as outpatient (10) Left foot drop Assessment/Plan: maintain left foot in neutral position wears brace at home Code(s): M21.372 - FOOT DROP, LEFT FOOT (11) Sepsis Assessment/Plan: Afebrile now, T max 100.8 on admission WBC 17 down trending BP improved restart BP meds with hold parameters Ucx with LFGNR BCx with GNR ID following c/w Vanco/zosyn until speciated maintain on tele Code(s): A41.9 - SEPSIS, UNSPECIFIED ORGANISM Qualifiers: Sepsis type: sepsis due to unspecified organism Sepsis acute organ dysfunction status: with acute organ dysfunction Severe sepsis acute organ dysfunction type: acute respiratory failure Acute respiratory failure type: with hypoxia Severe sepsis shock status: without septic shock Qualified Code(s): A41.9 - Sepsis, unspecified organism; R65.20 - Severe sepsis without septic shock; J96.01 - Acute respiratory failure with hypoxia (12) UTI (urinary tract infection) Assessment/Plan: Ucx with LFGNR-not speciated c/w vanco and zosyn Code(s): N39.0 - URINARY TRACT INFECTION, SITE NOT SPECIFIED Qualifiers: Urinary tract infection type: acute pyelonephritis Qualified Code(s): N10 - Acute pyelonephritis (13) Failure to thrive Assessment/Plan: improved po intake nutritional supplements RD consultation requested Code(s): [id number] - Qualifiers: Failure to thrive age range: in adult Qualified Code(s): R62.7 - Adult failure to thrive Visit type - Emergency Visit Emergency Visit: Yes ED Registration Date: 10/22/19 Care time: The patient presented to the Emergency Department on the above date and was hospitalized for further evaluation of their emergent condition. - New Patient This patient is new to me today: No - Critical Care Critical Care patient: No - Discharge Referral Referred to [facility] Med P.C.: No
--- NOTE | 2019-10-24 07:48 | PN ---
Progress Note, Physician History of Present Illness: pulmonary alert,comfortable,-sob - Current Medication List Current Medications: Active Medications Ascorbic Acid (Vitamin C -) 500 mg PO DAILY [facility] Aspirin (Asa -) 81 mg PO DAILY EMY Cholecalciferol (Vitamin D3 -) 1,000 unit PO DAILY [facility] Enoxaparin Sodium (Lovenox -) 30 mg SQ BID EMY Piperacillin Sod/Tazobactam (Sod 3.375 gm/ Dextrose) 50 mls @ 100 mls/hr IVPB Q8H-IV EMY; Protocol Last Admin: 10/24/19 02:11 Dose: 100 mls/hr Documented by: Insulin Aspart (Novolog Vial Sliding Scale -) 1 vial SQ ACHS EMY; Protocol Last Admin: 10/24/19 06:14 Dose: Not Given Documented by: Multivitamins/Minerals (Theragran-M) 1 each PO DAILY [facility] - Objective Vital Signs: Vital Signs Temperature 98.1 F 10/24/19 04:00 Pulse Rate 79 10/24/19 04:00 Respiratory Rate 20 10/24/19 04:00 Blood Pressure 135/77 10/24/19 04:00 O2 Sat by Pulse Oximetry (%) 99 10/23/19 21:00 Constitutional: Yes: Well Nourished, Calm Eyes: Yes: WNL HENT: Yes: WNL Neck: Yes: WNL Cardiovascular: Yes: Regular Rate and Rhythm, S1, S2 Respiratory: Yes: CTA Bilaterally Gastrointestinal: Yes: Normal Bowel Sounds, Soft Extremities: Yes: WNL, Other (lle ulcer) Edema: Yes Labs: CBC, BMP 10/24/19 06:01 10/24/19 06:01 INR, PTT INR 1.11 (0.83-1.09) H 10/22/19 12:52 Problem List - Problems (1) Acute metabolic encephalopathy Code(s): G93.41 - METABOLIC ENCEPHALOPATHY (2) Acute respiratory failure with hypoxia Code(s): J96.01 - ACUTE RESPIRATORY FAILURE WITH HYPOXIA (3) Diabetic neuropathy Code(s): E11.40 - TYPE 2 DIABETES MELLITUS WITH DIABETIC NEUROPATHY, UNSP (4) HLD (hyperlipidemia) Code(s): E78.5 - HYPERLIPIDEMIA, UNSPECIFIED (5) HTN (hypertension) Code(s): I10 - ESSENTIAL (PRIMARY) HYPERTENSION (7) Sepsis Code(s): A41.9 - SEPSIS, UNSPECIFIED ORGANISM Qualifiers: Sepsis type: sepsis due to unspecified organism Sepsis acute organ dysfunction status: with acute organ dysfunction Severe sepsis acute organ dysfunction type: acute respiratory failure Acute respiratory failure type: with hypoxia Severe sepsis shock status: without septic shock Qualified Code(s): A41.9 - Sepsis, unspecified organism; R65.20 - Severe sepsis without septic shock; J96.01 - Acute respiratory failure with hypoxia (8) Diabetes Code(s): E11.9 - TYPE 2 DIABETES MELLITUS WITHOUT COMPLICATIONS Assessment/Plan IMP HYPOXEMIA ALTERED MENTAL STATUS SUSPECTED COVID 19 R/O SEPSIS HTN HLD IDDM FEVER ANEMIA LLE LEG ULCER ELEVATED LACTATE LEVEL PLAN O2 NEEDED ABX PER ID CULTURES WOUND CARE MONITOR INFLAMMATORY MARKERS,LYTES COVID PCR NEGATIVE IVF CHECK LACTATE DR HUBER Problem List - Problems (1) Acute metabolic encephalopathy Code(s): G93.41 - METABOLIC ENCEPHALOPATHY (2) Acute respiratory failure with hypoxia Code(s): J96.01 - ACUTE RESPIRATORY FAILURE WITH HYPOXIA (3) Diabetic neuropathy Code(s): E11.40 - TYPE 2 DIABETES MELLITUS WITH DIABETIC NEUROPATHY, UNSP (4) HLD (hyperlipidemia) Code(s): E78.5 - HYPERLIPIDEMIA, UNSPECIFIED (5) HTN (hypertension) Code(s): I10 - ESSENTIAL (PRIMARY) HYPERTENSION (7) Sepsis Code(s): A41.9 - SEPSIS, UNSPECIFIED ORGANISM Qualifiers: Sepsis type: sepsis due to unspecified organism Sepsis acute organ dysfunction status: with acute organ dysfunction Severe sepsis acute organ dysfunction type: acute respiratory failure Acute respiratory failure type: with hypoxia Severe sepsis shock status: without septic shock Qualified Code(s): A41.9 - Sepsis, unspecified organism; R65.20 - Severe sepsis without septic shock; J96.01 - Acute respiratory failure with hypoxia (8) Diabetes Code(s): E11.9 - TYPE 2 DIABETES MELLITUS WITHOUT COMPLICATIONS
[2019-10-24 09:15] LABS: ANISOCYTOSIS 1+; MACROCYTOSIS 0; PLATELET ESTIMATE NORMAL
[2019-10-24] MEDS ORDERED: ENOXAPARIN NA (PORCINE) 30 MG/0.3 ML DISP.SYRIN SQ SCH (10:00)
[2019-10-24] MEDS: MULTIVITAMINS THER W-MINERALS COMBO TABLET (FP) PO SCH (11:11)
[2019-10-24] MEDS: CHOLECALCIFEROL (VIT D3) 1,000 UNIT (25 MCG) TABLET PO SCH (11:11)
[2019-10-24] MEDS: ASCORBIC ACID 500 MG TABLET (FP) PO SCH (11:11)
[2019-10-24] MEDS: POTASSIUM CHLORIDE TABS 20 MEQ TABLET.ER (FP) PO SCH ×2 (11:11→13:57)
[2019-10-24] MEDS: ASPIRIN 81 MG CHEWABLE TABLETS PO SCH (11:11)
[2019-10-24] MEDS: ENOXAPARIN NA (PORCINE) 30 MG/0.3 ML DISP.SYRIN SQ SCH (11:44)
--- NOTE | 2019-10-24 15:51 | PN ---
Progress Note, Physician - Current Medication List Current Medications: Active Medications Acetaminophen (Tylenol -) 650 mg PO Q6H PRN PRN Reason: Fever Or Pain Ascorbic Acid (Vitamin C -) 500 mg PO DAILY [facility] Last Admin: 10/24/19 11:11 Dose: 500 mg Documented by: Aspirin (Asa -) 81 mg PO DAILY [facility] Last Admin: 10/24/19 11:11 Dose: 81 mg Documented by: Cholecalciferol (Vitamin D3 -) 1,000 unit PO DAILY [facility] Last Admin: 10/24/19 11:11 Dose: 1,000 unit Documented by: Enoxaparin Sodium (Lovenox -) 30 mg SQ DAILY [facility] Last Admin: 10/24/19 11:44 Dose: 30 mg Documented by: Piperacillin Sod/Tazobactam (Sod 3.375 gm/ Dextrose) 50 mls @ 100 mls/hr IVPB Q8H-IV [facility]; Protocol Last Admin: 10/24/19 11:10 Dose: 100 mls/hr Documented by: Insulin Aspart (Novolog Vial Sliding Scale -) 1 vial SQ ACHS [facility]; Protocol Last Admin: 10/24/19 11:30 Dose: Not Given Documented by: Lisinopril (Prinivil) 5 mg PO DAILY [facility] Multivitamins/Minerals (Theragran-M) 1 each PO DAILY [facility] Last Admin: 10/24/19 11:11 Dose: 1 each Documented by: - Objective Vital Signs: Vital Signs Temperature 97.8 F 10/24/19 14:00 Pulse Rate 85 10/24/19 14:00 Respiratory Rate 16 10/24/19 14:00 Blood Pressure 137/75 10/24/19 14:00 O2 Sat by Pulse Oximetry (%) 99 10/24/19 10:00 Labs: CBC, BMP 10/24/19 06:01 10/24/19 06:01 INR, PTT INR 1.11 (0.83-1.09) H 10/22/19 12:52
[2019-10-25] MEDS ORDERED: PIPERACILLIN/TAZOBACTAM 3.375 GM VIAL IVPB ONE ×3 (02:28→17:04)
[2019-10-25] MEDS ORDERED: DEXTROSE 5%-WATER - 50 ML IVPB ONE ×3 (02:28→17:04)
[2019-10-25] MEDS: PIPERACILLIN/TAZOB 3.375 GM 3.375 GM in DEXTROSE 5%-WATER - 50 ML IVPB SCH ×3 (02:53→17:22)
[2019-10-25] MEDS: INSULIN SLIDING SCALE (NOVOLOG) 1 VIAL SQ SCH ×4 (06:33→21:11)
--- NOTE | 2019-10-25 07:38 | PN ---
Progress Note, Physician Chief Complaint: Seen and examined in bed. States she feels stronger today. Appetite is improved Afebrile. COVID PCR negative History of Present Illness: This is a 83 y/o female with a PMHx of HTN, HLD, IDDM, Peripheral Neuropathy, non-healing ulcer below L- Knee. Admitted for Sepsis, UTI, Acute Respiratory Failure with Hypoxia, Acute Metabolic Encephalopathy, Suspected COVID-19 Infection for further evaluation of their emergent condition. - Current Medication List Current Medications: Active Medications Acetaminophen (Tylenol -) 650 mg PO Q6H PRN PRN Reason: Fever Or Pain Ascorbic Acid (Vitamin C -) 500 mg PO DAILY [facility] Last Admin: 10/24/19 11:11 Dose: 500 mg Documented by: Aspirin (Asa -) 81 mg PO DAILY [facility] Last Admin: 10/24/19 11:11 Dose: 81 mg Documented by: Cholecalciferol (Vitamin D3 -) 1,000 unit PO DAILY [facility] Last Admin: 10/24/19 11:11 Dose: 1,000 unit Documented by: Enoxaparin Sodium (Lovenox -) 30 mg SQ DAILY [facility] Last Admin: 10/24/19 11:44 Dose: 30 mg Documented by: Piperacillin Sod/Tazobactam (Sod 3.375 gm/ Dextrose) 50 mls @ 100 mls/hr IVPB Q8H-IV [facility]; Protocol Last Admin: 10/25/19 02:53 Dose: 100 mls/hr Documented by: Insulin Aspart (Novolog Vial Sliding Scale -) 1 vial SQ ACHS [facility]; Protocol Last Admin: 10/25/19 06:33 Dose: Not Given Documented by: Lisinopril (Prinivil) 5 mg PO DAILY [facility] Multivitamins/Minerals (Theragran-M) 1 each PO DAILY [facility] Last Admin: 10/24/19 11:11 Dose: 1 each Documented by: - Objective Vital Signs: Vital Signs Temperature 98.1 F 10/25/19 06:00 Pulse Rate 96 H 10/25/19 06:00 Respiratory Rate 10/25/19 06:00 Blood Pressure 136/72 10/25/19 06:00 O2 Sat by Pulse Oximetry (%) 99 10/24/19 21:00 Labs: INR, PTT INR 1.11 (0.83-1.09) H 10/22/19 12:52 Problem List - Problems (1) COVID-19 Assessment/Plan: COVID PCR negative Code(s): U07.1 - COVID POSITIVE (2) Acute metabolic encephalopathy Assessment/Plan: improved back to baseline supportive care maintain fall precautions Code(s): G93.41 - METABOLIC ENCEPHALOPATHY (3) Acute respiratory failure with hypoxia Assessment/Plan: improved on NC/RA maintain SPO2>88% with supplemental O2 pulmonary following, appreciate consult Code(s): J96.01 - ACUTE RESPIRATORY FAILURE WITH HYPOXIA (4) HLD (hyperlipidemia) Assessment/Plan: c/w atorvastatin Code(s): E78.5 - HYPERLIPIDEMIA, UNSPECIFIED (5) HTN (hypertension) Assessment/Plan: restart lisinipril with hold parameters Code(s): I10 - ESSENTIAL (PRIMARY) HYPERTENSION (6) Diabetes Assessment/Plan: BGM AC/HS with novolog sliding scale diabetic diet Code(s): E11.9 - TYPE 2 DIABETES MELLITUS WITHOUT COMPLICATIONS (7) Prophylactic measure Assessment/Plan: FEN Fluids: improved PO intake, can stop IVF Electrolytes: monitor & replete as needed Nutrition: diabetic diet DVT moderate risk sq lovenox Dispo Maintain as inpatient full code discharge planning Code(s): Z29.9 - ENCOUNTER FOR PROPHYLACTIC MEASURES, UNSPECIFIED (8) Diabetic neuropathy Assessment/Plan: restart lyrica q hs at decreased dose and uptitarte if needed Code(s): E11.40 - TYPE 2 DIABETES MELLITUS WITH DIABETIC NEUROPATHY, UNSP (9) Non-healing ulcer Assessment/Plan: following in wound clinic with Dr Mendoza no need for acute surgical intervention c/w allevyn dressing over wound f/u with wound care clinic as outpatient (10) Left foot drop Assessment/Plan: maintain left foot in neutral position wears brace at home requested foot drop stop brace Code(s): M21.372 - FOOT DROP, LEFT FOOT (11) Sepsis Assessment/Plan: Afebrile now, T max 100.8 on admission WBC 17 BP normotensive Ucx serratia BCx klebsiella ID following c/w Vanco/zosyn maintain on tele Code(s): A41.9 - SEPSIS, UNSPECIFIED ORGANISM Qualifiers: Sepsis type: sepsis due to unspecified organism Sepsis acute organ dysfunction status: with acute organ dysfunction Severe sepsis acute organ dysfunction type: acute respiratory failure Acute respiratory failure type: with hypoxia Severe sepsis shock status: without septic shock Qualified Code(s): A41.9 - Sepsis, unspecified organism; R65.20 - Severe sepsis without septic shock; J96.01 - Acute respiratory failure with hypoxia (12) UTI (urinary tract infection) Assessment/Plan: Ucx serratia c/w vanco and zosyn Code(s): N39.0 - URINARY TRACT INFECTION, SITE NOT SPECIFIED Qualifiers: Urinary tract infection type: acute pyelonephritis Qualified Code(s): N10 - Acute pyelonephritis (13) Failure to thrive Assessment/Plan: improved po intake nutritional supplements RD following Code(s): [id number] - Qualifiers: Failure to thrive age range: in adult Qualified Code(s): R62.7 - Adult failure to thrive (14) Hypokalemia Assessment/Plan: resolved K 4.1, repleted yesterday c/t monitor Code(s): E87.6 - HYPOKALEMIA Visit type - Emergency Visit Emergency Visit: Yes ED Registration Date: 10/22/19 Care time: The patient presented to the Emergency Department on the above date and was hospitalized for further evaluation of their emergent condition. - New Patient This patient is new to me today: No - Critical Care Critical Care patient: No - Discharge Referral Referred to [facility] Med P.C.: No
[2019-10-25 08:00] LABS: ALBUMIN 2.3 g/dl (3.4-5.0); BILIRUBIN,TOTAL 0.3 mg/dL (0.2-1); BLOOD UREA NITROGEN 14.5 mg/dL (7-18); CALCIUM 9.3 mg/dL (8.5-10.1); CREATININE 0.7 mg/dL (0.55-1.3); MAGNESIUM 2.1 mg/dL (1.8-2.4); POTASSIUM 4.1 mmol/L (3.5-5.1); TOT PROT 6.2 g/dl (6.4-8.2)
[2019-10-25 08:39] LABS: BASO % 0.7 % (0-2.0); EOS % 0.7 % (0-4.5); HEMOGLOBIN 9.7 GM/dL (10.7-15.3); LYMPH % 8.5 % (8-40); MCH 26.8 pg (25.7-33.7); MCHC 31.4 g/dl (32.0-36.0); MEAN CELL VOLUME 85.5 fl (80-96); MEAN PLT VOLUME 9.7 fl (7.5-11.1); MONO % 2.6 % (3.8-10.2); NEUT % 87.5 % (42.8-82.8); PLATELET COUNT 206 K/MM3 (134-434); RBC 3.62 M/mm3 (3.60-5.2); RDW 17.4 % (11.6-15.6); WHITE BLOOD COUNT 17.7 K/mm3 (4.0-10.0)
[2019-10-25] MEDS ORDERED: PT OWN MED DRAWER 7, Y5N ONE (09:56)
[2019-10-25] MEDS ORDERED: ENOXAPARIN NA (PORCINE) 30 MG/0.3 ML DISP.SYRIN SQ SCH (10:00)
--- NOTE | 2019-10-25 10:22 | PN ---
Progress Note, Physician History of Present Illness: PULMONARY ALERT,COMFORTABLE,-SOB - Current Medication List Current Medications: Active Medications Acetaminophen (Tylenol -) 650 mg PO Q6H PRN PRN Reason: Fever Or Pain Ascorbic Acid (Vitamin C -) 500 mg PO DAILY [facility] Last Admin: 10/24/19 11:11 Dose: 500 mg Documented by: Aspirin (Asa -) 81 mg PO DAILY [facility] Last Admin: 10/24/19 11:11 Dose: 81 mg Documented by: Cholecalciferol (Vitamin D3 -) 1,000 unit PO DAILY [facility] Last Admin: 10/24/19 11:11 Dose: 1,000 unit Documented by: Enoxaparin Sodium (Lovenox -) 30 mg SQ DAILY [facility] Last Admin: 10/24/19 11:44 Dose: 30 mg Documented by: Piperacillin Sod/Tazobactam (Sod 3.375 gm/ Dextrose) 50 mls @ 100 mls/hr IVPB Q8H-IV [facility]; Protocol Last Admin: 10/25/19 02:53 Dose: 100 mls/hr Documented by: Insulin Aspart (Novolog Vial Sliding Scale -) 1 vial SQ ACHS [facility]; Protocol Last Admin: 10/25/19 06:33 Dose: Not Given Documented by: Lisinopril (Prinivil) 5 mg PO DAILY [facility] Multivitamins/Minerals (Theragran-M) 1 each PO DAILY [facility] Last Admin: 10/24/19 11:11 Dose: 1 each Documented by: - Objective Vital Signs: Vital Signs Temperature 98.1 F 10/25/19 06:00 Pulse Rate 96 H 10/25/19 06:00 Respiratory Rate 19 10/25/19 06:00 Blood Pressure 136/72 10/25/19 06:00 O2 Sat by Pulse Oximetry (%) 99 10/24/19 21:00 Constitutional: Yes: Well Nourished, Calm Eyes: Yes: WNL, Other Neck: Yes: WNL Cardiovascular: Yes: Regular Rate and Rhythm, S1, S2 Respiratory: Yes: Rales (BIBASAILR CRACKLES) Gastrointestinal: Yes: Normal Bowel Sounds, Soft Extremities: Yes: WNL Edema: No Labs: CBC, BMP 10/25/19 07:01 10/25/19 07:01 INR, PTT INR 1.11 (0.83-1.09) H 10/22/19 12:52 Problem List - Problems (1) Acute metabolic encephalopathy Code(s): G93.41 - METABOLIC ENCEPHALOPATHY (2) Acute respiratory failure with hypoxia Code(s): J96.01 - ACUTE RESPIRATORY FAILURE WITH HYPOXIA (3) Diabetic neuropathy Code(s): E11.40 - TYPE 2 DIABETES MELLITUS WITH DIABETIC NEUROPATHY, UNSP (4) HLD (hyperlipidemia) Code(s): E78.5 - HYPERLIPIDEMIA, UNSPECIFIED (5) HTN (hypertension) Code(s): I10 - ESSENTIAL (PRIMARY) HYPERTENSION (7) Sepsis Code(s): A41.9 - SEPSIS, UNSPECIFIED ORGANISM Qualifiers: Sepsis type: sepsis due to unspecified organism Sepsis acute organ dysfunction status: with acute organ dysfunction Severe sepsis acute organ dysfunction type: acute respiratory failure Acute respiratory failure type: with hypoxia Severe sepsis shock status: without septic shock Qualified Code(s): A41.9 - Sepsis, unspecified organism; R65.20 - Severe sepsis without septic shock; J96.01 - Acute respiratory failure with hypoxia (8) Diabetes Code(s): E11.9 - TYPE 2 DIABETES MELLITUS WITHOUT COMPLICATIONS Assessment/Plan IMP HYPOXEMIA IMPROVED ALTERED MENTAL STATUS IMPROVED R/O SEPSIS BACTEREMIA HTN HLD IDDM ANEMIA LLE LEG ULCER ELEVATED LACTATE LEVEL NORMAL PLAN O2 NEEDED ABX PER ID WOUND CARE COVID PCR NEGATIVE DR HUBER Problem List - Problems (1) Acute metabolic encephalopathy Code(s): G93.41 - METABOLIC ENCEPHALOPATHY (2) Acute respiratory failure with hypoxia Code(s): J96.01 - ACUTE RESPIRATORY FAILURE WITH HYPOXIA (3) Diabetic neuropathy Code(s): E11.40 - TYPE 2 DIABETES MELLITUS WITH DIABETIC NEUROPATHY, UNSP (4) HLD (hyperlipidemia) Code(s): E78.5 - HYPERLIPIDEMIA, UNSPECIFIED (5) HTN (hypertension) Code(s): I10 - ESSENTIAL (PRIMARY) HYPERTENSION (7) Sepsis Code(s): A41.9 - SEPSIS, UNSPECIFIED ORGANISM Qualifiers: Sepsis type: sepsis due to unspecified organism Sepsis acute organ dysfunction status: with acute organ dysfunction Severe sepsis acute organ dysfunction type: acute respiratory failure Acute respiratory failure type: with hypoxia Severe sepsis shock status: without septic shock Qualified Code(s): A41.9 - Sepsis, unspecified organism; R65.20 - Severe sepsis without septic shock; J96.01 - Acute respiratory failure with hypoxia (8) Diabetes Code(s): E11.9 - TYPE 2 DIABETES MELLITUS WITHOUT COMPLICATIONS
[2019-10-25] MEDS: LISINOPRIL 5 MG TABLET (FP) PO SCH (10:33)
[2019-10-25] MEDS: ASPIRIN 81 MG CHEWABLE TABLETS PO SCH (10:33)
[2019-10-25] MEDS: ENOXAPARIN NA (PORCINE) 30 MG/0.3 ML DISP.SYRIN SQ SCH (10:33)
[2019-10-25] MEDS: CHOLECALCIFEROL (VIT D3) 1,000 UNIT (25 MCG) TABLET PO SCH (10:34)
[2019-10-25] MEDS: MULTIVITAMINS THER W-MINERALS COMBO TABLET (FP) PO SCH (10:34)
[2019-10-25] MEDS: ASCORBIC ACID 500 MG TABLET (FP) PO SCH (10:34)
[2019-10-25 12:29] LABS: ANISOCYTOSIS 1+; MACROCYTOSIS 0; OVALOCYTE 1+; PLATELET ESTIMATE NORMAL; TEAR DROP CELLS 1+
--- NOTE | 2019-10-25 12:56 | PN ---
Progress Note, Physician History of Present Illness: stable no new issues all x results noted - Current Medication List Current Medications: Active Medications Acetaminophen (Tylenol -) 650 mg PO Q6H PRN PRN Reason: Fever Or Pain Ascorbic Acid (Vitamin C -) 500 mg PO DAILY [facility] Last Admin: 10/25/19 10:34 Dose: 500 mg Documented by: Aspirin (Asa -) 81 mg PO DAILY [facility] Last Admin: 10/25/19 10:33 Dose: 81 mg Documented by: Cholecalciferol (Vitamin D3 -) 1,000 unit PO DAILY [facility] Last Admin: 10/25/19 10:34 Dose: 1,000 unit Documented by: Enoxaparin Sodium (Lovenox -) 30 mg SQ DAILY [facility] Last Admin: 10/25/19 10:33 Dose: 30 mg Documented by: Piperacillin Sod/Tazobactam (Sod 3.375 gm/ Dextrose) 50 mls @ 100 mls/hr IVPB Q8H-IV [facility]; Protocol Last Admin: 10/25/19 10:34 Dose: 100 mls/hr Documented by: Insulin Aspart (Novolog Vial Sliding Scale -) 1 vial SQ [facility]; Protocol Last Admin: 10/25/19 12:23 Dose: 2 units Documented by: Lisinopril (Prinivil) 5 mg PO DAILY [facility] Last Admin: 10/25/19 10:33 Dose: 5 mg Documented by: Multivitamins/Minerals (Theragran-M) 1 each PO DAILY [facility] Last Admin: 10/25/19 10:34 Dose: 1 each Documented by: - Objective Vital Signs: Vital Signs Temperature 98.1 F 10/25/19 06:00 Pulse Rate 96 H 10/25/19 06:00 Respiratory Rate 19 10/25/19 09:00 Blood Pressure 136/72 10/25/19 06:00 O2 Sat by Pulse Oximetry (%) 99 10/25/19 09:00 Constitutional: Yes: No Distress, Calm Cardiovascular: Yes: S1, S2 Respiratory: Yes: Regular, CTA Bilaterally Gastrointestinal: Yes: Normal Bowel Sounds, Soft Musculoskeletal: Yes: WNL Extremities: Yes: Other Wound/Incision: Yes: Dressing Dry and Intact Neurological: Yes: Alert, Oriented Psychiatric: Yes: Alert, Oriented Labs: CBC, BMP 10/25/19 07:01 10/25/19 07:01 INR, PTT INR 1.11 (0.83-1.09) H 10/22/19 12:52 Assessment/Plan Problem List - Problems (1) COVID-19 Code(s): U07.1 - COVID POSITIVE (2) Acute metabolic encephalopathy Code(s): G93.41 - METABOLIC ENCEPHALOPATHY (3) Acute respiratory failure with hypoxia Code(s): J96.01 - ACUTE RESPIRATORY FAILURE WITH HYPOXIA (4) HLD (hyperlipidemia) Code(s): E78.5 - HYPERLIPIDEMIA, UNSPECIFIED (5) HTN (hypertension) Code(s): I10 - ESSENTIAL (PRIMARY) HYPERTENSION (6) Diabetes Code(s): E11.9 - TYPE 2 DIABETES MELLITUS WITHOUT COMPLICATIONS 7 uti 8 wound infection plan will add vanco continue wound care rest as per the team
[2019-10-25] MEDS ORDERED: PREGABALIN 75 MG CAPSULE PO ONE (13:44)
[2019-10-25] MEDS: VANCOMYCIN HCL 1,250 MG in DEXTROSE 5%-WATER - 250 ML IVPB SCH (14:13)
[2019-10-25] MEDS: PREGABALIN 75 MG CAPSULE PO SCH (21:11)
[2019-10-26] MEDS ORDERED: PIPERACILLIN/TAZOBACTAM 3.375 GM VIAL IVPB ONE ×3 (01:10→17:20)
[2019-10-26] MEDS ORDERED: DEXTROSE 5%-WATER - 50 ML IVPB ONE ×3 (01:11→17:20)
[2019-10-26] MEDS: PIPERACILLIN/TAZOB 3.375 GM 3.375 GM in DEXTROSE 5%-WATER - 50 ML IVPB SCH ×3 (01:18→17:35)
[2019-10-26] MEDS: INSULIN SLIDING SCALE (NOVOLOG) 1 VIAL SQ SCH ×4 (06:15→21:34)
[2019-10-26 08:04] LABS: BASO % 0.5 % (0-2.0); EOS % 1.4 % (0-4.5); HEMATOCRIT 28.6 % (32.4-45.2); HEMOGLOBIN 9.2 GM/dL (10.7-15.3); LYMPH % 13.2 % (8-40); MCH 26.7 pg (25.7-33.7); MCHC 32.2 g/dl (32.0-36.0); MEAN CELL VOLUME 83.1 fl (80-96); MEAN PLT VOLUME 8.8 fl (7.5-11.1); MONO % 6.6 % (3.8-10.2); NEUT % 78.3 % (42.8-82.8); PLATELET COUNT 221 K/MM3 (134-434); RBC 3.44 M/mm3 (3.60-5.2); RDW 16.4 % (11.6-15.6); WHITE BLOOD COUNT 8.4 K/mm3 (4.0-10.0)
[2019-10-26 08:15] LABS: ALBUMIN 2.2 g/dl (3.4-5.0); BILIRUBIN,TOTAL 0.3 mg/dL (0.2-1); BLOOD UREA NITROGEN 9.6 mg/dL (7-18); CALCIUM 9.6 mg/dL (8.5-10.1); CREATININE 0.6 mg/dL (0.55-1.3); POTASSIUM 3.8 mmol/L (3.5-5.1)
[2019-10-26] MEDS: ENOXAPARIN NA (PORCINE) 30 MG/0.3 ML DISP.SYRIN SQ SCH (10:17)
[2019-10-26] MEDS: ASPIRIN 81 MG CHEWABLE TABLETS PO SCH (10:17)
[2019-10-26] MEDS: ASCORBIC ACID 500 MG TABLET (FP) PO SCH (10:17)
[2019-10-26] MEDS: MULTIVITAMINS THER W-MINERALS COMBO TABLET (FP) PO SCH (10:18)
[2019-10-26] MEDS: LISINOPRIL 5 MG TABLET (FP) PO SCH (10:18)
[2019-10-26] MEDS: CHOLECALCIFEROL (VIT D3) 1,000 UNIT (25 MCG) TABLET PO SCH (10:18)
[2019-10-26] MEDS: VANCOMYCIN HCL 1,250 MG in DEXTROSE 5%-WATER - 250 ML IVPB SCH (14:16)
--- NOTE | 2019-10-26 14:31 | PN ---
Progress Note (short form) - Note Progress Note: Resting in NAD. No CP or SOB. No acute events overnight. Intake & Output 10/23/19 10/24/19 10/25/19 10/26/19 23:59 23:59 23:59 23:59 Intake Total 1220 300 60 50 Output Total 1500 500 Balance -280 -200 60 50 Weight 170 lb Last Vital Signs Temp Pulse Resp BP Pulse Ox 98.0 F 93 H 18 127/75 98 10/26/19 10:14 10/26/19 10:14 10/26/19 10:14 10/26/19 10:14 10/26/19 09:00 Active Medications Acetaminophen (Tylenol -) 650 mg PO Q6H PRN PRN Reason: Fever Or Pain Ascorbic Acid (Vitamin C -) 500 mg PO DAILY [facility] Last Admin: 10/26/19 10:17 Dose: 500 mg Documented by: Aspirin (Asa -) 81 mg PO DAILY [facility] Last Admin: 10/26/19 10:17 Dose: 81 mg Documented by: Cholecalciferol (Vitamin D3 -) 1,000 unit PO DAILY [facility] Last Admin: 10/26/19 10:18 Dose: 1,000 unit Documented by: Enoxaparin Sodium (Lovenox -) 30 mg SQ DAILY [facility] Last Admin: 10/26/19 10:17 Dose: 30 mg Documented by: Piperacillin Sod/Tazobactam (Sod 3.375 gm/ Dextrose) 50 mls @ 100 mls/hr IVPB Q8H-IV [facility]; Protocol Last Admin: 10/26/19 10:16 Dose: 100 mls/hr Documented by: Vancomycin HCl 1,250 mg/ (Dextrose) 250 mls @ 250 mls/2 hr IVPB Q24H [facility]; Protocol Last Admin: 10/26/19 14:16 Dose: 250 mls/2 hr Documented by: Insulin Aspart (Novolog Vial Sliding Scale -) 1 vial SQ ACHS [facility]; Protocol Last Admin: 10/26/19 11:28 Dose: 2 units Documented by: Lisinopril (Prinivil) 5 mg PO DAILY [facility] Last Admin: 10/26/19 10:18 Dose: 5 mg Documented by: Multivitamins/Minerals (Theragran-M) 1 each PO DAILY [facility] Last Admin: 10/26/19 10:18 Dose: 1 each Documented by: Pregabalin (Lyrica -) 150 mg PO HS [facility] Last Admin: 10/25/19 21:11 Dose: 150 mg Documented by: Constitutional: Yes: Well Nourished, NAD Eyes: Yes: WNL, Other Neck: Yes: WNL Cardiovascular: Yes: Regular Rate and Rhythm, S1, S2 Respiratory: Yes: Scattered Rhonchi Gastrointestinal: Yes: Normal Bowel Sounds, Soft Extremities: Yes: WNL Edema: No Labs: Laboratory Results - last 24 hr 10/25/19 10/26/19 10/26/19 21:10 05:55 05:55 WBC 8.4 RBC 3.44 L Hgb 9.2 L Hct 28.6 L MCV 83.1 MCH 26.7 MCHC 32.2 RDW 16.4 H Plt Count 221 MPV 8.8 Absolute Neuts (auto) 6.6 Neutrophils % 78.3 Lymphocytes % 13.2 D Monocytes % 6.6 D Eosinophils % 1.4 D Basophils % 0.5 Nucleated RBC % 0 Sodium 142 Potassium 3.8 Chloride 109 H Carbon Dioxide 27 Anion Gap 6 L BUN 9.6 Creatinine 0.6 Est GFR (CKD-EPI)AfAm 97.01 Est GFR (CKD-EPI)NonAf 83.70 POC Glucometer 144 Random Glucose 96 Calcium 9.6 Magnesium 2.0 Total Bilirubin 0.3 AST 17 ALT 13 Alkaline Phosphatase 76 C-Reactive Protein Total Protein 6.0 L Albumin 2.2 L 10/26/19 05:55 WBC RBC Hgb Hct MCV MCH MCHC RDW Plt Count MPV Absolute Neuts (auto) Neutrophils % Lymphocytes % Monocytes % Eosinophils % Basophils % Nucleated RBC % Sodium Potassium Chloride Carbon Dioxide Anion Gap BUN Creatinine Est GFR (CKD-EPI)AfAm Est GFR (CKD-EPI)NonAf POC Glucometer Random Glucose Calcium Magnesium Total Bilirubin AST ALT Alkaline Phosphatase C-Reactive Protein 8.0 H Total Protein Albumin Problem List - Problems (1) Acute metabolic encephalopathy Code(s): G93.41 - METABOLIC ENCEPHALOPATHY (2) Acute respiratory failure with hypoxia Code(s): J96.01 - ACUTE RESPIRATORY FAILURE WITH HYPOXIA (3) Diabetic neuropathy Code(s): E11.40 - TYPE 2 DIABETES MELLITUS WITH DIABETIC NEUROPATHY, UNSP (4) HLD (hyperlipidemia) Code(s): E78.5 - HYPERLIPIDEMIA, UNSPECIFIED (5) HTN (hypertension) Code(s): I10 - ESSENTIAL (PRIMARY) HYPERTENSION (7) Sepsis Code(s): A41.9 - SEPSIS, UNSPECIFIED ORGANISM Qualifiers: Sepsis type: sepsis due to unspecified organism Sepsis acute organ dysfunction status: with acute organ dysfunction Severe sepsis acute organ dysfunction type: acute respiratory failure Acute respiratory failure type: with hypoxia Severe sepsis shock status: without septic shock Qualified Code(s): A41.9 - Sepsis, unspecified organism; R65.20 - Severe sepsis without septic shock; J96.01 - Acute respiratory failure with hypoxia (8) Diabetes Code(s): E11.9 - TYPE 2 DIABETES MELLITUS WITHOUT COMPLICATIONS Assessment/Plan IMP HYPOXEMIA IMPROVED ALTERED MENTAL STATUS IMPROVED R/O SEPSIS BACTEREMIA HTN HLD IDDM ANEMIA LLE LEG ULCER ELEVATED LACTATE LEVEL NORMAL PLAN O2 NEEDED ABX PER ID WOUND CARE COVID PCR NEGATIVE Dr Hurtado
--- NOTE | 2019-10-26 14:50 | PN ---
Progress Note, Physician History of Present Illness: Pt is alert and conversive, afebrile, and without acute distress. - Current Medication List Current Medications: Active Medications Acetaminophen (Tylenol -) 650 mg PO Q6H PRN PRN Reason: Fever Or Pain Ascorbic Acid (Vitamin C -) 500 mg PO DAILY [facility] Last Admin: 10/26/19 10:17 Dose: 500 mg Documented by: Aspirin (Asa -) 81 mg PO DAILY [facility] Last Admin: 10/26/19 10:17 Dose: 81 mg Documented by: Cholecalciferol (Vitamin D3 -) 1,000 unit PO DAILY [facility] Last Admin: 10/26/19 10:18 Dose: 1,000 unit Documented by: Enoxaparin Sodium (Lovenox -) 30 mg SQ DAILY [facility] Last Admin: 10/26/19 10:17 Dose: 30 mg Documented by: Piperacillin Sod/Tazobactam (Sod 3.375 gm/ Dextrose) 50 mls @ 100 mls/hr IVPB Q8H-IV [facility]; Protocol Last Admin: 10/26/19 10:16 Dose: 100 mls/hr Documented by: Vancomycin HCl 1,250 mg/ (Dextrose) 250 mls @ 250 mls/2 hr IVPB Q24H [facility]; Protocol Last Admin: 10/26/19 14:16 Dose: 250 mls/2 hr Documented by: Insulin Aspart (Novolog Vial Sliding Scale -) 1 vial SQ ACHS [facility]; Protocol Last Admin: 10/26/19 11:28 Dose: 2 units Documented by: Lisinopril (Prinivil) 5 mg PO DAILY [facility] Last Admin: 10/26/19 10:18 Dose: 5 mg Documented by: Multivitamins/Minerals (Theragran-M) 1 each PO DAILY [facility] Last Admin: 10/26/19 10:18 Dose: 1 each Documented by: Pregabalin (Lyrica -) 150 mg PO HS [facility] Last Admin: 10/25/19 21:11 Dose: 150 mg Documented by: - Objective Vital Signs: Vital Signs Temperature 98.0 F 10/26/19 10:14 Pulse Rate 93 H 10/26/19 10:14 Respiratory Rate 18 10/26/19 10:14 Blood Pressure 127/75 10/26/19 10:14 O2 Sat by Pulse Oximetry (%) 98 10/26/19 09:00 Constitutional: Yes: No Distress, Calm Cardiovascular: Yes: Regular Rate and Rhythm Respiratory: Yes: CTA Bilaterally Gastrointestinal: Yes: Normal Bowel Sounds, Soft Genitourinary: Yes: WNL Musculoskeletal: Yes: WNL Wound/Incision: Yes: Other (Lt posterior knee ulcer with clear drainage) Neurological: Yes: Alert Labs: CBC, BMP 10/26/19 05:55 10/26/19 05:55 INR, PTT INR 1.11 (0.83-1.09) H 10/22/19 12:52 Laboratory Last Values WBC 8.4 K/mm3 (4.0-10.0) 10/26/19 05:55 RBC 3.44 M/mm3 (3.60-5.2) L 10/26/19 05:55 Hgb 9.2 GM/dL (10.7-15.3) L 10/26/19 05:55 Hct 28.6 % (32.4-45.2) L 10/26/19 05:55 MCV 83.1 fl (80-96) 10/26/19 05:55 MCH 26.7 pg (25.7-33.7) 10/26/19 05:55 MCHC 32.2 g/dl (32.0-36.0) 10/26/19 05:55 RDW 16.4 % (11.6-15.6) H 10/26/19 05:55 Plt Count 221 K/MM3 (134-434) 10/26/19 05:55 MPV 8.8 fl (7.5-11.1) 10/26/19 05:55 Absolute Neuts (auto) 6.6 K/mm3 (1.5-8.0) 10/26/19 05:55 Neutrophils % 78.3 % (42.8-82.8) 10/26/19 05:55 Neutrophils % (Manual) 76.0 % (42.8-82.8) 10/25/19 07:01 Band Neutrophils % 5.0 % 10/25/19 07:01 Lymphocytes % 13.2 % (8-40) D 10/26/19 05:55 Lymphocytes % (Manual) 10.0 % (8-40) D 10/25/19 07:01 Monocytes % 6.6 % (3.8-10.2) D 10/26/19 05:55 Monocytes % (Manual) 3 % (3.8-10.2) L 10/25/19 07:01 Eosinophils % 1.4 % (0-4.5) D 10/26/19 05:55 Eosinophils % (Manual) 0.0 % (0-4.5) 10/25/19 07:01 Basophils % 0.5 % (0-2.0) 10/26/19 05:55 Basophils % (Manual) 1.0 % (0-2.0) D 10/25/19 07:01 Myelocytes % (Man) 0 % (0-2) 10/25/19 07:01 Promyelocytes % (Man) 0 % (0-2) 10/25/19 07:01 Blast Cells % (Manual) 0 % (0-0) 10/25/19 07:01 Nucleated RBC % 0 % (0-0) 10/26/19 05:55 Metamyelocytes 0 % (0-2) D 10/25/19 07:01 Hypochromia 0 10/25/19 07:01 Platelet Estimate Normal 10/25/19 07:01 Platelet Comment Present 10/23/19 06:45 Polychromasia 0 10/25/19 07:01 Poikilocytosis 2+ 10/25/19 07:01 Anisocytosis 1+ 10/25/19 07:01 Microcytosis 1+ 10/25/19 07:01 Macrocytosis 0 10/25/19 07:01 Spherocytes 1+ 10/25/19 07:01 Tear Drop Cells 1+ 10/25/19 07:01 Ovalocytes 1+ 10/25/19 07:01 Deann Cells 2+ 10/25/19 07:01 PT with INR 13.10 SEC (9.7-13.0) H 10/22/19 12:52 INR 1.11 (0.83-1.09) H 10/22/19 12:52 PTT (Actin FS) 28.6 SECONDS (25.2-36.5) 10/22/19 12:52 D-Dimer 3364 ng/ml (0-500) H 10/25/19 07:01 Sodium 142 mmol/L (136-145) 10/26/19 05:55 Potassium 3.8 mmol/L (3.5-5.1) 10/26/19 05:55 Chloride 109 mmol/L (98-107) H 10/26/19 05:55 Carbon Dioxide 27 mmol/L (21-32) 10/26/19 05:55 Anion Gap 6 MMOL/L (8-16) L 10/26/19 05:55 BUN 9.6 mg/dL (7-18) 10/26/19 05:55 Creatinine 0.6 mg/dL (0.55-1.3) 10/26/19 05:55 Est GFR (CKD-EPI)AfAm 97.01 10/26/19 05:55 Est GFR (CKD-EPI)NonAf 83.70 10/26/19 05:55 POC Glucometer 144 UNITS (80-120) 10/25/19 21:10 Random Glucose 96 mg/dL (74-106) 10/26/19 05:55 Lactic Acid 1.0 mmol/L (0.4-2.0) 10/25/19 07:01 Calcium 9.6 mg/dL (8.5-10.1) 10/26/19 05:55 Magnesium 2.0 mg/dL (1.8-2.4) 10/26/19 05:55 Ferritin 213.7 ng/ml (8-388) 10/24/19 06:01 Total Bilirubin 0.3 mg/dL (0.2-1) 10/26/19 05:55 AST 17 U/L (15-37) 10/26/19 05:55 ALT 13 U/L (13-61) 10/26/19 05:55 Alkaline Phosphatase 76 U/L (45-117) 10/26/19 05:55 LD Total 189 U/L (84-246) 10/24/19 06:01 Troponin I 0.04 ng/ml (0.00-0.05) 10/22/19 12:32 C-Reactive Protein 8.0 MG/DL (0.00-0.3) H 10/26/19 05:55 Total Protein 6.0 g/dl (6.4-8.2) L 10/26/19 05:55 Albumin 2.2 g/dl (3.4-5.0) L 10/26/19 05:55 Urine Color Yellow 10/22/19 12:52 Urine Appearance Turbid 10/22/19 12:52 Urine pH 6.5 (5.0-8.0) 10/22/19 12:52 Ur Specific [place] 1.013 (1.010-1.035) 10/22/19 12:52 Urine Protein 1+ (NEGATIVE) H 10/22/19 12:52 Urine Glucose (UA) Negative (NEGATIVE) 10/22/19 12:52 Urine Ketones Negative (NEGATIVE) 10/22/19 12:52 Urine Blood 2+ (NEGATIVE) H 10/22/19 12:52 Urine Nitrite Negative (NEGATIVE) 10/22/19 12:52 Urine Bilirubin Negative (NEGATIVE) 10/22/19 12:52 Urine Urobilinogen 0.2 mg/dL (0.2-1.0) 10/22/19 12:52 Ur Leukocyte Esterase 3+ (NEGATIVE) H 10/22/19 12:52 Urine WBC (Auto) 8104 /uL (0-25.8) 10/22/19 12:52 Urine RBC (Auto) 879 /uL (0-23.9) 10/22/19 12:52 Urine Casts (Auto) 7 /uL (0-3.1) 10/22/19 12:52 U Pathogenic Cast Auto None seen /lpf (NEGATIVE) 10/22/19 12:52 U Epithel Cells (Auto) 17 /uL (0-25.1) 10/22/19 12:52 Urine Bacteria (Auto) >10,000 /uL (0-1359) 10/22/19 12:52 Urine Yeast (Auto) None seen (NEGATIVE) 10/22/19 12:52 COVID-19 ([place]) Not detected (Not Detected) 10/22/19 16:15 Microbiology 10/22/19 12:52 Urine - Urine - Catheterized Urine Culture - Final Serratia Odorifera 1 Enterococcus Faecalis 10/22/19 12:52 Blood - Peripheral Venous Blood Culture - Final Klebsiella Ozaenae 10/22/19 12:52 Blood - Peripheral Venous Blood Culture - Final Klebsiella Ozaenae Problem List - Problems (1) Acute metabolic encephalopathy Code(s): G93.41 - METABOLIC ENCEPHALOPATHY (2) HLD (hyperlipidemia) Code(s): E78.5 - HYPERLIPIDEMIA, UNSPECIFIED (3) HTN (hypertension) Code(s): I10 - ESSENTIAL (PRIMARY) HYPERTENSION (5) Sepsis Code(s): A41.9 - SEPSIS, UNSPECIFIED ORGANISM Qualifiers: Sepsis type: sepsis due to unspecified organism Sepsis acute organ dysfunction status: with acute organ dysfunction Severe sepsis acute organ dysfunction type: acute respiratory failure Acute respiratory failure type: with hypoxia Severe sepsis shock status: without septic shock Qualified Code(s): A41.9 - Sepsis, unspecified organism; R65.20 - Severe sepsis without septic shock; J96.01 - Acute respiratory failure with hypoxia (6) UTI (urinary tract infection) Code(s): N39.0 - URINARY TRACT INFECTION, SITE NOT SPECIFIED Qualifiers: Urinary tract infection type: acute pyelonephritis Qualified Code(s): N10 - Acute pyelonephritis (7) Diabetes Code(s): E11.9 - TYPE 2 DIABETES MELLITUS WITHOUT COMPLICATIONS Assessment/Plan Klebsiella Bacteremia Resistant UTI AMS LLE non-healing ulcer Leukocytosis -- continue Zosyn. Vancomycin added yesterday for enterococcal UTI -- wbc down to normal, pt more alert -- monitor renal function, Vanco trough prior to 4th dose -- repeat blood cultures -- continue monitor
--- NOTE | 2019-10-26 16:35 | PN ---
Progress Note, Physician Chief Complaint: Afebrile COVID negative History of Present Illness: 83 y/o female with a PMHx of HTN, HLD, IDDM, Peripheral Neuropathy, non-healing ulcer below L- Knee. Admitted for Sepsis, UTI, Acute Respiratory Failure with Hypoxia, Acute Metabolic Encephalopathy, Suspected COVID-19 Infection for further evaluation of their emergent condition. - Current Medication List Current Medications: Active Medications Acetaminophen (Tylenol -) 650 mg PO Q6H PRN PRN Reason: Fever Or Pain Ascorbic Acid (Vitamin C -) 500 mg PO DAILY [facility] Last Admin: 10/26/19 10:17 Dose: 500 mg Documented by: Aspirin (Asa -) 81 mg PO DAILY [facility] Last Admin: 10/26/19 10:17 Dose: 81 mg Documented by: Cholecalciferol (Vitamin D3 -) 1,000 unit PO DAILY [facility] Last Admin: 10/26/19 10:18 Dose: 1,000 unit Documented by: Enoxaparin Sodium (Lovenox -) 30 mg SQ DAILY [facility] Last Admin: 10/26/19 10:17 Dose: 30 mg Documented by: Piperacillin Sod/Tazobactam (Sod 3.375 gm/ Dextrose) 50 mls @ 100 mls/hr IVPB Q8H-IV [facility]; Protocol Last Admin: 10/26/19 10:16 Dose: 100 mls/hr Documented by: Vancomycin HCl 1,250 mg/ (Dextrose) 250 mls @ 250 mls/2 hr IVPB Q24H [facility]; Protocol Last Admin: 10/26/19 14:16 Dose: 250 mls/2 hr Documented by: Insulin Aspart (Novolog Vial Sliding Scale -) 1 vial SQ ACHS [facility]; Protocol Last Admin: 10/26/19 11:28 Dose: 2 units Documented by: Lisinopril (Prinivil) 5 mg PO DAILY [facility] Last Admin: 10/26/19 10:18 Dose: 5 mg Documented by: Multivitamins/Minerals (Theragran-M) 1 each PO DAILY [facility] Last Admin: 10/26/19 10:18 Dose: 1 each Documented by: Pregabalin (Lyrica -) 150 mg PO HS [facility] Last Admin: 10/25/19 21:11 Dose: 150 mg Documented by: - Objective Vital Signs: Vital Signs Temperature 98.1 F 10/26/19 14:50 Pulse Rate 97 H 10/26/19 14:50 Respiratory Rate 18 10/26/19 14:50 Blood Pressure 121/66 10/26/19 14:50 O2 Sat by Pulse Oximetry (%) 98 10/26/19 09:00 Constitutional: Yes: Well Nourished, No Distress, Calm, Anxious Eyes: Yes: WNL, Conjunctiva Clear, EOM Intact HENT: Yes: WNL, Atraumatic, Normocephalic Neck: Yes: WNL, Supple, Trachea Midline Cardiovascular: Yes: WNL, Regular Rate and Rhythm Respiratory: Yes: WNL, Regular, CTA Bilaterally Gastrointestinal: Yes: WNL, Normal Bowel Sounds, Soft Genitourinary: Yes: WNL Musculoskeletal: Yes: WNL Extremities: Yes: WNL Edema: No Edema: LLE: 2+, RLE: 2+ Integumentary: Yes: WNL Neurological: Yes: WNL, Alert, Oriented ...Motor Strength: WNL Psychiatric: Yes: WNL, Alert, Oriented Labs: CBC, BMP 10/26/19 05:55 10/26/19 05:55 INR, PTT INR 1.11 (0.83-1.09) H 10/22/19 12:52 Impression/Plan Impression/Plan: (1) COVID-19 Assessment/Plan: COVID PCR negative Code(s): U07.1 - COVID POSITIVE (2) Acute metabolic encephalopathy Assessment/Plan: improved back to baseline supportive care maintain fall precautions Code(s): G93.41 - METABOLIC ENCEPHALOPATHY (3) Acute respiratory failure with hypoxia Assessment/Plan: improved on NC/RA maintain SPO2>88% with supplemental O2 pulmonary following, appreciate consult Code(s): J96.01 - ACUTE RESPIRATORY FAILURE WITH HYPOXIA (4) HLD (hyperlipidemia) Assessment/Plan: c/w atorvastatin Code(s): E78.5 - HYPERLIPIDEMIA, UNSPECIFIED (5) HTN (hypertension) Assessment/Plan: restart lisinipril with hold parameters Code(s): I10 - ESSENTIAL (PRIMARY) HYPERTENSION (6) Diabetes Assessment/Plan: BGM AC/HS with novolog sliding scale diabetic diet Code(s): E11.9 - TYPE 2 DIABETES MELLITUS WITHOUT COMPLICATIONS (8) Diabetic neuropathy Assessment/Plan: restart lyrica q hs at decreased dose and uptitarte if needed Code(s): E11.40 - TYPE 2 DIABETES MELLITUS WITH DIABETIC NEUROPATHY, UNSP (9) Non-healing ulcer Assessment/Plan: following in wound clinic with Dr Mendoza no need for acute surgical intervention c/w allevyn dressing over wound f/u with wound care clinic as outpatient (10) Left foot drop Assessment/Plan: maintain left foot in neutral position wears brace at home requested foot drop stop brace Code(s): M21.372 - FOOT DROP, LEFT FOOT (11) Sepsis Assessment/Plan: Afebrile now, T max 100.8 on admission WBC 17 now improved to 8.4 Urine culture with serratia Blood Culture klebsiella ID following c/w Vanco/zosyn Code(s): A41.9 - SEPSIS, UNSPECIFIED ORGANISM Qualifiers: Sepsis type: sepsis due to unspecified organism Sepsis acute organ dysfunction status: with acute organ dysfunction Severe sepsis acute organ dysfunction type: acute respiratory failure Acute respiratory failure type: with hypoxia Severe sepsis shock status: without septic shock Qualified Code(s): A41.9 - Sepsis, unspecified organism; R65.20 - Severe sepsis without septic shock; J96.01 - Acute respiratory failure with hypoxia (12) UTI (urinary tract infection) Assessment/Plan: Urine culture with serratia c/w vanco and zosyn Code(s): N39.0 - URINARY TRACT INFECTION, SITE NOT SPECIFIED Qualifiers: Urinary tract infection type: acute pyelonephritis Qualified Code(s): N10 - Acute pyelonephritis (13) Failure to thrive Assessment/Plan: improved po intake nutritional supplements RD following Code(s): [id number] - Qualifiers: Failure to thrive age range: in adult Qualified Code(s): R62.7 - Adult failure to thrive Visit type - Emergency Visit Emergency Visit: Yes ED Registration Date: 10/22/19 Care time: The patient presented to the Emergency Department on the above date and was hospitalized for further evaluation of their emergent condition. - New Patient This patient is new to me today: Yes Date on this admission: 10/26/19 - Critical Care Critical Care patient: No - Discharge Referral Referred to [facility] Med [facility].C.: No
[2019-10-26] MEDS: ACETAMINOPHEN 325 MG TABLET (FP) PO PRN (18:37)
[2019-10-26] MEDS: PREGABALIN 75 MG CAPSULE PO SCH (21:33)
[2019-10-27] MEDS ORDERED: PIPERACILLIN/TAZOBACTAM 3.375 GM VIAL IVPB ONE ×3 (01:28→16:28)
[2019-10-27] MEDS ORDERED: DEXTROSE 5%-WATER - 50 ML IVPB ONE ×3 (01:28→16:28)
[2019-10-27] MEDS: PIPERACILLIN/TAZOB 3.375 GM 3.375 GM in DEXTROSE 5%-WATER - 50 ML IVPB SCH ×3 (02:20→17:23)
[2019-10-27] MEDS: INSULIN SLIDING SCALE (NOVOLOG) 1 VIAL SQ SCH ×4 (06:01→21:10)
--- NOTE | 2019-10-27 07:45 | PN ---
Progress Note, Physician Chief Complaint: Seen and examined in bed. Febrile to 104.4 rectally. COVID PCR negative History of Present Illness: This is a 83 y/o female with a PMHx of HTN, HLD, IDDM, Peripheral Neuropathy, non-healing ulcer below L- Knee. Admitted for Sepsis, UTI, Acute Respiratory Failure with Hypoxia, Acute Metabolic Encephalopathy, Suspected COVID-19 Infection for further evaluation of their emergent condition. - Current Medication List Current Medications: Active Medications Acetaminophen (Tylenol -) 650 mg PO Q6H PRN PRN Reason: Fever Or Pain Last Admin: 10/26/19 18:37 Dose: 650 mg Documented by: Ascorbic Acid (Vitamin C -) 500 mg PO DAILY [facility] Last Admin: 10/26/19 10:17 Dose: 500 mg Documented by: Aspirin (Asa -) 81 mg PO DAILY [facility] Last Admin: 10/26/19 10:17 Dose: 81 mg Documented by: Cholecalciferol (Vitamin D3 -) 1,000 unit PO DAILY [facility] Last Admin: 10/26/19 10:18 Dose: 1,000 unit Documented by: Enoxaparin Sodium (Lovenox -) 30 mg SQ DAILY [facility] Last Admin: 10/26/19 10:17 Dose: 30 mg Documented by: Piperacillin Sod/Tazobactam (Sod 3.375 gm/ Dextrose) 50 mls @ 100 mls/hr IVPB Q8H-IV [facility]; Protocol Last Admin: 10/27/19 02:20 Dose: 100 mls/hr Documented by: Vancomycin HCl 1,250 mg/ (Dextrose) 250 mls @ 250 mls/2 hr IVPB Q24H [facility]; Protocol Last Admin: 10/26/19 14:16 Dose: 250 mls/2 hr Documented by: Insulin Aspart (Novolog Vial Sliding Scale -) 1 vial SQ ACHS [facility]; Protocol Last Admin: 10/27/19 06:01 Dose: Not Given Documented by: Lisinopril (Prinivil) 5 mg PO DAILY [facility] Last Admin: 10/26/19 10:18 Dose: 5 mg Documented by: Multivitamins/Minerals (Theragran-M) 1 each PO DAILY [facility] Last Admin: 10/26/19 10:18 Dose: 1 each Documented by: Pregabalin (Lyrica -) 150 mg PO HS [facility] Last Admin: 10/26/19 21:33 Dose: 150 mg Documented by: - Objective Vital Signs: Vital Signs Temperature 97.8 F 10/27/19 06:00 Pulse Rate 78 10/27/19 06:00 Respiratory Rate 18 10/27/19 06:00 Blood Pressure 134/64 10/27/19 06:00 O2 Sat by Pulse Oximetry (%) 95 10/26/19 20:01 Additional Findings/Remarks: Constitutional: Yes: Well Nourished, No Distress, Calm Eyes: Yes: WNL, Conjunctiva Clear HENT: Yes: WNL, Atraumatic, Normocephalic Cardiovascular: Yes: WNL, Regular Rate and Rhythm Respiratory: Yes: WNL, Regular, CTA Bilaterally, Diminished (at bases), Rhonchi (scattered) Gastrointestinal: Yes: WNL, Normal Bowel Sounds, Soft ...Rectal Exam: Yes: Deferred Genitourinary: Yes: WNL Breast(s): Yes: WNL Musculoskeletal: Yes: WNL Extremities: Yes: Deformity (left foot drop) Edema: Yes Edema: LLE: 1+, RLE: 1+ Peripheral Pulses WNL: Yes Peripheral Pulses: Left Radial: 2+, Right Radial: 2+, Left Doralis Pedis: 2+, Right Dorsalis Pedis: 2+, Left Femoral: 2+, Right Femoral: 2+ Integumentary: Yes: Other (left posterior knee wound.) Wound/Incision: Yes: Draining (less drainage from posterior knee) Neurological: Yes: WNL, Alert ...Motor Strength: LLE, RLE (generalized weakness) Psychiatric: Yes: WNL, Alert Labs: CBC, BMP 10/26/19 05:55 10/26/19 05:55 INR, PTT INR 1.11 (0.83-1.09) H 10/22/19 12:52 Problem List - Problems (1) COVID-19 Assessment/Plan: COVID PCR negative Code(s): U07.1 - COVID POSITIVE (2) Acute metabolic encephalopathy Assessment/Plan: improved back to baseline supportive care maintain fall precautions Code(s): G93.41 - METABOLIC ENCEPHALOPATHY (3) Acute respiratory failure with hypoxia Assessment/Plan: improved on NC/RA maintain SPO2>88% with supplemental O2 pulmonary following, appreciate consult Code(s): J96.01 - ACUTE RESPIRATORY FAILURE WITH HYPOXIA (4) HLD (hyperlipidemia) Assessment/Plan: c/w atorvastatin Code(s): E78.5 - HYPERLIPIDEMIA, UNSPECIFIED (5) HTN (hypertension) Assessment/Plan: restart lisinipril with hold parameters Code(s): I10 - ESSENTIAL (PRIMARY) HYPERTENSION (6) Diabetes Assessment/Plan: BGM AC/HS with novolog sliding scale diabetic diet Code(s): E11.9 - TYPE 2 DIABETES MELLITUS WITHOUT COMPLICATIONS (7) Prophylactic measure Assessment/Plan: FEN Fluids: improved PO intake Electrolytes: monitor & replete as needed Nutrition: diabetic diet DVT moderate risk sq lovenox Dispo Maintain as inpatient full code discharge planning Code(s): Z29.9 - ENCOUNTER FOR PROPHYLACTIC MEASURES, UNSPECIFIED (8) Diabetic neuropathy Assessment/Plan: restart lyrica q hs at decreased dose and uptitarte if needed Code(s): E11.40 - TYPE 2 DIABETES MELLITUS WITH DIABETIC NEUROPATHY, UNSP (9) Non-healing ulcer Assessment/Plan: following in wound clinic with Dr Mendoza no need for acute surgical intervention c/w allevyn dressing over wound f/u with wound care clinic as outpatient (10) Left foot drop Assessment/Plan: maintain left foot in neutral position wears brace at home requested foot drop stop brace-not available in [facility] Code(s): M21.372 - FOOT DROP, LEFT FOOT (11) Sepsis Assessment/Plan: febrile now to 104 re-pancultured WBC 17 BP normotensive Ucx serratia BCx klebsiella ID following c/w Vanco/zosyn maintain on tele Code(s): A41.9 - SEPSIS, UNSPECIFIED ORGANISM Qualifiers: Sepsis type: sepsis due to unspecified organism Sepsis acute organ dysfunction status: with acute organ dysfunction Severe sepsis acute organ dysfunction type: acute respiratory failure Acute respiratory failure type: with hypoxia Severe sepsis shock status: without septic shock Qualified Code(s): A41.9 - Sepsis, unspecified organism; R65.20 - Severe sepsis without septic shock; J96.01 - Acute respiratory failure with hypoxia (12) UTI (urinary tract infection) Assessment/Plan: Ucx serratia c/w vanco and zosyn Code(s): N39.0 - URINARY TRACT INFECTION, SITE NOT SPECIFIED Qualifiers: Urinary tract infection type: acute pyelonephritis Qualified Code(s): N10 - Acute pyelonephritis (13) Failure to thrive Assessment/Plan: improved po intake nutritional supplements RD following Code(s): [id number] - Qualifiers: Failure to thrive age range: in adult Qualified Code(s): R62.7 - Adult failure to thrive (14) Hypokalemia Assessment/Plan: resolved c/t monitor Code(s): E87.6 - HYPOKALEMIA Visit type - Emergency Visit Emergency Visit: Yes ED Registration Date: 10/22/19 Care time: The patient presented to the Emergency Department on the above date and was hospitalized for further evaluation of their emergent condition. - New Patient This patient is new to me today: No - Critical Care Critical Care patient: No - Discharge Referral Referred to [facility] Med P.C.: No
[2019-10-27 08:58] LABS: BASO % 0.3 % (0-2.0); HEMATOCRIT 32.4 % (32.4-45.2); HEMOGLOBIN 10.1 GM/dL (10.7-15.3); LYMPH % 14.8 % (8-40); MCH 26.3 pg (25.7-33.7); MCHC 31.3 g/dl (32.0-36.0); MEAN CELL VOLUME 84.2 fl (80-96); MONO % 10.6 % (3.8-10.2); NEUT % 73.3 % (42.8-82.8); PLATELET COUNT 243 K/MM3 (134-434); RBC 3.84 M/mm3 (3.60-5.2); RDW 17.4 % (11.6-15.6); WHITE BLOOD COUNT 8.5 K/mm3 (4.0-10.0)
[2019-10-27 09:21] LABS: ALBUMIN 2.4 g/dl (3.4-5.0); BILIRUBIN,TOTAL 0.5 mg/dL (0.2-1); BLOOD UREA NITROGEN 8.4 mg/dL (7-18); CALCIUM 10.2 mg/dL (8.5-10.1); CREATININE 0.7 mg/dL (0.55-1.3); MAGNESIUM 2.1 mg/dL (1.8-2.4); POTASSIUM 4.3 mmol/L (3.5-5.1); TOT PROT 6.8 g/dl (6.4-8.2)
[2019-10-27 10:32] LABS: ANISOCYTOSIS 1+; MACROCYTOSIS 0; PLATELET ESTIMATE NORMAL
[2019-10-27] MEDS: ASPIRIN 81 MG CHEWABLE TABLETS PO SCH (10:35)
[2019-10-27] MEDS: LISINOPRIL 5 MG TABLET (FP) PO SCH (10:35)
[2019-10-27] MEDS: MULTIVITAMINS THER W-MINERALS COMBO TABLET (FP) PO SCH (10:35)
[2019-10-27] MEDS: ENOXAPARIN NA (PORCINE) 30 MG/0.3 ML DISP.SYRIN SQ SCH (10:35)
[2019-10-27] MEDS: ASCORBIC ACID 500 MG TABLET (FP) PO SCH (10:35)
[2019-10-27] MEDS: CHOLECALCIFEROL (VIT D3) 1,000 UNIT (25 MCG) TABLET PO SCH (10:35)
[2019-10-27] MEDS: ACETAMINOPHEN 325 MG TABLET (FP) PO PRN (11:13)
--- NOTE | 2019-10-27 13:14 | PN ---
Progress Note (short form) - Note Progress Note: Resting in NAD on RA. No CP or SOB. No acute events overnight. Intake & Output 10/24/19 10/25/19 10/26/19 10/27/19 23:59 23:59 23:59 23:59 Intake Total 507 18 4882 50 Output Total 500 Balance -536 17 6961 50 Weight 170 lb Last Vital Signs Temp Pulse Resp BP Pulse Ox 104.4 F H 108 H 20 136/74 95 10/27/19 11:00 10/27/19 10:47 10/27/19 10:47 10/27/19 10:47 10/27/19 09:00 Active Medications Acetaminophen (Tylenol -) 650 mg PO Q6H PRN PRN Reason: Fever Or Pain Last Admin: 10/27/19 11:13 Dose: 650 mg Documented by: Ascorbic Acid (Vitamin C -) 500 mg PO DAILY [facility] Last Admin: 10/27/19 10:35 Dose: 500 mg Documented by: Aspirin (Asa -) 81 mg PO DAILY [facility] Last Admin: 10/27/19 10:35 Dose: 81 mg Documented by: Cholecalciferol (Vitamin D3 -) 1,000 unit PO DAILY [facility] Last Admin: 10/27/19 10:35 Dose: 1,000 unit Documented by: Enoxaparin Sodium (Lovenox -) 30 mg SQ DAILY [facility] Last Admin: 10/27/19 10:35 Dose: 30 mg Documented by: Piperacillin Sod/Tazobactam (Sod 3.375 gm/ Dextrose) 50 mls @ 100 mls/hr IVPB Q8H-IV [facility]; Protocol Last Admin: 10/27/19 10:32 Dose: 100 mls/hr Documented by: Vancomycin HCl 1,250 mg/ (Dextrose) 250 mls @ 250 mls/2 hr IVPB Q24H [facility]; Protocol Last Admin: 10/26/19 14:16 Dose: 250 mls/2 hr Documented by: Insulin Aspart (Novolog Vial Sliding Scale -) 1 vial SQ ACHS [facility]; Protocol Last Admin: 10/27/19 11:54 Dose: Not Given Documented by: Lisinopril (Prinivil) 5 mg PO DAILY [facility] Last Admin: 10/27/19 10:35 Dose: 5 mg Documented by: Multivitamins/Minerals (Theragran-M) 1 each PO DAILY [facility] Last Admin: 10/27/19 10:35 Dose: 1 each Documented by: Pregabalin (Lyrica -) 150 mg PO HS [facility] Last Admin: 10/26/19 21:33 Dose: 150 mg Documented by: Constitutional: Yes: Well Nourished, NAD Eyes: Yes: WNL, Other Neck: Yes: WNL Cardiovascular: Yes: Regular Rate and Rhythm, S1, S2 Respiratory: Yes: Diminished at the bases Gastrointestinal: Yes: Normal Bowel Sounds, Soft Extremities: Yes: WNL Edema: No Labs: Laboratory Results - last 24 hr 10/27/19 10/27/19 07:45 07:45 WBC 8.5 RBC 3.84 Hgb 10.1 L Hct 32.4 MCV 84.2 MCH 26.3 MCHC 31.3 L RDW 17.4 H Plt Count 243 MPV 9.0 Absolute Neuts (auto) 6.2 Neutrophils % 73.3 Neutrophils % (Manual) 75.0 Band Neutrophils % 0.0 Lymphocytes % 14.8 Lymphocytes % (Manual) 12.0 Monocytes % 10.6 H Monocytes % (Manual) 11 H D Eosinophils % 1.0 Eosinophils % (Manual) 2.0 D Basophils % 0.3 Basophils % (Manual) 0.0 Myelocytes % (Man) 0 Promyelocytes % (Man) 0 Blast Cells % (Manual) 0 Nucleated RBC % 0 Metamyelocytes 0 Hypochromia 0 Platelet Estimate Normal Polychromasia 1+ Poikilocytosis 0 Anisocytosis 1+ Microcytosis 1+ Macrocytosis 0 Sodium 143 Potassium 4.3 Chloride 107 Carbon Dioxide 28 Anion Gap 8 BUN 8.4 Creatinine 0.7 Est GFR (CKD-EPI)AfAm 92.21 Est GFR (CKD-EPI)NonAf 79.56 Random Glucose 105 Calcium 10.2 H Magnesium 2.1 Total Bilirubin 0.5 AST 15 ALT 15 Alkaline Phosphatase 89 C-Reactive Protein 13.2 H Total Protein 6.8 Albumin 2.4 L Problem List - Problems (1) Acute metabolic encephalopathy Code(s): G93.41 - METABOLIC ENCEPHALOPATHY (2) Acute respiratory failure with hypoxia Code(s): J96.01 - ACUTE RESPIRATORY FAILURE WITH HYPOXIA (3) Diabetic neuropathy Code(s): E11.40 - TYPE 2 DIABETES MELLITUS WITH DIABETIC NEUROPATHY, UNSP (4) HLD (hyperlipidemia) Code(s): E78.5 - HYPERLIPIDEMIA, UNSPECIFIED (5) HTN (hypertension) Code(s): I10 - ESSENTIAL (PRIMARY) HYPERTENSION (7) Sepsis Code(s): A41.9 - SEPSIS, UNSPECIFIED ORGANISM Qualifiers: Sepsis type: sepsis due to unspecified organism Sepsis acute organ dysfunction status: with acute organ dysfunction Severe sepsis acute organ dysfunction type: acute respiratory failure Acute respiratory failure type: with hypoxia Severe sepsis shock status: without septic shock Qualified Code(s): A41.9 - Sepsis, unspecified organism; R65.20 - Severe sepsis without septic shock; J96.01 - Acute respiratory failure with hypoxia (8) Diabetes Code(s): E11.9 - TYPE 2 DIABETES MELLITUS WITHOUT COMPLICATIONS Assessment/Plan IMP HYPOXEMIA IMPROVED ALTERED MENTAL STATUS IMPROVED R/O SEPSIS BACTEREMIA HTN HLD IDDM ANEMIA LLE LEG ULCER ELEVATED LACTATE LEVEL NORMAL PLAN O2 NEEDED ABX PER ID WOUND CARE Dr Hurtado
[2019-10-27] MEDS: VANCOMYCIN HCL 1,250 MG in DEXTROSE 5%-WATER - 250 ML IVPB SCH (15:10)
[2019-10-27 16:26] LABS: EPI CELLS >36 /uL (0-25.1); HYALINE CASTS 1 /uL (0-3.1); URINE APPEARANCE CLEAR; URINE BACTERIA 5 /uL (0-1359); URINE BILIRUBIN NEGATIVE (NEGATIVE); URINE COLOR YELLOW; URINE GLUCOSE (UA) NEGATIVE (NEGATIVE); URINE KETONE NEGATIVE (NEGATIVE); URINE LEUK ESTERASE 2+ (NEGATIVE); URINE NITRITE NEGATIVE (NEGATIVE); URINE PROTEIN 1+ (NEGATIVE); URINE RBC 54 /uL (0-23.9); URINE UROBILINOGEN 0.2 mg/dL (0.2-1.0); URINE WBC 166 /uL (0-25.8)
[2019-10-27] MEDS: SODIUM CHLORIDE 1,000 ML IV SCH (16:38)
--- NOTE | 2019-10-27 17:57 | PN ---
Progress Note, Physician History of Present Illness: Pt alert and fully responsive. No distress noted. febrile since last night. Tmax 104.4F. Denies SOB on O2 NC, no abd pain/n/v/d. Was making less urine, started on IV fluids. - Current Medication List Current Medications: Active Medications Acetaminophen (Tylenol -) 650 mg PO Q6H PRN PRN Reason: Fever Or Pain Last Admin: 10/27/19 11:13 Dose: 650 mg Documented by: Ascorbic Acid (Vitamin C -) 500 mg PO DAILY [facility] Last Admin: 10/27/19 10:35 Dose: 500 mg Documented by: Aspirin (Asa -) 81 mg PO DAILY [facility] Last Admin: 10/27/19 10:35 Dose: 81 mg Documented by: Cholecalciferol (Vitamin D3 -) 1,000 unit PO DAILY [facility] Last Admin: 10/27/19 10:35 Dose: 1,000 unit Documented by: Enoxaparin Sodium (Lovenox -) 30 mg SQ DAILY [facility] Last Admin: 10/27/19 10:35 Dose: 30 mg Documented by: Piperacillin Sod/Tazobactam (Sod 3.375 gm/ Dextrose) 50 mls @ 100 mls/hr IVPB Q8H-IV [facility]; Protocol Last Admin: 10/27/19 17:23 Dose: 100 mls/hr Documented by: Vancomycin HCl 1,250 mg/ (Dextrose) 250 mls @ 250 mls/2 hr IVPB Q24H [facility]; Protocol Last Admin: 10/27/19 15:10 Dose: 250 mls/2 hr Documented by: Sodium Chloride (Normal Saline -) 1,000 mls @ 75 mls/hr IV ASDIR [facility] Last Admin: 10/27/19 16:38 Dose: 75 mls/hr Documented by: Insulin Aspart (Novolog Vial Sliding Scale -) 1 vial SQ ACHS [facility]; Protocol Last Admin: 10/27/19 16:39 Dose: 6 units Documented by: Lisinopril (Prinivil) 5 mg PO DAILY [facility] Last Admin: 10/27/19 10:35 Dose: 5 mg Documented by: Multivitamins/Minerals (Theragran-M) 1 each PO DAILY [facility] Last Admin: 10/27/19 10:35 Dose: 1 each Documented by: Pregabalin (Lyrica -) 150 mg PO HS [facility] Last Admin: 10/26/19 21:33 Dose: 150 mg Documented by: - Objective Vital Signs: Vital Signs Temperature 99.4 F 10/27/19 15:14 Pulse Rate 90 10/27/19 15:14 Respiratory Rate 19 10/27/19 15:14 Blood Pressure 114/63 10/27/19 15:14 O2 Sat by Pulse Oximetry (%) 95 10/27/19 09:00 Constitutional: Yes: No Distress, Calm Cardiovascular: Yes: Regular Rate and Rhythm Respiratory: Yes: Regular, On Nasal O2 Gastrointestinal: Yes: Normal Bowel Sounds, Soft Genitourinary: Yes: WNL Wound/Incision: Yes: Other (posterior knee wound +semipurulent drainage noted with tenderness) Neurological: Yes: Alert, Oriented Labs: CBC, BMP 10/27/19 07:45 10/27/19 07:45 INR, PTT INR 1.11 (0.83-1.09) H 10/22/19 12:52 Microbiology 10/26/19 16:30 Blood - Peripheral Venous Blood Culture - Preliminary NO GROWTH OBTAINED AFTER 24 HOURS, INCUBATION TO CONTINUE FOR 4 DAYS. 10/26/19 16:33 Blood - Peripheral Venous Blood Culture - Preliminary NO GROWTH OBTAINED AFTER 24 HOURS, INCUBATION TO CONTINUE FOR 4 DAYS. 10/22/19 12:52 Urine - Urine - Catheterized Urine Culture - Final Serratia Odorifera 1 Enterococcus Faecalis 10/22/19 12:52 Blood - Peripheral Venous Blood Culture - Final Klebsiella Ozaenae 10/22/19 12:52 Blood - Peripheral Venous Blood Culture - Final Klebsiella Ozaenae - ....Imaging Chest X-ray: Report Reviewed Problem List - Problems (1) Acute metabolic encephalopathy Code(s): G93.41 - METABOLIC ENCEPHALOPATHY (2) HLD (hyperlipidemia) Code(s): E78.5 - HYPERLIPIDEMIA, UNSPECIFIED (3) HTN (hypertension) Code(s): I10 - ESSENTIAL (PRIMARY) HYPERTENSION (5) Sepsis Code(s): A41.9 - SEPSIS, UNSPECIFIED ORGANISM Qualifiers: Sepsis type: sepsis due to unspecified organism Sepsis acute organ dysf unction status: with acute organ dysfunction Severe sepsis acute organ dy sfunction type: acute respiratory failure Acute respiratory failure type: with hypoxia Severe sepsis shock status: without septic shock Qualified Code(s): A41.9 - Sepsis, unspecified organism; R65.20 - Severe sepsis without septic shock; J96.01 - Acute respiratory failure with hypoxia (6) UTI (urinary tract infection) Code(s): N39.0 - URINARY TRACT INFECTION, SITE NOT SPECIFIED Qualifiers: Urinary tract infection type: acute pyelonephritis Qualified Code(s): N10 - Acute pyelonephritis (7) Diabetes Code(s): E11.9 - TYPE 2 DIABETES MELLITUS WITHOUT COMPLICATIONS Assessment/Plan Fever Klebsiella Bacteremia Resistant UTI AMS LLE non-healing ulcer Leukocytosis -- mental status improved, on O2 NC -- continue Zosyn/Vancomycin for enterococcal UTI/Klebsiella bacteremia -- febrile to 104.4F today -- suggest CT of Lt leg to assess for possible abscess at posterior knee wound sight -- initial blood culture isolate klebsiella , source not determined -- monitor renal function, Vanco trough prior to 4th dose -- repeat blood cultures negative 24hr -- continue monitor temp trend/vitals Pt currently stable
[2019-10-27] MEDS: PREGABALIN 75 MG CAPSULE PO SCH (21:21)
[2019-10-28] MEDS ORDERED: PIPERACILLIN/TAZOBACTAM 3.375 GM VIAL IVPB ONE ×3 (01:02→17:22)
[2019-10-28] MEDS ORDERED: DEXTROSE 5%-WATER - 50 ML IVPB ONE ×3 (01:02→17:23)
[2019-10-28] MEDS: PIPERACILLIN/TAZOB 3.375 GM 3.375 GM in DEXTROSE 5%-WATER - 50 ML IVPB SCH ×3 (01:32→17:25)
[2019-10-28] MEDS: INSULIN SLIDING SCALE (NOVOLOG) 1 VIAL SQ SCH ×4 (06:03→22:09)
[2019-10-28] MEDS: SODIUM CHLORIDE 1,000 ML IV SCH ×3 (07:24→22:11)
[2019-10-28] MEDS ORDERED: PT OWN MED DRAWER 7, Y5N ONE ×2 (09:18→13:52)
[2019-10-28] MEDS: MULTIVITAMINS THER W-MINERALS COMBO TABLET (FP) PO SCH (09:18)
[2019-10-28] MEDS: ASPIRIN 81 MG CHEWABLE TABLETS PO SCH (09:19)
[2019-10-28] MEDS: ASCORBIC ACID 500 MG TABLET (FP) PO SCH (09:19)
[2019-10-28] MEDS: ENOXAPARIN NA (PORCINE) 30 MG/0.3 ML DISP.SYRIN SQ SCH (09:19)
[2019-10-28] MEDS: LISINOPRIL 5 MG TABLET (FP) PO SCH (09:19)
[2019-10-28] MEDS: CHOLECALCIFEROL (VIT D3) 1,000 UNIT (25 MCG) TABLET PO SCH (09:19)
--- NOTE | 2019-10-28 11:06 | PN ---
Progress Note, Physician History of Present Illness: stable feels weak repeat blood cx negative so far - Current Medication List Current Medications: Active Medications Acetaminophen (Tylenol -) 650 mg PO Q6H PRN PRN Reason: Fever Or Pain Last Admin: 10/27/19 11:13 Dose: 650 mg Documented by: Ascorbic Acid (Vitamin C -) 500 mg PO DAILY [facility] Last Admin: 10/28/19 09:19 Dose: 500 mg Documented by: Aspirin (Asa -) 81 mg PO DAILY [facility] Last Admin: 10/28/19 09:19 Dose: 81 mg Documented by: Cholecalciferol (Vitamin D3 -) 1,000 unit PO DAILY [facility] Last Admin: 10/28/19 09:19 Dose: 1,000 unit Documented by: Enoxaparin Sodium (Lovenox -) 30 mg SQ DAILY [facility] Last Admin: 10/28/19 09:19 Dose: 30 mg Documented by: Piperacillin Sod/Tazobactam (Sod 3.375 gm/ Dextrose) 50 mls @ 100 mls/hr IVPB Q8H-IV [facility]; Protocol Last Admin: 10/28/19 09:19 Dose: 100 mls/hr Documented by: Vancomycin HCl 1,250 mg/ (Dextrose) 250 mls @ 250 mls/2 hr IVPB Q24H [facility]; Protocol Last Admin: 10/27/19 15:10 Dose: 250 mls/2 hr Documented by: Sodium Chloride (Normal Saline -) 1,000 mls @ 75 mls/hr IV ASDIR [facility] Last Admin: 10/28/19 07:24 Dose: 75 mls/hr Documented by: Insulin Aspart (Novolog Vial Sliding Scale -) 1 vial SQ ACHS [facility]; Protocol Last Admin: 10/28/19 06:03 Dose: Not Given Documented by: Lisinopril (Prinivil) 5 mg PO DAILY [facility] Last Admin: 10/28/19 09:19 Dose: 5 mg Documented by: Multivitamins/Minerals (Theragran-M) 1 each PO DAILY [facility] Last Admin: 10/28/19 09:18 Dose: 1 each Documented by: Pregabalin (Lyrica -) 150 mg PO HS [facility] Last Admin: 10/27/19 21:21 Dose: 150 mg Documented by: - Objective Vital Signs: Vital Signs Temperature 98.9 F 10/27/19 21:00 Pulse Rate 88 10/27/19 21:00 Respiratory Rate 18 10/27/19 21:00 Blood Pressure 137/67 10/27/19 21:00 O2 Sat by Pulse Oximetry (%) 98 10/27/19 21:00 Constitutional: Yes: No Distress, Calm Cardiovascular: Yes: S1, S2 Respiratory: Yes: Regular, CTA Bilaterally Gastrointestinal: Yes: Normal Bowel Sounds, Soft Musculoskeletal: Yes: WNL Extremities: Yes: Other Neurological: Yes: Alert, Oriented Psychiatric: Yes: Alert, Oriented Labs: CBC, BMP 10/27/19 07:45 10/27/19 07:45 INR, PTT INR 1.11 (0.83-1.09) H 10/22/19 12:52 Assessment/Plan Problem List - Problems (1) COVID-19 Code(s): U07.1 - COVID POSITIVE (2) Acute metabolic encephalopathy Code(s): G93.41 - METABOLIC ENCEPHALOPATHY (3) Acute respiratory failure with hypoxia Code(s): J96.01 - ACUTE RESPIRATORY FAILURE WITH HYPOXIA (4) HLD (hyperlipidemia) Code(s): E78.5 - HYPERLIPIDEMIA, UNSPECIFIED (5) HTN (hypertension) Code(s): I10 - ESSENTIAL (PRIMARY) HYPERTENSION (6) Diabetes Code(s): E11.9 - TYPE 2 DIABETES MELLITUS WITHOUT COMPLICATIONS 7 uti 8 wound infection plan continue current abx wound care will d/w about it with the team consider imaging studies
--- NOTE | 2019-10-28 12:37 | PN ---
Physical Exam: SUBJECTIVE: Patient seen and examined. awake, alert and denies any complaints. states she feels better. OBJECTIVE: Patient is a 83 year old female with a PMHx of HTN, HLD, IDDM, Peripheral Neuropathy, non-healing ulcer to posterior left knee. She was admitted on 10/22/2019 for sepsis, UTI, acute respiratory failure with hypoxia and AMS. She is covid negative. Period Temp Pulse Resp BP Sys/Jaimes Pulse Ox Last 24 Hr 98.7 F-99.4 F 88-94 18-19 114-137/58-67 98 GENERAL: The patient is awake, alert, and fully oriented, in no acute distress. HEAD: Normal with no signs of trauma. EYES: PERRL, extraocular movements intact, sclera anicteric, conjunctiva clear. No ptosis. ENT: Ears normal, nares patent, oropharynx clear without exudates NECK: Trachea midline, full range of motion, supple. LUNGS: Breath sounds equal, clear to ausculation anteriorly HEART: Regular rate and rhythm ABDOMEN: Soft, nontender, nondistended, normoactive bowel sounds EXTREMITIES: trace edema bilaterallyl. posterior left knee ulcer/dressing intact. NEUROLOGICAL: Normal speech, gait not observed. PSYCH: Normal mood, normal affect. SKIN: Warm, dry, normal turgor, no rashes or lesions noted Laboratory Results - last 24 hr 10/27/19 15:25 Urine Color Yellow Urine Appearance Clear Urine pH 5.0 D Ur Specific [place] 1.018 Urine Protein 1+ H Urine Glucose (UA) Negative Urine Ketones Negative Urine Blood 1+ H Urine Nitrite Negative Urine Bilirubin Negative Urine Urobilinogen 0.2 Ur Leukocyte Esterase 2+ H Urine WBC (Auto) 166 Urine RBC (Auto) 54 Urine Casts (Auto) 1 U Epithel Cells (Auto) >36 Urine Bacteria (Auto) 5 Active Medications Generic Name Dose Route Start Last Admin Trade Name Freq PRN Reason Stop Dose Admin Acetaminophen 650 mg 10/24/19 09:02 10/27/19 11:13 Tylenol - PO 650 mg Q6H PRN Administration Fever Or Pain Ascorbic Acid 500 mg 10/24/19 10:00 10/28/19 09:19 Vitamin C - PO 500 mg DAILY [facility] Administration Aspirin 81 mg 10/24/19 10:00 10/28/19 09:19 Asa - PO 81 mg DAILY [facility] Administration Cholecalciferol 1,000 unit 10/24/19 10:00 10/28/19 09:19 Vitamin D3 - PO 1,000 unit DAILY [facility] Administration Enoxaparin Sodium 30 mg 10/24/19 11:07 10/28/19 09:19 Lovenox - SQ 30 mg DAILY [facility] Administration Piperacillin Sod/Tazobactam 50 mls @ 100 mls/hr 10/23/19 18:00 10/28/19 09:19 Sod 3.375 gm/ Dextrose IVPB 100 mls/hr Q8H-IV [facility] Administration Protocol Vancomycin HCl 1,250 mg/ 250 mls @ 250 mls/2 hr 10/25/19 14:00 10/27/19 15:10 Dextrose IVPB 250 mls/2 hr Q24H [facility] Administration Protocol Sodium Chloride 1,000 mls @ 75 mls/hr 10/27/19 16:00 10/28/19 07:24 Normal Saline - IV 75 mls/hr ASDIR [facility] Administration Insulin Aspart 1 vial 10/23/19 16:30 10/28/19 12:32 Novolog Vial Sliding Scale - SQ Not Given ACHS [facility] Protocol Lisinopril 5 mg 10/25/19 10:00 10/28/19 09:19 Prinivil PO 5 mg DAILY [facility] Administration Multivitamins/Minerals 1 each 10/24/19 10:00 10/28/19 09:18 Theragran-M PO 1 each DAILY [facility] Administration Pregabalin 150 mg 10/25/19 22:00 10/27/19 21:21 Lyrica - PO 150 mg HS [facility] Administration ASSESSMENT/PLAN: Problem List - Problems (1) Sepsis Assessment/Plan: leukocytosis resolved. bp stable. Ucx serratia, BCx klebsiella - repeat blood cultures negative, uc pending ID following on Vanco/zosyn Code(s): A41.9 - SEPSIS, UNSPECIFIED ORGANISM Qualifiers: Sepsis type: sepsis due to unspecified organism Sepsis acute organ dysfunction status: with acute organ dysfunction Severe sepsis acute organ dysfunction type: acute respiratory failure Acute respiratory failure type: with hypoxia Severe sepsis shock status: without septic shock Qualified Code(s): A41.9 - Sepsis, unspecified organism; R65.20 - Severe sepsis without septic shock; J96.01 - Acute respiratory failure with hypoxia (2) Acute metabolic encephalopathy Assessment/Plan: mentation back to baseline. continue to monitor. Code(s): G93.41 - METABOLIC ENCEPHALOPATHY (3) Acute respiratory failure with hypoxia Assessment/Plan: chest xray free of pulmonary infiltrates or pleural effusion. on 2 liters of nasal cannula, will attempt to wean off oxygen. Code(s): J96.01 - ACUTE RESPIRATORY FAILURE WITH HYPOXIA (4) COVID-19 Assessment/Plan: negative serology Code(s): U07.1 - COVID POSITIVE (5) Diabetic neuropathy Assessment/Plan: supportive care Code(s): E11.40 - TYPE 2 DIABETES MELLITUS WITH DIABETIC NEUROPATHY, UNSP (6) HLD (hyperlipidemia) Assessment/Plan: continue home meds Code(s): E78.5 - HYPERLIPIDEMIA, UNSPECIFIED (7) HTN (hypertension) Assessment/Plan: stable BP Code(s): I10 - ESSENTIAL (PRIMARY) HYPERTENSION (8) Hypokalemia Code(s): E87.6 - HYPOKALEMIA (9) Non-healing ulcer Assessment/Plan: continue daily wound care. (10) Prophylactic measure Assessment/Plan: lovenox 30mg daily Code(s): Z29.9 - ENCOUNTER FOR PROPHYLACTIC MEASURES, UNSPECIFIED Visit type - Emergency Visit Emergency Visit: Yes ED Registration Date: 10/22/19 Care time: The patient presented to the Emergency Department on the above date and was hospitalized for further evaluation of their emergent condition. - New Patient This patient is new to me today: Yes Date on this admission: 10/28/19 - Critical Care Critical Care patient: No - Discharge Referral Referred to [facility] Med [facility] No
[2019-10-28] MEDS: VANCOMYCIN HCL 1,250 MG in DEXTROSE 5%-WATER - 250 ML IVPB SCH (13:57)
[2019-10-28] MEDS: LIDOCAINE 5% TOPICAL PATCH TP SCH (13:57)
--- NOTE | 2019-10-28 15:16 | PN ---
Progress Note (short form) - Note Progress Note: Resting in NAD. No CP or SOB. No acute events overnight. Intake & Output 10/25/19 10/26/19 10/27/19 10/28/19 23:59 23:59 23:59 23:59 Intake Total 60 1700 1490 2090 Output Total 2600 Balance 60 1700 1490 -510 Last Vital Signs Temp Pulse Resp BP Pulse Ox 97.9 F 84 20 111/66 98 10/28/19 09:00 10/28/19 09:00 10/28/19 09:00 10/28/19 09:00 10/28/19 09:00 Active Medications Acetaminophen (Tylenol -) 650 mg PO Q6H PRN PRN Reason: Fever Or Pain Last Admin: 10/27/19 11:13 Dose: 650 mg Documented by: Ascorbic Acid (Vitamin C -) 500 mg PO DAILY [facility] Last Admin: 10/28/19 09:19 Dose: 500 mg Documented by: Aspirin (Asa -) 81 mg PO DAILY [facility] Last Admin: 10/28/19 09:19 Dose: 81 mg Documented by: Cholecalciferol (Vitamin D3 -) 1,000 unit PO DAILY [facility] Last Admin: 10/28/19 09:19 Dose: 1,000 unit Documented by: Enoxaparin Sodium (Lovenox -) 30 mg SQ DAILY [facility] Last Admin: 10/28/19 09:19 Dose: 30 mg Documented by: Piperacillin Sod/Tazobactam (Sod 3.375 gm/ Dextrose) 50 mls @ 100 mls/hr IVPB Q8H-IV [facility]; Protocol Last Admin: 10/28/19 09:19 Dose: 100 mls/hr Documented by: Vancomycin HCl 1,250 mg/ (Dextrose) 250 mls @ 250 mls/2 hr IVPB Q24H [facility]; Protocol Last Admin: 10/28/19 13:57 Dose: 250 mls/2 hr Documented by: Sodium Chloride (Normal Saline -) 1,000 mls @ 75 mls/hr IV ASDIR [facility] Last Admin: 10/28/19 07:24 Dose: 75 mls/hr Documented by: Insulin Aspart (Novolog Vial Sliding Scale -) 1 vial SQ ACHS [facility]; Protocol Last Admin: 10/28/19 12:32 Dose: Not Given Documented by: Lidocaine (Lidoderm Patch -) 1 patch TP DAILY [facility] Last Admin: 10/28/19 13:57 Dose: 1 patch Documented by: Lisinopril (Prinivil) 5 mg PO DAILY [facility] Last Admin: 10/28/19 09:19 Dose: 5 mg Documented by: Miscellaneous (Lidoderm Patch Removal) 1 each MC DAILY@2200 [facility] Multivitamins/Minerals (Theragran-M) 1 each PO DAILY [facility] Last Admin: 10/28/19 09:18 Dose: 1 each Documented by: Pregabalin (Lyrica -) 150 mg PO [facility] Last Admin: 10/27/19 21:21 Dose: 150 mg Documented by: Constitutional: Yes: Well Nourished, NAD Eyes: Yes: WNL, Other Neck: Yes: WNL Cardiovascular: Yes: Regular Rate and Rhythm, S1, S2 Respiratory: Yes: Diminished at the bases Gastrointestinal: Yes: Normal Bowel Sounds, Soft Extremities: Yes: WNL Edema: No Labs: Laboratory Results - last 24 hr 10/27/19 15:25 Urine Color Yellow Urine Appearance Clear Urine pH 5.0 D Ur Specific [place] 1.018 Urine Protein 1+ H Urine Glucose (UA) Negative Urine Ketones Negative Urine Blood 1+ H Urine Nitrite Negative Urine Bilirubin Negative Urine Urobilinogen 0.2 Ur Leukocyte Esterase 2+ H Urine WBC (Auto) 166 Urine RBC (Auto) 54 Urine Casts (Auto) 1 U Epithel Cells (Auto) >36 Urine Bacteria (Auto) 5 Problem List - Problems (1) Acute metabolic encephalopathy Code(s): G93.41 - METABOLIC ENCEPHALOPATHY (2) Acute respiratory failure with hypoxia Code(s): J96.01 - ACUTE RESPIRATORY FAILURE WITH HYPOXIA (3) Diabetic neuropathy Code(s): E11.40 - TYPE 2 DIABETES MELLITUS WITH DIABETIC NEUROPATHY, UNSP (4) HLD (hyperlipidemia) Code(s): E78.5 - HYPERLIPIDEMIA, UNSPECIFIED (5) HTN (hypertension) Code(s): I10 - ESSENTIAL (PRIMARY) HYPERTENSION (7) Sepsis Code(s): A41.9 - SEPSIS, UNSPECIFIED ORGANISM Qualifiers: Sepsis type: sepsis due to unspecified organism Sepsis acute organ dysfunction status: with acute organ dysfunction Severe sepsis acute organ dysfunction type: acute respiratory failure Acute respiratory failure type: with hypoxia Severe sepsis shock status: without septic shock Qualified Code(s): A41.9 - Sepsis, unspecified organism; R65.20 - Severe sepsis without s eptic shock; J96.01 - Acute respiratory failure with hypoxia (8) Diabetes Code(s): E11.9 - TYPE 2 DIABETES MELLITUS WITHOUT COMPLICATIONS Assessment/Plan IMP HYPOXEMIA IMPROVED ALTERED MENTAL STATUS IMPROVED R/O SEPSIS BACTEREMIA HTN HLD IDDM ANEMIA LLE LEG ULCER ELEVATED LACTATE LEVEL NORMAL PLAN O2 NEEDED ABX PER ID WOUND CARE Dr Hurtado
[2019-10-28] MEDS: LIDOCAINE PATCH REMOVAL MC SCH (22:08)
[2019-10-28] MEDS: PREGABALIN 75 MG CAPSULE PO SCH (22:09)
[2019-10-29] MEDS ORDERED: PIPERACILLIN/TAZOBACTAM 3.375 GM VIAL IVPB ONE ×3 (00:49→16:48)
[2019-10-29] MEDS ORDERED: DEXTROSE 5%-WATER - 50 ML IVPB ONE ×3 (00:50→16:48)
[2019-10-29] MEDS: PIPERACILLIN/TAZOB 3.375 GM 3.375 GM in DEXTROSE 5%-WATER - 50 ML IVPB SCH ×3 (01:55→17:40)
[2019-10-29] MEDS: INSULIN SLIDING SCALE (NOVOLOG) 1 VIAL SQ SCH ×4 (07:06→22:02)
[2019-10-29 07:15] LABS: BASO % 0.5 % (0-2.0); EOS % 2.5 % (0-4.5); HEMATOCRIT 27.1 % (32.4-45.2); HEMOGLOBIN 8.7 GM/dL (10.7-15.3); LYMPH % 14.9 % (8-40); MCH 26.5 pg (25.7-33.7); MCHC 32.1 g/dl (32.0-36.0); MEAN CELL VOLUME 82.8 fl (80-96); MEAN PLT VOLUME 8.9 fl (7.5-11.1); MONO % 13.4 % (3.8-10.2); NEUT % 68.7 % (42.8-82.8); PLATELET COUNT 282 K/MM3 (134-434); RBC 3.27 M/mm3 (3.60-5.2); RDW 16.9 % (11.6-15.6); WHITE BLOOD COUNT 7.7 K/mm3 (4.0-10.0)
[2019-10-29] MEDS ORDERED: INSULIN SLIDING SCALE (NOVOLOG) 1 VIAL SQ ONE (07:16)
--- NOTE | 2019-10-29 07:25 | PN ---
Progress Note, Physician History of Present Illness: PULMONARY ALERT,COMFORTABLE,-RESP DISTRESS - Current Medication List Current Medications: Active Medications Acetaminophen (Tylenol -) 650 mg PO Q6H PRN PRN Reason: Fever Or Pain Last Admin: 10/27/19 11:13 Dose: 650 mg Documented by: Ascorbic Acid (Vitamin C -) 500 mg PO DAILY [facility] Last Admin: 10/28/19 09:19 Dose: 500 mg Documented by: Aspirin (Asa -) 81 mg PO DAILY [facility] Last Admin: 10/28/19 09:19 Dose: 81 mg Documented by: Cholecalciferol (Vitamin D3 -) 1,000 unit PO DAILY [facility] Last Admin: 10/28/19 09:19 Dose: 1,000 unit Documented by: Enoxaparin Sodium (Lovenox -) 30 mg SQ DAILY [facility] Last Admin: 10/28/19 09:19 Dose: 30 mg Documented by: Piperacillin Sod/Tazobactam (Sod 3.375 gm/ Dextrose) 50 mls @ 100 mls/hr IVPB Q8H-IV [facility]; Protocol Last Admin: 10/29/19 01:55 Dose: 100 mls/hr Documented by: Vancomycin HCl 1,250 mg/ (Dextrose) 250 mls @ 250 mls/2 hr IVPB Q24H [facility]; Protocol Last Admin: 10/28/19 13:57 Dose: 250 mls/2 hr Documented by: Sodium Chloride (Normal Saline -) 1,000 mls @ 75 mls/hr IV ASDIR [facility] Last Admin: 10/28/19 22:11 Dose: 75 mls/hr Documented by: Insulin Aspart (Novolog Vial Sliding Scale -) 1 vial SQ ACHS [facility]; Protocol Last Admin: 10/29/19 07:06 Dose: Not Given Documented by: Lidocaine (Lidoderm Patch -) 1 patch TP DAILY [facility] Last Admin: 10/28/19 13:57 Dose: 1 patch Documented by: Lisinopril (Prinivil) 5 mg PO DAILY [facility] Last Admin: 10/28/19 09:19 Dose: 5 mg Documented by: Miscellaneous (Lidoderm Patch Removal) 1 each MC DAILY@2200 [facility] Last Admin: 10/28/19 22:08 Dose: Not Given Documented by: Multivitamins/Minerals (Theragran-M) 1 each PO DAILY [facility] Last Admin: 06/22/20 09:18 Dose: 1 each Documented by: Pregabalin (Lyrica -) 150 mg PO HS [facility] Last Admin: 10/28/19 22:09 Dose: 150 mg Documented by: - Objective Vital Signs: Vital Signs Temperature 98.4 F 10/29/19 01:44 Pulse Rate 82 10/29/19 01:44 Respiratory Rate 18 10/29/19 01:44 Blood Pressure 157/73 10/29/19 01:44 O2 Sat by Pulse Oximetry (%) 96 10/28/19 21:00 Constitutional: Yes: Well Nourished, Calm Eyes: Yes: WNL HENT: Yes: WNL Neck: Yes: WNL Cardiovascular: Yes: Regular Rate and Rhythm, S1, S2 Respiratory: Yes: Rales (BIBASILAR RALES) Gastrointestinal: Yes: Normal Bowel Sounds, Soft Extremities: Yes: WNL Edema: Yes Labs: CBC, BMP 10/29/19 06:02 INR, PTT INR 1.11 (0.83-1.09) H 10/22/19 12:52 Problem List - Problems (1) Acute metabolic encephalopathy Code(s): G93.41 - METABOLIC ENCEPHALOPATHY (2) Acute respiratory failure with hypoxia Code(s): J96.01 - ACUTE RESPIRATORY FAILURE WITH HYPOXIA (3) Diabetic neuropathy Code(s): E11.40 - TYPE 2 DIABETES MELLITUS WITH DIABETIC NEUROPATHY, UNSP (4) HLD (hyperlipidemia) Code(s): E78.5 - HYPERLIPIDEMIA, UNSPECIFIED (5) HTN (hypertension) Code(s): I10 - ESSENTIAL (PRIMARY) HYPERTENSION (7) Sepsis Code(s): A41.9 - SEPSIS, UNSPECIFIED ORGANISM Qualifiers: Sepsis type: sepsis due to unspecified organism Sepsis acute organ dysfunction status: with acute organ dysfunction Severe sepsis acute organ dysfunction type: acute respiratory failure Acute respiratory failure type: with hypoxia Severe sepsis shock status: without septic shock Qualified Code(s): A41.9 - Sepsis, unspecified organism; R65.20 - Severe sepsis without septic shock; J96.01 - Acute respiratory failure with hypoxia (8) Diabetes Code(s): E11.9 - TYPE 2 DIABETES MELLITUS WITHOUT COMPLICATIONS Assessment/Plan IMP HYPOXEMIA IMPROVED ALTERED MENTAL STATUS IMPROVED BACTEREMIA HTN HLD IDDM ANEMIA LLE LEG ULCER ELEVATED LACTATE LEVEL NORMAL PLAN O2 NEEDED ABX PER ID WOUND CARE COVID PCR NEGATIVE DR HUBER Problem List - Problems (1) Acute metabolic encephalopathy Code(s): G93.41 - METABOLIC ENCEPHALOPATHY (2) Acute respiratory failure with hypoxia Code(s): J96.01 - ACUTE RESPIRATORY FAILURE WITH HYPOXIA (3) Diabetic neuropathy Code(s): E11.40 - TYPE 2 DIABETES MELLITUS WITH DIABETIC NEUROPATHY, UNSP (4) HLD (hyperlipidemia) Code(s): E78.5 - HYPERLIPIDEMIA, UNSPECIFIED (5) HTN (hypertension) Code(s): I10 - ESSENTIAL (PRIMARY) HYPERTENSION (7) Sepsis Code(s): A41.9 - SEPSIS, UNSPECIFIED ORGANISM Qualifiers: Sepsis type: sepsis due to unspecified organism Sepsis acute organ dysfunction status: with acute organ dysfunction Severe sepsis acute organ dysfunction type: acute respiratory failure Acute respiratory failure type: with hypoxia Severe sepsis shock status: without septic shock Qualified Code(s): A41.9 - Sepsis, unspecified organism; R65.20 - Severe sepsis without septic shock; J96.01 - Acute respiratory failure with hypoxia (8) Diabetes Code(s): E11.9 - TYPE 2 DIABETES MELLITUS WITHOUT COMPLICATIONS
[2019-10-29 07:44] LABS: ALBUMIN 1.9 g/dl (3.4-5.0); BILIRUBIN,TOTAL 0.4 mg/dL (0.2-1); BLOOD UREA NITROGEN 7.7 mg/dL (7-18); CALCIUM 9.2 mg/dL (8.5-10.1); CREATININE 0.6 mg/dL (0.55-1.3); MAGNESIUM 2.2 mg/dL (1.8-2.4); POTASSIUM 3.7 mmol/L (3.5-5.1); TOT PROT 5.8 g/dl (6.4-8.2)
[2019-10-29] MEDS: ENOXAPARIN NA (PORCINE) 30 MG/0.3 ML DISP.SYRIN SQ SCH (09:50)
[2019-10-29] MEDS: MULTIVITAMINS THER W-MINERALS COMBO TABLET (FP) PO SCH (09:50)
[2019-10-29] MEDS: CHOLECALCIFEROL (VIT D3) 1,000 UNIT (25 MCG) TABLET PO SCH (09:50)
[2019-10-29] MEDS: ASPIRIN 81 MG CHEWABLE TABLETS PO SCH (09:50)
[2019-10-29] MEDS: LISINOPRIL 5 MG TABLET (FP) PO SCH (09:50)
[2019-10-29] MEDS: ASCORBIC ACID 500 MG TABLET (FP) PO SCH (09:51)
[2019-10-29] MEDS: LIDOCAINE 5% TOPICAL PATCH TP SCH (09:51)
[2019-10-29 10:21] LABS: ANISOCYTOSIS 1+; MACROCYTOSIS 1+; PLATELET ESTIMATE NORMAL; ROULEAU 1+; TARGET CELLS 1+
--- NOTE | 2019-10-29 13:42 | PN ---
Physical Exam: SUBJECTIVE: Patient seen and examined. sitting up, eating lunch. tells me she feels better. OBJECTIVE: Patient is a 83 year old female with a PMHx of HTN, HLD, IDDM, Peripheral Neuropathy, non-healing ulcer to posterior left knee. She was admitted on 10/22/2019 for sepsis, UTI, acute respiratory failure with hypoxia and AMS. She is covid negative. Vital Signs Period Temp Pulse Resp BP Sys/Jaimes Pulse Ox Last 24 Hr 97.9 F-98.4 F 72-92 16-19 115-157/54-78 96-99 GENERAL: The patient is awake, alert, and fully oriented, in no acute distress. HEAD: Normal with no signs of trauma. EYES: PERRL, extraocular movements intact, sclera anicteric, conjunctiva clear. No ptosis. ENT: Ears normal, nares patent, oropharynx clear without exudates NECK: Trachea midline, full range of motion, supple. LUNGS: Breath sounds equal, clear to auscultation anteriorly HEART: Regular rate and rhythm ABDOMEN: Soft, nontender, nondistended, normoactive bowel sounds EXTREMITIES: trace edema bilaterallyl. posterior left knee ulcer/dressing intact. NEUROLOGICAL: Normal speech, gait not observed. PSYCH: Normal mood, normal affect. SKIN: Warm, dry, normal turgor, no rashes or lesions noted Laboratory Results - last 24 hr 10/29/19 10/29/19 06:02 06:02 WBC 7.7 RBC 3.27 L Hgb 8.7 L Hct 27.1 L D MCV 82.8 MCH 26.5 MCHC 32.1 RDW 16.9 H Plt Count 282 MPV 8.9 Absolute Neuts (auto) 5.3 Neutrophils % 68.7 Neutrophils % (Manual) 77.1 Band Neutrophils % 0.0 Lymphocytes % 14.9 Lymphocytes % (Manual) 7.2 L D Monocytes % 13.4 H Monocytes % (Manual) 15 H Eosinophils % 2.5 D Eosinophils % (Manual) 1.2 Basophils % 0.5 Basophils % (Manual) 0.0 Myelocytes % (Man) 0 Promyelocytes % (Man) 0 Blast Cells % (Manual) 0 Nucleated RBC % 0 Metamyelocytes 0 Hypochromia 2+ Platelet Estimate Normal Polychromasia 0 Poikilocytosis 0 Anisocytosis 1+ Microcytosis 1+ Macrocytosis 1+ Target Cells 1+ Rouleaux 1+ Sodium 142 Potassium 3.7 Chloride 108 H Carbon Dioxide 27 Anion Gap 7 L BUN 7.7 Creatinine 0.6 Est GFR (CKD-EPI)AfAm 97.01 Est GFR (CKD-EPI)NonAf 83.70 Random Glucose 119 H Calcium 9.2 Magnesium 2.2 Iron 21 L TIBC 143 L Iron Saturation 14 L Unsaturated IBC 122 L Total Bilirubin 0.4 AST 13 L ALT 10 L Alkaline Phosphatase 71 Total Protein 5.8 L Albumin 1.9 L Active Medications Generic Name Dose Route Start Last Admin Trade Name Freq PRN Reason Stop Dose Admin Acetaminophen 650 mg 10/24/19 09:02 10/27/19 11:13 Tylenol - PO 650 mg Q6H PRN Administration Fever Or Pain Ascorbic Acid 500 mg 10/24/19 10:00 10/29/19 09:51 Vitamin C - PO 500 mg DAILY [facility] Administration Aspirin 81 mg 10/24/19 10:00 10/29/19 09:50 Asa - PO 81 mg DAILY [facility] Administration Cholecalciferol 1,000 unit 10/24/19 10:00 10/29/19 09:50 Vitamin D3 - PO 1,000 unit DAILY [facility] Administration Enoxaparin Sodium 30 mg 10/24/19 11:07 10/29/19 09:50 Lovenox - SQ 30 mg DAILY [facility] Administration Piperacillin Sod/Tazobactam 50 mls @ 100 mls/hr 10/23/19 18:00 10/29/19 09:50 Sod 3.375 gm/ Dextrose IVPB 100 mls/hr Q8H-IV [facility] Administration Protocol Vancomycin HCl 1,250 mg/ 250 mls @ 250 mls/2 hr 10/25/19 14:00 10/28/19 13:57 Dextrose IVPB 250 mls/2 hr Q24H [facility] Administration Protocol Sodium Chloride 1,000 mls @ 75 mls/hr 10/27/19 16:00 10/28/19 22:11 Normal Saline - IV 75 mls/hr ASDIR [facility] Administration Insulin Aspart 1 vial 10/23/19 16:30 10/29/19 11:10 Novolog Vial Sliding Scale - SQ Not Given ACHS [facility] Protocol Lidocaine 1 patch 10/28/19 12:45 10/29/19 09:51 Lidoderm Patch - TP 1 patch DAILY [facility] Administration Lisinopril 5 mg 10/25/19 10:00 10/29/19 09:50 Prinivil PO 5 mg DAILY [facility] Administration Miscellaneous 1 each 10/28/19 22:00 10/28/19 22:08 Lidoderm Patch Removal MC Not Given DAILY@2200 [facility] Multivitamins/Minerals 1 each 10/24/19 10:00 10/29/19 09:50 Theragran-M PO 1 each DAILY [facility] Administration Pregabalin 150 mg 10/25/19 22:00 10/28/19 22:09 Lyrica - PO 150 mg HS [facility] Administration ASSESSMENT/PLAN: Problem List - Problems (1) Sepsis Assessment/Plan: leukocytosis resolved. bp stable. mentation back to baseline and tolerating room air. urine culture grew serratia, blood culture with klebsiella - repeat blood cultures negative, uc repeat negative. ID following on Vanco/zosyn Code(s): A41.9 - SEPSIS, UNSPECIFIED ORGANISM Qualifiers: Sepsis type: sepsis due to unspecified organism Sepsis acute organ dysfunction status: with acute organ dysfunction Severe sepsis acute organ dysfunction type: acute respiratory failure Acute respiratory failure type: with hypoxia Severe sepsis shock status: without septic shock Qualified Code(s): A41.9 - Sepsis, unspecified organism; R65.20 - Severe sepsis without septic shock; J96.01 - Acute respiratory failure with hypoxia (2) Acute metabolic encephalopathy Assessment/Plan: mentation back to baseline. continue to monitor. Code(s): G93.41 - METABOLIC ENCEPHALOPATHY (3) Acute respiratory failure with hypoxia Assessment/Plan: chest xray free of pulmonary infiltrates or pleural effusion. tolerating room air. Code(s): J96.01 - ACUTE RESPIRATORY FAILURE WITH HYPOXIA (4) COVID-19 Assessment/Plan: negative serology Code(s): U07.1 - COVID POSITIVE (5) Diabetic neuropathy Assessment/Plan: supportive care Code(s): E11.40 - TYPE 2 DIABETES MELLITUS WITH DIABETIC NEUROPATHY, UNSP (6) HLD (hyperlipidemia) Assessment/Plan: continue home meds Code(s): E78.5 - HYPERLIPIDEMIA, UNSPECIFIED (7) HTN (hypertension) Assessment/Plan: stable BP Code(s): I10 - ESSENTIAL (PRIMARY) HYPERTENSION (8) Hypokalemia Code(s): E87.6 - HYPOKALEMIA (9) Non-healing ulcer Assessment/Plan: continue daily wound care. follow up with Dr. barron at wound care clinic on d/c (10) Prophylactic measure Assessment/Plan: lovenox 30mg daily Code(s): Z29.9 - ENCOUNTER FOR PROPHYLACTIC MEASURES, UNSPECIFIED Visit type - Emergency Visit Emergency Visit: Yes ED Registration Date: 10/22/19 Care time: The patient presented to the Emergency Department on the above date and was hospitalized for further evaluation of their emergent condition. - New Patient This patient is new to me today: No - Critical Care Critical Care patient: No - Discharge Referral Referred to [facility] Med P.C.: No
--- NOTE | 2019-10-29 14:27 | PN ---
Progress Note, Physician History of Present Illness: stable improving still with drainage of serous fluids - Current Medication List Current Medications: Active Medications Acetaminophen (Tylenol -) 650 mg PO Q6H PRN PRN Reason: Fever Or Pain Last Admin: 10/27/19 11:13 Dose: 650 mg Documented by: Ascorbic Acid (Vitamin C -) 500 mg PO DAILY [facility] Last Admin: 10/29/19 09:51 Dose: 500 mg Documented by: Aspirin (Asa -) 81 mg PO DAILY [facility] Last Admin: 10/29/19 09:50 Dose: 81 mg Documented by: Cholecalciferol (Vitamin D3 -) 1,000 unit PO DAILY [facility] Last Admin: 10/29/19 09:50 Dose: 1,000 unit Documented by: Enoxaparin Sodium (Lovenox -) 30 mg SQ DAILY [facility] Last Admin: 10/29/19 09:50 Dose: 30 mg Documented by: Piperacillin Sod/Tazobactam (Sod 3.375 gm/ Dextrose) 50 mls @ 100 mls/hr IVPB Q8H-IV [facility]; Protocol Last Admin: 10/29/19 09:50 Dose: 100 mls/hr Documented by: Vancomycin HCl 1,250 mg/ (Dextrose) 250 mls @ 250 mls/2 hr IVPB Q24H [facility]; Protocol Last Admin: 10/28/19 13:57 Dose: 250 mls/2 hr Documented by: Sodium Chloride (Normal Saline -) 1,000 mls @ 75 mls/hr IV ASDIR [facility] Last Admin: 10/28/19 22:11 Dose: 75 mls/hr Documented by: Insulin Aspart (Novolog Vial Sliding Scale -) 1 vial SQ ACHS [facility]; Protocol Last Admin: 10/29/19 11:10 Dose: Not Given Documented by: Lidocaine (Lidoderm Patch -) 1 patch TP DAILY [facility] Last Admin: 10/29/19 09:51 Dose: 1 patch Documented by: Lisinopril (Prinivil) 5 mg PO DAILY [facility] Last Admin: 10/29/19 09:50 Dose: 5 mg Documented by: Miscellaneous (Lidoderm Patch Removal) 1 each MC DAILY@2200 [facility] Last Admin: 10/28/19 22:08 Dose: Not Given Documented by: Multivitamins/Minerals (Theragran-M) 1 each PO DAILY [facility] Last Admin: 06/23/20 09:50 Dose: 1 each Documented by: Pregabalin (Lyrica -) 150 mg PO HS [facility] Last Admin: 10/28/19 22:09 Dose: 150 mg Documented by: - Objective Vital Signs: Vital Signs Temperature 97.9 F 10/29/19 10:06 Pulse Rate 92 H 10/29/19 10:06 Respiratory Rate 19 10/29/19 10:06 Blood Pressure 134/54 L 10/29/19 10:06 O2 Sat by Pulse Oximetry (%) 99 10/29/19 09:00 Constitutional: Yes: No Distress, Calm Cardiovascular: Yes: S1, S2 Respiratory: Yes: Regular, CTA Bilaterally Gastrointestinal: Yes: Normal Bowel Sounds, Soft Musculoskeletal: Yes: WNL Extremities: Yes: WNL Wound/Incision: Yes: Dressing Dry and Intact Neurological: Yes: Alert, Oriented Labs: CBC, BMP 10/29/19 06:02 10/29/19 06:02 INR, PTT INR 1.11 (0.83-1.09) H 10/22/19 12:52 Assessment/Plan Problem List - Problems (1) COVID-19 Code(s): U07.1 - COVID POSITIVE (2) Acute metabolic encephalopathy Code(s): G93.41 - METABOLIC ENCEPHALOPATHY (3) Acute respiratory failure with hypoxia Code(s): J96.01 - ACUTE RESPIRATORY FAILURE WITH HYPOXIA (4) HLD (hyperlipidemia) Code(s): E78.5 - HYPERLIPIDEMIA, UNSPECIFIED (5) HTN (hypertension) Code(s): I10 - ESSENTIAL (PRIMARY) HYPERTENSION (6) Diabetes Code(s): E11.9 - TYPE 2 DIABETES MELLITUS WITHOUT COMPLICATIONS 7 uti 8 wound infection plan continue current abx wound care will d/w about it with the team consider imaging studies
[2019-10-29] MEDS: VANCOMYCIN HCL 1,250 MG in DEXTROSE 5%-WATER - 250 ML IVPB SCH (14:59)
[2019-10-29] MEDS: SODIUM CHLORIDE 1,000 ML IV SCH (16:37)
[2019-10-29] MEDS: LIDOCAINE PATCH REMOVAL MC SCH (21:54)
[2019-10-29] MEDS: PREGABALIN 75 MG CAPSULE PO SCH (21:55)
[2019-10-30] MEDS ORDERED: DEXTROSE 5%-WATER - 50 ML IVPB ONE ×3 (01:18→16:52)
[2019-10-30] MEDS ORDERED: PIPERACILLIN/TAZOBACTAM 3.375 GM VIAL IVPB ONE ×3 (01:18→16:52)
[2019-10-30] MEDS: PIPERACILLIN/TAZOB 3.375 GM 3.375 GM in DEXTROSE 5%-WATER - 50 ML IVPB SCH ×3 (01:32→17:27)
[2019-10-30] MEDS: INSULIN SLIDING SCALE (NOVOLOG) 1 VIAL SQ SCH ×4 (06:59→22:35)
[2019-10-30 07:42] LABS: BASO % 0.6 % (0-2.0); EOS % 2.4 % (0-4.5); HEMATOCRIT 26.5 % (32.4-45.2); HEMOGLOBIN 8.5 GM/dL (10.7-15.3); LYMPH % 16.3 % (8-40); MCH 26.7 pg (25.7-33.7); MCHC 32.2 g/dl (32.0-36.0); MEAN PLT VOLUME 8.9 fl (7.5-11.1); MONO % 11.8 % (3.8-10.2); NEUT % 68.9 % (42.8-82.8); PLATELET COUNT 318 K/MM3 (134-434); RBC 3.19 M/mm3 (3.60-5.2); RDW 16.7 % (11.6-15.6); WHITE BLOOD COUNT 7.1 K/mm3 (4.0-10.0)
[2019-10-30 07:46] LABS: ALBUMIN 1.8 g/dl (3.4-5.0); BLOOD UREA NITROGEN 7.9 mg/dL (7-18); CALCIUM 8.7 mg/dL (8.5-10.1); MAGNESIUM 2.3 mg/dL (1.8-2.4); POTASSIUM 3.7 mmol/L (3.5-5.1)
[2019-10-30 07:51] LABS: BILIRUBIN,TOTAL 0.4 mg/dL (0.2-1); CREATININE 0.6 mg/dL (0.55-1.3); TOT PROT 5.5 g/dl (6.4-8.2)
[2019-10-30] MEDS: LIDOCAINE 5% TOPICAL PATCH TP SCH (09:50)
[2019-10-30] MEDS: ENOXAPARIN NA (PORCINE) 30 MG/0.3 ML DISP.SYRIN SQ SCH (09:50)
[2019-10-30] MEDS: CHOLECALCIFEROL (VIT D3) 1,000 UNIT (25 MCG) TABLET PO SCH (09:50)
[2019-10-30] MEDS: ASPIRIN 81 MG CHEWABLE TABLETS PO SCH (09:50)
[2019-10-30] MEDS: MULTIVITAMINS THER W-MINERALS COMBO TABLET (FP) PO SCH (09:50)
[2019-10-30] MEDS: ASCORBIC ACID 500 MG TABLET (FP) PO SCH (09:50)
[2019-10-30] MEDS: LISINOPRIL 5 MG TABLET (FP) PO SCH (09:50)
--- NOTE | 2019-10-30 11:54 | PN ---
Progress Note, Physician History of Present Illness: stable improving wound looking bettert still oozing - Current Medication List Current Medications: Active Medications Acetaminophen (Tylenol -) 650 mg PO Q6H PRN PRN Reason: Fever Or Pain Last Admin: 10/27/19 11:13 Dose: 650 mg Documented by: Ascorbic Acid (Vitamin C -) 500 mg PO DAILY [facility] Last Admin: 10/30/19 09:50 Dose: 500 mg Documented by: Aspirin (Asa -) 81 mg PO DAILY [facility] Last Admin: 10/30/19 09:50 Dose: 81 mg Documented by: Cholecalciferol (Vitamin D3 -) 1,000 unit PO DAILY [facility] Last Admin: 10/30/19 09:50 Dose: 1,000 unit Documented by: Enoxaparin Sodium (Lovenox -) 30 mg SQ DAILY [facility] Last Admin: 10/30/19 09:50 Dose: 30 mg Documented by: Piperacillin Sod/Tazobactam (Sod 3.375 gm/ Dextrose) 50 mls @ 100 mls/hr IVPB Q8H-IV [facility]; Protocol Last Admin: 10/30/19 09:49 Dose: 100 mls/hr Documented by: Vancomycin HCl 1,250 mg/ (Dextrose) 250 mls @ 250 mls/2 hr IVPB Q24H [facility]; Protocol Last Admin: 10/29/19 14:59 Dose: 250 mls/2 hr Documented by: Sodium Chloride (Normal Saline -) 1,000 mls @ 75 mls/hr IV ASDIR [facility] Last Admin: 10/29/19 16:37 Dose: 75 mls/hr Documented by: Insulin Aspart (Novolog Vial Sliding Scale -) 1 vial SQ ACHS [facility]; Protocol Last Admin: 10/30/19 11:47 Dose: Not Given Documented by: Lidocaine (Lidoderm Patch -) 1 patch TP DAILY [facility] Last Admin: 10/30/19 09:50 Dose: 1 patch Documented by: Lisinopril (Prinivil) 5 mg PO DAILY [facility] Last Admin: 10/30/19 09:50 Dose: 5 mg Documented by: Miscellaneous (Lidoderm Patch Removal) 1 each MC DAILY@2200 [facility] Last Admin: 10/29/19 21:54 Dose: Not Given Documented by: Multivitamins/Minerals (Theragran-M) 1 each PO DAILY [facility] Last Admin: 10/30/19 09:50 Dose: 1 each Documented by: Pregabalin (Lyrica -) 150 mg PO HS [facility] Last Admin: 10/29/19 21:55 Dose: 150 mg Documented by: - Objective Vital Signs: Vital Signs Temperature 97.7 F 10/30/19 10:00 Pulse Rate 80 10/30/19 10:00 Respiratory Rate 21 H 10/30/19 10:00 Blood Pressure 134/59 L 10/30/19 10:00 O2 Sat by Pulse Oximetry (%) 96 10/30/19 09:00 Constitutional: Yes: No Distress, Calm Cardiovascular: Yes: S1, S2 Respiratory: Yes: Regular, CTA Bilaterally Gastrointestinal: Yes: Normal Bowel Sounds, Soft Musculoskeletal: Yes: WNL Extremities: Yes: Other Neurological: Yes: Alert, Oriented Psychiatric: Yes: Alert, Oriented Labs: CBC, BMP 10/30/19 06:00 10/30/19 06:00 INR, PTT INR 1.11 (0.83-1.09) H 10/22/19 12:52 Assessment/Plan Problem List - Problems (1) COVID-19 Code(s): U07.1 - COVID POSITIVE (2) Acute metabolic encephalopathy Code(s): G93.41 - METABOLIC ENCEPHALOPATHY (3) Acute respiratory failure with hypoxia Code(s): J96.01 - ACUTE RESPIRATORY FAILURE WITH HYPOXIA (4) HLD (hyperlipidemia) Code(s): E78.5 - HYPERLIPIDEMIA, UNSPECIFIED (5) HTN (hypertension) Code(s): I10 - ESSENTIAL (PRIMARY) HYPERTENSION (6) Diabetes Code(s): E11.9 - TYPE 2 DIABETES MELLITUS WITHOUT COMPLICATIONS 7 uti 8 wound infection plan continue current abx wound care will d/w about it with the team
--- NOTE | 2019-10-30 13:28 | PN ---
Progress Note (short form) - Note Progress Note: Resting in NAD. No CP or SOB. No acute events overnight. Intake & Output 10/27/19 10/28/19 10/29/19 10/30/19 23:59 23:59 23:59 23:59 Intake Total 1490 2330 1100 1150 Output Total 2600 2200 1000 Balance 1490 -270 -1100 150 Last Vital Signs Temp Pulse Resp BP Pulse Ox 97.7 F 80 21 H 134/59 L 96 10/30/19 10:00 10/30/19 10:00 10/30/19 10:00 10/30/19 10:00 10/30/19 09:00 Active Medications Acetaminophen (Tylenol -) 650 mg PO Q6H PRN PRN Reason: Fever Or Pain Last Admin: 10/27/19 11:13 Dose: 650 mg Documented by: Ascorbic Acid (Vitamin C -) 500 mg PO DAILY [facility] Last Admin: 10/30/19 09:50 Dose: 500 mg Documented by: Aspirin (Asa -) 81 mg PO DAILY [facility] Last Admin: 10/30/19 09:50 Dose: 81 mg Documented by: Cholecalciferol (Vitamin D3 -) 1,000 unit PO DAILY [facility] Last Admin: 10/30/19 09:50 Dose: 1,000 unit Documented by: Enoxaparin Sodium (Lovenox -) 30 mg SQ DAILY [facility] Last Admin: 10/30/19 09:50 Dose: 30 mg Documented by: Piperacillin Sod/Tazobactam (Sod 3.375 gm/ Dextrose) 50 mls @ 100 mls/hr IVPB Q8H-IV [facility]; Protocol Last Admin: 10/30/19 09:49 Dose: 100 mls/hr Documented by: Vancomycin HCl 1,250 mg/ (Dextrose) 250 mls @ 250 mls/2 hr IVPB Q24H [facility]; Protocol Last Admin: 10/29/19 14:59 Dose: 250 mls/2 hr Documented by: Insulin Aspart (Novolog Vial Sliding Scale -) 1 vial SQ ACHS [facility]; Protocol Last Admin: 10/30/19 11:47 Dose: Not Given Documented by: Lidocaine (Lidoderm Patch -) 1 patch TP DAILY [facility] Last Admin: 10/30/19 09:50 Dose: 1 patch Documented by: Lisinopril (Prinivil) 5 mg PO DAILY [facility] Last Admin: 10/30/19 09:50 Dose: 5 mg Documented by: Miscellaneous (Lidoderm Patch Removal) 1 each MC DAILY@2200 [facility] Last Admin: 10/29/19 21:54 Dose: Not Given Documented by: Multivitamins/Minerals (Theragran-M) 1 each PO DAILY [facility] Last Admin: 10/30/19 09:50 Dose: 1 each Documented by: Pregabalin (Lyrica -) 150 mg PO HS [facility] Last Admin: 10/29/19 21:55 Dose: 150 mg Documented by: Constitutional: Yes: Well Nourished, NAD Eyes: Yes: WNL, Other Neck: Yes: WNL Cardiovascular: Yes: Regular Rate and Rhythm, S1, S2 Respiratory: Yes: Diminished at the bases Gastrointestinal: Yes: Normal Bowel Sounds, Soft Extremities: Yes: WNL Edema: No Labs: Laboratory Results - last 24 hr 10/29/19 10/29/19 10/29/19 13:15 16:35 22:00 WBC RBC Hgb Hct MCV MCH MCHC RDW Plt Count MPV Absolute Neuts (auto) Neutrophils % Lymphocytes % Monocytes % Eosinophils % Basophils % Nucleated RBC % Sodium Potassium Chloride Carbon Dioxide Anion Gap BUN Creatinine Est GFR (CKD-EPI)AfAm Est GFR (CKD-EPI)NonAf POC Glucometer 163 124 Random Glucose Calcium Magnesium Total Bilirubin AST ALT Alkaline Phosphatase Total Protein Albumin Vancomycin Pre-Dose 14.1 H 10/30/19 10/30/19 10/30/19 06:00 06:00 11:46 WBC 7.1 RBC 3.19 L Hgb 8.5 L Hct 26.5 L MCV 83.0 MCH 26.7 MCHC 32.2 RDW 16.7 H Plt Count 318 MPV 8.9 Absolute Neuts (auto) 4.9 Neutrophils % 68.9 Lymphocytes % 16.3 Monocytes % 11.8 H Eosinophils % 2.4 Basophils % 0.6 Nucleated RBC % 0 Sodium 143 Potassium 3.7 Chloride 110 H Carbon Dioxide 25 Anion Gap 8 BUN 7.9 Creatinine 0.6 Est GFR (CKD-EPI)AfAm 97.01 Est GFR (CKD-EPI)NonAf 83.70 POC Glucometer 149 Random Glucose 109 H Calcium 8.7 Magnesium 2.3 Total Bilirubin 0.4 AST 13 L ALT 12 L Alkaline Phosphatase 65 Total Protein 5.5 L Albumin 1.8 L Vancomycin Pre-Dose Problem List - Problems (1) Acute metabolic encephalopathy Code(s): G93.41 - METABOLIC ENCEPHALOPATHY (2) Acute respiratory failure with hypoxia Code(s): J96.01 - ACUTE RESPIRATORY FAILURE WITH HYPOXIA (3) Diabetic neuropathy Code(s): E11.40 - TYPE 2 DIABETES MELLITUS WITH DIABETIC NEUROPATHY, UNSP (4) HLD (hyperlipidemia) Code(s): E78.5 - HYPERLIPIDEMIA, UNSPECIFIED (5) HTN (hypertension) Code(s): I10 - ESSENTIAL (PRIMARY) HYPERTENSION (7) Sepsis Code(s): A41.9 - SEPSIS, UNSPECIFIED ORGANISM Qualifiers: Sepsis type: sepsis due to unspecified organism Sepsis acute organ dysfunction status: with acute organ dysfunction Severe sepsis acute organ dysfunction type: acute respiratory failure Acute respiratory failure type: with hypoxia Severe sepsis shock status: without septic shock Qualified Code(s): A41.9 - Sepsis, unspecified organism; R65.20 - Severe sepsis without septic shock; J96.01 - Acute respiratory failure with hypoxia (8) Diabetes Code(s): E11.9 - TYPE 2 DIABETES MELLITUS WITHOUT COMPLICATIONS Assessment/Plan IMP HYPOXEMIA IMPROVED ALTERED MENTAL STATUS IMPROVED R/O SEPSIS BACTEREMIA HTN HLD IDDM ANEMIA LLE LEG ULCER ELEVATED LACTATE LEVEL NORMAL PLAN O2 NEEDED ABX PER ID WOUND CARE Dr Hurtado
[2019-10-30] MEDS ORDERED: PT OWN MED DRAWER 7, Y5N ONE (14:46)
[2019-10-30] MEDS: VANCOMYCIN HCL 1,250 MG in DEXTROSE 5%-WATER - 250 ML IVPB SCH (14:47)
--- NOTE | 2019-10-30 15:24 | PN ---
Physical Exam: SUBJECTIVE: Patient seen and examined. tells me she feels well and much improved OBJECTIVE: Patient is a 83 year old female with a PMHx of HTN, HLD, IDDM, Peripheral Neuropathy, non-healing ulcer to posterior left knee. She was admitted on 10/22/2019 for sepsis, UTI, acute respiratory failure with hypoxia and AMS. She is covid negative. Vital Signs Period Temp Pulse Resp BP Sys/Jaimes Pulse Ox Last 24 Hr 97.5 F-98.8 F 78-94 18-21 129-137/59-82 96-96 GENERAL: The patient is awake, alert, and fully oriented, in no acute distress. HEAD: Normal with no signs of trauma. EYES: PERRL, extraocular movements intact, sclera anicteric, conjunctiva clear. No ptosis. ENT: Ears normal, nares patent, oropharynx clear without exudates NECK: Trachea midline, full range of motion, supple. LUNGS: Breath sounds equal, clear to auscultation anteriorly HEART: Regular rate and rhythm ABDOMEN: Soft, nontender, nondistended, normoactive bowel sounds EXTREMITIES: trace edema bilaterallyl. posterior left knee ulcer/dressing intact. NEUROLOGICAL: Normal speech, gait not observed. PSYCH: Normal mood, normal affect. SKIN: Warm, dry, normal turgor, no rashes or lesions noted Laboratory Results - last 24 hr 10/29/19 10/29/19 10/30/19 16:35 22:00 06:00 WBC 7.1 RBC 3.19 L Hgb 8.5 L Hct 26.5 L MCV 83.0 MCH 26.7 MCHC 32.2 RDW 16.7 H Plt Count 318 MPV 8.9 Absolute Neuts (auto) 4.9 Neutrophils % 68.9 Lymphocytes % 16.3 Monocytes % 11.8 H Eosinophils % 2.4 Basophils % 0.6 Nucleated RBC % 0 Sodium Potassium Chloride Carbon Dioxide Anion Gap BUN Creatinine Est GFR (CKD-EPI)AfAm Est GFR (CKD-EPI)NonAf POC Glucometer 163 124 Random Glucose Calcium Magnesium Total Bilirubin AST ALT Alkaline Phosphatase Total Protein Albumin 10/30/19 10/30/19 06:00 11:46 WBC RBC Hgb Hct MCV MCH MCHC RDW Plt Count MPV Absolute Neuts (auto) Neutrophils % Lymphocytes % Monocytes % Eosinophils % Basophils % Nucleated RBC % Sodium 143 Potassium 3.7 Chloride 110 H Carbon Dioxide 25 Anion Gap 8 BUN 7.9 Creatinine 0.6 Est GFR (CKD-EPI)AfAm 97.01 Est GFR (CKD-EPI)NonAf 83.70 POC Glucometer 149 Random Glucose 109 H Calcium 8.7 Magnesium 2.3 Total Bilirubin 0.4 AST 13 L ALT 12 L Alkaline Phosphatase 65 Total Protein 5.5 L Albumin 1.8 L Active Medications Generic Name Dose Route Start Last Admin Trade Name Freq PRN Reason Stop Dose Admin Acetaminophen 650 mg 10/24/19 09:02 10/27/19 11:13 Tylenol - PO 650 mg Q6H PRN Administration Fever Or Pain Ascorbic Acid 500 mg 10/24/19 10:00 10/30/19 09:50 Vitamin C - PO 500 mg DAILY [facility] Administration Aspirin 81 mg 10/24/19 10:00 10/30/19 09:50 Asa - PO 81 mg DAILY [facility] Administration Cholecalciferol 1,000 unit 10/24/19 10:00 10/30/19 09:50 Vitamin D3 - PO 1,000 unit DAILY [facility] Administration Enoxaparin Sodium 30 mg 10/24/19 11:07 10/30/19 09:50 Lovenox - SQ 30 mg DAILY [facility] Administration Piperacillin Sod/Tazobactam 50 mls @ 100 mls/hr 10/23/19 18:00 10/30/19 09:49 Sod 3.375 gm/ Dextrose IVPB 100 mls/hr Q8H-IV [facility] Administration Protocol Vancomycin HCl 1,250 mg/ 250 mls @ 250 mls/2 hr 10/25/19 14:00 10/30/19 14:47 Dextrose IVPB 250 mls/2 hr Q24H EM[facility] Administration Protocol Insulin Aspart 1 vial 10/23/19 16:30 10/30/19 11:47 Novolog Vial Sliding Scale - SQ Not Given ACHS [facility] Protocol Lidocaine 1 patch 10/28/19 12:45 10/30/19 09:50 Lidoderm Patch - TP 1 patch DAILY [facility] Administration Lisinopril 5 mg 10/25/19 10:00 10/30/19 09:50 Prinivil PO 5 mg DAILY [facility] Administration Miscellaneous 1 each 10/28/19 22:00 10/29/19 21:54 Lidoderm Patch Removal MC Not Given DAILY@2200 [facility] Multivitamins/Minerals 1 each 10/24/19 10:00 10/30/19 09:50 Theragran-M PO 1 each DAILY [facility] Administration Pregabalin 150 mg 10/25/19 22:00 10/29/19 21:55 Lyrica - PO 150 mg HS EMY Administration ASSESSMENT/PLAN: Problem List - Problems (1) Sepsis Assessment/Plan: leukocytosis resolved. bp stable. mentation back to baseline and tolerating room air. urine culture grew serratia, blood culture with klebsiella - repeat blood cultures negative, uc repeat negative. ID following on Vanco/zosyn Code(s): A41.9 - SEPSIS, UNSPECIFIED ORGANISM Qualifiers: Sepsis type: sepsis due to unspecified organism Sepsis acute organ dysfunction status: with acute organ dysfunction Severe sepsis acute organ dysfunction type: acute respiratory failure Acute respiratory failure type: with hypoxia Severe sepsis shock status: without septic shock Qualified Code(s): A41.9 - Sepsis, unspecified organism; R65.20 - Severe sepsis without septic shock; J96.01 - Acute respiratory failure with hypoxia (2) Acute metabolic encephalopathy Assessment/Plan: mentation back to baseline. continue to monitor. Code(s): G93.41 - METABOLIC ENCEPHALOPATHY (3) Acute respiratory failure with hypoxia Assessment/Plan: chest xray free of pulmonary infiltrates or pleural effusion. tolerating room air. Code(s): J96.01 - ACUTE RESPIRATORY FAILURE WITH HYPOXIA (4) COVID-19 Assessment/Plan: negative serology Code(s): U07.1 - COVID POSITIVE (5) Diabetic neuropathy Assessment/Plan: supportive care Code(s): E11.40 - TYPE 2 DIABETES MELLITUS WITH DIABETIC NEUROPATHY, UNSP (6) HLD (hyperlipidemia) Assessment/Plan: continue home meds Code(s): E78.5 - HYPERLIPIDEMIA, UNSPECIFIED (7) HTN (hypertension) Assessment/Plan: stable BP Code(s): I10 - ESSENTIAL (PRIMARY) HYPERTENSION (8) Hypokalemia Code(s): E87.6 - HYPOKALEMIA (9) Non-healing ulcer Assessment/Plan: continue daily wound care. follow up with Dr. barron at wound care clinic on d/c place allevyn dressing over wound (10) Prophylactic measure Assessment/Plan: lovenox 30mg daily Code(s): Z29.9 - ENCOUNTER FOR PROPHYLACTIC MEASURES, UNSPECIFIED Visit type - Emergency Visit Emergency Visit: Yes ED Registration Date: 10/22/19 Care time: The patient presented to the Emergency Department on the above date and was hospitalized for further evaluation of their emergent condition. - New Patient This patient is new to me today: No - Critical Care Critical Care patient: No - Discharge Referral Referred to [facility] No
[2019-10-30] MEDS: PREGABALIN 75 MG CAPSULE PO SCH (22:34)
[2019-10-30] MEDS: LIDOCAINE PATCH REMOVAL MC SCH (22:37)
[2019-10-31] MEDS ORDERED: PIPERACILLIN/TAZOBACTAM 3.375 GM VIAL IVPB ONE ×3 (01:24→16:40)
[2019-10-31] MEDS ORDERED: DEXTROSE 5%-WATER - 50 ML IVPB ONE ×3 (01:24→16:40)
[2019-10-31] MEDS: PIPERACILLIN/TAZOB 3.375 GM 3.375 GM in DEXTROSE 5%-WATER - 50 ML IVPB SCH ×3 (01:34→17:07)
[2019-10-31] MEDS: INSULIN SLIDING SCALE (NOVOLOG) 1 VIAL SQ SCH ×4 (06:22→22:34)
[2019-10-31 07:38] LABS: BASO % 0.6 % (0-2.0); EOS % 1.7 % (0-4.5); HEMATOCRIT 27.5 % (32.4-45.2); HEMOGLOBIN 8.9 GM/dL (10.7-15.3); LYMPH % 16.7 % (8-40); MCH 26.6 pg (25.7-33.7); MCHC 32.3 g/dl (32.0-36.0); MEAN CELL VOLUME 82.6 fl (80-96); MEAN PLT VOLUME 8.7 fl (7.5-11.1); MONO % 8.5 % (3.8-10.2); NEUT % 72.5 % (42.8-82.8); PLATELET COUNT 355 K/MM3 (134-434); RBC 3.33 M/mm3 (3.60-5.2); RDW 16.8 % (11.6-15.6)
[2019-10-31 08:05] LABS: BILIRUBIN,TOTAL 0.4 mg/dL (0.2-1); BLOOD UREA NITROGEN 8.3 mg/dL (7-18); CALCIUM 9.3 mg/dL (8.5-10.1); CREATININE 0.6 mg/dL (0.55-1.3); MAGNESIUM 2.3 mg/dL (1.8-2.4); TOT PROT 6.2 g/dl (6.4-8.2)
[2019-10-31] MEDS ORDERED: PT OWN MED DRAWER 7, Y5N ONE ×2 (09:04→14:18)
[2019-10-31] MEDS: LISINOPRIL 5 MG TABLET (FP) PO SCH (09:47)
[2019-10-31] MEDS: ASCORBIC ACID 500 MG TABLET (FP) PO SCH (09:47)
[2019-10-31] MEDS: ENOXAPARIN NA (PORCINE) 30 MG/0.3 ML DISP.SYRIN SQ SCH (09:47)
[2019-10-31] MEDS: ASPIRIN 81 MG CHEWABLE TABLETS PO SCH (09:47)
[2019-10-31] MEDS: MULTIVITAMINS THER W-MINERALS COMBO TABLET (FP) PO SCH (09:47)
[2019-10-31] MEDS: LIDOCAINE 5% TOPICAL PATCH TP SCH (09:48)
[2019-10-31] MEDS: CHOLECALCIFEROL (VIT D3) 1,000 UNIT (25 MCG) TABLET PO SCH (09:48)
--- NOTE | 2019-10-31 10:01 | PN ---
Progress Note (short form) - Note Progress Note: Resting in NAD. No CP or SOB. No acute events overnight. Intake & Output 10/28/19 10/29/19 10/30/19 10/31/19 23:59 23:59 23:59 23:59 Intake Total 2330 1100 2050 Output Total 2600 2200 2300 700 Balance -270 -1100 -250 -700 Last Vital Signs Temp Pulse Resp BP Pulse Ox 98.4 F 76 18 163/82 96 10/31/19 06:00 10/31/19 06:00 10/31/19 06:00 10/31/19 06:00 10/30/19 21:00 Active Medications Acetaminophen (Tylenol -) 650 mg PO Q6H PRN PRN Reason: Fever Or Pain Last Admin: 10/27/19 11:13 Dose: 650 mg Documented by: Ascorbic Acid (Vitamin C -) 500 mg PO DAILY [facility] Last Admin: 10/31/19 09:47 Dose: 500 mg Documented by: Aspirin (Asa -) 81 mg PO DAILY [facility] Last Admin: 10/31/19 09:47 Dose: 81 mg Documented by: Cholecalciferol (Vitamin D3 -) 1,000 unit PO DAILY [facility] Last Admin: 10/31/19 09:48 Dose: 1,000 unit Documented by: Enoxaparin Sodium (Lovenox -) 30 mg SQ DAILY [facility] Last Admin: 10/31/19 09:47 Dose: 30 mg Documented by: Piperacillin Sod/Tazobactam (Sod 3.375 gm/ Dextrose) 50 mls @ 100 mls/hr IVPB Q8H-IV [facility]; Protocol Last Admin: 10/31/19 09:47 Dose: 100 mls/hr Documented by: Vancomycin HCl 1,250 mg/ (Dextrose) 250 mls @ 250 mls/2 hr IVPB Q24H [facility]; Protocol Last Admin: 10/30/19 14:47 Dose: 250 mls/2 hr Documented by: Insulin Aspart (Novolog Vial Sliding Scale -) 1 vial SQ ACHS [facility]; Protocol Last Admin: 10/31/19 06:22 Dose: Not Given Documented by: Lidocaine (Lidoderm Patch -) 1 patch TP DAILY [facility] Last Admin: 10/31/19 09:48 Dose: 1 patch Documented by: Lisinopril (Prinivil) 5 mg PO DAILY [facility] Last Admin: 10/31/19 09:47 Dose: 5 mg Documented by: Miscellaneous (Lidoderm Patch Removal) 1 each MC DAILY@2200 [facility] Last Admin: 10/30/19 22:37 Dose: Not Given Documented by: Multivitamins/Minerals (Theragran-M) 1 each PO DAILY [facility] Last Admin: 10/31/19 09:47 Dose: 1 each Documented by: Pregabalin (Lyrica -) 150 mg PO HS [facility] Last Admin: 10/30/19 22:34 Dose: 150 mg Documented by: Constitutional: Yes: Well Nourished, NAD Eyes: Yes: WNL, Other Neck: Yes: WNL Cardiovascular: Yes: Regular Rate and Rhythm, S1, S2 Respiratory: Yes: Diminished at the bases Gastrointestinal: Yes: Normal Bowel Sounds, Soft Extremities: Yes: WNL Edema: No Labs: Laboratory Results - last 24 hr 10/30/19 10/30/19 10/31/19 11:46 22:34 05:39 WBC RBC Hgb Hct MCV MCH MCHC RDW Plt Count MPV Absolute Neuts (auto) Neutrophils % Lymphocytes % Monocytes % Eosinophils % Basophils % Nucleated RBC % Sodium Potassium Chloride Carbon Dioxide Anion Gap BUN Creatinine Est GFR (CKD-EPI)AfAm Est GFR (CKD-EPI)NonAf POC Glucometer 149 122 116 Random Glucose Calcium Magnesium Total Bilirubin AST ALT Alkaline Phosphatase Total Protein Albumin 10/31/19 10/31/19 06:00 06:00 WBC 8.0 RBC 3.33 L Hgb 8.9 L Hct 27.5 L MCV 82.6 MCH 26.6 MCHC 32.3 RDW 16.8 H Plt Count 355 MPV 8.7 Absolute Neuts (auto) 5.8 Neutrophils % 72.5 Lymphocytes % 16.7 Monocytes % 8.5 Eosinophils % 1.7 Basophils % 0.6 Nucleated RBC % 0 Sodium 142 Potassium 4.0 Chloride 108 H Carbon Dioxide 27 Anion Gap 8 BUN 8.3 Creatinine 0.6 Est GFR (CKD-EPI)AfAm 97.01 Est GFR (CKD-EPI)NonAf 83.70 POC Glucometer Random Glucose 108 H Calcium 9.3 Magnesium 2.3 Total Bilirubin 0.4 AST 14 L ALT 10 L Alkaline Phosphatase 70 Total Protein 6.2 L Albumin 2.0 L Problem List - Problems (1) Acute metabolic encephalopathy Code(s): G93.41 - METABOLIC ENCEPHALOPATHY (2) Acute respiratory failure with hypoxia Code(s): J96.01 - ACUTE RESPIRATORY FAILURE WITH HYPOXIA (3) Diabetic neuropathy Code(s): E11.40 - TYPE 2 DIABETES MELLITUS WITH DIABETIC NEUROPATHY, UNSP (4) HLD (hyperlipidemia) Code(s): E78.5 - HYPERLIPIDEMIA, UNSPECIFIED (5) HTN (hypertension) Code(s): I10 - ESSENTIAL (PRIMARY) HYPERTENSION (7) Sepsis Code(s): A41.9 - SEPSIS, UNSPECIFIED ORGANISM Qualifiers: Sepsis type: sepsis due to unspecified organism Sepsis acute organ dysfunction status: with acute organ dysfunction Severe sepsis acute organ dysfunction type: acute respiratory failure Acute respiratory failure type: with hypoxia Severe sepsis shock status: without septic shock Qualified Code(s): A41.9 - Sepsis, unspecified organism; R65.20 - Severe sepsis without septic shock; J96.01 - Acute respiratory failure with hypoxia (8) Diabetes Code(s): E11.9 - TYPE 2 DIABETES MELLITUS WITHOUT COMPLICATIONS Assessment/Plan IMP HYPOXEMIA IMPROVED ALTERED MENTAL STATUS IMPROVED R/O SEPSIS BACTEREMIA HTN HLD IDDM ANEMIA LLE LEG ULCER ELEVATED LACTATE LEVEL NORMAL PLAN O2 NEEDED ABX PER ID WOUND CARE Dr Hurtado
--- NOTE | 2019-10-31 13:45 | PN ---
Physical Exam: SUBJECTIVE: Patient seen and examined at the bedside. denies any discomfort or pain. OBJECTIVE: left buttock pressure sore 4cm x 3 cm. Patient is a 83 year old female with a PMHx of HTN, HLD, IDDM, peripheral neuropathy, non-healing ulcer to posterior left knee. She was admitted on 10/22/2019 for sepsis, UTI, acute respiratory failure with hypoxia and AMS. She is covid negative. Vital Signs Period Temp Pulse Resp BP Sys/Jaimes Pulse Ox Last 24 Hr 97.3 F-98.6 F 74-84 18-20 129-163/68-82 96-96 GENERAL: The patient is awake, alert, and fully oriented, in no acute distress. HEAD: Normal with no signs of trauma. EYES: PERRL, extraocular movements intact, sclera anicteric, conjunctiva clear. No ptosis. ENT: Ears normal, nares patent, oropharynx clear without exudates NECK: Trachea midline, full range of motion, supple. LUNGS: Breath sounds equal, clear to auscultation anteriorly HEART: Regular rate and rhythm ABDOMEN: Soft, nontender, nondistended, normoactive bowel sounds EXTREMITIES: trace edema bilaterallyl. posterior left knee ulcer/dressing intact. NEUROLOGICAL: Normal speech, gait not observed. PSYCH: Normal mood, normal affect. SKIN: left buttocks popped blister, measures 4cm x 3cm. patient to be turned and position q 2 hours. will add pro source. Laboratory Results - last 24 hr 10/30/19 10/31/19 10/31/19 22:34 05:39 06:00 WBC 8.0 RBC 3.33 L Hgb 8.9 L Hct 27.5 L MCV 82.6 MCH 26.6 MCHC 32.3 RDW 16.8 H Plt Count 355 MPV 8.7 Absolute Neuts (auto) 5.8 Neutrophils % 72.5 Lymphocytes % 16.7 Monocytes % 8.5 Eosinophils % 1.7 Basophils % 0.6 Nucleated RBC % 0 Sodium Potassium Chloride Carbon Dioxide Anion Gap BUN Creatinine Est GFR (CKD-EPI)AfAm Est GFR (CKD-EPI)NonAf POC Glucometer 122 116 Random Glucose Calcium Magnesium Total Bilirubin AST ALT Alkaline Phosphatase Total Protein Albumin 10/31/19 06:00 WBC RBC Hgb Hct MCV MCH MCHC RDW Plt Count MPV Absolute Neuts (auto) Neutrophils % Lymphocytes % Monocytes % Eosinophils % Basophils % Nucleated RBC % Sodium 142 Potassium 4.0 Chloride 108 H Carbon Dioxide 27 Anion Gap 8 BUN 8.3 Creatinine 0.6 Est GFR (CKD-EPI)AfAm 97.01 Est GFR (CKD-EPI)NonAf 83.70 POC Glucometer Random Glucose 108 H Calcium 9.3 Magnesium 2.3 Total Bilirubin 0.4 AST 14 L ALT 10 L Alkaline Phosphatase 70 Total Protein 6.2 L Albumin 2.0 L Active Medications Generic Name Dose Route Start Last Admin Trade Name Freq PRN Reason Stop Dose Admin Acetaminophen 650 mg 10/24/19 09:02 10/27/19 11:13 Tylenol - PO 650 mg Q6H PRN Administration Fever Or Pain Ascorbic Acid 500 mg 10/24/19 10:00 10/31/19 09:47 Vitamin C - PO 500 mg DAILY EMY Administration Aspirin 81 mg 10/24/19 10:00 10/31/19 09:47 Asa - PO 81 mg DAILY [facility]Y Administration Cholecalciferol 1,000 unit 10/24/19 10:00 10/31/19 09:48 Vitamin D3 - PO 1,000 unit DAILY [facility] Administration Enoxaparin Sodium 30 mg 10/24/19 11:07 10/31/19 09:47 Lovenox - SQ 30 mg DAILY [facility] Administration Piperacillin Sod/Tazobactam 50 mls @ 100 mls/hr 10/23/19 18:00 10/31/19 09:47 Sod 3.375 gm/ Dextrose IVPB 100 mls/hr Q8H-IV [facility]Y Administration Protocol Vancomycin HCl 1,250 mg/ 250 mls @ 250 mls/2 hr 10/25/19 14:00 10/30/19 14:47 Dextrose IVPB 250 mls/2 hr Q24H EMY Administration Protocol Insulin Aspart 1 vial 10/23/19 16:30 10/31/19 12:06 Novolog Vial Sliding Scale - SQ Not Given ACHS [facility] Protocol Lidocaine 1 patch 10/28/19 12:45 10/31/19 09:48 Lidoderm Patch - TP 1 patch DAILY [facility] Administration Lisinopril 5 mg 10/25/19 10:00 10/31/19 09:47 Prinivil PO 5 mg DAILY [facility] Administration Miscellaneous 1 each 10/28/19 22:00 10/30/19 22:37 Lidoderm Patch Removal MC Not Given DAILY@2200 [facility] Multivitamins/Minerals 1 each 10/24/19 10:00 10/31/19 09:47 Theragran-M PO 1 each DAILY [facility] Administration Pregabalin 150 mg 10/25/19 22:00 10/30/19 22:34 Lyrica - PO 150 mg HS EMY Administration ASSESSMENT/PLAN: Problem List - Problems (1) Sepsis Assessment/Plan: leukocytosis resolved. bp stable. mentation back to baseline and tolerating room air. urine culture grew serratia, blood culture with klebsiella - repeat blood cultures negative, uc repeat negative. ID following on Vanco/zosyn. Code(s): A41.9 - SEPSIS, UNSPECIFIED ORGANISM Qualifiers: Sepsis type: sepsis due to unspecified organism Sepsis acute organ dysfunction status: with acute organ dysfunction Severe sepsis acute organ dysfunction type: acute respiratory failure Acute respiratory failure type: with hypoxia Severe sepsis shock status: without septic shock Qualified Code(s): A41.9 - Sepsis, unspecified organism; R65.20 - Severe sepsis without septic shock; J96.01 - Acute respiratory failure with hypoxia (2) Acute metabolic encephalopathy Assessment/Plan: mentation back to baseline. continue to monitor. Code(s): G93.41 - METABOLIC ENCEPHALOPATHY (3) Acute respiratory failure with hypoxia Assessment/Plan: chest xray free of pulmonary infiltrates or pleural effusion. tolerating room air. Code(s): J96.01 - ACUTE RESPIRATORY FAILURE WITH HYPOXIA (4) COVID-19 Assessment/Plan: negative serology Code(s): U07.1 - COVID POSITIVE (5) Diabetic neuropathy Assessment/Plan: supportive care Code(s): E11.40 - TYPE 2 DIABETES MELLITUS WITH DIABETIC NEUROPATHY, UNSP (6) HLD (hyperlipidemia) Assessment/Plan: continue home meds Code(s): E78.5 - HYPERLIPIDEMIA, UNSPECIFIED (7) HTN (hypertension) Assessment/Plan: stable BP Code(s): I10 - ESSENTIAL (PRIMARY) HYPERTENSION (8) Hypokalemia Assessment/Plan: resolved Code(s): E87.6 - HYPOKALEMIA (9) Non-healing ulcer Assessment/Plan: continue daily wound care. follow up with Dr. barron at wound care clinic on d/c. place allevyn dressing over wound (10) Pressure ulcer Assessment/Plan: left buttock pressure ulcer - appears to be a popped blister turn and position q 2 wound care/surgery to evaluate apply zinc ointment protect bony prominences Code(s): L89.90 - PRESSURE ULCER OF UNSPECIFIED SITE, UNSPECIFIED STAGE (11) Prophylactic measure Assessment/Plan: lovenox 30mg daily Code(s): Z29.9 - ENCOUNTER FOR PROPHYLACTIC MEASURES, UNSPECIFIED Visit type - Emergency Visit Emergency Visit: Yes ED Registration Date: 10/22/19 Care time: The patient presented to the Emergency Department on the above date and was hospitalized for further evaluation of their emergent condition. - New Patient This patient is new to me today: No - Critical Care Critical Care patient: No - Discharge Referral Referred to [facility] No
[2019-10-31] MEDS: VANCOMYCIN HCL 1,250 MG in DEXTROSE 5%-WATER - 250 ML IVPB SCH (14:22)
--- NOTE | 2019-10-31 15:54 | PN ---
Progress Note, Physician - Current Medication List Current Medications: Active Medications Acetaminophen (Tylenol -) 650 mg PO Q6H PRN PRN Reason: Fever Or Pain Last Admin: 10/27/19 11:13 Dose: 650 mg Documented by: Amino Acids (Prosource No Carb Liquid Pkt) 30 ml PO BID@0800,1730 [facility] Ascorbic Acid (Vitamin C -) 500 mg PO DAILY [facility] Last Admin: 10/31/19 09:47 Dose: 500 mg Documented by: Aspirin (Asa -) 81 mg PO DAILY [facility] Last Admin: 10/31/19 09:47 Dose: 81 mg Documented by: Cholecalciferol (Vitamin D3 -) 1,000 unit PO DAILY [facility] Last Admin: 10/31/19 09:48 Dose: 1,000 unit Documented by: Enoxaparin Sodium (Lovenox -) 30 mg SQ DAILY [facility] Last Admin: 10/31/19 09:47 Dose: 30 mg Documented by: Piperacillin Sod/Tazobactam (Sod 3.375 gm/ Dextrose) 50 mls @ 100 mls/hr IVPB Q8H-IV [facility]; Protocol Last Admin: 10/31/19 09:47 Dose: 100 mls/hr Documented by: Vancomycin HCl 1,250 mg/ (Dextrose) 250 mls @ 250 mls/2 hr IVPB Q24H [facility]; Protocol Last Admin: 10/31/19 14:22 Dose: 250 mls/2 hr Documented by: Insulin Aspart (Novolog Vial Sliding Scale -) 1 vial SQ ACHS [facility]; Protocol Last Admin: 10/31/19 12:06 Dose: Not Given Documented by: Lidocaine (Lidoderm Patch -) 1 patch TP DAILY [facility] Last Admin: 10/31/19 09:48 Dose: 1 patch Documented by: Lisinopril (Prinivil) 5 mg PO DAILY [facility] Last Admin: 10/31/19 09:47 Dose: 5 mg Documented by: Miscellaneous (Lidoderm Patch Removal) 1 each MC DAILY@2200 [facility] Last Admin: 10/30/19 22:37 Dose: Not Given Documented by: Multivitamins/Minerals (Theragran-M) 1 each PO DAILY [facility] Last Admin: 10/31/19 09:47 Dose: 1 each Documented by: Pregabalin (Lyrica -) 150 mg PO [facility] Last Admin: 10/30/19 22:34 Dose: 150 mg Documented by: Zinc Oxide/Panthenol/Vitamin E (Balmex Cream -) 1 applic TP BID [facility] - Objective Vital Signs: Vital Signs Temperature 97.5 F L 10/31/19 13:39 Pulse Rate 84 10/31/19 13:39 Respiratory Rate 18 10/31/19 13:39 Blood Pressure 130/70 10/31/19 13:39 O2 Sat by Pulse Oximetry (%) 96 10/31/19 09:00 Labs: CBC, BMP 10/31/19 06:00 10/31/19 06:00 INR, PTT INR 1.11 (0.83-1.09) H 10/22/19 12:52
[2019-10-31] MEDS: AMINO ACIDS/PROTEIN HYDROLYS 30 ML LIQUID.PKT PO SCH (17:07)
[2019-10-31] MEDS: ZINC OXIDE/PANTHENOL/VITAMIN E 56 GM TUBE TP SCH (22:17)
[2019-10-31] MEDS: PREGABALIN 75 MG CAPSULE PO SCH (22:18)
[2019-10-31] MEDS: LIDOCAINE PATCH REMOVAL MC SCH (22:34)
[2019-11-01] MEDS ORDERED: DEXTROSE 5%-WATER - 50 ML IVPB ONE ×3 (01:52→17:04)
[2019-11-01] MEDS ORDERED: PIPERACILLIN/TAZOBACTAM 3.375 GM VIAL IVPB ONE ×3 (01:52→17:03)
[2019-11-01] MEDS: PIPERACILLIN/TAZOB 3.375 GM 3.375 GM in DEXTROSE 5%-WATER - 50 ML IVPB SCH ×3 (02:44→17:10)
[2019-11-01] MEDS: INSULIN SLIDING SCALE (NOVOLOG) 1 VIAL SQ SCH ×4 (06:43→21:24)
[2019-11-01 08:11] LABS: BASO % 0.5 % (0-2.0); EOS % 1.1 % (0-4.5); HEMATOCRIT 28.7 % (32.4-45.2); HEMOGLOBIN 9.3 GM/dL (10.7-15.3); LYMPH % 14.8 % (8-40); MCH 26.9 pg (25.7-33.7); MCHC 32.5 g/dl (32.0-36.0); MEAN CELL VOLUME 82.8 fl (80-96); MEAN PLT VOLUME 8.5 fl (7.5-11.1); MONO % 5.3 % (3.8-10.2); NEUT % 78.3 % (42.8-82.8); PLATELET COUNT 415 K/MM3 (134-434); RBC 3.46 M/mm3 (3.60-5.2); RDW 16.9 % (11.6-15.6)
--- NOTE | 2019-11-01 08:23 | PN ---
Progress Note (short form) - Note Progress Note: PULMONARY EATING BREAKFAST DENIES SOB/CHEST PAIN VSS/AFEBRILE Constitutional: Yes: Well Nourished, NAD Eyes: Yes: WNL, Other Neck: Yes: WNL Cardiovascular: Yes: Regular Rate and Rhythm, S1, S2 Respiratory: Yes: Diminished at the bases Gastrointestinal: Yes: Normal Bowel Sounds, Soft Extremities: Yes: WNL Edema: No Labs: REVIEWED CXR NO INFILTRATE IMP HYPOXEMIA IMPROVED ALTERED MENTAL STATUS IMPROVED SEPSIS BACTEREMIA HTN HLD IDDM ANEMIA LLE LEG ULCER PLAN O2 NEEDED ABX PER ID WOUND CARE PLEASE CALL FRANCESCO COUCH MD
[2019-11-01] MEDS: AMINO ACIDS/PROTEIN HYDROLYS 30 ML LIQUID.PKT PO SCH ×2 (08:30→17:10)
[2019-11-01 08:32] LABS: ALBUMIN 2.2 g/dl (3.4-5.0); BILIRUBIN,TOTAL 0.8 mg/dL (0.2-1); BLOOD UREA NITROGEN 11.6 mg/dL (7-18); CALCIUM 9.2 mg/dL (8.5-10.1); CREATININE 0.6 mg/dL (0.55-1.3); MAGNESIUM 2.4 mg/dL (1.8-2.4); POTASSIUM 4.3 mmol/L (3.5-5.1); TOT PROT 6.5 g/dl (6.4-8.2)
[2019-11-01] MEDS ORDERED: PT OWN MED DRAWER 7, Y5N ONE (11:09)
[2019-11-01] MEDS: LIDOCAINE 5% TOPICAL PATCH TP SCH (11:11)
[2019-11-01] MEDS: ASPIRIN 81 MG CHEWABLE TABLETS PO SCH (11:11)
[2019-11-01] MEDS: ENOXAPARIN NA (PORCINE) 30 MG/0.3 ML DISP.SYRIN SQ SCH (11:12)
[2019-11-01] MEDS: MULTIVITAMINS THER W-MINERALS COMBO TABLET (FP) PO SCH (11:12)
[2019-11-01] MEDS: CHOLECALCIFEROL (VIT D3) 1,000 UNIT (25 MCG) TABLET PO SCH (11:12)
[2019-11-01] MEDS: ASCORBIC ACID 500 MG TABLET (FP) PO SCH (11:12)
[2019-11-01] MEDS: ZINC OXIDE/PANTHENOL/VITAMIN E 56 GM TUBE TP SCH ×2 (11:13→21:09)
[2019-11-01] MEDS: LISINOPRIL 5 MG TABLET (FP) PO SCH (11:15)
--- NOTE | 2019-11-01 13:03 | PN ---
Progress Note, Physician History of Present Illness: stable no new issues - Current Medication List Current Medications: Active Medications Acetaminophen (Tylenol -) 650 mg PO Q6H PRN PRN Reason: Fever Or Pain Last Admin: 10/27/19 11:13 Dose: 650 mg Documented by: Amino Acids (Prosource No Carb Liquid Pkt) 30 ml PO BID@0800,1730 [facility] Last Admin: 11/01/19 08:30 Dose: 30 ml Documented by: Ascorbic Acid (Vitamin C -) 500 mg PO DAILY [facility] Last Admin: 11/01/19 11:12 Dose: 500 mg Documented by: Aspirin (Asa -) 81 mg PO DAILY [facility] Last Admin: 11/01/19 11:11 Dose: 81 mg Documented by: Cholecalciferol (Vitamin D3 -) 1,000 unit PO DAILY [facility] Last Admin: 11/01/19 11:12 Dose: 1,000 unit Documented by: Enoxaparin Sodium (Lovenox -) 30 mg SQ DAILY [facility] Last Admin: 11/01/19 11:12 Dose: 30 mg Documented by: Piperacillin Sod/Tazobactam (Sod 3.375 gm/ Dextrose) 50 mls @ 100 mls/hr IVPB Q8H-IV [facility]; Protocol Last Admin: 11/01/19 11:11 Dose: 100 mls/hr Documented by: Vancomycin HCl 1,250 mg/ (Dextrose) 250 mls @ 250 mls/2 hr IVPB Q24H [facility]; Protocol Last Admin: 10/31/19 14:22 Dose: 250 mls/2 hr Documented by: Insulin Aspart (Novolog Vial Sliding Scale -) 1 vial SQ ACHS [facility]; Protocol Last Admin: 11/01/19 11:46 Dose: Not Given Documented by: Lidocaine (Lidoderm Patch -) 1 patch TP DAILY [facility] Last Admin: 11/01/19 11:11 Dose: 1 patch Documented by: Lisinopril (Prinivil) 5 mg PO DAILY [facility] Last Admin: 11/01/19 11:15 Dose: 5 mg Documented by: Miscellaneous (Lidoderm Patch Removal) 1 each MC DAILY@2200 [facility] Last Admin: 10/31/19 22:34 Dose: 1 each Documented by: Multivitamins/Minerals (Theragran-M) 1 each PO DAILY [facility] Last Admin: 11/01/19 11:12 Dose: 1 each Documented by: Pregabalin (Lyrica -) 150 mg PO HS [facility] Last Admin: 10/31/19 22:18 Dose: 150 mg Documented by: Zinc Oxide/Panthenol/Vitamin E (Balmex Cream -) 1 applic TP BID [facility] Last Admin: 11/01/19 11:13 Dose: 1 applic Documented by: - Objective Vital Signs: Vital Signs Temperature 98.3 F 11/01/19 08:32 Pulse Rate 74 11/01/19 08:32 Respiratory Rate 18 11/01/19 08:32 Blood Pressure 131/74 11/01/19 08:32 O2 Sat by Pulse Oximetry (%) 96 10/31/19 21:00 Constitutional: Yes: No Distress, Calm Cardiovascular: Yes: S1, S2 Respiratory: Yes: Regular, CTA Bilaterally Gastrointestinal: Yes: Normal Bowel Sounds, Soft Musculoskeletal: Yes: WNL Extremities: Yes: Other Wound/Incision: Yes: Dressing Dry and Intact Neurological: Yes: Alert, Oriented Psychiatric: Yes: Alert, Oriented Labs: CBC, BMP 11/01/19 07:25 11/01/19 07:25 INR, PTT INR 1.11 (0.83-1.09) H 10/22/19 12:52 Assessment/Plan Problem List - Problems (1) COVID-19 Code(s): U07.1 - COVID POSITIVE (2) Acute metabolic encephalopathy Code(s): G93.41 - METABOLIC ENCEPHALOPATHY (3) Acute respiratory failure with hypoxia Code(s): J96.01 - ACUTE RESPIRATORY FAILURE WITH HYPOXIA (4) HLD (hyperlipidemia) Code(s): E78.5 - HYPERLIPIDEMIA, UNSPECIFIED (5) HTN (hypertension) Code(s): I10 - ESSENTIAL (PRIMARY) HYPERTENSION (6) Diabetes Code(s): E11.9 - TYPE 2 DIABETES MELLITUS WITHOUT COMPLICATIONS 7 uti 8 wound infection plan will stop vanco might stop zosn tomorrow
--- NOTE | 2019-11-01 14:41 | PN ---
Physical Exam: SUBJECTIVE: Patient seen and examined at the bedside. denies any discomfort or pain. OBJECTIVE: left buttock pressure sore 4cm x 3 cm. Patient is a 83 year old female with a PMHx of HTN, HLD, IDDM, peripheral neuropathy, non-healing ulcer to posterior left knee. She was admitted on 10/22/2019 for sepsis, UTI, acute respiratory failure with hypoxia and AMS. She is covid negative. Vital Signs Period Temp Pulse Resp BP Sys/Jaimes Pulse Ox Last 24 Hr 97.8 F-98.7 F 74-90 18-20 122-171/62-86 96 GENERAL: The patient is awake, alert, and fully oriented, in no acute distress. HEAD: Normal with no signs of trauma. EYES: PERRL, extraocular movements intact, sclera anicteric, conjunctiva clear. No ptosis. ENT: Ears normal, nares patent, oropharynx clear without exudates NECK: Trachea midline, full range of motion, supple. LUNGS: Breath sounds equal, clear to auscultation anteriorly HEART: Regular rate and rhythm ABDOMEN: Soft, nontender, nondistended, normoactive bowel sounds EXTREMITIES: trace edema bilaterallyl. posterior left knee ulcer/dressing intact. NEUROLOGICAL: Normal speech, gait not observed. PSYCH: Normal mood, normal affect. SKIN: left buttocks popped blister, measures 4cm x 3cm. patient to be turned and position q 2 hours. will add pro source. Laboratory Results - last 24 hr 10/31/19 11/01/19 11/01/19 22:21 07:25 07:25 WBC 10.0 RBC 3.46 L Hgb 9.3 L Hct 28.7 L MCV 82.8 MCH 26.9 MCHC 32.5 RDW 16.9 H Plt Count 415 MPV 8.5 Absolute Neuts (auto) 7.8 Neutrophils % 78.3 Lymphocytes % 14.8 Monocytes % 5.3 Eosinophils % 1.1 Basophils % 0.5 Nucleated RBC % 0 Sodium 139 Potassium 4.3 Chloride 105 Carbon Dioxide 30 Anion Gap 5 L BUN 11.6 Creatinine 0.6 Est GFR (CKD-EPI)AfAm 97.01 Est GFR (CKD-EPI)NonAf 83.70 POC Glucometer 124 Random Glucose 112 H Calcium 9.2 Magnesium 2.4 Total Bilirubin 0.8 AST 16 ALT 11 L Alkaline Phosphatase 69 Total Protein 6.5 Albumin 2.2 L Active Medications Generic Name Dose Route Start Last Admin Trade Name Love PRN Reason Stop Dose Admin Acetaminophen 650 mg 10/24/19 09:02 10/27/19 11:13 Tylenol - PO 650 mg Q6H PRN Administration Fever Or Pain Amino Acids 30 ml 10/31/19 17:30 11/01/19 08:30 Prosource No Carb Liquid Pkt PO 30 ml BID@0800,1730 EMY Administration Ascorbic Acid 500 mg 10/24/19 10:00 11/01/19 11:12 Vitamin C - PO 500 mg DAILY EMY Administration Aspirin 81 mg 10/24/19 10:00 11/01/19 11:11 Asa - PO 81 mg DAILY EMY Administration Cholecalciferol 1,000 unit 10/24/19 10:00 11/01/19 11:12 Vitamin D3 - PO 1,000 unit DAILY EMY Administration Enoxaparin Sodium 30 mg 10/24/19 11:07 11/01/19 11:12 Lovenox - SQ 30 mg DAILY EMY Administration Piperacillin Sod/Tazobactam 50 mls @ 100 mls/hr 10/23/19 18:00 11/01/19 11:11 Sod 3.375 gm/ Dextrose IVPB 100 mls/hr Q8H-IV EMY Administration Protocol Insulin Aspart 1 vial 10/23/19 16:30 11/01/19 11:46 Novolog Vial Sliding Scale - SQ Not Given ACHS [facility] Protocol Lidocaine 1 patch 10/28/19 12:45 11/01/19 11:11 Lidoderm Patch - TP 1 patch DAILY EMY Administration Lisinopril 5 mg 10/25/19 10:00 11/01/19 11:15 Prinivil PO 5 mg DAILY EMY Administration Miscellaneous 1 each 10/28/19 22:00 10/31/19 22:34 Lidoderm Patch Removal MC 1 each DAILY@2200 EMY Administration Multivitamins/Minerals 1 each 10/24/19 10:00 11/01/19 11:12 Theragran-M PO 1 each DAILY EMY Administration Pregabalin 150 mg 10/25/19 22:00 10/31/19 22:18 Lyrica - PO 150 mg HS EMY Administration Zinc Oxide/Panthenol/Vitamin E 1 applic 10/31/19 15:34 11/01/19 11:13 Balmex Cream - TP 1 applic BID EMY Administration ASSESSMENT/PLAN: Problem List - Problems (1) Sepsis Assessment/Plan: leukocytosis resolved. bp stable. mentation back to baseline and tolerating room air. urine culture grew serratia, blood culture with klebsiella - repeat blood cultures negative, uc repeat negative. ID following. vanco discontinued today, zosyn to be discontinued tomorrow. Code(s): A41.9 - SEPSIS, UNSPECIFIED ORGANISM Qualifiers: Sepsis type: sepsis due to unspecified organism Sepsis acute organ dysfunction status: with acute organ dysfunction Severe sepsis acute organ dysfunction type: acute respiratory failure Acute respiratory failure type: with hypoxia Severe sepsis shock status: without septic shock Qualified Code(s): A41.9 - Sepsis, unspecified organism; R65.20 - Severe sepsis without septic shock; J96.01 - Acute respiratory failure with hypoxia (2) Acute metabolic encephalopathy Assessment/Plan: mentation back to baseline. continue to monitor. Code(s): G93.41 - METABOLIC ENCEPHALOPATHY (3) Acute respiratory failure with hypoxia Assessment/Plan: chest xray free of pulmonary infiltrates or pleural effusion. tolerating room air. Code(s): J96.01 - ACUTE RESPIRATORY FAILURE WITH HYPOXIA (4) COVID-19 Assessment/Plan: negative serology Code(s): U07.1 - COVID POSITIVE (5) Diabetic neuropathy Assessment/Plan: supportive care Code(s): E11.40 - TYPE 2 DIABETES MELLITUS WITH DIABETIC NEUROPATHY, UNSP (6) HLD (hyperlipidemia) Assessment/Plan: continue home meds Code(s): E78.5 - HYPERLIPIDEMIA, UNSPECIFIED (7) HTN (hypertension) Assessment/Plan: stable BP Code(s): I10 - ESSENTIAL (PRIMARY) HYPERTENSION (8) Hypokalemia Assessment/Plan: resolved Code(s): E87.6 - HYPOKALEMIA (9) Non-healing ulcer Assessment/Plan: continue daily wound care. follow up with Dr. barron at wound care clinic on d/c. place allevyn dressing over wound (10) Pressure ulcer Assessment/Plan: left buttock pressure ulcer - appears to be a popped blister turn and position q 2 wound care/surgery to evaluate apply zinc ointment protect bony prominences Code(s): L89.90 - PRESSURE ULCER OF UNSPECIFIED SITE, UNSPECIFIED STAGE (11) Prophylactic measure Assessment/Plan: lovenox 30mg daily Code(s): Z29.9 - ENCOUNTER FOR PROPHYLACTIC MEASURES, UNSPECIFIED Visit type - Emergency Visit Emergency Visit: Yes ED Registration Date: 10/22/19 Care time: The patient presented to the Emergency Department on the above date and was hospitalized for further evaluation of their emergent condition. - New Patient This patient is new to me today: No - Critical Care Critical Care patient: No - Discharge Referral Referred to [facility] Med P.C.: No
[2019-11-01] MEDS: LIDOCAINE PATCH REMOVAL MC SCH (21:09)
[2019-11-02] MEDS ORDERED: PIPERACILLIN/TAZOBACTAM 3.375 GM VIAL IVPB ONE ×2 (01:03→10:36)
[2019-11-02] MEDS ORDERED: DEXTROSE 5%-WATER - 50 ML IVPB ONE ×2 (01:04→10:36)
[2019-11-02] MEDS: PIPERACILLIN/TAZOB 3.375 GM 3.375 GM in DEXTROSE 5%-WATER - 50 ML IVPB SCH ×2 (01:10→10:42)
[2019-11-02] MEDS: INSULIN SLIDING SCALE (NOVOLOG) 1 VIAL SQ SCH ×4 (06:29→21:34)
[2019-11-02] MEDS: AMINO ACIDS/PROTEIN HYDROLYS 30 ML LIQUID.PKT PO SCH ×2 (08:15→17:44)
[2019-11-02] MEDS: MULTIVITAMINS THER W-MINERALS COMBO TABLET (FP) PO SCH (10:42)
[2019-11-02] MEDS: CHOLECALCIFEROL (VIT D3) 1,000 UNIT (25 MCG) TABLET PO SCH (10:42)
[2019-11-02] MEDS: ASPIRIN 81 MG CHEWABLE TABLETS PO SCH (10:42)
[2019-11-02] MEDS: ASCORBIC ACID 500 MG TABLET (FP) PO SCH (10:42)
[2019-11-02] MEDS: ENOXAPARIN NA (PORCINE) 30 MG/0.3 ML DISP.SYRIN SQ SCH (10:42)
[2019-11-02] MEDS: LIDOCAINE 5% TOPICAL PATCH TP SCH (10:42)
[2019-11-02] MEDS: LISINOPRIL 5 MG TABLET (FP) PO SCH (10:42)
[2019-11-02] MEDS: ZINC OXIDE/PANTHENOL/VITAMIN E 56 GM TUBE TP SCH ×2 (10:43→21:33)
[2019-11-02 11:38] LABS: BASO % 0.7 % (0-2.0); HEMATOCRIT 27.1 % (32.4-45.2); HEMOGLOBIN 8.7 GM/dL (10.7-15.3); LYMPH % 16.6 % (8-40); MCHC 32.3 g/dl (32.0-36.0); MEAN CELL VOLUME 83.5 fl (80-96); MEAN PLT VOLUME 8.6 fl (7.5-11.1); NEUT % 75.7 % (42.8-82.8); PLATELET COUNT 430 K/MM3 (134-434); RBC 3.24 M/mm3 (3.60-5.2); RDW 16.6 % (11.6-15.6); WHITE BLOOD COUNT 8.8 K/mm3 (4.0-10.0)
[2019-11-02 12:05] LABS: ALBUMIN 2.1 g/dl (3.4-5.0); BILIRUBIN,TOTAL 0.6 mg/dL (0.2-1); BLOOD UREA NITROGEN 14.2 mg/dL (7-18); CALCIUM 9.3 mg/dL (8.5-10.1); CREATININE 0.6 mg/dL (0.55-1.3); MAGNESIUM 2.5 mg/dL (1.8-2.4); POTASSIUM 4.2 mmol/L (3.5-5.1); TOT PROT 6.4 g/dl (6.4-8.2)
--- NOTE | 2019-11-02 12:08 | PN ---
Progress Note, Physician History of Present Illness: stable no new issues - Current Medication List Current Medications: Active Medications Acetaminophen (Tylenol -) 650 mg PO Q6H PRN PRN Reason: Fever Or Pain Last Admin: 10/27/19 11:13 Dose: 650 mg Documented by: Amino Acids (Prosource No Carb Liquid Pkt) 30 ml PO BID@0800,1730 [facility] Last Admin: 11/02/19 08:15 Dose: 30 ml Documented by: Ascorbic Acid (Vitamin C -) 500 mg PO DAILY [facility] Last Admin: 11/02/19 10:42 Dose: 500 mg Documented by: Aspirin (Asa -) 81 mg PO DAILY [facility] Last Admin: 11/02/19 10:42 Dose: 81 mg Documented by: Cholecalciferol (Vitamin D3 -) 1,000 unit PO DAILY [facility] Last Admin: 11/02/19 10:42 Dose: 1,000 unit Documented by: Enoxaparin Sodium (Lovenox -) 30 mg SQ DAILY [facility] Last Admin: 11/02/19 10:42 Dose: 30 mg Documented by: Piperacillin Sod/Tazobactam (Sod 3.375 gm/ Dextrose) 50 mls @ 100 mls/hr IVPB Q8H-IV [facility]; Protocol Last Admin: 11/02/19 10:42 Dose: 100 mls/hr Documented by: Insulin Aspart (Novolog Vial Sliding Scale -) 1 vial SQ ACHS [facility]; Protocol Last Admin: 11/02/19 11:54 Dose: Not Given Documented by: Lidocaine (Lidoderm Patch -) 1 patch TP DAILY [facility] Last Admin: 11/02/19 10:42 Dose: 1 patch Documented by: Lisinopril (Prinivil) 5 mg PO DAILY [facility] Last Admin: 11/02/19 10:42 Dose: 5 mg Documented by: Miscellaneous (Lidoderm Patch Removal) 1 each MC DAILY@2200 [facility] Last Admin: 11/01/19 21:09 Dose: 1 each Documented by: Multivitamins/Minerals (Theragran-M) 1 each PO DAILY [facility] Last Admin: 11/02/19 10:42 Dose: 1 each Documented by: Zinc Oxide/Panthenol/Vitamin E (Balmex Cream -) 1 applic TP BID [facility] Last Admin: 11/02/19 10:43 Dose: 1 applic Documented by: - Objective Vital Signs: Vital Signs Temperature 98.9 F 11/02/19 06:00 Pulse Rate 73 11/02/19 06:00 Respiratory Rate 20 11/02/19 06:00 Blood Pressure 115/64 11/02/19 06:00 O2 Sat by Pulse Oximetry (%) 97 11/02/19 09:00 Constitutional: Yes: No Distress, Calm Cardiovascular: Yes: S1, S2 Respiratory: Yes: Regular, CTA Bilaterally Gastrointestinal: Yes: Normal Bowel Sounds, Soft Musculoskeletal: Yes: WNL Extremities: Yes: Other Wound/Incision: Yes: Other (sacral decubitus) Neurological: Yes: Alert, Oriented Labs: CBC, BMP 11/02/19 10:45 11/02/19 10:45 INR, PTT INR 1.11 (0.83-1.09) H 10/22/19 12:52 Assessment/Plan Problem List - Problems (1) COVID-19 Code(s): U07.1 - COVID POSITIVE (2) Acute metabolic encephalopathy Code(s): G93.41 - METABOLIC ENCEPHALOPATHY (3) Acute respiratory failure with hypoxia Code(s): J96.01 - ACUTE RESPIRATORY FAILURE WITH HYPOXIA (4) HLD (hyperlipidemia) Code(s): E78.5 - HYPERLIPIDEMIA, UNSPECIFIED (5) HTN (hypertension) Code(s): I10 - ESSENTIAL (PRIMARY) HYPERTENSION (6) Diabetes Code(s): E11.9 - TYPE 2 DIABETES MELLITUS WITHOUT COMPLICATIONS 7 uti 8 wound infection plan stop abx wound care avoid pressure on the buttocks rest aas per the team
--- NOTE | 2019-11-02 14:46 | PN ---
Physical Exam: SUBJECTIVE: Patient seen and examined. feels better, no pain, no malaise. OBJECTIVE: left buttock pressure sore 4cm x 3 cm. will need follow up appt at the wound care Patient is a 83 year old female with a PMHx of HTN, HLD, IDDM, peripheral neuropathy, non-healing ulcer to posterior left knee. She was admitted on 10/22/2019 for sepsis, UTI, acute respiratory failure with hypoxia and AMS. She is covid negative. Vital Signs Period Temp Pulse Resp BP Sys/Jaimes Pulse Ox Last 24 Hr 97.7 F-98.9 F 71-87 18-20 107-133/63-64 97-98 GENERAL: The patient is awake, alert, and fully oriented, in no acute distress. HEAD: Normal with no signs of trauma. EYES: PERRL, extraocular movements intact, sclera anicteric, conjunctiva clear. No ptosis. ENT: Ears normal, nares patent, oropharynx clear without exudates NECK: Trachea midline, full range of motion, supple. LUNGS: Breath sounds equal, clear to auscultation anteriorly HEART: Regular rate and rhythm ABDOMEN: Soft, nontender, nondistended, normoactive bowel sounds EXTREMITIES: trace edema bilaterallyl. posterior left knee ulcer/dressing intact. NEUROLOGICAL: Normal speech, gait not observed. PSYCH: Normal mood, normal affect. SKIN: left buttocks popped blister, measures 4cm x 3cm. patient to be turned and position q 2 hours. will add pro source. Laboratory Results - last 24 hr 11/01/19 11/02/19 11/02/19 17:12 10:45 10:45 WBC 8.8 RBC 3.24 L Hgb 8.7 L Hct 27.1 L MCV 83.5 MCH 27.0 MCHC 32.3 RDW 16.6 H Plt Count 430 MPV 8.6 Absolute Neuts (auto) 6.6 Neutrophils % 75.7 Lymphocytes % 16.6 Monocytes % 6.0 Eosinophils % 1.0 Basophils % 0.7 Nucleated RBC % 0 Sodium 141 Potassium 4.2 Chloride 108 H Carbon Dioxide 26 Anion Gap 7 L BUN 14.2 Creatinine 0.6 Est GFR (CKD-EPI)AfAm 97.01 Est GFR (CKD-EPI)NonAf 83.70 POC Glucometer 158 Random Glucose 106 Calcium 9.3 Magnesium 2.5 H Total Bilirubin 0.6 AST 11 L ALT 11 L Alkaline Phosphatase 66 Total Protein 6.4 Albumin 2.1 L Active Medications Generic Name Dose Route Start Last Admin Trade Name Love PRN Reason Stop Dose Admin Acetaminophen 650 mg 10/24/19 09:02 10/27/19 11:13 Tylenol - PO 650 mg Q6H PRN Administration Fever Or Pain Amino Acids 30 ml 10/31/19 17:30 11/02/19 08:15 Prosource No Carb Liquid Pkt PO 30 ml BID@0800,1730 EMY Administration Ascorbic Acid 500 mg 10/24/19 10:00 11/02/19 10:42 Vitamin C - PO 500 mg DAILY EMY Administration Aspirin 81 mg 10/24/19 10:00 11/02/19 10:42 Asa - PO 81 mg DAILY EMY Administration Cholecalciferol 1,000 unit 10/24/19 10:00 11/02/19 10:42 Vitamin D3 - PO 1,000 unit DAILY EMY Administration Enoxaparin Sodium 30 mg 10/24/19 11:07 11/02/19 10:42 Lovenox - SQ 30 mg DAILY EMY Administration Piperacillin Sod/Tazobactam 50 mls @ 100 mls/hr 10/23/19 18:00 11/02/19 10:42 Sod 3.375 gm/ Dextrose IVPB 100 mls/hr Q8H-IV EMY Administration Protocol Insulin Aspart 1 vial 10/23/19 16:30 11/02/19 11:54 Novolog Vial Sliding Scale - SQ Not Given ACHS [facility] Protocol Lidocaine 1 patch 10/28/19 12:45 11/02/19 10:42 Lidoderm Patch - TP 1 patch DAILY EMY Administration Lisinopril 5 mg 10/25/19 10:00 11/02/19 10:42 Prinivil PO 5 mg DAILY EMY Administration Miscellaneous 1 each 10/28/19 22:00 11/01/19 21:09 Lidoderm Patch Removal MC 1 each DAILY@2200 EMY Administration Multivitamins/Minerals 1 each 10/24/19 10:00 11/02/19 10:42 Theragran-M PO 1 each DAILY EMY Administration Zinc Oxide/Panthenol/Vitamin E 1 applic 10/31/19 15:34 11/02/19 10:43 Balmex Cream - TP 1 applic BID EMY Administration ASSESSMENT/PLAN: Problem List - Problems (1) Sepsis Assessment/Plan: leukocytosis resolved. bp stable. mentation back to baseline and tolerating room air. urine culture grew serratia, blood culture with klebsiella - repeat blood cultures negative, uc repeat negative. ID following. vanco discontinued today, zosyn to be discontinued today per ID Code(s): A41.9 - SEPSIS, UNSPECIFIED ORGANISM Qualifiers: Sepsis type: sepsis due to unspecified organism Sepsis acute organ dysfunction status: with acute organ dysfunction Severe sepsis acute organ dysfunction type: acute respiratory failure Acute respiratory failure type: with hypoxia Severe sepsis shock status: without septic shock Qualified Code(s): A41.9 - Sepsis, unspecified organism; R65.20 - Severe sepsis without septic shock; J96.01 - Acute respiratory failure with hypoxia (2) Acute metabolic encephalopathy Assessment/Plan: mentation back to baseline. continue to monitor. Code(s): G93.41 - METABOLIC ENCEPHALOPATHY (3) Acute respiratory failure with hypoxia Assessment/Plan: chest xray free of pulmonary infiltrates or pleural effusion. tolerating room air. Code(s): J96.01 - ACUTE RESPIRATORY FAILURE WITH HYPOXIA (4) COVID-19 Assessment/Plan: negative serology Code(s): U07.1 - COVID POSITIVE (5) Diabetic neuropathy Assessment/Plan: supportive care Code(s): E11.40 - TYPE 2 DIABETES MELLITUS WITH DIABETIC NEUROPATHY, UNSP (6) HLD (hyperlipidemia) Assessment/Plan: continue home meds Code(s): E78.5 - HYPERLIPIDEMIA, UNSPECIFIED (7) HTN (hypertension) Assessment/Plan: stable BP Code(s): I10 - ESSENTIAL (PRIMARY) HYPERTENSION (8) Hypokalemia Assessment/Plan: resolved Code(s): E87.6 - HYPOKALEMIA (9) Non-healing ulcer Assessment/Plan: continue daily wound care. follow up with Dr. barron at wound care clinic on d/c. place allevyn dressing over wound (10) Pressure ulcer Assessment/Plan: left buttock pressure ulcer - appears to be a popped blister turn and position q 2 wound care/surgery to evaluate apply zinc ointment protect bony prominences Code(s): L89.90 - PRESSURE ULCER OF UNSPECIFIED SITE, UNSPECIFIED STAGE (11) Prophylactic measure Assessment/Plan: lovenox 30mg daily Code(s): Z29.9 - ENCOUNTER FOR PROPHYLACTIC MEASURES, UNSPECIFIED Visit type - Emergency Visit Emergency Visit: Yes ED Registration Date: 10/22/19 Care time: The patient presented to the Emergency Department on the above date and was hospitalized for further evaluation of their emergent condition. - New Patient This patient is new to me today: No - Critical Care Critical Care patient: No - Discharge Referral Referred to [facility] Med P.C.: No
[2019-11-02] MEDS: LIDOCAINE PATCH REMOVAL MC SCH (21:33)
[2019-11-03] MEDS: INSULIN SLIDING SCALE (NOVOLOG) 1 VIAL SQ SCH ×4 (06:50→21:27)
[2019-11-03] MEDS: AMINO ACIDS/PROTEIN HYDROLYS 30 ML LIQUID.PKT PO SCH ×2 (08:39→17:49)
[2019-11-03] MEDS ORDERED: PT OWN MED DRAWER 7, Y5N ONE (10:33)
[2019-11-03] MEDS: LIDOCAINE 5% TOPICAL PATCH TP SCH (10:42)
[2019-11-03] MEDS: ZINC OXIDE/PANTHENOL/VITAMIN E 56 GM TUBE TP SCH ×2 (10:42→21:26)
[2019-11-03] MEDS: ASPIRIN 81 MG CHEWABLE TABLETS PO SCH (10:42)
[2019-11-03] MEDS: ENOXAPARIN NA (PORCINE) 30 MG/0.3 ML DISP.SYRIN SQ SCH (10:42)
[2019-11-03] MEDS: ASCORBIC ACID 500 MG TABLET (FP) PO SCH (10:43)
[2019-11-03] MEDS: MULTIVITAMINS THER W-MINERALS COMBO TABLET (FP) PO SCH (10:43)
[2019-11-03] MEDS: CHOLECALCIFEROL (VIT D3) 1,000 UNIT (25 MCG) TABLET PO SCH (10:43)
[2019-11-03] MEDS: LISINOPRIL 5 MG TABLET (FP) PO SCH (10:43)
[2019-11-03 10:51] LABS: BASO % 0.8 % (0-2.0); EOS % 1.4 % (0-4.5); HEMATOCRIT 29.6 % (32.4-45.2); HEMOGLOBIN 9.5 GM/dL (10.7-15.3); MCH 26.7 pg (25.7-33.7); MEAN CELL VOLUME 83.4 fl (80-96); MEAN PLT VOLUME 8.5 fl (7.5-11.1); MONO % 7.4 % (3.8-10.2); NEUT % 70.4 % (42.8-82.8); PLATELET COUNT 475 K/MM3 (134-434); RBC 3.55 M/mm3 (3.60-5.2); RDW 17.1 % (11.6-15.6); WHITE BLOOD COUNT 6.3 K/mm3 (4.0-10.0)
[2019-11-03 11:13] LABS: ALBUMIN 2.4 g/dl (3.4-5.0); BLOOD UREA NITROGEN 14.3 mg/dL (7-18); CALCIUM 9.7 mg/dL (8.5-10.1); CREATININE 0.5 mg/dL (0.55-1.3); MAGNESIUM 2.5 mg/dL (1.8-2.4)
[2019-11-03 11:16] LABS: BILIRUBIN,TOTAL 0.3 mg/dL (0.2-1)
--- NOTE | 2019-11-03 13:17 | DS ---
Physical Exam: SUBJECTIVE: Patient seen and examined. OBJECTIVE: left buttock pressure sore 4cm x 3 cm. will need follow up appt at the wound care . ------ Patient is a 83 year old female with a PMHx of HTN, HLD, IDDM, peripheral neuropathy, non-healing ulcer to posterior left knee. She was admitted on 10/22/2019 for sepsis, UTI, acute respiratory failure with hypoxia and AMS. Patient has completed IV antibiotics and sepsis is now resolved. Her mentation is back to her baseline. She is covid negative. Vital Signs Period Temp Pulse Resp BP Sys/Jaimes Pulse Ox Last 24 Hr 98.1 F-99.0 F 80-90 18-20 117-145/64-80 97-100 PHYSICAL EXAM GENERAL: The patient is awake, alert, and fully oriented, in no acute distress. HEAD: Normal with no signs of trauma. EYES: PERRL, extraocular movements intact, sclera anicteric, conjunctiva clear. No ptosis. ENT: Ears normal, nares patent, oropharynx clear without exudates NECK: Trachea midline, full range of motion, supple. LUNGS: Breath sounds equal, clear to auscultation anteriorly HEART: Regular rate and rhythm ABDOMEN: Soft, nontender, nondistended, normoactive bowel sounds EXTREMITIES: trace edema bilaterallyl. posterior left knee ulcer/dressing intact. NEUROLOGICAL: Normal speech, gait not observed. PSYCH: Normal mood, normal affect. SKIN: left buttocks popped blister, measures 4cm x 3cm. patient to be turned and position q 2 hours. will add pro source. LABS Laboratory Results - last 24 hr 11/03/19 11/03/19 11/03/19 10:39 10:39 11:45 WBC 6.3 RBC 3.55 L Hgb 9.5 L Hct 29.6 L MCV 83.4 MCH 26.7 MCHC 32.0 RDW 17.1 H Plt Count 475 H MPV 8.5 Absolute Neuts (auto) 4.4 Neutrophils % 70.4 Lymphocytes % 20.0 D Monocytes % 7.4 Eosinophils % 1.4 Basophils % 0.8 Nucleated RBC % 0 Sodium 141 Potassium 4.0 Chloride 107 Carbon Dioxide 28 Anion Gap 6 L BUN 14.3 Creatinine 0.5 L Est GFR (CKD-EPI)AfAm 103.01 Est GFR (CKD-EPI)NonAf 88.88 POC Glucometer 121 Random Glucose 117 H Calcium 9.7 Magnesium 2.5 H Total Bilirubin 0.3 AST 15 ALT 10 L Alkaline Phosphatase 69 Total Protein 7.0 Albumin 2.4 L HOSPITAL COURSE: Date of Admission:10/22/19 Date of Discharge: 11/03/19 Minutes to complete discharge: 60 Discharge Summary Problems reviewed: Yes Reason For Visit: UTI ACUTE RESP FAILURE SEPSIS Current Active Problems Acute metabolic encephalopathy (Acute) Acute respiratory failure (Acute) Acute respiratory failure with hypoxia (Acute) COVID-19 (Acute) Diabetic neuropathy (Acute) HLD (hyperlipidemia) (Acute) HTN (hypertension) (Acute) Hypokalemia (Acute) Left foot drop (Acute) Non-healing ulcer (Acute) Pressure ulcer (Acute) Prophylactic measure (Acute) Sepsis (Acute) UTI (urinary tract infection) (Acute) Condition: Improved - Instructions Diet, Activity, Other Instructions: Mrs Lopez: You were admitted to [facility] on 10/22/2019 for an infection (sepsis). You were treated with IV antibiotics and you have completed the full antibiotic course. Here are your discharge recommendations: Please follow up at the wound care for your left leg Ulcer and sacral wound. We will be sending you home with a medication for your buttocks wound called Santyl. NEXT STEPS Please follow up with your primary care doctor within 1-2 weeks after discharge Please follow up at the wound care center for sacral pressure ulcer. It is important that you continue to turn and position every 2 hours to avoid the sacral wound becoming worse. Referrals: Grabiel Coyne [Primary Care Provider] - Disposition: HOME - Home Medications Comprehensive Discharge Medication List: Ambulatory Orders Lisinopril [Prinivil] 5 mg PO DAILY #30 tablet 09/09/13 Simvastatin 40 mg PO HS 05/10/18 Gabapentin 300 mg PO HS 05/11/18 Hydrocodone/Acetaminophen [Hydrocodone-Acetamin 5-325 mg] 1 tab Q6H PRN 05/11/18 Meloxicam 7.5 mg PO DAILY 05/11/18 metFORMIN HCL [Metformin ER Osmotic] 500 mg PO BID 05/11/18 Aspirin [ASA -] 81 mg PO DAILY tab.chew 05/22/18 Vitamin C 500 mg PO DAILY 06/12/18 Collagenase Clostridium Hist. [Santyl -] 1 applic TP DAILY #1 tube 11/03/19 Problem List - Problems (1) Sepsis Assessment/Plan: leukocytosis resolved. bp stable. mentation back to baseline and tolerating room air. urine culture grew serratia, blood culture with klebsiella - repeat blood cultures negative, uc repeat negative. ID following. vanco/zosyn discontinued, completed antibiotics. Code(s): A41.9 - SEPSIS, UNSPECIFIED ORGANISM Qualifiers: Sepsis type: sepsis due to unspecified organism Sepsis acute organ dysfunction status: with acute organ dysfunction Severe sepsis acute organ dysfunction type: acute respiratory failure Acute respiratory failure type: with hypoxia Severe sepsis shock status: without septic shock Qualified C ode(s): A41.9 - Sepsis, unspecified organism; R65.20 - Severe sepsis without septic shock; J96.01 - Acute respiratory failure with hypoxia (2) Acute metabolic encephalopathy Assessment/Plan: mentation back to baseline. continue to monitor. Code(s): G93.41 - METABOLIC ENCEPHALOPATHY (3) Acute respiratory failure with hypoxia Assessment/Plan: chest xray free of pulmonary infiltrates or pleural effusion. tolerating room air. Code(s): J96.01 - ACUTE RESPIRATORY FAILURE WITH HYPOXIA (4) COVID-19 Assessment/Plan: negative serology Code(s): U07.1 - COVID POSITIVE (5) Diabetic neuropathy Assessment/Plan: supportive care Code(s): E11.40 - TYPE 2 DIABETES MELLITUS WITH DIABETIC NEUROPATHY, UNSP (6) HLD (hyperlipidemia) Assessment/Plan: continue home meds Code(s): E78.5 - HYPERLIPIDEMIA, UNSPECIFIED (7) HTN (hypertension) Assessment/Plan: stable BP Code(s): I10 - ESSENTIAL (PRIMARY) HYPERTENSION (8) Hypokalemia Assessment/Plan: resolved Code(s): E87.6 - HYPOKALEMIA (9) Non-healing ulcer Assessment/Plan: continue daily wound care. follow up with Dr. barron at wound care clinic on d/c. place allevyn dressing over wound (10) Pressure ulcer Assessment/Plan: left buttock pressure ulcer - appears to be a popped blister turn and position q 2 wound care/surgery to evaluate apply zinc ointment protect bony prominences Code(s): L89.90 - PRESSURE ULCER OF UNSPECIFIED SITE, UNSPECIFIED STAGE (11) Prophylactic measure Code(s): Z29.9 - ENCOUNTER FOR PROPHYLACTIC MEASURES, UNSPECIFIED This patient is new to me today: Yes Date on this admission: 11/03/19 Emergency Visit: No Critical Care patient: No - Discharge Referral Referred to [facility] Med P.C.: No
--- NOTE | 2019-11-03 13:41 | PN ---
Progress Note, Physician History of Present Illness: stable no new issues - Current Medication List Current Medications: Active Medications Acetaminophen (Tylenol -) 650 mg PO Q6H PRN PRN Reason: Fever Or Pain Last Admin: 10/27/19 11:13 Dose: 650 mg Documented by: Amino Acids (Prosource No Carb Liquid Pkt) 30 ml PO BID@0800,1730 [facility] Last Admin: 11/03/19 08:39 Dose: 30 ml Documented by: Ascorbic Acid (Vitamin C -) 500 mg PO DAILY [facility] Last Admin: 11/03/19 10:43 Dose: 500 mg Documented by: Aspirin (Asa -) 81 mg PO DAILY [facility] Last Admin: 11/03/19 10:42 Dose: 81 mg Documented by: Cholecalciferol (Vitamin D3 -) 1,000 unit PO DAILY [facility] Last Admin: 11/03/19 10:43 Dose: 1,000 unit Documented by: Collagenase (Santyl -) 1 applic TP DAILY [facility]; Protocol Enoxaparin Sodium (Lovenox -) 30 mg SQ DAILY [facility] Last Admin: 11/03/19 10:42 Dose: 30 mg Documented by: Insulin Aspart (Novolog Vial Sliding Scale -) 1 vial SQ ACHS [facility]; Protocol Last Admin: 11/03/19 06:50 Dose: Not Given Documented by: Lidocaine (Lidoderm Patch -) 1 patch TP DAILY [facility] Last Admin: 11/03/19 10:42 Dose: 1 patch Documented by: Lisinopril (Prinivil) 5 mg PO DAILY [facility] Last Admin: 11/03/19 10:43 Dose: 5 mg Documented by: Miscellaneous (Lidoderm Patch Removal) 1 each MC DAILY@2200 [facility] Last Admin: 11/02/19 21:33 Dose: 1 each Documented by: Multivitamins/Minerals (Theragran-M) 1 each PO DAILY [facility] Last Admin: 11/03/19 10:43 Dose: 1 each Documented by: Zinc Oxide/Panthenol/Vitamin E (Balmex Cream -) 1 applic TP BID [facility] Last Admin: 11/03/19 10:42 Dose: 1 applic Documented by: - Objective Vital Signs: Vital Signs Temperature 98.4 F 11/03/19 08:42 Pulse Rate 81 11/03/19 08:42 Respiratory Rate 20 11/03/19 08:42 Blood Pressure 145/78 11/03/19 08:42 O2 Sat by Pulse Oximetry (%) 97 11/03/19 09:00 Constitutional: Yes: No Distress, Calm Cardiovascular: Yes: S1, S2 Respiratory: Yes: Regular, CTA Bilaterally Gastrointestinal: Yes: Normal Bowel Sounds, Soft Musculoskeletal: Yes: WNL Extremities: Yes: WNL Wound/Incision: Yes: Dressing Dry and Intact Neurological: Yes: Alert, Oriented Psychiatric: Yes: Alert, Oriented Labs: CBC, BMP 11/03/19 10:39 11/03/19 10:39 INR, PTT INR 1.11 (0.83-1.09) H 10/22/19 12:52 Assessment/Plan Problem List - Problems (1) COVID-19 Code(s): U07.1 - COVID POSITIVE (2) Acute metabolic encephalopathy Code(s): G93.41 - METABOLIC ENCEPHALOPATHY (3) Acute respiratory failure with hypoxia Code(s): J96.01 - ACUTE RESPIRATORY FAILURE WITH HYPOXIA (4) HLD (hyperlipidemia) Code(s): E78.5 - HYPERLIPIDEMIA, UNSPECIFIED (5) HTN (hypertension) Code(s): I10 - ESSENTIAL (PRIMARY) HYPERTENSION (6) Diabetes Code(s): E11.9 - TYPE 2 DIABETES MELLITUS WITHOUT COMPLICATIONS 7 uti 8 wound infection plan off of abx now wound care avoid pressure on the buttocks rest aas per the team
[2019-11-03] MEDS: LIDOCAINE PATCH REMOVAL MC SCH (21:26)
[2019-11-04] MEDS: INSULIN SLIDING SCALE (NOVOLOG) 1 VIAL SQ SCH ×2 (08:05→11:25)
[2019-11-04] MEDS: ZINC OXIDE/PANTHENOL/VITAMIN E 56 GM TUBE TP SCH ×2 (08:21→09:05)
[2019-11-04] MEDS ORDERED: PT OWN MED DRAWER 7, Y5N ONE (08:25)
[2019-11-04] MEDS: AMINO ACIDS/PROTEIN HYDROLYS 30 ML LIQUID.PKT PO SCH (08:52)
[2019-11-04] MEDS: MULTIVITAMINS THER W-MINERALS COMBO TABLET (FP) PO SCH (09:04)
[2019-11-04] MEDS: ENOXAPARIN NA (PORCINE) 30 MG/0.3 ML DISP.SYRIN SQ SCH (09:04)
[2019-11-04] MEDS: CHOLECALCIFEROL (VIT D3) 1,000 UNIT (25 MCG) TABLET PO SCH (09:04)
[2019-11-04] MEDS: ASCORBIC ACID 500 MG TABLET (FP) PO SCH (09:04)
[2019-11-04] MEDS: LIDOCAINE 5% TOPICAL PATCH TP SCH (09:04)
[2019-11-04] MEDS: LISINOPRIL 5 MG TABLET (FP) PO SCH (09:05)
[2019-11-04] MEDS: ASPIRIN 81 MG CHEWABLE TABLETS PO SCH (09:05)
[2019-11-04 09:45] VITALS: BP 118/59; PULSE 91; TEMP 98.5
[2019-11-04] MEDS ORDERED: COLLAGENASE CLOSTRIDIUM HIST. 30 GRAMS TUBE TP SCH (10:00)
--- NOTE | 2019-11-04 11:48 | PN ---
Progress Note, Physician History of Present Illness: stable no new issues - Current Medication List Current Medications: Active Medications Acetaminophen (Tylenol -) 650 mg PO Q6H PRN PRN Reason: Fever Or Pain Last Admin: 10/27/19 11:13 Dose: 650 mg Documented by: Amino Acids (Prosource No Carb Liquid Pkt) 30 ml PO BID@0800,1730 [facility] Last Admin: 11/04/19 08:52 Dose: 30 ml Documented by: Ascorbic Acid (Vitamin C -) 500 mg PO DAILY [facility] Last Admin: 11/04/19 09:04 Dose: 500 mg Documented by: Aspirin (Asa -) 81 mg PO DAILY [facility] Last Admin: 11/04/19 09:05 Dose: 81 mg Documented by: Cholecalciferol (Vitamin D3 -) 1,000 unit PO DAILY [facility] Last Admin: 11/04/19 09:04 Dose: 1,000 unit Documented by: Collagenase (Santyl -) 1 applic TP DAILY [facility]; Protocol Last Admin: 11/04/19 09:05 Dose: 1 applic Documented by: Enoxaparin Sodium (Lovenox -) 30 mg SQ DAILY [facility] Last Admin: 11/04/19 09:04 Dose: 30 mg Documented by: Insulin Aspart (Novolog Vial Sliding Scale -) 1 vial SQ ACHS [facility]; Protocol Last Admin: 11/04/19 11:25 Dose: Not Given Documented by: Lidocaine (Lidoderm Patch -) 1 patch TP DAILY [facility] Last Admin: 11/04/19 09:04 Dose: 1 patch Documented by: Lisinopril (Prinivil) 5 mg PO DAILY [facility] Last Admin: 11/04/19 09:05 Dose: 5 mg Documented by: Miscellaneous (Lidoderm Patch Removal) 1 each MC DAILY@2200 [facility] Last Admin: 11/03/19 21:26 Dose: 1 each Documented by: Multivitamins/Minerals (Theragran-M) 1 each PO DAILY [facility] Last Admin: 11/04/19 09:04 Dose: 1 each Documented by: Zinc Oxide/Panthenol/Vitamin E (Balmex Cream -) 1 applic TP BID [facility] Last Admin: 11/04/19 09:05 Dose: 1 applic Documented by: - Objective Vital Signs: Vital Signs Temperature 98.5 F 11/04/19 09:45 Pulse Rate 91 H 11/04/19 09:45 Respiratory Rate 18 11/04/19 09:45 Blood Pressure 118/59 L 11/04/19 09:45 O2 Sat by Pulse Oximetry (%) 100 11/04/19 09:00 Constitutional: Yes: No Distress, Calm Cardiovascular: Yes: S1, S2 Respiratory: Yes: Regular, CTA Bilaterally Gastrointestinal: Yes: Normal Bowel Sounds, Soft Musculoskeletal: Yes: WNL Extremities: Yes: Other Wound/Incision: Yes: Dressing Dry and Intact Neurological: Yes: Alert, Oriented Psychiatric: Yes: Alert, Oriented Labs: CBC, BMP 11/03/19 10:39 11/03/19 10:39 INR, PTT INR 1.11 (0.83-1.09) H 10/22/19 12:52 Assessment/Plan Problem List - Problems (1) COVID-19 Code(s): U07.1 - COVID POSITIVE (2) Acute metabolic encephalopathy Code(s): G93.41 - METABOLIC ENCEPHALOPATHY (3) Acute respiratory failure with hypoxia Code(s): J96.01 - ACUTE RESPIRATORY FAILURE WITH HYPOXIA (4) HLD (hyperlipidemia) Code(s): E78.5 - HYPERLIPIDEMIA, UNSPECIFIED (5) HTN (hypertension) Code(s): I10 - ESSENTIAL (PRIMARY) HYPERTENSION (6) Diabetes Code(s): E11.9 - TYPE 2 DIABETES MELLITUS WITHOUT COMPLICATIONS 7 uti 8 wound infection plan off of abx now wound care avoid pressure on the buttocks rest aas per the team
--- NOTE | 2019-11-04 12:45 | PN ---
Physical Exam: SUBJECTIVE: Patient seen and examined at the bedside. tells me she feels well and is read for discharge. she plans to call Dr. Barron for a follow up for her left leg chronic wound and sacral pressure wound. OBJECTIVE: left buttock pressure sore 4cm x 3 cm. will need follow up appt at the wound care . ------ Patient is a 83 year old female with a PMHx of HTN, HLD, IDDM, peripheral neuropathy, non-healing ulcer to posterior left knee. She was admitted on 10/22/2019 for sepsis, UTI, acute respiratory failure with hypoxia and AMS. Patient has completed IV antibiotics and sepsis is now resolved. Her mentation is back to her baseline. She is covid negative. discharge home today. Vital Signs Period Temp Pulse Resp BP Sys/Jaimes Pulse Ox Last 24 Hr 97.1 F-98.5 F 79-91 18-20 118-147/59-74 97-100 GENERAL: The patient is awake, alert, and fully oriented, in no acute distress. HEAD: Normal with no signs of trauma. EYES: PERRL, extraocular movements intact, sclera anicteric, conjunctiva clear. No ptosis. ENT: Ears normal, nares patent, oropharynx clear without exudates NECK: Trachea midline, full range of motion, supple. LUNGS: Breath sounds equal, clear to auscultation anteriorly HEART: Regular rate and rhythm ABDOMEN: Soft, nontender, nondistended, normoactive bowel sounds EXTREMITIES: trace edema bilaterallyl. posterior left knee ulcer/dressing intact. NEUROLOGICAL: Normal speech, gait not observed. PSYCH: Normal mood, normal affect. SKIN: left buttocks popped blister, measures 4cm x 3cm. patient to be turned and position q 2 hours. will add pro source. Laboratory Results - last 24 hr 11/03/19 11/04/19 17:38 06:17 POC Glucometer 157 112 Active Medications Generic Name Dose Route Start Last Admin Trade Name Freq PRN Reason Stop Dose Admin Acetaminophen 650 mg 10/24/19 09:02 10/27/19 11:13 Tylenol - PO 650 mg Q6H PRN Administration Fever Or Pain Amino Acids 30 ml 10/31/19 17:30 11/04/19 08:52 Prosource No Carb Liquid Pkt PO 30 ml BID@0800,1730 [facility] Administration Ascorbic Acid 500 mg 10/24/19 10:00 11/04/19 09:04 Vitamin C - PO 500 mg DAILY [facility] Administration Aspirin 81 mg 10/24/19 10:00 11/04/19 09:05 Asa - PO 81 mg DAILY [facility] Administration Cholecalciferol 1,000 unit 10/24/19 10:00 11/04/19 09:04 Vitamin D3 - PO 1,000 unit DAILY [facility] Administration Collagenase 1 applic 11/04/19 10:00 11/04/19 09:05 Santyl - TP 1 applic DAILY [facility] Administration Protocol Enoxaparin Sodium 30 mg 10/24/19 11:07 11/04/19 09:04 Lovenox - SQ 30 mg DAILY [facility] Administration Insulin Aspart 1 vial 10/23/19 16:30 11/04/19 11:25 Novolog Vial Sliding Scale - SQ Not Given ACHS [facility] Protocol Lidocaine 1 patch 10/28/19 12:45 11/04/19 09:04 Lidoderm Patch - TP 1 patch DAILY [facility] Administration Lisinopril 5 mg 10/25/19 10:00 11/04/19 09:05 Prinivil PO 5 mg DAILY [facility] Administration Miscellaneous 1 each 10/28/19 22:00 11/03/19 21:26 Lidoderm Patch Removal MC 1 each DAILY@2200 [facility] Administration Multivitamins/Minerals 1 each 10/24/19 10:00 11/04/19 09:04 Theragran-M PO 1 each DAILY [facility] Administration Zinc Oxide/Panthenol/Vitamin E 1 applic 10/31/19 15:34 11/04/19 09:05 Balmex Cream - TP 1 applic BID [facility] Administration ASSESSMENT/PLAN: Problem List - Problems (1) Sepsis Assessment/Plan: leukocytosis resolved. bp stable. mentation back to baseline and tolerating room air. urine culture grew serratia, blood culture with klebsiella - repeat blood cultures negative, uc repeat negative. ID following. vanco/zosyn discontinued, completed antibiotics. Code(s): A41.9 - SEPSIS, UNSPECIFIED ORGANISM Qualifiers: Sepsis type: sepsis due to unspecified organism Sepsis acute organ dysfunction status: with acute organ dysfunction Severe sepsis acute organ dysfunction type: acute respiratory failure Acute respiratory failure type: with hypoxia Severe sepsis shock status: without septic shock Qualified Code(s): A41.9 - Sepsis, unspecified organism; R65.20 - Severe sepsis without septic shock; J96.01 - Acute respiratory failure with hypoxia (2) Acute metabolic encephalopathy Assessment/Plan: mentation back to baseline. continue to monitor. Code(s): G93.41 - METABOLIC ENCEPHALOPATHY (3) Acute respiratory failure with hypoxia Assessment/Plan: chest xray free of pulmonary infiltrates or pleural effusion. tolerating room air. Code(s): J96.01 - ACUTE RESPIRATORY FAILURE WITH HYPOXIA (4) COVID-19 Assessment/Plan: negative serology Code(s): U07.1 - COVID POSITIVE (5) Diabetic neuropathy Assessment/Plan: supportive care Code(s): E11.40 - TYPE 2 DIABETES MELLITUS WITH DIABETIC NEUROPATHY, UNSP (6) HLD (hyperlipidemia) Assessment/Plan: continue home meds Code(s): E78.5 - HYPERLIPIDEMIA, UNSPECIFIED (7) HTN (hypertension) Assessment/Plan: stable BP Code(s): I10 - ESSENTIAL (PRIMARY) HYPERTENSION (8) Hypokalemia Assessment/Plan: resolved Code(s): E87.6 - HYPOKALEMIA (9) Non-healing ulcer Assessment/Plan: continue daily wound care. follow up with Dr. barron at wound care clinic on d/c. place allevyn dressing over wound (10) Pressure ulcer Assessment/Plan: left buttock pressure ulcer - appears to be a popped blister turn and position q 2 wound care/surgery to evaluate apply zinc ointment protect bony prominences Code(s): L89.90 - PRESSURE ULCER OF UNSPECIFIED SITE, UNSPECIFIED STAGE (11) Prophylactic measure Code(s): Z29.9 - ENCOUNTER FOR PROPHYLACTIC MEASURES, UNSPECIFIED Visit type - Emergency Visit Emergency Visit: Yes ED Registration Date: 10/22/19 Care time: The patient presented to the Emergency Department on the above date and was hospitalized for further evaluation of their emergent condition. - New Patient This patient is new to me today: No - Critical Care Critical Care patient: No - Discharge Referral Referred to [facility] Med [facility] No
== END 2019-11-04 13:48 | disposition home or self-care (01) | DRG 871 ==
LOC: JER 11:43 → JERBED 12:47 → J4S 21:19
PROVIDERS: ADMIT Internal Medicine; ATTEND Nurse Practitioner Family
DX: A41.9 Sepsis, unspecified organism (principal); J96.01 Acute respiratory failure with hypoxia; G93.41 Metabolic encephalopathy; N39.0 Urinary tract infection, site not specified; N13.30 Unspecified hydronephrosis; L97.929 Non-pressure chronic ulcer of unspecified part of left lower leg with unspecified severity; M21.372 Foot drop, left foot; E87.6 Hypokalemia; E11.40 Type 2 diabetes mellitus with diabetic neuropathy, unspecified; E11.622 Type 2 diabetes mellitus with other skin ulcer; L89.322 Pressure ulcer of left buttock, stage 2; E78.5 Hyperlipidemia, unspecified; I10 Essential (primary) hypertension; R41.82 Altered mental status, unspecified; D64.9 Anemia, unspecified; D72.829 Elevated white blood cell count, unspecified; R62.7 Adult failure to thrive
CPT/HCPCS: 36415; 70450-TC; 71045-TC-FY; 71250-TC; 74176-TC; 80048; 80053; 81003; 82728; 82962; 83540; 83550; 83605; 83615; 83735; 84484; 85025; 85379; 85610; 85730; 86140; 87040; 87086; 87186; 93005; 93010; 97161-GP; 99285-25; G0480; J0131; J1644; U0003

== ENCOUNTER 2020-02-06 17:33 | Inpatient (IN) | payer OTHER ==
[2020-02-06 18:02] VITALS: BMI 24.0
--- NOTE | 2020-02-06 19:22 | PDOC ---
History of Present Illness - History of Present Illness Initial Comments: 02/06/20 19:57 84 y.o. F PMHx HTN, HLD, DM, peripheral neuropathy, ulcers on the LLE, presenting due to an ulcer on the L knee. Patient states she was told by [facility] ago that she was starting to form an ulcer on the L knee. Patient had seen her PCP today who told her to come to the ED for management. Patient has had multiple ulcers on the LLE (several healed in the popliteal fossa). Patient denies headahce, fevers, chills, chest pain, SOB, N/V/D. - Prior Kleb ESBL infection PCP: Dr. Metz PMHx: HTN, HLD, DM, peripheral neuropathy, ulcers on the LLE Meds: In Chart Allergies: Mushroom 02/06/20 22:08 <Rad Valenzuela - Last Filed: 02/06/20 22:19> <Blas Huntley - Last Filed: 02/13/20 19:18> - General Chief Complaint: Wound Stated Complaint: SENT BY DR LANDRY Time Seen by Provider: 02/06/20 19:03 Past History - Medical History Anemia: No Asthma: No Cancer: No Cardiac Disorders: No CVA: No COPD: No CHF: No Dementia: No Diabetes: Yes (neuropathy) GI Disorders: No Disorders: No HTN: Yes Hypercholesterolemia: Yes Liver Disease: No Seizures: No Thyroid Disease: No - Surgical History Neurologic Surgery: No Orthopedic Surgery: Yes (b/l knee replacement) - Immunization History Immunization Up to Date: Yes - Psycho-Social/Smoking History Smoking History: Never smoked Have you smoked in the past 12 months: No Number of Cigarettes Smoked Daily: 0 Cigars Per Day: 0 - Substance Abuse Hx (Audit-C & DAST Scrn) How often the patient has a drink containing alcohol: Never Score: In Men: 4 or > Positive; In Women: 3 or > Positive: 0 Screen Result (Pos requires Nsg. Audit-10AR): Negative In the last yr the pt used illegal drug/Rx for NonMed reason: No Score: Yes response is considered Positive: 0 Screen Result (Positive result requires Nsg. DAST-10): Negative <Rad Valenzuela - Last Filed: 02/06/20 22:19> <Blas Huntley - Last Filed: 02/13/20 19:18> - Medical History Allergies/Adverse Reactions: Allergies Allergy/AdvReac Type Severity Reaction Status Date / Time mushroom Allergy Severe Verified 02/06/20 17:54 Home Medications: Ambulatory Orders RX: Lisinopril [Prinivil] 5 mg PO DAILY #30 tablet 09/09/13 RX: Simvastatin 40 mg PO HS 05/10/18 RX: Gabapentin 500 mg PO HS 05/11/18 RX: metFORMIN HCL [Metformin ER Osmotic] 500 mg PO BID 05/11/18 RX: Aspirin [ASA -] 81 mg PO DAILY tab.chew 05/22/18 RX: Acetaminophen [Tylenol .Extra-Strength -] 1,000 mg PO Q8H PRN 02/06/20 RX: Ascorbic Acid [Vitamin C] 125 mg PO Q2D 02/06/20 RX: Vitamin A & D Top Oint - 1 applic TP DAILY 02/06/20 RX: Zinc Oxide 20% Topical Oint 1 applic TP DAILY 02/06/20 Amoxicillin/Potassium Clav [Augmentin 875-125 Tablet] 1 each PO Q12H 7 Days #14 tablet 02/10/20 *Physical Exam - Vital Signs Last Vital Signs Temp Pulse Resp BP Pulse Ox 98.2 F 84 18 121/75 97 02/06/20 17:54 02/06/20 17:54 02/06/20 17:54 02/06/20 17:54 02/06/20 17:54 <Rad Valenzuela - Last Filed: 02/06/20 22:19> - Vital Signs Last Vital Signs Temp Pulse Resp BP Pulse Ox 98.7 F 82 18 114/68 99 02/11/20 06:00 02/11/20 06:00 02/11/20 09:00 02/11/20 06:00 02/11/20 09:00 <Blas Huntley - Last Filed: 02/13/20 19:18> ED Treatment Course - LABORATORY CBC & Chemistry Diagram: 02/06/20 21:12 02/06/20 21:12 <Rad Valenzuela - Last Filed: 02/06/20 22:19> - LABORATORY CBC & Chemistry Diagram: 02/10/20 08:33 02/09/20 07:19 - Medications Given in the ED: ED Medications Discontinued Medications Generic Name Dose Route Start Last Admin Trade Name Freq PRN Reason Stop Dose Admin Acetaminophen 650 mg 02/07/20 11:03 02/10/20 21:21 Tylenol - PO 650 mg Q6H PRN Administration Fever Or Pain Aspirin 81 mg 02/07/20 10:00 02/10/20 09:36 Asa - PO 81 mg DAILY [facility] Administration Atorvastatin Calcium 20 mg 02/07/20 22:00 02/10/20 21:23 Lipitor - PO 20 mg HS [facility] Administration Doxycycline Hyclate 100 mg 02/07/20 10:00 02/10/20 17:11 Vibramycin - PO 100 mg BID@1000,1800 [facility] Administration Gabapentin 100 mg/ Gabapentin 500 mg 02/07/20 22:00 02/10/20 21:22 400 mg PO 500 mg HS [facility] Administration Heparin Sodium (Porcine) 5,000 unit 02/07/20 10:00 02/07/20 10:04 Heparin - SQ 5,000 unit BID [facility] Administration Heparin Sodium (Porcine) 5,000 unit 02/07/20 14:00 02/11/20 06:53 Heparin - SQ 5,000 unit TID [facility] Administration Piperacillin Sod/Tazobactam 50 mls @ 100 mls/hr 02/07/20 10:00 02/11/20 02:37 Sod 3.375 gm/ Dextrose IVPB 100 mls/hr Q8H-IV [facility] Administration Protocol Meropenem 1 gm/ Dextrose 100 mls @ 200 mls/hr 02/07/20 11:00 02/07/20 11:27 IVPB Not Given Q8H-IV [facility] Lactated Ringer's 1,000 ml in 1,000 mls @ 42 mls/hr 02/07/20 11:00 02/08/20 11:50 Lactated Ringers Solution IV Not Given ASDIR [facility] Insulin Aspart 1 vial 02/07/20 07:00 02/07/20 11:47 Novolog Vial Sliding Scale - SQ 2 units ACHS [facility] Administration Protocol Insulin Aspart 1 vial 02/07/20 16:30 02/11/20 06:35 Novolog Vial Sliding Scale - SQ Not Given TIDAC [facility] Protocol Lisinopril 5 mg 02/07/20 10:00 02/10/20 09:36 Prinivil PO 5 mg DAILY [facility] Administration Oxycodone HCl 5 mg 02/06/20 23:30 02/06/20 23:37 Roxicodone - PO 02/06/20 23:31 5 mg ONCE ONE Administration Vancomycin HCl 1,000 mg 02/06/20 22:03 02/06/20 22:50 Vancomycin (Pre-Docked) IVPB 02/06/20 22:04 1,000 mg ONCE ONE Administration Protocol <Blas Huntley - Last Filed: 02/13/20 19:18> Medical Decision Making - Medical Decision Making 02/06/20 20:01 84 y.o. F PMHx HTN, HLD, DM, peripheral neuropathy, ulcers on the LLE, presenting due to an ulcer on the L knee. DDx: Nonhealing LLE ulcer Labs: WBC 8.9 EKG: NSR, QTc 432ms, rate 92 Dispo: Admit med-surg 02/06/20 22:01 <Rad Valenzuela - Last Filed: 02/06/20 22:19> Discharge - Discharge Information Problems reviewed: Yes - Admission Yes <Rad Valenzuela - Last Filed: 02/06/20 22:19> <Blas Huntley - Last Filed: 02/13/20 19:18> - Discharge Information Clinical Impression/Diagnosis: Non-healing ulcer Qualifiers: Non-pressure ulcer stage: limited to breakdown of skin Qualified Code(s): L98.491 - Non-pressure chronic ulcer of skin of other sites limited to breakdown of skin Condition: Improved Disposition: VNS/HOME HEALTH CARE
[2020-02-06 21:33] LABS: BASO % 0.7 % (0-2.0); EOS % 1.3 % (0-4.5); HEMATOCRIT 33.9 % (32.4-45.2); HEMOGLOBIN 10.8 GM/dL (10.7-15.3); LYMPH % 19.4 % (8-40); MCH 26.5 pg (25.7-33.7); MCHC 31.9 g/dl (32.0-36.0); MEAN CELL VOLUME 83.1 fl (80-96); MEAN PLT VOLUME 8.4 fl (7.5-11.1); MONO % 5.2 % (3.8-10.2); NEUT % 73.4 % (42.8-82.8); PLATELET COUNT 442 K/MM3 (134-434); RBC 4.08 M/mm3 (3.60-5.2); RDW 18.4 % (11.6-15.6); WHITE BLOOD COUNT 8.9 K/mm3 (4.0-10.0)
[2020-02-06 22:01] LABS: BILIRUBIN,TOTAL 0.4 mg/dL (0.2-1); CALCIUM 10.7 mg/dL (8.5-10.1); CREATININE 0.7 mg/dL (0.55-1.3); POTASSIUM 5.2 mmol/L (3.5-5.1); TOT PROT 8.8 g/dl (6.4-8.2)
[2020-02-06] MEDS ORDERED: VANCOMYCIN 1 GM in D5W (PRE-DOCKED) 1,000 MG/250 ML IVPB ONE (22:03)
--- NOTE | 2020-02-06 22:24 | HP ---
Admitting History and Physical - Primary Care Physician PCP: leonel mart - Admission Chief Complaint: Non-Healing L- Knee Wound History of Present Illness: This is a 84 y/o female with a significant past medical history of HTN, HLD, NIDDM, Chronic Ulcers LLE, Peripheral Neuropathy, ESBL. Who presents to the ED sent in by her PMD for admission for IV antibiotics for left knee ulcer. 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 Patient denies fever, chills, cough, SOB, CP, palpitations, AP, N/V/D, constipation, dysuria. Patient denies recent sick contacts or travel. 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) Cardiovascular: Yes: HTN, Hyperlipdemia Musculoskeletal: Yes: Osteoarthritis Endocrine: Yes: Diabetes Mellitus - Past Surgical History Past Surgical History: Yes: Joint Replacement - Smoking History Smoking history: Never smoked Have you smoked in the past 12 months: No Aproximately how many cigarettes per day: 0 - Alcohol/Substance Use Hx Alcohol Use: No History of Substance Use: reports: None - Social History Usual Living Arrangement: Yes: With Child ADL: Support Services ([facility]) History of Recent Travel: No Home Medications - Allergies Allergies/Adverse Reactions: Allergies Allergy/AdvReac Type Severity Reaction Status Date / Time mushroom Allergy Severe Verified 02/06/20 17:54 - Home Medications Home Medications: Ambulatory Orders Lisinopril [Prinivil] 5 mg PO DAILY #30 tablet 09/09/13 Simvastatin 40 mg PO HS 05/10/18 Gabapentin 300 mg PO HS 05/11/18 Hydrocodone/Acetaminophen [Hydrocodone-Acetamin 5-325 mg] 1 tab PO Q6H PRN 05/11/18 Meloxicam 15 mg PO DAILY PRN 05/11/18 metFORMIN HCL [Metformin ER Osmotic] 500 mg PO BID 05/11/18 Aspirin [ASA -] 81 mg PO DAILY tab.chew 05/22/18 Acetaminophen [Tylenol -] 1,000 mg PO Q8H PRN 02/06/20 Ascorbic Acid [Vitamin C] 125 mg PO Q2D 02/06/20 Vitamin A & D Top Oint - [Vitamin A & D] 1 applic TP DAILY 02/06/20 Zinc Oxide 20% Topical Oint 1 applic TP DAILY 02/06/20 Family Medical History Family History: Unable to Obtain Review of Systems - Review of Systems Constitutional: reports: No Symptoms Eyes: reports: No Symptoms HENT: reports: No Symptoms Neck: reports: No Symptoms Cardiovascular: reports: No Symptoms Respiratory: reports: No Symptoms Gastrointestinal: reports: No Symptoms Genitourinary: reports: No Symptoms Breasts: reports: No Symptoms Reported Musculoskeletal: reports: Back Pain, Extremity Pain Integumentary: reports: Erythema, Wound Neurological: reports: No Symptoms Endocrine: reports: No Symptoms Hematology/Lymphatic: reports: No Symptoms Psychiatric: reports: No Symptoms Pain Intensity: 6 Physical Examination Vital Signs: Vital Signs Temperature 98.2 F 02/06/20 17:54 Pulse Rate 84 02/06/20 17:54 Respiratory Rate 18 02/06/20 17:54 Blood Pressure 121/75 02/06/20 17:54 O2 Sat by Pulse Oximetry (%) 97 02/06/20 17:54 Constitutional: Yes: No Distress, Calm, Thin Eyes: Yes: WNL, Conjunctiva Clear, EOM Intact, PERRL HENT: Yes: WNL, Atraumatic, Normocephalic Neck: Yes: WNL, Supple, Trachea Midline Cardiovascular: Yes: Regular Rate and Rhythm, S1, S2, S3 Respiratory: Yes: Regular, CTA Bilaterally Gastrointestinal: Yes: Normal Bowel Sounds, Soft Renal/: Yes: WNL Breast(s): Yes: WNL Musculoskeletal: Yes: Back Pain Extremities: Yes: Erythema (Left knee) Edema: Yes Edema: LLE: 1+ (left knee) Peripheral Pulses WNL: Yes Integumentary: Yes: Erythema, Other (non pressure ulcer) Neurological: Yes: Alert, Oriented ...Motor Strength: WNL Psychiatric: Yes: WNL, Alert, Oriented Labs: CBC, BMP 02/06/20 21:12 02/06/20 21:12 Laboratory Results - last 24 hr 02/06/20 02/06/20 21:12 21:12 WBC 8.9 RBC 4.08 Hgb 10.8 Hct 33.9 MCV 83.1 MCH 26.5 MCHC 31.9 L RDW 18.4 H Plt Count 442 H MPV 8.4 Absolute Neuts (auto) 6.5 Neutrophils % 73.4 Lymphocytes % 19.4 Monocytes % 5.2 Eosinophils % 1.3 Basophils % 0.7 Nucleated RBC % 0 Sodium 136 Potassium 5.2 H Chloride 102 Carbon Dioxide 26 Anion Gap 8 BUN 22.0 H Creatinine 0.7 Est GFR (CKD-EPI)AfAm 91.57 Est GFR (CKD-EPI)NonAf 79.00 Random Glucose 119 H Calcium 10.7 H Total Bilirubin 0.4 AST 28 ALT 10 L Alkaline Phosphatase 74 Total Protein 8.8 H Albumin 3.0 L Intake & Output 02/04/20 02/05/20 02/06/20 02/07/20 23:59 23:59 23:59 23:59 Intake Total 250 Balance 250 Weight 67.585 kg Imaging - Results Chest X-ray: Image Reviewed Ultrasound: Image Reviewed EKG: Image Reviewed Problem List - Problems (1) Cellulitis Assessment/Plan: Likely secondary non healing ulcer vs DVT Wells Score 1, mod risk Duplex of B/L LE image, report reviewed- negative DVT No leukocytosis, afebrile Vancomycin given in ED, will continue Appreciate ID consult Monitor CBC, CMP Monitor vitals Code(s): L03.90 - CELLULITIS, UNSPECIFIED (2) Non-healing ulcer Assessment/Plan: hx chronic non-healing ulcer Appreciate Vascular consult Continue Vancomycin Tylenol, Oxycodone use judiciously for Pain Management Monitor vitals Monitor CBC, CMP Wound Care Qualifiers: Non-pressure ulcer stage: limited to breakdown of skin Qualified Code(s): L98.491 - Non-pressure chronic ulcer of skin of other sites limited to breakdown of skin (3) Diabetes Assessment/Plan: stable BGMs ISS Hold Metformin 2/2 cellulitis, possible imaging r/o osteomyelitis Monitor CMP Code(s): E11.9 - TYPE 2 DIABETES MELLITUS WITHOUT COMPLICATIONS (4) Diabetic neuropathy Assessment/Plan: stable Continue Gabapentin Code(s): E11.40 - TYPE 2 DIABETES MELLITUS WITH DIABETIC NEUROPATHY, UNSP (5) HLD (hyperlipidemia) Assessment/Plan: stable Continue Lipitor Monitor LFTs Code(s): E78.5 - HYPERLIPIDEMIA, UNSPECIFIED (6) HTN (hypertension) Assessment/Plan: stable Monitor BP Continue home meds with parameters Monitor CMP Code(s): I10 - ESSENTIAL (PRIMARY) HYPERTENSION (7) Osteoarthritis Assessment/Plan: stable Tylenol prn Code(s): M19.90 - UNSPECIFIED OSTEOARTHRITIS, UNSPECIFIED SITE Qualifiers: Osteoarthritis location: knee Osteoarthritis type: unspecified Laterality: bilateral Qualified Code(s): M17.0 - Bilateral primary osteoarthritis of knee (8) Encounter for screening laboratory testing for COVID-19 virus Assessment/Plan: Low Risk COVID PCR-pending Isolation Precautions Code(s): Z20.828 - CONTACT W AND EXPOSURE TO OTH VIRAL COMMUNICABLE DISEASES Assessment/Plan This is a 84 y/o female with a PMHx of HTN, HLD, DM, Peripheral Neuropathy, Non- healing Ulcer LLE. Admitted for Cellulitis, Diabetic Wound for further evaluation of their emergent condition. Plan: See Problem List FEN PO fluids as tolerated Replete lytes prn Low Na, Diabetic Diet DVT ppx SCDs Heparin SQ Code Status: Full Code Dispo: Requires Inpatient Care Visit type - Medication Review Med list reviewed for High Risk Meds patients 65 and older: Yes - Emergency Visit Emergency Visit: Yes ED Registration Date: 02/06/20 Care time: The patient presented to the Emergency Department on the above date and was hospitalized for further evaluation of their emergent condition. - New Patient This patient is new to me today: Yes Date on this admission: 02/06/20 - Critical Care Critical Care patient: No
--- NOTE | 2020-02-06 22:27 | PDOC ---
Attending Attestation - Resident Resident Name: Rad Valenzuela - ED Attending Attestation I have performed the following: I have examined & evaluated the patient, The case was reviewed & discussed with the resident, I agree w/resident's findings & plan, Exceptions are as noted - HPI HPI: 02/07/20 00:40 See resident HPI - Physicial Exam PE: 02/07/20 00:40 Well appearing, NAD, AOx3 L Knee with open ulcer on lateral side of L knee, 8cm diameter surrounding area of discoloration marked by PCP with skin marker - Medical Decision Making 02/07/20 00:41 Sent by PCP for evaluation of L knee ulcer with plan for treatment of cellulitis f/u labs, cxr start abx admit Discharge - Discharge Information Problems reviewed: Yes Clinical Impression/Diagnosis: Non-healing ulcer Qualifiers: Non-pressure ulcer stage: limited to breakdown of skin Qualified Code(s): L98.491 - Non-pressure chronic ulcer of skin of other sites limited to breakdown of skin Condition: Improved Disposition: VNS/HOME HEALTH CARE - Follow up/Referral - Patient Discharge Instructions - Post Discharge Activity
[2020-02-06] MEDS ORDERED: VANCOMYCIN 1 GRAM (PRE-DOCKED) 1,000 MG/250 ML BAG IVPB ONE (22:38)
[2020-02-06] MEDS ORDERED: oxyCODONE HCL 5 MG TABLET PO ONE (23:30)
[2020-02-06] MEDS ORDERED: oxyCODONE HCL 5 MG TABLET ONE (23:34)
--- OUTSIDE RECORDS SUMMARY | 2020-02-07 04:39 | XMS ---
:1935 Author Organization [facility] Care Team Providers Name Role Phone Mariano Nielson Unavailable Unavailable Naga Mariano Unavailable Unavailable Mariano Nielson Unavailable Unavailable DE MIRIAN RODRIGUEZ Unavailable Unavailable Re-disclosure Warning The records that you are about to access may contain information from federally- assisted alcohol or drug abuse programs. If such information is present, then the following federally mandated warning applies: This information has been disclosed to you from records protected by federal confidentiality rules (42 CFR part 2). The federal rules prohibit you from making any further disclosure of this information unless further disclosure is expressly permitted by the written consent of the person to whom it pertains or as otherwise permitted by 42 CFR part 2. A general authorization for the release of medical or other information is NOT sufficient for this purpose. The Federal rules restrict any use of the information to criminally investigate or prosecute any alcohol or drug abuse patient.The records that you are about to access may contain highly sensitive health information, the redisclosure of which is protected by Article 27-F of the [facility] Public Health law. If you continue you may haveaccess to information: Regarding HIV / AIDS; Provided by facilities licensed or operated by the [facility] Office of Mental Health; or Provided by the [facility] Office for People With Developmental Disabilities. If such information is present, then the following [facility] mandated warning applies: This information has been disclosed to you from confidential records which are protected by state law. State law prohibits you from making any further disclosure of this information without the specific written consent of the person to whom it pertains, or as otherwise permitted by law. Any unauthorized further disclosure in violation of state law may result in a fine or fci sentence or both. A general authorization for the release of medical or other information is NOT sufficient authorization for further disclosure. Encounters Encounter Providers Location Date Indications Data Source(s ) Outpatient Attender: O Amanda 08/06/2018 [facility] 01:32:00 PM Medical Karyn Stoneer: EDT NEJanak LOMBARDO Attender: [facility] 08/06/2018 [facility] ([facility] 01:32:00 PM Dennis Wright al EDT - Center) 08/06/2018 01:32:00 PM EDT Insurance Providers Payer name Policy type Policy ID Covered Covered green party's Policy P bradley / Coverage green party ID relationship to Gant Inf ormation type gant MEDICAID [id number] SP [id number] MEDICARE [id number] SP [id number] 85 5 MEDICAID [id number] SP [id number] 85 5 MEDICAID [id number] SP [id number] Problems, Conditions, and Diagnoses Code Display Name Description Problem Type Effective Dates Data Source(s) L89.892 Pressure ulcer PRESSURE ULCER OF Diagnosis 08/06/2018 Major Collins of other site, OTHER SITE, STAGE 01:32:00 PM ED T [facility] stage 2 2 Results ID Date Data Source [id number] 10/22/2019 04:15:00 PM EDT [facility] Name Value Range Interpretation Description Data Sup porting Code Source(s) Document(s ) SARS [facility] CORONAVIRUS 2 RNA This lab was ordered by [facility] and reported by [facility]. Procedure Social History Code Duration Value Status Description Data Source(s ) Smoking Unknown if ever completed Unknown if ever Bethanie Collins smoked smoked [facility]
[2020-02-07] MEDS: INSULIN SLIDING SCALE (NOVOLOG) 1 VIAL SQ SCH ×3 (06:45→17:08)
[2020-02-07 08:28] LABS: HEMATOCRIT 29.2 % (32.4-45.2); HEMOGLOBIN 9.5 GM/dL (10.7-15.3); LYMPH % 13.2 % (8-40); MCH 26.8 pg (25.7-33.7); MCHC 32.7 g/dl (32.0-36.0); MEAN PLT VOLUME 8.3 fl (7.5-11.1); MONO % 7.1 % (3.8-10.2); NEUT % 76.7 % (42.8-82.8); PLATELET COUNT 363 K/MM3 (134-434); RBC 3.56 M/mm3 (3.60-5.2); RDW 18.3 % (11.6-15.6); WHITE BLOOD COUNT 7.2 K/mm3 (4.0-10.0)
[2020-02-07 08:58] LABS: ALBUMIN 2.5 g/dl (3.4-5.0); BILIRUBIN,TOTAL 0.3 mg/dL (0.2-1); BLOOD UREA NITROGEN 21.3 mg/dL (7-18); CALCIUM 9.9 mg/dL (8.5-10.1); CREATININE 0.7 mg/dL (0.55-1.3); POTASSIUM 4.3 mmol/L (3.5-5.1); TOT PROT 7.2 g/dl (6.4-8.2)
--- NOTE | 2020-02-07 09:45 | CON.ID ---
Consult Consult Specialty:: infectious diseases Referred by:: hospitalist Reason for Consultation:: left knee joint abscess - History of Present Illness Chief Complaint: pain and swelling left knee joint History of Present Illness: 84 y/o female with a significant past medical history of HTN, HLD, NIDDM, Chronic Ulcers LLE, Peripheral Neuropathy, ESBL. Who presents to the ED sent in by her PMD for admission for IV antibiotics for left knee ulcer. Patient reports that her CARBIDE OPERATOR noted an ulcer forming to the left knee 2 weeks ago, with increased redness, swelling and pain x today. Patient denies fever, chills, cough, SOB, CP, palpitations, AP, N/V/D, constipation, dysuria. Patient denies recent sick contacts or travel. c/o of pain on the joint - History Source History Provided By: Patient Limitations to Obtaining History: No Limitations - Past Medical History MISSION PLANNER: Yes: Other (LEFT FOOT DROP) Cardio/Vascular: Yes: HTN, Hyperlipdemia Musculoskeletal: Yes: Osteoarthritis Endocrine: Yes: Diabetes Mellitus - Past Surgical History Past Surgical History: Yes: Joint Replacement - Alcohol/Substance Use Hx Alcohol Use: No History of Substance Use: reports: None - Smoking History Smoking history: Never smoked Have you smoked in the past 12 months: No Aproximately how many cigarettes per day: 0 - Social History [facility]: [facility]; has CARBIDE OPERATOR 8 hours x7 days, ambulated short distances with L AFO and L knee brace) ADL: Support Services (CARBIDE OPERATOR) History of Recent Travel: No Home Medications - Allergies Allergies/Adverse Reactions: Allergies Allergy/AdvReac Type Severity Reaction Status Date / Time mushroom Allergy Severe Verified 02/06/20 17:54 - Home Medications Home Medications: Ambulatory Orders Lisinopril [Prinivil] 5 mg PO DAILY #30 tablet 09/09/13 Simvastatin 40 mg PO HS 05/10/18 Gabapentin 300 mg PO HS 05/11/18 Hydrocodone/Acetaminophen [Hydrocodone-Acetamin 5-325 mg] 1 tab PO Q6H PRN 05/11/18 Meloxicam 15 mg PO DAILY PRN 05/11/18 metFORMIN HCL [Metformin ER Osmotic] 500 mg PO BID 05/11/18 Aspirin [ASA -] 81 mg PO DAILY tab.chew 05/22/18 Acetaminophen [Tylenol -] 1,000 mg PO Q8H PRN 02/06/20 Ascorbic Acid [Vitamin C] 125 mg PO Q2D 02/06/20 Vitamin A & D Top Oint - [Vitamin A & D] 1 applic TP DAILY 02/06/20 Zinc Oxide 20% Topical Oint 1 applic TP DAILY 02/06/20 Review of Systems - Review of Systems Constitutional: reports: No Symptoms Eyes: reports: No Symptoms HENT: reports: No Symptoms Neck: reports: No Symptoms Cardiovascular: reports: No Symptoms Respiratory: reports: No Symptoms Gastrointestinal: reports: No Symptoms Genitourinary: reports: No Symptoms Musculoskeletal: reports: Other Integumentary: reports: Erythema (on the left knee joint) Neurological: reports: No Symptoms Endocrine: reports: No Symptoms Hematology/Lymphatic: reports: No Symptoms Psychiatric: reports: No Symptoms Physical Exam Vital Signs: Vital Signs Temperature 99.1 F 02/07/20 04:17 Pulse Rate 91 H 02/07/20 04:17 Respiratory Rate 18 02/07/20 04:17 Blood Pressure 120/69 02/07/20 04:17 O2 Sat by Pulse Oximetry (%) 95 02/07/20 04:17 Constitutional: Yes: Well Nourished, Calm, Mild Distress Eyes: Yes: Conjunctiva Clear HENT: Yes: Atraumatic, Normocephalic Neck: Yes: Supple, Trachea Midline Cardiovascular: Yes: Regular Rate and Rhythm Respiratory: Yes: Regular, CTA Bilaterally Gastrointestinal: Yes: Normal Bowel Sounds, Soft Musculoskeletal: Yes: WNL Extremities: Yes: Other Integumentary: Yes: Erythema, Other (abscess on the left knee joint) Neurological: Yes: Alert, Oriented Psychiatric: Yes: Alert, Oriented Labs: CBC, BMP 02/07/20 07:55 02/07/20 07:55 Assessment/Plan Problem List - Problems (1) Cellulitis Code(s): L03.90 - CELLULITIS, UNSPECIFIED (2) Non-healing ulcer Qualifiers: Non-pressure ulcer stage: limited to breakdown of skin Qualified Code(s): L98.491 - Non-pressure chronic ulcer of skin of other sites limited to breakdown of skin (3) Diabetes Code(s): E11.9 - TYPE 2 DIABETES MELLITUS WITHOUT COMPLICATIONS (4) Diabetic neuropathy Code(s): E11.40 - TYPE 2 DIABETES MELLITUS WITH DIABETIC NEUROPATHY, UNSP (5) HLD (hyperlipidemia) Code(s): E78.5 - HYPERLIPIDEMIA, UNSPECIFIED (6) HTN (hypertension) Code(s): I10 - ESSENTIAL (PRIMARY) HYPERTENSION (7) Osteoarthritis Code(s): M19.90 - UNSPECIFIED OSTEOARTHRITIS, UNSPECIFIED SITE Qualifiers: Osteoarthritis location: knee Osteoarthritis type: unspecified Laterality: bilateral Qualified Code(s): M17.0 - Bilateral primary osteoarthritis of knee (8) Encounter for screening laboratory testing for COVID-19 virus Code(s): Z20.828 - CONTACT W AND EXPOSURE TO OTH VIRAL COMMUNICABLE DISEASES Assessment/Plan This is a 84 y/o female with a PMHx of HTN, HLD, DM, Peripheral Neuropathy, Non- healing Ulcer LLE. Admitted for Cellulitis, Diabetic Wound i think patient has abscess present and will need drainage will give zosyn and doxy
[2020-02-07] MEDS ORDERED: HEPARIN NA (PORCINE) 5,000 UNITS/ML 1ML VIAL SQ SCH (10:00)
[2020-02-07] MEDS ORDERED: DEXTROSE 5%-WATER - 50 ML IVPB ONE ×2 (10:02→16:49)
[2020-02-07] MEDS ORDERED: PIPERACILLIN/TAZOBACTAM 3.375 GM VIAL IVPB ONE ×2 (10:02→16:49)
[2020-02-07] MEDS: PIPERACILLIN/TAZOB 3.375 GM 3.375 GM in DEXTROSE 5%-WATER - 50 ML IVPB SCH ×2 (10:04→17:08)
[2020-02-07] MEDS: ASPIRIN 81 MG CHEWABLE TABLETS PO SCH (10:05)
--- NOTE | 2020-02-07 10:36 | EKG ---
Test Reason : Blood Pressure : / mmHG Vent. Rate : 092 BPM Atrial Rate : 092 BPM P-R Int : 178 ms QRS Dur : 072 ms QT Int : 350 ms P-R-T Axes : 063 004 021 degrees QTc Int : 432 ms POOR DATA QUALITY, INTERPRETATION MAY BE ADVERSELY AFFECTED NORMAL SINUS RHYTHM SEPTAL INFARCT , AGE UNDETERMINED ABNORMAL ECG WHEN COMPARED WITH ECG OF 22-OCT-2019 13:11, NONSPECIFIC T WAVE ABNORMALITY NOW EVIDENT IN INFERIOR LEADS NONSPECIFIC T WAVE ABNORMALITY NO LONGER EVIDENT IN LATERAL LEADS Confirmed by TRISHA SMITH MD ([id number]) on 02/07/2020 10:36:36 AM Referred By: Confirmed By:TRISHA SMITH MD
[2020-02-07] MEDS: DOXYCYCLINE HYCLATE 100 MG CAPSULE PO SCH ×2 (10:44→17:08)
[2020-02-07] MEDS ORDERED: MEROPENEM 1 GM in DEXTROSE 5%-WATER 100 ML IVPB SCH ×2 (11:00→11:30)
[2020-02-07] MEDS ORDERED: VANCOMYCIN 1,250 MG in DEXTROSE 5%-WATER - 250 ML IVPB SCH (11:00)
--- NOTE | 2020-02-07 11:41 | CONSULT ---
- Consultation REQUESTING PROVIDER: CONSULT REQUEST: We have been asked to surgically evaluate this patient for L knee abscess Hospitalist:Nilson Junior HISTORY OF PRESENT ILLNESS: 84 y/o F/ w/ PMHx HTN, HLD, NIDDM, Peripheral Neuropathy, a/w left knee ulcer. Pt known to vascular, was seen by senior medical writer in May 2018 for popliteal ulcer in LLE secondary to brace worn for foot drop. Pt underwent wash out at that time and ulcer healed. Pt now reports new edema and ulcer noted by her RIGHT OF WAY AGENT which began 2 weeks ago. Denies trauma to the area. Has not used leg brace in weeks. Reports she hasn't walked since her admission in October. Reports subjective fevers at home. Has b/l knee replacements. PMHx: as above PSHx: b/l knee replacements Home Medications Medication Instructions Recorded Lisinopril [Prinivil] 5 mg PO DAILY #30 tablet 09/09/13 Simvastatin 40 mg PO HS 05/10/18 Gabapentin 300 mg PO HS 05/11/18 Hydrocodone/Acetaminophen 1 tab PO Q6H PRN 05/11/18 [Hydrocodone-Acetamin 5-325 mg] Meloxicam 15 mg PO DAILY PRN 05/11/18 metFORMIN HCL [Metformin ER 500 mg PO BID 05/11/18 Osmotic] Aspirin [ASA -] 81 mg PO DAILY tab.chew 05/22/18 Acetaminophen [Tylenol -] 1,000 mg PO Q8H PRN 02/06/20 Ascorbic Acid [Vitamin C] 125 mg PO Q2D 02/06/20 Vitamin A & D Top Oint - [Vitamin 1 applic TP DAILY 02/06/20 A & D] Zinc Oxide 20% Topical Oint 1 applic TP DAILY 02/06/20 Allergies Allergy/AdvReac Type Severity Reaction Status Date / Time mushroom Allergy Severe Verified 02/06/20 17:54 REVIEW OF SYSTEMS: CONSTITUTIONAL: (+) fever CARDIOVASCULAR: Absent: chest pain, syncope RESPIRATORY: Absent: cough, shortness of breath GASTROINTESTINAL: Absent: abdominal pain, abdominal distension, nausea, vomiting PHYSICAL EXAM: GENERAL: Awake, alert, and fully oriented, in no acute distress. HEAD: Normal with no signs of trauma. LUNGS: No accessory muscle use on RA LOWER EXTREMITIES: L knee with approx 4x4cm area of fluctance adjacent to patella on lateral aspect, skin thinning noted centrally. no ttp. +rom of joint with some tenderness with movement. No erythema noted. + increased warmth. No calf tenderness. Trace peripheral edema. Well healed popliteal wound. No erythema or increased warmth noted. 2+ dp b/l Sacrum: multiple superficial excoriations on b/l buttocks. Vital Signs Temperature 99.1 F 02/07/20 04:17 Pulse Rate 91 H 02/07/20 04:17 Respiratory Rate 18 02/07/20 04:17 Blood Pressure 120/69 02/07/20 04:17 O2 Sat by Pulse Oximetry (%) 95 02/07/20 04:17 Lab Results WBC 7.2 K/mm3 (4.0-10.0) 02/07/20 07:55 RBC 3.56 M/mm3 (3.60-5.2) L 02/07/20 07:55 Hgb 9.5 GM/dL (10.7-15.3) L 02/07/20 07:55 Hct 29.2 % (32.4-45.2) L 02/07/20 07:55 MCV 82.0 fl (80-96) 02/07/20 07:55 MCHC 32.7 g/dl (32.0-36.0) 02/07/20 07:55 RDW 18.3 % (11.6-15.6) H 02/07/20 07:55 Plt Count 363 K/MM3 (134-434) 02/07/20 07:55 Sodium 137 mmol/L (136-145) 02/07/20 07:55 Potassium 4.3 mmol/L (3.5-5.1) 02/07/20 07:55 Chloride 102 mmol/L (98-107) 02/07/20 07:55 Carbon Dioxide 30 mmol/L (21-32) 02/07/20 07:55 Anion Gap 5 MMOL/L (8-16) L 02/07/20 07:55 BUN 21.3 mg/dL (7-18) H 02/07/20 07:55 Creatinine 0.7 mg/dL (0.55-1.3) 02/07/20 07:55 Random Glucose 105 mg/dL (74-106) 02/07/20 07:55 Calcium 9.9 mg/dL (8.5-10.1) 02/07/20 07:55 A/P: 84 y/o F/ w/ PMHx HTN, HLD, NIDDM, Peripheral Neuropathy, a/w left knee ulcer. L knee with abscess overlying TKR -recommend orthopedic consultation due to underlying hardware Sacral Ulcer/DTI Plan -recommend allevyn pads to sacrum -Reposition every two hours while in bed -Air mattress recommended -Use drawsheets and Trendelenburg when repositioning to reduce friction and shear -Manageincontinence via timely cleansing, use of appropriate incontinence disposables and use of barrier ointment to intact skin -Ensure adequate hydration/nutrition, supplementation per primary team d/w attending Dr Mendoza
--- NOTE | 2020-02-07 12:12 | PN ---
Teaching Attending Note Name of Resident: Elayne Schroeder ATTENDING PHYSICIAN STATEMENT I saw and evaluated the patient. I reviewed the resident's note and discussed the case with the resident. I agree with the resident's findings and plan as documented. SUBJECTIVE: No fever or chills. has painin L knee and calf. no diarrhea. has no SOB or CP . OBJECTIVE: NAD, awake, alert, cooperative , very pleasant MMM, no facial droop. CV: RRR, 36 Sm at LUSB , with no radiation Lungs: CTAB Abd: soft, NT, ND, NL BS Extulce: No edema or erythema on RLE. LLE with swelling around the whole knee. with area of erythema and central fluctuance on lateral aspect of anterior L knee. small area of skin breakdown in center of fluctuant area with no draiange. can't flex knee dur to pain and swelling. no ulcers in popliteal area. tenderness over L calf. L foot drop with 0/5 in dosrifelxion and 0/5 plantar flexion. R dorsiflesion /plantar flexion 5/5 . DP 2+ b/l. Skin: R gluteal small ulcers ( 5-10 mm ) on R gluteal area. unable to assess L gluteal area due to position. ASSESSMENT AND PLAN: 84 y/o lady lady with h/o OA, b/l knee replacement, HTN, HLP, skin ulcers with infections , neuropathy, ESBL UTI and bacteremia, Dm, and spinal surgery with resultant L foot drop, wheel chair bound, who presented with pain and erythema on L knee 1- Lateral knee cellulitis and abscess formation: need to r/o prosthetic joint involvement as the whole knee area is swollen and mobility is limits, and location of the wound - Obtain CT of the Knee - cont Abx per ID , zosyn and doxy due to h.//o pseudomonas. ( d/w dr. Maciel) - ortho consult - abscess drainage. surgery consult pending Recs. - obtain US of L leg due to tenderness over calf and immobility at home 2- H/o DM: cont SSI while here . hold Metfrmin 3- Mild hyperkalemia: due to mild renal impairment ( BUN/cr >20), in the setting of ACEI treatment - hold lisinopril - hold home NSAIDs - mild hydration x 24 hr 4- h/o HTN: monitor BP, can give appropriate agent if elevated, otherwise, will resume lisinopril tomorrow 5- Decubiti on gluteal area. frequent turning 7- DVT PX : change Heparin sq to TID dispo : HLOC
[2020-02-07] MEDS: LACTATED RINGERS SOLUTION 1,000 ML/1,000 ML INFUS.BAG IV SCH (12:50)
--- NOTE | 2020-02-07 14:03 | PN ---
Physical Exam: SUBJECTIVE: Patient seen and examined. Pt has h/o b/l knee replacements. Stated that her chronic ulcers were originally due to a boot that pinched her knee and led to an open wound that never healed properly. Denied trauma. Pt c/o left knee pain and that it was warm. +sherrill lift and wheelchair to move around at home. 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 OBJECTIVE: Vital Signs Period Temp Pulse Resp BP Sys/Jaimes Pulse Ox Last 24 Hr 98.2 F-99.1 F 84-95 18-18 105-121/54-75 95-100 GENERAL: Awake and alert, not in acute distress HEENT: NCAT, EOMI, moist mucus membranes CARDIAC: Regular rate and rhythm, 3/6 systolic murmur on LSB. RESPIRATORY: CTA b/l. No wheezes ABDOMEN: Soft, non-distended, nontender to palpation. Normoactive bowel sounds. EXTREMITIES: L knee edematous, 2+ pulses b/l lower extremities. NEURO: 0/5 dorsiflexion/plantarflexion of L foot SKIN: b/l scars on knee. 3cm fluctuant lesion on L knee without drainage, warm to the touch w/ surrounding erythema. R gluteal ulcers visualized. Laboratory Last Values WBC 7.2 K/mm3 (4.0-10.0) 02/07/20 07:55 RBC 3.56 M/mm3 (3.60-5.2) L 02/07/20 07:55 Hgb 9.5 GM/dL (10.7-15.3) L 02/07/20 07:55 Hct 29.2 % (32.4-45.2) L 02/07/20 07:55 MCV 82.0 fl (80-96) 02/07/20 07:55 MCH 26.8 pg (25.7-33.7) 02/07/20 07:55 MCHC 32.7 g/dl (32.0-36.0) 02/07/20 07:55 RDW 18.3 % (11.6-15.6) H 02/07/20 07:55 Plt Count 363 K/MM3 (134-434) 02/07/20 07:55 MPV 8.3 fl (7.5-11.1) 02/07/20 07:55 Absolute Neuts (auto) 5.5 K/mm3 (1.5-8.0) 02/07/20 07:55 Neutrophils % 76.7 % (42.8-82.8) 02/07/20 07:55 Lymphocytes % 13.2 % (8-40) D 02/07/20 07:55 Monocytes % 7.1 % (3.8-10.2) 02/07/20 07:55 Eosinophils % 2.0 % (0-4.5) 02/07/20 07:55 Basophils % 1.0 % (0-2.0) 02/07/20 07:55 Nucleated RBC % 0 % (0-0) 02/07/20 07:55 Sodium 137 mmol/L (136-145) 02/07/20 07:55 Potassium 4.3 mmol/L (3.5-5.1) 02/07/20 07:55 Chloride 102 mmol/L (98-107) 02/07/20 07:55 Carbon Dioxide 30 mmol/L (21-32) 02/07/20 07:55 Anion Gap 5 MMOL/L (8-16) L 02/07/20 07:55 BUN 21.3 mg/dL (7-18) H 02/07/20 07:55 Creatinine 0.7 mg/dL (0.55-1.3) 02/07/20 07:55 Est GFR (CKD-EPI)AfAm 91.57 02/07/20 07:55 Est GFR (CKD-EPI)NonAf 79.00 02/07/20 07:55 POC Glucometer 152 UNITS (80-120) 02/07/20 11:46 Random Glucose 105 mg/dL (74-106) 02/07/20 07:55 Calcium 9.9 mg/dL (8.5-10.1) 02/07/20 07:55 Total Bilirubin 0.3 mg/dL (0.2-1) 02/07/20 07:55 AST 12 U/L (15-37) L 02/07/20 07:55 ALT 7 U/L (13-61) L 02/07/20 07:55 Alkaline Phosphatase 63 U/L (45-117) 02/07/20 07:55 Total Protein 7.2 g/dl (6.4-8.2) 02/07/20 07:55 Albumin 2.5 g/dl (3.4-5.0) L 02/07/20 07:55 Active Medications Acetaminophen (Tylenol -) 650 mg PO Q6H PRN PRN Reason: Fever Or Pain Aspirin (Asa -) 81 mg PO DAILY [facility] Last Admin: 02/07/20 10:05 Dose: 81 mg Documented by: Atorvastatin Calcium (Lipitor -) 20 mg PO HS EMY Doxycycline Hyclate (Vibramycin -) 100 mg PO BID@1000,1800 [facility] Last Admin: 02/07/20 10:44 Dose: 100 mg Documented by: Gabapentin (Neurontin -) 300 mg PO HS EMY Heparin Sodium (Porcine) (Heparin -) 5,000 unit SQ TID EMY Piperacillin Sod/Tazobactam (Sod 3.375 gm/ Dextrose) 50 mls @ 100 mls/hr IVPB Q8H-IV EMY; Protocol Last Admin: 02/07/20 10:04 Dose: 100 mls/hr Documented by: Lactated Ringer's (Lactated Ringers Solution) 1,000 ml in 1,000 mls @ 42 mls/hr IV ASDIR [facility] Last Admin: 02/07/20 12:50 Dose: 42 mls/hr Documented by: Insulin Aspart (Novolog Vial Sliding Scale -) 1 vial SQ TIDAC [facility]; Protocol Lisinopril (Prinivil) 5 mg PO DAILY [facility] ASSESSMENT/PLAN: 84 yo F w/ PMH OA, b/l knee replacements, HTN, HLD, DM, Chronic LE ulcers, peripheral neuropathy, h/o ESBL klebsiella growth in ulcer presented for evaluation of her worsening L knee ulcer. Pt is currently admitted for L knee abscess with surrounding cellulitis. L knee abscess w/ surrounding cellulitis -CT L knee to r/o involvement of prosthetic joint. -ID, ortho and wound care consulted. -will c/w Zosyn and doxycycline (02/06, today is day 1) due to h/o Pseudomonas -I&D done at bedside by ortho, drained 2-3mL cloudy fluid -f/u wound cx -LE duplex negative for DVT -c/w acetaminophen 650mg q6H PRN for pain/fever -f/u ESR, CRP Hyperkalemia, resolved -f/u BMP -hold home lisinopril 5mg, given hyperkalemia, will resume tomorrow. -hold home meloxicam, due to BUN/Cr: 21.3/0.7 -c/w IVF Gluteal ulcers -Turn and position q2H DM, diabetic neuropathy -hold home metformin -ISS & BGM ACHS -c/w gabapentin 300mg qHS HTN, HLD -hold home lisinopril 5mg, given hyperK+, will resume tomorrow -continue to monitor BP -c/w atorvastatin 20mg qHS, ASA 81mg qD OA -hold home meloxicam, given mild renal impairment -c/w acetaminophen 650mg q6H PRN Ppx - DVT: SQH FEN -LR @ 42 for 24 hours -monitor and replete electrolytes K+ 4, Mg++ 2. -diabetic/sodium diet Dispo: continue to monitor in med/surg Visit type - Emergency Visit Emergency Visit: Yes ED Registration Date: 02/06/20 Care time: The patient presented to the Emergency Department on the above date and was hospitalized for further evaluation of their emergent condition. - New Patient This patient is new to me today: Yes Date on this admission: 02/07/20 - Critical Care Critical Care patient: No - Medication Review Med list reviewed for High Risk Meds patients 65 and older: Yes ATTENDING PHYSICIAN STATEMENT I saw and evaluated the patient. I reviewed the resident's note and discussed the case with the resident. I agree with the resident's findings and plan as documented. SUBJECTIVE: OBJECTIVE: ASSESSMENT AND PLAN:
--- NOTE | 2020-02-07 14:04 | CON.ORTH ---
Consult Reason for Consultation:: left knee abscess - Past Medical History PATIENT FINANCIAL COORDINATOR: Yes: Other (LEFT FOOT DROP) Cardio/Vascular: Yes: HTN, Hyperlipdemia Musculoskeletal: Yes: Osteoarthritis Endocrine: Yes: Diabetes Mellitus - Past Surgical History Past Surgical History: Yes: Joint Replacement - Alcohol/Substance Use Hx Alcohol Use: No History of Substance Use: reports: None - Smoking History Smoking history: Never smoked Have you smoked in the past 12 months: No Aproximately how many cigarettes per day: 0 - Social History Usual Living Ar[facility]ement: [facility]; 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, ambulated short distances with L AFO and L knee brace) ADL: Support Services (PROFESSOR OF CHEMICAL ENGINEERING) History of Recent Travel: No Home Medications - Allergies Allergies/Adverse Reactions: Allergies Allergy/AdvReac Type Severity Reaction Status Date / Time mushroom Allergy Severe Verified 02/06/20 17:54 - Home Medications Home Medications: Ambulatory Orders Lisinopril [Prinivil] 5 mg PO DAILY #30 tablet 09/09/13 Simvastatin 40 mg PO HS 05/10/18 Gabapentin 300 mg PO HS 05/11/18 Hydrocodone/Acetaminophen [Hydrocodone-Acetamin 5-325 mg] 1 tab PO Q6H PRN 05/11/18 Meloxicam 15 mg PO DAILY PRN 05/11/18 metFORMIN HCL [Metformin ER Osmotic] 500 mg PO BID 05/11/18 Aspirin [ASA -] 81 mg PO DAILY tab.chew 05/22/18 Acetaminophen [Tylenol -] 1,000 mg PO Q8H PRN 02/06/20 Ascorbic Acid [Vitamin C] 125 mg PO Q2D 02/06/20 Vitamin A & D Top Oint - [Vitamin A & D] 1 applic TP DAILY 02/06/20 Zinc Oxide 20% Topical Oint 1 applic TP DAILY 02/06/20 Physical Exam for Ortho Vital Signs: Vital Signs Temperature 99.1 F 02/07/20 04:17 Pulse Rate 91 H 02/07/20 04:17 Respiratory Rate 18 02/07/20 04:17 Blood Pressure 120/69 02/07/20 04:17 O2 Sat by Pulse Oximetry (%) 95 02/07/20 04:17 Labs: CBC, BMP 02/07/20 07:55 02/07/20 07:55 - Lower Extremity Knee: Yes: Left, Limited ROM, Pain, Swelling, Tenderness, Other (+ abscess on lateral aspect of knee, + erythema (decr from yesterday), + ttp, limited rom, + foot drop ) Imaging - Results Ultrasound: Report Reviewed, Image Reviewed Assessment/Plan 84 y/o female with a significant past medical history of HTN, HLD, NIDDM, Chronic Ulcers LLE, Peripheral Neuropathy, ESBL. Who presents to the ED sent in by her PMD for admission for IV antibiotics for left knee ulcer. Patient reports that her PROFESSOR OF CHEMICAL ENGINEERING noted an ulcer forming to the left knee 2 weeks ago, with increased redness, swelling and pain x today. Patient denies fever, chills, cough, SOB, CP, palpitations, AP, N/V/D, constipation, dysuria. Patient denies recent sick contacts or travel. Pt is s/p b/l TKRs many years ago and has been wheelchair bound for at least 20 years. As per patient she has limited rom in both of her knees and has a foot drop from prior surgery. a/p left knee abscess/cellulitis over left TKR- appears superficial Risks and benefits were d/w pt in detail Consent obtained, under sterile technique the abscess was I&D at bedside, procedure tolerated well, 2-3 ml of cloudy fluid obtained, culture sent to lab Continue IV abx as per ID CT scan has been ordered by hospitalist evie ward f/u wound care/vascular will follow d/w Dr. Bender
[2020-02-07] MEDS: HEPARIN NA (PORCINE) 5,000 UNITS/ML 1ML VIAL SQ SCH ×2 (14:09→21:32)
[2020-02-07] MEDS: ACETAMINOPHEN 325 MG TABLET (FP) PO PRN (17:10)
[2020-02-07] MEDS ORDERED: GABAPENTIN 400 MG CAPSULE ONE (21:24)
[2020-02-07] MEDS ORDERED: GABAPENTIN 100 MG CAPSULE ONE (21:24)
[2020-02-07] MEDS: GABAPENTIN PO SCH (21:28)
[2020-02-07] MEDS: ATORVASTATIN CA 20 MG TABLET (FP) PO SCH (21:29)
[2020-02-07] MEDS ORDERED: GABAPENTIN 300 MG CAPSULE PO SCH ×2 (22:00)
[2020-02-08] MEDS ORDERED: PIPERACILLIN/TAZOBACTAM 3.375 GM VIAL IVPB ONE ×4 (00:29→17:30)
[2020-02-08] MEDS ORDERED: DEXTROSE 5%-WATER - 50 ML IVPB ONE ×4 (00:30→17:30)
[2020-02-08] MEDS: PIPERACILLIN/TAZOB 3.375 GM 3.375 GM in DEXTROSE 5%-WATER - 50 ML IVPB SCH ×3 (01:02→17:35)
[2020-02-08] MEDS: HEPARIN NA (PORCINE) 5,000 UNITS/ML 1ML VIAL SQ SCH ×3 (05:52→21:47)
[2020-02-08] MEDS: INSULIN SLIDING SCALE (NOVOLOG) 1 VIAL SQ SCH ×3 (06:03→17:27)
[2020-02-08] MEDS: ASPIRIN 81 MG CHEWABLE TABLETS PO SCH (09:04)
[2020-02-08] MEDS: ACETAMINOPHEN 325 MG TABLET (FP) PO PRN ×2 (09:04→21:47)
[2020-02-08] MEDS: DOXYCYCLINE HYCLATE 100 MG CAPSULE PO SCH ×2 (09:06→17:36)
[2020-02-08] MEDS ORDERED: MEROPENEM 1 GM in DEXTROSE 5%-WATER 100 ML IVPB SCH (10:00)
[2020-02-08 10:12] LABS: HEMATOCRIT 30.4 % (32.4-45.2); HEMOGLOBIN 9.4 GM/dL (10.7-15.3); MCH 26.4 pg (25.7-33.7); MEAN CELL VOLUME 85.3 fl (80-96); MEAN PLT VOLUME 8.5 fl (7.5-11.1); PLATELET COUNT 345 K/MM3 (134-434); RBC 3.57 M/mm3 (3.60-5.2); RDW 18.6 % (11.6-15.6); WHITE BLOOD COUNT 7.8 K/mm3 (4.0-10.0)
[2020-02-08 10:40] LABS: BLOOD UREA NITROGEN 16.8 mg/dL (7-18); CALCIUM 9.7 mg/dL (8.5-10.1); CREATININE 0.8 mg/dL (0.55-1.3); POTASSIUM 4.7 mmol/L (3.5-5.1)
[2020-02-08 11:12] LABS: ERYTHROCYTE SEDIMENTATION RATE 63 mm/hr (0-30)
--- NOTE | 2020-02-08 11:39 | PN ---
Progress Note, Physician History of Present Illness: stable s/p drainage of the abscess - Current Medication List Current Medications: Active Medications Acetaminophen (Tylenol -) 650 mg PO Q6H PRN PRN Reason: Fever Or Pain Last Admin: 02/08/20 09:04 Dose: 650 mg Documented by: Aspirin (Asa -) 81 mg PO DAILY [facility] Last Admin: 02/08/20 09:04 Dose: 81 mg Documented by: Atorvastatin Calcium (Lipitor -) 20 mg PO [facility] Last Admin: 02/07/20 21:29 Dose: 20 mg Documented by: Doxycycline Hyclate (Vibramycin -) 100 mg PO BID@1000,1800 [facility] Last Admin: 02/08/20 09:06 Dose: 100 mg Documented by: Gabapentin 100 mg/ Gabapentin (400 mg) 500 mg PO [facility] Last Admin: 02/07/20 21:28 Dose: 500 mg Documented by: Heparin Sodium (Porcine) (Heparin -) 5,000 unit SQ TID [facility] Last Admin: 02/08/20 05:52 Dose: 5,000 unit Documented by: Piperacillin Sod/Tazobactam (Sod 3.375 gm/ Dextrose) 50 mls @ 100 mls/hr IVPB Q8H-IV [facility]; Protocol Last Admin: 02/08/20 09:06 Dose: 100 mls/hr Documented by: Lactated Ringer's (Lactated Ringers Solution) 1,000 ml in 1,000 mls @ 42 mls/hr IV ASDIR [facility] Last Admin: 02/07/20 12:50 Dose: 42 mls/hr Documented by: Insulin Aspart (Novolog Vial Sliding Scale -) 1 vial SQ TIDAC [facility]; Protocol Last Admin: 02/08/20 06:03 Dose: Not Given Documented by: Lisinopril (Prinivil) 5 mg PO DAILY [facility] - Objective Vital Signs: Vital Signs Temperature 98.5 F 02/08/20 09:06 Pulse Rate 82 02/08/20 09:06 Respiratory Rate 18 02/08/20 09:06 Blood Pressure 124/63 02/08/20 09:06 O2 Sat by Pulse Oximetry (%) 99 02/08/20 09:06 Constitutional: Yes: No Distress, Calm Cardiovascular: Yes: S1, S2 Respiratory: Yes: Regular, CTA Bilaterally Gastrointestinal: Yes: Normal Bowel Sounds, Soft Musculoskeletal: Yes: WNL Extremities: Yes: Other Wound/Incision: Yes: Other Neurological: Yes: Alert, Oriented Labs: CBC, BMP 02/08/20 09:40 02/08/20 09:40 Assessment/Plan Problem List - Problems (1) Cellulitis Code(s): L03.90 - CELLULITIS, UNSPECIFIED (2) Non-healing ulcer Qualifiers: Non-pressure ulcer stage: limited to breakdown of skin Qualified Code(s): L98.491 - Non-pressure chronic ulcer of skin of other sites limited to breakdown of skin (3) Diabetes Code(s): E11.9 - TYPE 2 DIABETES MELLITUS WITHOUT COMPLICATIONS (4) Diabetic neuropathy Code(s): E11.40 - TYPE 2 DIABETES MELLITUS WITH DIABETIC NEUROPATHY, UNSP (5) HLD (hyperlipidemia) Code(s): E78.5 - HYPERLIPIDEMIA, UNSPECIFIED (6) HTN (hypertension) Code(s): I10 - ESSENTIAL (PRIMARY) HYPERTENSION (7) Osteoarthritis Code(s): M19.90 - UNSPECIFIED OSTEOARTHRITIS, UNSPECIFIED SITE Qualifiers: Osteoarthritis location: knee Osteoarthritis type: unspecified Laterality: bilateral Qualified Code(s): M17.0 - Bilateral primary osteoarthritis of knee (8) Encounter for screening laboratory testing for COVID-19 virus Code(s): Z20.828 - CONTACT W AND EXPOSURE TO OTH VIRAL COMMUNICABLE DISEASES Assessment/Plan await for the cx report rest as per the team abx
[2020-02-08] MEDS: LACTATED RINGERS SOLUTION 1,000 ML/1,000 ML INFUS.BAG IV SCH (11:50)
--- NOTE | 2020-02-08 13:27 | PN ---
Progress Note (short form) - Note Progress Note: Ortho Pt seen and examined s/p left knee abscess I&D. Pt is feeling better with less pain and redness. 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 Bender
--- NOTE | 2020-02-08 14:55 | PN ---
Physical Exam: SUBJECTIVE: Patient seen and examined. Pt. denies any acute events overnight. Pt. tolerating diet without difficulty and is passing urine and stool. Case discussed with Ortho, Pt. had knee replacement over 30 years ago. Pt. is not a candidate for surgery at this time and because of significant improvement after bedside aspiration, will continue to monitor. OBJECTIVE: Vital Signs Period Temp Pulse Resp BP Sys/Jaimes Pulse Ox Last 24 Hr 97.9 F-98.5 F 76-86 18-20 112-124/63-66 98-99 GENERAL: Awake and alert, not in acute distress HEENT: NCAT, EOMI, moist mucus membranes CARDIAC: Regular rate and rhythm, S1 and S2 w/ systolic murmur RESPIRATORY: CTAB. No wheezes or crackles ABDOMEN: Soft, non-distended, nontender to palpation. Normoactive bowel sounds. EXTREMITIES: L knee edema decreased, 2+ pulses b/l lower extremities. NEURO: 0/5 dorsiflexion/plantarflexion of L foot. R. Foot 5/5 strength. SKIN: b/l scars on knee. 3cm fluctuant lesion on L knee without drainage, warm to the touch w/ surrounding erythema. erythema has decreased based on prior markings, R gluteal ulcers reported Laboratory Results - last 24 hr 02/06/20 02/07/20 02/07/20 22:50 16:56 21:27 WBC RBC Hgb Hct MCV MCH MCHC RDW Plt Count MPV ESR Sodium Potassium Chloride Carbon Dioxide Anion Gap BUN Creatinine Est GFR (CKD-EPI)AfAm Est GFR (CKD-EPI)NonAf POC Glucometer 81 117 Random Glucose Calcium C-Reactive Protein COVID-19 ([place]) Not detected 02/08/20 02/08/20 02/08/20 05:38 09:40 09:40 WBC 7.8 RBC 3.57 L Hgb 9.4 L Hct 30.4 L MCV 85.3 MCH 26.4 MCHC 31.0 L RDW 18.6 H Plt Count 345 MPV 8.5 ESR 63 H Sodium 137 Potassium 4.7 Chloride 102 Carbon Dioxide 29 Anion Gap 6 L BUN 16.8 Creatinine 0.8 Est GFR (CKD-EPI)AfAm 77.92 Est GFR (CKD-EPI)NonAf 67.23 POC Glucometer 80 Random Glucose 122 H Calcium 9.7 C-Reactive Protein 9.7 H COVID-19 ([place]) 02/08/20 02/08/20 02/08/20 09:40 09:40 11:28 WBC RBC Hgb Hct MCV MCH MCHC RDW Plt Count MPV ESR Cancelled Sodium Potassium Chloride Carbon Dioxide Anion Gap BUN Creatinine Est GFR (CKD-EPI)AfAm Est GFR (CKD-EPI)NonAf POC Glucometer 104 Random Glucose Calcium C-Reactive Protein Cancelled COVID-19 ([place]) Active Medications Generic Name Dose Route Start Last Admin Trade Name Freq PRN Reason Stop Dose Admin Acetaminophen 650 mg 02/07/20 11:03 02/08/20 09:04 Tylenol - PO 650 mg Q6H PRN Administration Fever Or Pain Aspirin 81 mg 02/07/20 10:00 02/08/20 09:04 Asa - PO 81 mg DAILY EMY Administration Atorvastatin Calcium 20 mg 02/07/20 22:00 02/07/20 21:29 Lipitor - PO 20 mg HS EMY Administration Doxycycline Hyclate 100 mg 02/07/20 10:00 02/08/20 09:06 Vibramycin - PO 100 mg BID@1000,1800 EMY Administration Gabapentin 100 mg/ Gabapentin 500 mg 02/07/20 22:00 02/07/20 21:28 400 mg PO 500 mg HS EMY Administration Heparin Sodium (Porcine) 5,000 unit 02/07/20 14:00 02/08/20 14:08 Heparin - SQ 5,000 unit TID EMY Administration Piperacillin Sod/Tazobactam 50 mls @ 100 mls/hr 02/07/20 10:00 02/08/20 09:06 Sod 3.375 gm/ Dextrose IVPB 100 mls/hr Q8H-IV EMY Administration Protocol Insulin Aspart 1 vial 02/07/20 16:30 02/08/20 11:50 Novolog Vial Sliding Scale - SQ Not Given TIDAC [facility] Protocol Lisinopril 5 mg 02/07/20 10:00 Prinivil PO DAILY [facility] ASSESSMENT/PLAN: Pt. is an 84 yo F w/ PMH OA, b/l knee replacements, HTN, HLD, DM, Chronic LE ulcers, peripheral neuropathy, h/o ESBL klebsiella growth in ulcer presented for evaluation of her worsening L knee ulcer. Pt is currently admitted for L knee abscess with surrounding cellulitis. #L knee abscess w/ surrounding cellulitis -CT L knee: status post left knee replacement. Soft tissue and bone detail is limited due to extensive metallic artifact arising from surgical instrumentation. A moderate amount of nonspecific fluid is seen within the left suprapatellar bursa as described above. There is also a possible 2.4 x 2 cm nonspecific complex fluid collection along the posterolateral aspect of the distal left femoral metaphysis. Sonographic correlation may be considered. Note is again made of anterior subluxation of the tibial plateau in relation to the femur - Left Knee US shows likely abcess measuring 3.9 x 1.7 cm hyperechoic mass like density -ID, ortho and wound care consulted. -will c/w Zosyn and doxycycline (02/06 is day 1) due to h/o Pseudomonas -I&D done at bedside by ortho, drained 2-3mL cloudy fluid -f/u wound cx; Gram stain negative for organisms -LE duplex negative for DVT -c/w acetaminophen 650mg q6H PRN for pain/fever -ESR and CRP notably elevated #Hyperkalemia, resolved -resume lisinopril 5mg -hold home meloxicam, due to BUN/Cr: 21.3/0.7 -d/c IVF encourage PO intake #Gluteal ulcers -Turn and position q2H #DM w/ diabetic neuropathy -hold home metformin -ISS & BGM ACHS -c/w gabapentin 300mg qHS #HTN #HLD -hold home lisinopril 5mg, given hyperK+, will resume tomorrow -continue to monitor BP -c/w atorvastatin 20mg qHS, ASA 81mg qD OA -hold home meloxicam, given mild renal impairment -c/w acetaminophen 650mg q6H PRN Ppx - DVT: SQH FEN -LR @ 42 for 24 hours -monitor and replete electrolytes K+ 4, Mg++ 2. -diabetic/sodium diet Dispo: continue to monitor in med/surg Visit type - Emergency Visit Emergency Visit: Yes ED Registration Date: 02/06/20 Care time: The patient presented to the Emergency Department on the above date a nd was hospitalized for further evaluation of their emergent condition. - New Patient This patient is new to me today: Yes Date on this admission: 02/08/20 - Critical Care Critical Care patient: No - Discharge Referral Referred to [facility] Med P.C.: No - Medication Review Med list reviewed for High Risk Meds patients 65 and older: Yes ATTENDING PHYSICIAN STATEMENT I saw and evaluated the patient. I reviewed the resident's note and discussed the case with the resident. I agree with the resident's findings and plan as documented. SUBJECTIVE: OBJECTIVE: ASSESSMENT AND PLAN:
--- NOTE | 2020-02-08 17:51 | PN ---
Teaching Attending Note Name of Resident: Arya Clarke ATTENDING PHYSICIAN STATEMENT I saw and evaluated the patient. I reviewed the resident's note and discussed the case with the resident. I agree with the resident's findings and plan as documented. SUBJECTIVE: No fever or chills. pain inL knee but better than yesterday . No N/V . no SOB. OBJECTIVE: NAD, awake, alert CV: RRR, 36 Sm at LUSB , with no radiation Lungs: CTAB EXt : : No edema or erythema on RLE. L knee with hyperpigmented area laterally , with peeling skin around the arthrocentesis site . + tenderness. no flucuation in popliteal area . L foot drop with 0/5 in dosrifelxion and 0/5 plantar flexion. ASSESSMENT AND PLAN: 84 y/o lady lady with h/o OA, b/l knee replacement, HTN, HLP, skin ulcers with infections , neuropathy, ESBL UTI and bacteremia, Dm, and spinal surgery with resultant L foot drop, wheel chair bound, who presented with pain and erythema on L knee 1- Lateral knee cellulitis and abscess formation: s/p bedside drainage by ortho . CT scan reviewed. Us obtained today due to findings . Dr. Clarke d/w A mona form ortho ( case was d/w Dr. mahmood ) . ortho is aware of the posterior collection , but does not recommend any drainage . - cont doxy and zosn - follow wound cx - No DVT 2- H/o DM: cont SSI while here . hold Metfrmin 3- Mild hyperkalemia:resolved. -cont to hold lisinopril -No need for IVF today 4- h/o HTN: monitor BP off lisinoprikl can resume soon 5- Decubiti on gluteal area. frequent turning 7- DVT PX : heparin SQ Dispo: HLOC
[2020-02-08] MEDS ORDERED: GABAPENTIN 100 MG CAPSULE ONE (21:37)
[2020-02-08] MEDS ORDERED: GABAPENTIN 400 MG CAPSULE ONE (21:37)
[2020-02-08] MEDS: ATORVASTATIN CA 20 MG TABLET (FP) PO SCH (21:47)
[2020-02-08] MEDS: GABAPENTIN PO SCH (21:48)
[2020-02-09] MEDS ORDERED: PIPERACILLIN/TAZOBACTAM 3.375 GM VIAL IVPB ONE ×3 (01:41→14:27)
[2020-02-09] MEDS ORDERED: DEXTROSE 5%-WATER - 50 ML IVPB ONE ×3 (01:42→14:27)
[2020-02-09] MEDS: PIPERACILLIN/TAZOB 3.375 GM 3.375 GM in DEXTROSE 5%-WATER - 50 ML IVPB SCH ×3 (02:55→16:59)
[2020-02-09] MEDS: INSULIN SLIDING SCALE (NOVOLOG) 1 VIAL SQ SCH ×3 (06:06→16:02)
[2020-02-09] MEDS: HEPARIN NA (PORCINE) 5,000 UNITS/ML 1ML VIAL SQ SCH ×3 (06:07→21:43)
[2020-02-09 08:13] LABS: HEMATOCRIT 27.5 % (32.4-45.2); HEMOGLOBIN 8.7 GM/dL (10.7-15.3); MCH 25.9 pg (25.7-33.7); MCHC 31.6 g/dl (32.0-36.0); MEAN PLT VOLUME 8.1 fl (7.5-11.1); PLATELET COUNT 370 K/MM3 (134-434); RBC 3.36 M/mm3 (3.60-5.2); WHITE BLOOD COUNT 5.5 K/mm3 (4.0-10.0)
[2020-02-09 08:30] LABS: BLOOD UREA NITROGEN 19.5 mg/dL (7-18); CALCIUM 9.5 mg/dL (8.5-10.1); CREATININE 0.8 mg/dL (0.55-1.3); POTASSIUM 4.1 mmol/L (3.5-5.1)
[2020-02-09] MEDS: LISINOPRIL 5 MG TABLET PO SCH (09:04)
[2020-02-09] MEDS: DOXYCYCLINE HYCLATE 100 MG CAPSULE PO SCH ×2 (09:04→16:59)
[2020-02-09] MEDS: ASPIRIN 81 MG CHEWABLE TABLETS PO SCH (09:04)
[2020-02-09] MEDS: ACETAMINOPHEN 325 MG TABLET (FP) PO PRN (09:06)
--- NOTE | 2020-02-09 15:08 | PN ---
Progress Note (short form) - Note Progress Note: Subjective: no fever or chills. pain in L shoulder , L knee, and R hip ( chronic ) , no SOB Objective: Vital Signs: Last Vital Signs Temp Pulse Resp BP Pulse Ox 97.8 F 87 20 99/65 97 02/09/20 14:42 02/09/20 14:42 02/09/20 14:42 02/09/20 14:42 02/09/20 09:00 Laboratory Results - last 24 hr 02/08/20 02/08/20 02/09/20 17:07 21:44 06:01 WBC RBC Hgb Hct MCV MCH MCHC RDW Plt Count MPV Sodium Potassium Chloride Carbon Dioxide Anion Gap BUN Creatinine Est GFR (CKD-EPI)AfAm Est GFR (CKD-EPI)NonAf POC Glucometer 97 126 84 Random Glucose Calcium 02/09/20 02/09/20 02/09/20 07:19 07:19 11:26 WBC 5.5 RBC 3.36 L Hgb 8.7 L Hct 27.5 L MCV 82.0 MCH 25.9 MCHC 31.6 L RDW 18.0 H Plt Count 370 MPV 8.1 Sodium 142 Potassium 4.1 Chloride 107 Carbon Dioxide 30 Anion Gap 5 L BUN 19.5 H Creatinine 0.8 Est GFR (CKD-EPI)AfAm 77.92 Est GFR (CKD-EPI)NonAf 67.23 POC Glucometer 112 Random Glucose 83 Calcium 9.5 OBJECTIVE: NAD, awake, alert CV: RRR, 36 SM at LUSB, with no radiation Lungs: CTAB EXt: No edema or erythema on RLE. L knee with hyperpigmented area laterally , less edematous compared to yesterday ,less tenderness. no flucuation in popliteal area. with 0/5 in dosrifelxion and 0/5 plantar flexion. ASSESSMENT AND PLAN: 84 y/o lady lady with h/o OA, b/l knee replacement, HTN, HLP, skin ulcers with i nfections , neuropathy, ESBL UTI and bacteremia, Dm, and spinal surgery with resultant L foot drop, wheel chair bound, who presented with pain and erythema on L knee 1- Lateral knee cellulitis and abscess formation: s/p bedside drainage by ortho . - improving - cont doxy and zosyn - culture with group B strep . will d/w ID . ? dc doxy 2- H/o DM: cont SSI while here. hold Metfrmin 3- Mild hyperkalemia:resolved. -cont to hold lisinopril 4- h/o HTN: BP on lower side , monitor 5- Decubiti on gluteal area. frequent turning 7- DVT PX : heparin SQ Dispo: HLOC Visit type - Emergency Visit Emergency Visit: Yes ED Registration Date: 02/06/20 Care time: The patient presented to the Emergency Department on the above date and was hospitalized for further evaluation of their emergent condition. - New Patient This patient is new to me today: No - Critical Care Critical Care patient: No - Medication Review Med list reviewed for High Risk Meds patients 65 and older: Yes
[2020-02-09] MEDS ORDERED: GABAPENTIN 100 MG CAPSULE ONE (21:25)
[2020-02-09] MEDS ORDERED: GABAPENTIN 400 MG CAPSULE ONE (21:25)
[2020-02-09] MEDS: GABAPENTIN PO SCH (21:43)
[2020-02-09] MEDS: ATORVASTATIN CA 20 MG TABLET (FP) PO SCH (21:43)
[2020-02-10] MEDS: ACETAMINOPHEN 325 MG TABLET (FP) PO PRN ×3 (00:35→21:21)
[2020-02-10] MEDS ORDERED: PIPERACILLIN/TAZOBACTAM 3.375 GM VIAL IVPB ONE ×3 (00:56→16:56)
[2020-02-10] MEDS ORDERED: DEXTROSE 5%-WATER - 50 ML IVPB ONE ×3 (00:56→16:56)
[2020-02-10] MEDS: PIPERACILLIN/TAZOB 3.375 GM 3.375 GM in DEXTROSE 5%-WATER - 50 ML IVPB SCH ×3 (01:03→17:11)
[2020-02-10] MEDS: HEPARIN NA (PORCINE) 5,000 UNITS/ML 1ML VIAL SQ SCH ×3 (05:24→21:20)
[2020-02-10] MEDS: INSULIN SLIDING SCALE (NOVOLOG) 1 VIAL SQ SCH ×3 (06:09→16:54)
[2020-02-10 08:53] LABS: HEMATOCRIT 32.1 % (32.4-45.2); HEMOGLOBIN 10.1 GM/dL (10.7-15.3); MCH 26.8 pg (25.7-33.7); MCHC 31.6 g/dl (32.0-36.0); MEAN CELL VOLUME 84.9 fl (80-96); PLATELET COUNT 357 K/MM3 (134-434); RBC 3.78 M/mm3 (3.60-5.2); WHITE BLOOD COUNT 6.9 K/mm3 (4.0-10.0)
[2020-02-10] MEDS: ASPIRIN 81 MG CHEWABLE TABLETS PO SCH (09:36)
[2020-02-10] MEDS: LISINOPRIL 5 MG TABLET PO SCH (09:36)
[2020-02-10] MEDS: DOXYCYCLINE HYCLATE 100 MG CAPSULE PO SCH ×2 (09:36→17:11)
--- NOTE | 2020-02-10 11:07 | PN ---
Progress Note (short form) - Note Progress Note: Ortho Pt seen and examined s/p left knee abscess I&D. Pt continues to improve. Microbiology 02/07/20 13:10 Abscess Gram Stain - Final 02/07/20 13:10 Abscess Body Fluid Culture - Final Strep Agalactiae Group B 02/07/20 13:10 Abscess Anaerobic Culture - Preliminary Selected Entries 02/10/20 05:45 Temperature 98.2 F Pulse Rate 73 Respiratory 18 Rate Blood Pressure 114/58 L Laboratory Tests 02/10/20 08:33 WBC 6.9 Hgb 10.1 L Hct 32.1 L D Plt Count 357 PE- decr swelling and erythema, no fluctuance, decr ttp, limited rom due to failed TKR calf soft, nt a/p Continue abx as per ID warm packs/soaks PT eval wound care f/u will follow d/w Dr. Bender
--- NOTE | 2020-02-10 13:50 | PN ---
Teaching Attending Note Name of Resident: Elayne Schroeder ATTENDING PHYSICIAN STATEMENT I saw and evaluated the patient. I reviewed the resident's note and discussed the case with the resident. I agree with the resident's findings and plan as documented. SUBJECTIVE: No fever or chills, pain in all joints. No SOB or CP OBJECTIVE: NAD, awake, alert CV: RRR, 3/6 SM at LUSB, with no radiation Lungs: CTAB EXt: No edema or erythema on RLE. L knee with hyperpigmented area laterally ,less tenderness. no flucuation in popliteal area. L foot drop ASSESSMENT AND PLAN: 84 y/o lady lady with h/o OA, b/l knee replacement, HTN, HLP, skin ulcers with infections , neuropathy, ESBL UTI and bacteremia, Dm, and spinal surgery with resultant L foot drop, wheel chair bound, who presented with pain and erythema on L knee OBJECTIVE: NAD, awake, alert CV: RRR, 36 SM at LUSB, with no radiation Lungs: CTAB EXt: No edema or erythema on RLE. L knee with hyperpigmented area laterally , less edematous compared to yesterday ,less tenderness. no flucuation in popliteal area. with 0/5 in dosrifelxion and 0/5 plantar flexion. ASSESSMENT AND PLAN: 84 y/o lady lady with h/o OA, b/l knee replacement, HTN, HLP, skin ulcers with infections , neuropathy, ESBL UTI and bacteremia, Dm, and spinal surgery with resultant L foot drop, wheel chair bound, who presented with pain and erythema on L knee 1- Lateral knee cellulitis and abscess formation: s/p bedside drainage by ortho . - improving - d/w Dr. Maciel, will dc on Augmentin x 7 days 2- H/o DM: resume metformin at dc 3- Mild hyperkalemia:resolved. -resume lisinopril 4- h/o HTN: resume lisinopril at dc dispo : Dc home. has home health aid. 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
--- NOTE | 2020-02-10 17:07 | DS ---
Physical Exam: SUBJECTIVE: Patient seen and examined. Pt stated she was feeling the best she felt since admission. Pt stated that her chronic bodily pain from osteoarthritis has been stable. OBJECTIVE: Vital Signs Period Temp Pulse Resp BP Sys/Jaimes Pulse Ox Last 24 Hr 97.4 F-98.6 F 73-86 18-18 101-116/51-61 98-99 PHYSICAL EXAM GENERAL: Awake and alert, not in acute distress HEENT: NCAT, EOMI, moist mucus membranes CARDIAC: Regular rate and rhythm, 3/6 systolic murmur on LSB. RESPIRATORY: CTA b/l. No wheezes ABDOMEN: Soft, non-distended, nontender to palpation. Normoactive bowel sounds. EXTREMITIES: warm, well-perfused. No edema. L knee improved tenderness. SKIN: L knee lesion hyperpigmented LABS CBC, BMP 02/10/20 08:33 02/09/20 07:19 HOSPITAL COURSE: Pt is an 84 yo F PMH OA, b/l knee replacements, HTN, HLD, DM, Chronic LE ulcers, peripheral neuropathy, h/o ESBL klebsiella growth in ulcer presented for evaluation of her worsening L knee ulcer. Pt is currently admitted for L knee abscess with surrounding cellulitis. Incision and drainage done. Wound culture grew group B strep. Pt was placed on zosyn and doxycycline due to h/o pseudomonas. Lesion was subsequently less erythematous and tender. Pt was discharged with Augmentin for 1 week and a follow-up appointment at the wound clinic. Pt is hemodynamically stable and medically optimized for discharge home. Date of Admission:02/06/20 Date of Discharge: 02/10/20 Minutes to complete discharge: 36 Discharge Summary Problems reviewed: Yes Reason For Visit: CELLULITIS, CHRONIC SKIN ULCER Current Active Problems Non-healing ulcer (Chronic) Condition: Improved - Instructions Diet, Activity, Other Instructions: YOUR VISIT You came to the hospital because you were experiencing left knee pain. You were admitted to the hospital for care of these symptoms. You were found to have an abscess on your knee. We did an incision and drainage of the abscess. You were found to have bacteria growing in the abscess and you were placed on antibiotics. Your symptoms have resolved and you are now stable and to return home. MEDICATIONS Please continue to take your home medications as prescribed: -Gabapentin 500mg by mouth every night for your neuropathy. -Acetaminophen 1000mg by mouth every 8 hours as needed and Meloxicam 15mg daily as needed for your arthritis pain -Metformin 500mg by mouth twice a day for your diabetes. -Zinc Oxide topical ointment and vitamin A & D topical ointment daily as needed for your ulcers -Simvastatin 40mg every night for your cholesterol -Lisinopril 5mg by mouth daily for your blood pressure -Aspirin 81 mg daily You have *NEW* medication. You will take antibiotic Augmentin by mouth every 12 hours for 1 week. Your f irst dose is this evening ADDITIONAL CARE Please make an appointment to see your wound care doctor, Dr. Mendoza, 1 week from today. You will be having further wound care at his clinic. Please make an appointment to see your primary care provider, Dr. Metz, 2 weeks from today. You may discuss your hospitalization with her. please follow with Yulia Barillas , the orthopedic surgeon in 1 week to check on your knee ADDITIONAL INFORMATION -You are being discharged home. -Please keep your wound clean and dry. Please call 911 or come directly to the emergency department if you experience recurrence of the symptoms that brought you to the hospital, unusual headache, vision change, shortness of breath, chest pain, numbness, tingling, loss of alertness/awareness, loss of function, unusual bleeding or any alarming symptoms. please discuss withyour primary doctor to cut down or stop meloxicam to avoid kidney injury Referrals: Arya Bender MD [Staff Physician] - 1 Week Pilar Metz MD [Non Staff, Medical] - 2 Weeks Joni Mendoza DO [Staff Physician] - 1 Week (Left knee wound care) Disposition: VNS/HOME HEALTH CARE - Home Medications Comprehensive Discharge Medication List: Ambulatory Orders Lisinopril [Prinivil] 5 mg PO DAILY #30 tablet 09/09/13 Simvastatin 40 mg PO HS 05/10/18 Gabapentin 500 mg PO HS 05/11/18 Meloxicam 15 mg PO DAILY PRN 05/11/18 metFORMIN HCL [Metformin ER Osmotic] 500 mg PO BID 05/11/18 Aspirin [ASA -] 81 mg PO DAILY tab.chew 05/22/18 Acetaminophen [Tylenol .Extra-Strength -] 1,000 mg PO Q8H PRN 02/06/20 Ascorbic Acid [Vitamin C] 125 mg PO Q2D 02/06/20 Vitamin A & D Top Oint - 1 applic TP DAILY 02/06/20 Zinc Oxide 20% Topical Oint 1 applic TP DAILY 02/06/20 Amoxicillin/Potassium Clav [Augmentin 875-125 Tablet] 1 each PO Q12H 7 Days #14 tablet 02/10/20 This patient is new to me today: No Emergency Visit: Yes ED Registration Date: 02/06/20 Care time: The patient presented to the Emergency Department on the above date and was hospitalized for further evaluation of their emergent condition. Critical Care patient: No - Discharge Referral Referred to [facility] Med [facility].C[facility] No ATTENDING PHYSICIAN STATEMENT I saw and evaluated the patient. I reviewed the resident's note and discussed the case with the resident. I agree with the resident's findings and plan as documented. SUBJECTIVE: OBJECTIVE: ASSESSMENT AND PLAN:
[2020-02-10] MEDS ORDERED: GABAPENTIN 100 MG CAPSULE ONE (21:01)
[2020-02-10] MEDS ORDERED: GABAPENTIN 400 MG CAPSULE ONE (21:02)
[2020-02-10] MEDS: GABAPENTIN PO SCH (21:22)
[2020-02-10] MEDS: ATORVASTATIN CA 20 MG TABLET (FP) PO SCH (21:23)
[2020-02-11] MEDS ORDERED: DEXTROSE 5%-WATER - 50 ML IVPB ONE (02:25)
[2020-02-11] MEDS ORDERED: PIPERACILLIN/TAZOBACTAM 3.375 GM VIAL IVPB ONE (02:25)
[2020-02-11] MEDS: PIPERACILLIN/TAZOB 3.375 GM 3.375 GM in DEXTROSE 5%-WATER - 50 ML IVPB SCH (02:37)
[2020-02-11 06:35] VITALS: BP 114/68; PULSE 82; TEMP 98.7
[2020-02-11] MEDS: INSULIN SLIDING SCALE (NOVOLOG) 1 VIAL SQ SCH (06:35)
[2020-02-11] MEDS: HEPARIN NA (PORCINE) 5,000 UNITS/ML 1ML VIAL SQ SCH (06:53)
--- NOTE | 2020-02-11 09:34 | PN ---
Physical Exam: SUBJECTIVE: Patient seen and examined. Stated that she felt well today. Eager to go home. OBJECTIVE: Vital Signs Period Temp Pulse Resp BP Sys/Jaimes Pulse Ox Last 24 Hr 97.4 F-98.9 F 76-93 18-18 101-125/51-71 96-99 Laboratory Results - last 24 hr 02/10/20 02/10/20 02/10/20 10:43 16:53 21:18 POC Glucometer 137 100 110 02/11/20 06:35 POC Glucometer 81 Active Medications Acetaminophen (Tylenol -) 650 mg PO Q6H PRN PRN Reason: Fever Or Pain Last Admin: 02/10/20 21:21 Dose: 650 mg Documented by: Aspirin (Asa -) 81 mg PO DAILY [facility] Last Admin: 02/10/20 09:36 Dose: 81 mg Documented by: Atorvastatin Calcium (Lipitor -) 20 mg PO HS [facility] Last Admin: 02/10/20 21:23 Dose: 20 mg Documented by: Doxycycline Hyclate (Vibramycin -) 100 mg PO BID@1000,1800 [facility] Last Admin: 02/10/20 17:11 Dose: 100 mg Documented by: Gabapentin 100 mg/ Gabapentin (400 mg) 500 mg PO [facility] Last Admin: 02/10/20 21:22 Dose: 500 mg Documented by: Heparin Sodium (Porcine) (Heparin -) 5,000 unit SQ TID [facility] Last Admin: 02/11/20 06:53 Dose: 5,000 unit Documented by: Piperacillin Sod/Tazobactam (Sod 3.375 gm/ Dextrose) 50 mls @ 100 mls/hr IVPB Q8H-IV [facility]; Protocol Last Admin: 02/11/20 02:37 Dose: 100 mls/hr Documented by: Insulin Aspart (Novolog Vial Sliding Scale -) 1 vial SQ TIDAC [facility]; Protocol Last Admin: 02/11/20 06:35 Dose: Not Given Documented by: Lisinopril (Prinivil) 5 mg PO DAILY [facility] Last Admin: 02/10/20 09:36 Dose: 5 mg Documented by: ASSESSMENT/PLAN: Pt is an 84 yo F w/ PMH OA, b/l knee replacements, HTN, HLD, DM, Chronic LE u lcers, peripheral neuropathy, h/o ESBL klebsiella growth in ulcer presented for evaluation of her worsening L knee ulcer. Pt is currently admitted for L knee abscess with surrounding cellulitis. L knee abscess w/ surrounding cellulitis, improved -CT L knee: status post left knee replacement. A moderate amount of nonspecific fluid is seen within the L suprapatellar bursa. There is also a possible 2.4 x 2 cm nonspecific complex fluid collection along the posterolateral aspect of the distal L femoral metaphysis. Anterior subluxation of the tibial plateau in relation to the femur - Left Knee US shows likely abcess measuring 3.9 x 1.7 cm hyperechoic mass like density - ID, ortho and wound care consulted. - I&D done at bedside by ortho, drained 2-3mL cloudy fluid - Wound Cx grew group B strep. Discharge home with Augmentin BID for 1 week. - LE duplex negative for DVT - c/w acetaminophen 650mg q6H PRN for pain/fever Hyperkalemia, resolved -continue to monitor Gluteal ulcers -Turn and position q2H DM w/ diabetic neuropathy -hold home metformin -ISS & BGM ACHS -c/w gabapentin 300mg qHS HTN HLD -c/w lisinopril 5mg qD -c/w atorvastatin 20mg qHS, ASA 81mg qD Ppx - DVT: SQH FEN -No standing fluids -monitor and replete electrolytes K+ 4, Mg++ 2. -diabetic/sodium diet Dispo: D/C home at 11:30AM via ambulette ATTENDING PHYSICIAN STATEMENT I saw and evaluated the patient. I reviewed the resident's note and discussed the case with the resident. I agree with the resident's findings and plan as documented. SUBJECTIVE: OBJECTIVE: ASSESSMENT AND PLAN:
--- NOTE | 2020-02-11 09:50 | PN ---
Teaching Attending Note Name of Resident: Elayne Schroeder ATTENDING PHYSICIAN STATEMENT I saw and evaluated the patient. I reviewed the resident's note and discussed the case with the resident. I agree with the resident's findings and plan as documented. SUBJECTIVE: OBJECTIVE: Vital Signs Temperature 98.7 F 02/11/20 06:00 Pulse Rate 82 02/11/20 06:00 Respiratory Rate 18 02/11/20 09:00 Blood Pressure 114/68 02/11/20 06:00 O2 Sat by Pulse Oximetry (%) 99 02/11/20 09:00 CBCD WBC 6.9 K/mm3 (4.0-10.0) 02/10/20 08:33 RBC 3.78 M/mm3 (3.60-5.2) 02/10/20 08:33 Hgb 10.1 GM/dL (10.7-15.3) L 02/10/20 08:33 Hct 32.1 % (32.4-45.2) L D 02/10/20 08:33 MCV 84.9 fl (80-96) 02/10/20 08:33 MCHC 31.6 g/dl (32.0-36.0) L 02/10/20 08:33 RDW 19.0 % (11.6-15.6) H 02/10/20 08:33 Plt Count 357 K/MM3 (134-434) 02/10/20 08:33 MPV 8.0 fl (7.5-11.1) 02/10/20 08:33 CMP Sodium 142 mmol/L (136-145) 02/09/20 07:19 Potassium 4.1 mmol/L (3.5-5.1) 02/09/20 07:19 Chloride 107 mmol/L (98-107) 02/09/20 07:19 Carbon Dioxide 30 mmol/L (21-32) 02/09/20 07:19 Anion Gap 5 MMOL/L (8-16) L 02/09/20 07:19 BUN 19.5 mg/dL (7-18) H 02/09/20 07:19 Creatinine 0.8 mg/dL (0.55-1.3) 02/09/20 07:19 Random Glucose 83 mg/dL (74-106) 02/09/20 07:19 Calcium 9.5 mg/dL (8.5-10.1) 02/09/20 07:19 Total Bilirubin 0.3 mg/dL (0.2-1) 02/07/20 07:55 AST 12 U/L (15-37) L 02/07/20 07:55 ALT 7 U/L (13-61) L 02/07/20 07:55 Alkaline Phosphatase 63 U/L (45-117) 02/07/20 07:55 Total Protein 7.2 g/dl (6.4-8.2) 02/07/20 07:55 Albumin 2.5 g/dl (3.4-5.0) L 02/07/20 07:55 Current Medications Generic Name Dose Route Start Last Admin Trade Name Freq PRN Reason Stop Dose Admin Acetaminophen 650 mg 02/07/20 11:03 02/10/20 21:21 Tylenol - PO 650 mg Q6H PRN Administration Fever Or Pain Aspirin 81 mg 02/07/20 10:00 02/10/20 09:36 Asa - PO 81 mg DAILY [facility]Y Administration Atorvastatin Calcium 20 mg 02/07/20 22:00 02/10/20 21:23 Lipitor - PO 20 mg HS EMY Administration Doxycycline Hyclate 100 mg 02/07/20 10:00 02/10/20 17:11 Vibramycin - PO 100 mg BID@1000,1800 [facility] Administration Gabapentin 100 mg/ Gabapentin 500 mg 02/07/20 22:00 02/10/20 21:22 400 mg PO 500 mg HS [facility]Y Administration Heparin Sodium (Porcine) 5,000 unit 02/07/20 14:00 02/11/20 06:53 Heparin - SQ 5,000 unit TID [facility]Y Administration Piperacillin Sod/Tazobactam 50 mls @ 100 mls/hr 02/07/20 10:00 02/11/20 02:37 Sod 3.375 gm/ Dextrose IVPB 100 mls/hr Q8H-IV [facility] Administration Protocol Insulin Aspart 1 vial 02/07/20 16:30 02/11/20 06:35 Novolog Vial Sliding Scale - SQ Not Given TIDAC [facility] Protocol Lisinopril 5 mg 02/07/20 10:00 02/10/20 09:36 Prinivil PO 5 mg DAILY [facility] Administration Home Medications Medication Instructions Recorded Lisinopril [Prinivil] 5 mg PO DAILY #30 tablet 09/09/13 Simvastatin 40 mg PO HS 05/10/18 Gabapentin 500 mg PO HS 05/11/18 Meloxicam 15 mg PO DAILY PRN 05/11/18 metFORMIN HCL [Metformin ER 500 mg PO BID 05/11/18 Osmotic] Aspirin [ASA -] 81 mg PO DAILY tab.chew 05/22/18 Acetaminophen [Tylenol 1,000 mg PO Q8H PRN 02/06/20 .Extra-Strength -] Ascorbic Acid [Vitamin C] 125 mg PO Q2D 02/06/20 Vitamin A & D Top Oint - 1 applic TP DAILY 02/06/20 Zinc Oxide 20% Topical Oint 1 applic TP DAILY 02/06/20 Amoxicillin/Potassium Clav 1 each PO Q12H 7 Days #14 tablet 02/10/20 [Augmentin 875-125 Tablet] Microbiology 02/07/20 13:10 Abscess Gram Stain - Final 02/07/20 13:10 Abscess Body Fluid Culture - Final Strep Agalactiae Group B 02/07/20 13:10 Abscess Anaerobic Culture - Preliminary ASSESSMENT AND PLAN: 84 y/o lady lady with h/o OA, b/l knee replacement, HTN, HLP, skin ulcers with infections , neuropathy, ESBL UTI and bacteremia, Dm, and spinal surgery with resultant L foot drop, wheel chair bound, who presented with pain and erythema on L knee 1- Lateral knee cellulitis and abscess formation: s/p bedside drainage by ortho . - improving - d/w Dr. Maciel, will mo on Augmentin x 7 days 2- H/o DM: resume metformin at mo 3- Mild hyperkalemia:resolved. -resume lisinopril 4- h/o HTN: resume lisinopril at mo dispo : Or home. has home health aid. bed ridden at [employer] team d/w community health worker
--- NOTE | 2020-02-11 12:00 | PN ---
Progress Note, Physician - Current Medication List Current Medications: Active Medications Acetaminophen (Tylenol -) 650 mg PO Q6H PRN PRN Reason: Fever Or Pain Last Admin: 02/10/20 21:21 Dose: 650 mg Documented by: Aspirin (Asa -) 81 mg PO DAILY [facility] Last Admin: 02/10/20 09:36 Dose: 81 mg Documented by: Atorvastatin Calcium (Lipitor -) 20 mg PO HS [facility] Last Admin: 02/10/20 21:23 Dose: 20 mg Documented by: Doxycycline Hyclate (Vibramycin -) 100 mg PO BID@1000,1800 [facility] Last Admin: 02/10/20 17:11 Dose: 100 mg Documented by: Gabapentin 100 mg/ Gabapentin (400 mg) 500 mg PO HS [facility] Last Admin: 02/10/20 21:22 Dose: 500 mg Documented by: Heparin Sodium (Porcine) (Heparin -) 5,000 unit SQ TID [facility] Last Admin: 02/11/20 06:53 Dose: 5,000 unit Documented by: Piperacillin Sod/Tazobactam (Sod 3.375 gm/ Dextrose) 50 mls @ 100 mls/hr IVPB Q8H-IV [facility]; Protocol Last Admin: 02/11/20 02:37 Dose: 100 mls/hr Documented by: Insulin Aspart (Novolog Vial Sliding Scale -) 1 vial SQ TIDAC [facility]; Protocol Last Admin: 02/11/20 06:35 Dose: Not Given Documented by: Lisinopril (Prinivil) 5 mg PO DAILY [facility] Last Admin: 02/10/20 09:36 Dose: 5 mg Documented by: - Objective Vital Signs: Vital Signs Temperature 98.7 F 02/11/20 06:00 Pulse Rate 82 02/11/20 06:00 Respiratory Rate 18 02/11/20 09:00 Blood Pressure 114/68 02/11/20 06:00 O2 Sat by Pulse Oximetry (%) 99 02/11/20 09:00 Labs: CBC, BMP 02/10/20 08:33 02/09/20 07:19
== END 2020-02-11 11:40 | disposition home health service (06) | DRG 603 ==
LOC: JER 17:33 → JERBED 20:08 → J7W 02-07 00:48
PROVIDERS: ADMIT Internal Medicine; ATTEND Internal Medicine
PROC: 0J9P0ZX Drainage of Left Lower Leg Subcutaneous Tissue and Fascia, Open Approach, Diagnostic (ICD-10-PCS; principal; 2020-02-07)
DX: L02.416 Cutaneous abscess of left lower limb (principal); L03.116 Cellulitis of left lower limb; M21.372 Foot drop, left foot; L98.491 Non-pressure chronic ulcer of skin of other sites limited to breakdown of skin; E11.40 Type 2 diabetes mellitus with diabetic neuropathy, unspecified; E78.5 Hyperlipidemia, unspecified; I10 Essential (primary) hypertension; M17.0 Bilateral primary osteoarthritis of knee; E87.5 Hyperkalemia; B95.1 Streptococcus, group B, as the cause of diseases classified elsewhere; E11.42 Type 2 diabetes mellitus with diabetic polyneuropathy
CPT/HCPCS: 36415; 71045-TC-FY; 73701-TC-RT; 76882-TC-RT-FY; 80048; 80053; 82962; 85025; 85027; 85651; 86140; 87070; 87075; 87077; 87205; 93005; 93010; 93970-TC; 97162-GP; 99285-25; J1644; Q9967; U0003

== ENCOUNTER 2020-03-18 13:53 | Inpatient (IN) | payer OTHER ==
[2020-03-18 14:01] VITALS: BMI 29.5
[2020-03-18 15:51] LABS: BASO % 0.5 % (0-2.0); EOS % 1.7 % (0-4.5); HEMATOCRIT 31.5 % (32.4-45.2); HEMOGLOBIN 9.9 GM/dL (10.7-15.3); LYMPH % 14.4 % (8-40); MCH 27.1 pg (25.7-33.7); MCHC 31.3 g/dl (32.0-36.0); MEAN CELL VOLUME 86.7 fl (80-96); MONO % 9.2 % (3.8-10.2); NEUT % 74.2 % (42.8-82.8); PLATELET COUNT 303 K/MM3 (134-434); RBC 3.64 M/mm3 (3.60-5.2); WHITE BLOOD COUNT 7.3 K/mm3 (4.0-10.0)
[2020-03-18] MEDS ORDERED: VANCOMYCIN 1 GM in D5W (PRE-DOCKED) 1,000 MG/250 ML IVPB ONE (16:05)
[2020-03-18] MEDS ORDERED: VANCOMYCIN 1 GRAM (PRE-DOCKED) 1,000 MG/250 ML BAG IVPB ONE (16:09)
[2020-03-18 16:27] LABS: CHLORIDE 104 mmol/L (98-107); POTASSIUM 4.4 mmol/L (3.5-5.1); SODIUM 139 mmol/L (136-145)
[2020-03-18 16:29] LABS: ALBUMIN 3.1 g/dl (3.4-5.0); ANION GAP 7 MMOL/L (8-16); CALCIUM 10.6 mg/dL (8.5-10.1); CO2 29 mmol/L (21-32)
[2020-03-18 16:30] LABS: GLUCOSE,RANDOM 98 mg/dL (74-106)
[2020-03-18 16:32] LABS: SGOT/AST 14 U/L (15-37); SGPT/ALT 9 U/L (13-61)
[2020-03-18 16:33] LABS: CREATININE 0.5 mg/dL (0.55-1.3)
[2020-03-18 16:34] LABS: BILIRUBIN,TOTAL 0.3 mg/dL (0.2-1)
[2020-03-18 16:35] LABS: ALK PHOS 69 U/L (45-117)
[2020-03-18 17:07] LABS: EPI CELLS 13 /uL (0-25.1); HYALINE CASTS 2 /uL (0-3.1); URINE APPEARANCE CLEAR; URINE BACTERIA 18 /uL (0-1359); URINE BILIRUBIN NEGATIVE (NEGATIVE); URINE COLOR YELLOW; URINE GLUCOSE (UA) NEGATIVE (NEGATIVE); URINE KETONE NEGATIVE (NEGATIVE); URINE LEUK ESTERASE NEGATIVE (NEGATIVE); URINE NITRITE NEGATIVE (NEGATIVE); URINE PROTEIN 1+ (NEGATIVE); URINE RBC 5 /uL (0-23.9); URINE WBC 16 /uL (0-25.8)
[2020-03-18 17:24] LABS: INR 1.12 (0.83-1.09); PROTHROMBIN TIME (PATIENT) 13.7 SEC (9.7-13.0)
[2020-03-18 17:27] LABS: ACTIVATED PTT 24.2 SECONDS (25.2-36.5)
[2020-03-18] MEDS ORDERED: PIPERACILLIN/TAZOB 3.375 GM 3.375 GM in DEXTROSE 5%-WATER - 50 ML IVPB ONE (19:04)
[2020-03-18] MEDS ORDERED: VANCOMYCIN 1,000 MG in DEXTROSE 5%-WATER - 250 ML IVPB ONE (21:27)
[2020-03-18] MEDS: SODIUM CHLORIDE 1,000 ML IV SCH (22:39)
[2020-03-19] MEDS: INSULIN SLIDING SCALE (NOVOLOG) 1 VIAL SQ SCH ×5 (00:15→21:30)
[2020-03-19] MEDS ORDERED: PIPERACILLIN/TAZOB 3.375 GM 3.375 GM in DEXTROSE 5%-WATER - 50 ML IVPB SCH (02:00)
[2020-03-19] MEDS: PIPERACILLIN/TAZOB 3.375 GM 3.375 GM in DEXTROSE 5%-WATER - 50 ML IVPB SCH ×3 (04:08→17:31)
[2020-03-19 07:05] LABS: BASO % 0.4 % (0-2.0); EOS % 2.4 % (0-4.5); HEMATOCRIT 28.8 % (32.4-45.2); HEMOGLOBIN 9.2 GM/dL (10.7-15.3); LYMPH % 14.3 % (8-40); MCH 27.3 pg (25.7-33.7); MEAN CELL VOLUME 85.3 fl (80-96); MONO % 8.5 % (3.8-10.2); NEUT % 74.4 % (42.8-82.8); PLATELET COUNT 312 K/MM3 (134-434); RBC 3.38 M/mm3 (3.60-5.2); RDW 19.6 % (11.6-15.6); WHITE BLOOD COUNT 8.4 K/mm3 (4.0-10.0)
[2020-03-19 08:10] LABS: CALCIUM 10.3 mg/dL (8.5-10.1)
[2020-03-19 08:11] LABS: BLOOD UREA NITROGEN 12.2 mg/dL (7-18); MAGNESIUM 2.4 mg/dL (1.8-2.4)
[2020-03-19 08:14] LABS: CREATININE 0.6 mg/dL (0.55-1.3); PHOSPHOROUS 3.3 mg/dL (2.5-4.9)
[2020-03-19 08:15] LABS: BILIRUBIN,TOTAL 0.5 mg/dL (0.2-1); TOT PROT 7.6 g/dl (6.4-8.2)
[2020-03-19] MEDS ORDERED: VANCOMYCIN 1 GRAM (PRE-DOCKED) 1,000 MG/250 ML BAG IVPB ONE (16:00)
[2020-03-19] MEDS: LISINOPRIL 5 MG TABLET PO SCH (16:03)
[2020-03-19] MEDS: ATORVASTATIN CA 20 MG TABLET (FP) PO SCH (21:30)
[2020-03-19] MEDS: SODIUM CHLORIDE 1,000 ML IV SCH (21:30)
[2020-03-20] MEDS: PIPERACILLIN/TAZOB 3.375 GM 3.375 GM in DEXTROSE 5%-WATER - 50 ML IVPB SCH ×3 (01:56→17:39)
[2020-03-20] MEDS: SODIUM CHLORIDE 1,000 ML IV SCH ×3 (06:22→23:37)
[2020-03-20] MEDS: INSULIN SLIDING SCALE (NOVOLOG) 1 VIAL SQ SCH ×4 (06:23→22:57)
[2020-03-20 09:08] LABS: BASO % 0.4 % (0-2.0); EOS % 4.1 % (0-4.5); HEMATOCRIT 29.7 % (32.4-45.2); HEMOGLOBIN 9.2 GM/dL (10.7-15.3); LYMPH % 15.1 % (8-40); MCH 26.7 pg (25.7-33.7); MEAN PLT VOLUME 8.8 fl (7.5-11.1); MONO % 9.7 % (3.8-10.2); NEUT % 70.7 % (42.8-82.8); PLATELET COUNT 308 K/MM3 (134-434); RBC 3.46 M/mm3 (3.60-5.2); RDW 19.6 % (11.6-15.6); WHITE BLOOD COUNT 6.3 K/mm3 (4.0-10.0)
[2020-03-20] MEDS: LISINOPRIL 5 MG TABLET PO SCH (09:28)
[2020-03-20 09:37] LABS: POTASSIUM 4.1 mmol/L (3.5-5.1)
[2020-03-20 09:50] LABS: BLOOD UREA NITROGEN 10.5 mg/dL (7-18)
[2020-03-20 09:51] LABS: ALBUMIN 2.9 g/dl (3.4-5.0); CALCIUM 9.9 mg/dL (8.5-10.1)
[2020-03-20 09:52] LABS: MAGNESIUM 2.2 mg/dL (1.8-2.4)
[2020-03-20 09:55] LABS: BILIRUBIN,TOTAL 0.4 mg/dL (0.2-1); CREATININE 0.6 mg/dL (0.55-1.3); PHOSPHOROUS 3.2 mg/dL (2.5-4.9); TOT PROT 7.4 g/dl (6.4-8.2)
[2020-03-20] MEDS ORDERED: PIPERACILLIN/TAZOBACTAM 3.375 GM VIAL IVPB ONE (17:34)
[2020-03-20] MEDS ORDERED: DEXTROSE 5%-WATER - 50 ML IVPB ONE (17:35)
[2020-03-20] MEDS ORDERED: INSULIN (NOVOLOG) ASPART 100 UNITS/ML 10ML VIAL ONE (19:54)
[2020-03-20] MEDS: ACETAMINOPHEN 325 MG TABLET (FP) PO PRN (22:19)
[2020-03-20] MEDS: ATORVASTATIN CA 20 MG TABLET (FP) PO SCH (22:19)
[2020-03-21] MEDS: PIPERACILLIN/TAZOB 3.375 GM 3.375 GM in DEXTROSE 5%-WATER - 50 ML IVPB SCH ×2 (01:02→09:25)
[2020-03-21] MEDS: INSULIN SLIDING SCALE (NOVOLOG) 1 VIAL SQ SCH ×2 (06:08→12:26)
[2020-03-21 07:08] LABS: BASO % 0.8 % (0-2.0); EOS % 5.1 % (0-4.5); HEMATOCRIT 29.4 % (32.4-45.2); HEMOGLOBIN 9.2 GM/dL (10.7-15.3); LYMPH % 22.9 % (8-40); MCH 27.1 pg (25.7-33.7); MCHC 31.3 g/dl (32.0-36.0); MEAN CELL VOLUME 86.3 fl (80-96); MEAN PLT VOLUME 8.5 fl (7.5-11.1); MONO % 9.8 % (3.8-10.2); NEUT % 61.4 % (42.8-82.8); PLATELET COUNT 284 K/MM3 (134-434); RDW 19.4 % (11.6-15.6); WHITE BLOOD COUNT 4.5 K/mm3 (4.0-10.0)
[2020-03-21 07:20] LABS: POTASSIUM 3.9 mmol/L (3.5-5.1)
[2020-03-21 07:22] LABS: CALCIUM 9.4 mg/dL (8.5-10.1)
[2020-03-21 07:23] LABS: ALBUMIN 2.5 g/dl (3.4-5.0); BLOOD UREA NITROGEN 9.2 mg/dL (7-18); MAGNESIUM 2.1 mg/dL (1.8-2.4)
[2020-03-21 07:26] LABS: CREATININE 0.6 mg/dL (0.55-1.3); PHOSPHOROUS 2.8 mg/dL (2.5-4.9)
[2020-03-21 07:27] LABS: BILIRUBIN,TOTAL 0.3 mg/dL (0.2-1); TOT PROT 6.7 g/dl (6.4-8.2)
[2020-03-21] MEDS ORDERED: DEXTROSE 5%-WATER - 50 ML IVPB ONE ×2 (09:15)
[2020-03-21] MEDS ORDERED: PIPERACILLIN/TAZOBACTAM 3.375 GM VIAL IVPB ONE ×2 (09:15)
[2020-03-21] MEDS: ACETAMINOPHEN 325 MG TABLET (FP) PO PRN (09:23)
[2020-03-21] MEDS: LISINOPRIL 5 MG TABLET PO SCH (09:25)
[2020-03-21 12:04] VITALS: BP 129/74; PULSE 79; TEMP 97.9
== END 2020-03-21 12:33 | DRG 560 ==
LOC: JER 13:53 → JERBED 19:24 → J6WEST-2 03-19 10:01 → J7W 03-20 15:00
PROVIDERS: ADMIT Internal Medicine; ATTEND Internal Medicine
PROC: 0S9D3ZX Drainage of Left Knee Joint, Percutaneous Approach, Diagnostic (ICD-10-PCS; principal; 2020-03-19)
PROC: 02HV33Z Insertion of Infusion Device into Superior Vena Cava, Percutaneous Approach (ICD-10-PCS; 2020-03-20)
PROC: B548ZZA Ultrasonography of Superior Vena Cava, Guidance (ICD-10-PCS; 2020-03-20)
DX: T84.54XA Infection and inflammatory reaction due to internal left knee prosthesis, initial encounter (principal); L03.116 Cellulitis of left lower limb; I10 Essential (primary) hypertension; E78.5 Hyperlipidemia, unspecified; E11.42 Type 2 diabetes mellitus with diabetic polyneuropathy; Z79.84 Long term (current) use of oral hypoglycemic drugs; E88.09 Other disorders of plasma-protein metabolism, not elsewhere classified; D64.9 Anemia, unspecified; E83.52 Hypercalcemia; Y83.8 Other surgical procedures as the cause of abnormal reaction of the patient, or of later complication, without mention of misadventure at the time of the procedure
CPT/HCPCS: 36415; 36569; 71045-TC-FY; 73701-TC-RT; 77001-TC-FY; 80053; 81003; 82962; 83605; 83735; 83970; 84100; 84484; 85025; 85610; 85730; 86850; 86900; 86901; 87040; 87070; 87075; 87077; 87086; 87186; 87205; 93005; 93010; 99285-25; C1751; C9803; Q9967; U0003

== ENCOUNTER 2022-05-16 02:36 | Inpatient (IN) | payer OTHER ==
[2022-05-16] MEDS ORDERED: ACETAMINOPHEN 1000 MG/100 ML BAG IVPB ONE (02:50)
[2022-05-16 02:55] VITALS: BMI 45.1
[2022-05-16] MEDS ORDERED: ONDANSETRON 4 MG/2 ML VIAL ONE (03:51)
[2022-05-16] MEDS ORDERED: ONDANSETRON 4 MG/2 ML VIAL IVPUSH ONE (03:51)
[2022-05-16 04:39] LABS: BASO % 0.3 % (0-2.0); EOS % 1.1 % (0-4.5); HEMOGLOBIN 7.7 GM/dL (10.7-15.3); LYMPH % 16.4 % (8-40); MCH 28.2 pg (25.7-33.7); MCHC 30.7 g/dl (32.0-36.0); MEAN CELL VOLUME 91.8 fl (80-96); MEAN PLT VOLUME 8.2 fl (7.5-11.1); MONO % 6.6 % (3.8-10.2); NEUT % 75.6 % (42.8-82.8); PLATELET COUNT 441 10^3/uL (134-434); RBC 2.72 M/mm3 (3.60-5.2); RDW 15.6 % (11.6-15.6); WHITE BLOOD COUNT 17.4 K/mm3 (4.0-10.0)
[2022-05-16 04:45] LABS: INR 1.17 (0.83-1.09); PROTHROMBIN TIME (PATIENT) 13.5 SEC (9.7-13.0)
[2022-05-16 05:22] LABS: ALBUMIN 2.7 g/dl (3.4-5.0); BLOOD UREA NITROGEN 34.1 mg/dL (7-18); CALCIUM 9.5 mg/dL (8.5-10.1)
[2022-05-16 05:25] LABS: CREATININE 1.2 mg/dL (0.55-1.3)
[2022-05-16 05:27] LABS: BILIRUBIN,TOTAL 0.2 mg/dL (0.2-1); TOT PROT 7.3 g/dl (6.4-8.2)
[2022-05-16] MEDS ORDERED: SODIUM CHLORIDE 0.9% 500 ML INFUS.BAG IV ONE (06:11)
[2022-05-16] MEDS ORDERED: PIPERACILLIN/TAZOB 4.5 GM 4.5 GM in DEXTROSE 5%-WATER 100 ML IVPB ONE (06:25)
[2022-05-16] MEDS ORDERED: VANCOMYCIN 1 GM in D5W (PRE-DOCKED) 1,000 MG/250 ML IVPB ONE (06:25)
[2022-05-16] MEDS ORDERED: PIPERACILLIN/TAZOB 4.5 GM 4.5 GM/100 ML BAG IVPB ONE (06:29)
[2022-05-16] MEDS ORDERED: VANCOMYCIN 500 MG VIAL (RESTRICTED TO ID ONLY) ONE (07:53)
[2022-05-16 10:31] LABS: CALCIUM 9.5 mg/dL (8.5-10.1)
[2022-05-16] MEDS ORDERED: SODIUM CHLORIDE 500 ML IV STA (10:31)
[2022-05-16 10:32] LABS: BLOOD UREA NITROGEN 34.1 mg/dL (7-18); MAGNESIUM 2.4 mg/dL (1.8-2.4)
[2022-05-16] MEDS ORDERED: SODIUM ZIRCONIUM CYCLOSILICATE (LOKELMA) 5 GM PACKET PO ONE (10:34)
[2022-05-16 10:35] LABS: CREATININE 1.3 mg/dL (0.55-1.3)
[2022-05-16] MEDS ORDERED: SODIUM ZIRCONIUM CYCLOSILICATE (LOKELMA) 5 GM PACKET ONE (10:58)
[2022-05-16] MEDS: INSULIN SLIDING SCALE (NOVOLOG) 1 VIAL SQ SCH ×3 (11:35→22:42)
[2022-05-16] MEDS ORDERED: CEFTRIAXONE 2 GM-D5W BAG 2 GM/50 ML BAG IVPB SCH (17:00)
[2022-05-16] MEDS ORDERED: CEFTRIAXONE 2 GM/100 ML BAG IVPB ONE (17:12)
[2022-05-16] MEDS ORDERED: PIPERACILLIN/TAZOB 3.375 GM 3.375 GM/50 ML BAG IVPB ONE (17:49)
[2022-05-16] MEDS: PIPERACILLIN/TAZOB 3.375 GM 3.375 GM in DEXTROSE 5%-WATER - 50 ML IVPB SCH (18:21)
[2022-05-16] MEDS: ENOXAPARIN NA (PORCINE) 40 MG/0.4 ML DISP.SYRIN SQ SCH (22:41)
[2022-05-17] MEDS: PIPERACILLIN/TAZOB 3.375 GM 3.375 GM in DEXTROSE 5%-WATER - 50 ML IVPB SCH ×3 (03:14→18:01)
[2022-05-17] MEDS: INSULIN SLIDING SCALE (NOVOLOG) 1 VIAL SQ SCH ×4 (06:09→22:04)
[2022-05-17 09:33] LABS: BASO % 0.2 % (0-2.0); EOS % 0.8 % (0-4.5); HEMATOCRIT 24.3 % (32.4-45.2); HEMOGLOBIN 7.6 GM/dL (10.7-15.3); LYMPH % 12.2 % (8-40); MCH 28.3 pg (25.7-33.7); MEAN CELL VOLUME 91.1 fl (80-96); MEAN PLT VOLUME 8.4 fl (7.5-11.1); MONO % 9.6 % (3.8-10.2); NEUT % 77.2 % (42.8-82.8); PLATELET COUNT 332 10^3/uL (134-434); RBC 2.67 M/mm3 (3.60-5.2); WHITE BLOOD COUNT 11.2 K/mm3 (4.0-10.0)
[2022-05-17] MEDS: ENOXAPARIN NA (PORCINE) 40 MG/0.4 ML DISP.SYRIN SQ SCH ×2 (10:03→22:02)
[2022-05-17 10:14] LABS: CALCIUM 9.1 mg/dL (8.5-10.1)
[2022-05-17 10:15] LABS: ALBUMIN 2.4 g/dl (3.4-5.0); BLOOD UREA NITROGEN 30.9 mg/dL (7-18); MAGNESIUM 2.5 mg/dL (1.8-2.4)
[2022-05-17 10:18] LABS: CREATININE 1.2 mg/dL (0.55-1.3); PHOSPHOROUS 3.8 mg/dL (2.5-4.9)
[2022-05-17 10:19] LABS: TOT PROT 6.7 g/dl (6.4-8.2)
[2022-05-17 10:20] LABS: BILIRUBIN,TOTAL 0.2 mg/dL (0.2-1)
[2022-05-18] MEDS: PIPERACILLIN/TAZOB 3.375 GM 3.375 GM in DEXTROSE 5%-WATER - 50 ML IVPB SCH ×3 (02:54→18:27)
[2022-05-18] MEDS: INSULIN SLIDING SCALE (NOVOLOG) 1 VIAL SQ SCH ×4 (06:07→22:27)
[2022-05-18] MEDS: ENOXAPARIN NA (PORCINE) 40 MG/0.4 ML DISP.SYRIN SQ SCH (10:35)
[2022-05-18 10:55] LABS: BASO % 0.6 % (0-2.0); LYMPH % 12.4 % (8-40); MCH 28.9 pg (25.7-33.7); MCHC 31.8 g/dl (32.0-36.0); MEAN CELL VOLUME 91.1 fl (80-96); MEAN PLT VOLUME 8.3 fl (7.5-11.1); MONO % 7.1 % (3.8-10.2); NEUT % 78.9 % (42.8-82.8); PLATELET COUNT 326 10^3/uL (134-434); RBC 2.31 M/mm3 (3.60-5.2); RDW 16.2 % (11.6-15.6); WHITE BLOOD COUNT 9.9 K/mm3 (4.0-10.0)
[2022-05-18 11:05] LABS: HEMOGLOBIN 6.7 GM/dL (10.7-15.3)
[2022-05-18 11:39] LABS: CALCIUM 8.9 mg/dL (8.5-10.1)
[2022-05-18 11:40] LABS: ALBUMIN 2.6 g/dl (3.4-5.0); BLOOD UREA NITROGEN 25.4 mg/dL (7-18); MAGNESIUM 2.5 mg/dL (1.8-2.4)
[2022-05-18 11:43] LABS: CREATININE 1.3 mg/dL (0.55-1.3)
[2022-05-18 11:44] LABS: BILIRUBIN,TOTAL 0.3 mg/dL (0.2-1); TOT PROT 7.1 g/dl (6.4-8.2)
[2022-05-18] MEDS ORDERED: INSULIN (NOVOLOG) ASPART 100 UNITS/ML 10ML VIAL ONE (21:42)
[2022-05-19] MEDS: PIPERACILLIN/TAZOB 3.375 GM 3.375 GM in DEXTROSE 5%-WATER - 50 ML IVPB SCH ×3 (02:29→17:40)
[2022-05-19] MEDS: INSULIN SLIDING SCALE (NOVOLOG) 1 VIAL SQ SCH ×4 (07:26→22:13)
[2022-05-19 11:14] LABS: BASO % 0.6 % (0-2.0); EOS % 1.9 % (0-4.5); HEMATOCRIT 22.4 % (32.4-45.2); HEMOGLOBIN 7.5 GM/dL (10.7-15.3); LYMPH % 13.4 % (8-40); MCH 29.3 pg (25.7-33.7); MCHC 33.7 g/dl (32.0-36.0); MEAN CELL VOLUME 86.9 fl (80-96); MEAN PLT VOLUME 7.7 fl (7.5-11.1); MONO % 6.5 % (3.8-10.2); NEUT % 77.6 % (42.8-82.8); PLATELET COUNT 321 10^3/uL (134-434); RBC 2.58 M/mm3 (3.60-5.2); RDW 16.4 % (11.6-15.6); WHITE BLOOD COUNT 8.4 K/mm3 (4.0-10.0)
[2022-05-19] MEDS ORDERED: INSULIN (NOVOLOG) ASPART 100 UNITS/ML 10ML VIAL ONE (11:20)
[2022-05-19 11:55] LABS: CALCIUM 8.7 mg/dL (8.5-10.1)
[2022-05-19 11:56] LABS: ALBUMIN 2.4 g/dl (3.4-5.0); BLOOD UREA NITROGEN 18.6 mg/dL (7-18); MAGNESIUM 2.3 mg/dL (1.8-2.4)
[2022-05-19 11:58] LABS: BILIRUBIN,TOTAL 0.3 mg/dL (0.2-1); TOT PROT 6.8 g/dl (6.4-8.2)
[2022-05-19 11:59] LABS: CREATININE 1.3 mg/dL (0.55-1.3); PHOSPHOROUS 2.8 mg/dL (2.5-4.9)
[2022-05-20] MEDS: PIPERACILLIN/TAZOB 3.375 GM 3.375 GM in DEXTROSE 5%-WATER - 50 ML IVPB SCH ×3 (02:13→17:33)
[2022-05-20] MEDS: INSULIN SLIDING SCALE (NOVOLOG) 1 VIAL SQ SCH ×4 (08:54→21:47)
[2022-05-20 10:43] LABS: BASO % 0.3 % (0-2.0); EOS % 2.4 % (0-4.5); HEMATOCRIT 25.5 % (32.4-45.2); HEMOGLOBIN 8.3 GM/dL (10.7-15.3); LYMPH % 12.8 % (8-40); MCH 28.7 pg (25.7-33.7); MCHC 32.5 g/dl (32.0-36.0); MEAN CELL VOLUME 88.2 fl (80-96); MEAN PLT VOLUME 7.7 fl (7.5-11.1); MONO % 5.4 % (3.8-10.2); NEUT % 79.1 % (42.8-82.8); PLATELET COUNT 347 10^3/uL (134-434); RBC 2.89 M/mm3 (3.60-5.2); RDW 16.3 % (11.6-15.6); WHITE BLOOD COUNT 8.8 K/mm3 (4.0-10.0)
[2022-05-20 11:12] LABS: CALCIUM 9.2 mg/dL (8.5-10.1)
[2022-05-20 11:14] LABS: ALBUMIN 2.7 g/dl (3.4-5.0); BLOOD UREA NITROGEN 17.6 mg/dL (7-18); MAGNESIUM 2.6 mg/dL (1.8-2.4)
[2022-05-20 11:16] LABS: CREATININE 1.3 mg/dL (0.55-1.3); PHOSPHOROUS 2.6 mg/dL (2.5-4.9)
[2022-05-20 11:18] LABS: BILIRUBIN,TOTAL 0.4 mg/dL (0.2-1); TOT PROT 7.2 g/dl (6.4-8.2)
[2022-05-20 14:41] VITALS: RESP 18
[2022-05-20] MEDS ORDERED: ACETAMINOPHEN 1000 MG/100 ML BAG IVPB ONE (21:08)
[2022-05-20 21:50] LABS: BASO % 0.9 % (0-2.0); EOS % 2.8 % (0-4.5); HEMATOCRIT 23.3 % (32.4-45.2); LYMPH % 17.8 % (8-40); MCHC 34.3 g/dl (32.0-36.0); MEAN CELL VOLUME 87.5 fl (80-96); MEAN PLT VOLUME 7.6 fl (7.5-11.1); MONO % 6.6 % (3.8-10.2); NEUT % 71.9 % (42.8-82.8); PLATELET COUNT 344 10^3/uL (134-434); RBC 2.66 M/mm3 (3.60-5.2); RDW 15.7 % (11.6-15.6); WHITE BLOOD COUNT 8.2 K/mm3 (4.0-10.0)
[2022-05-20] MEDS ORDERED: ATORVASTATIN CA 20 MG TABLET (FP) PO SCH (22:00)
[2022-05-20] MEDS ORDERED: MELATONIN 5 MG TABLETS PO ONE (22:49)
[2022-05-21 05:30] VITALS: BP 117/62; PULSE 69; TEMP 97.9
[2022-05-21] MEDS: INSULIN SLIDING SCALE (NOVOLOG) 1 VIAL SQ SCH (06:41)
[2022-05-21] MEDS ORDERED: AMOX TR/POT CLAV 875MG/125MG TABLETS (FP) PO SCH (08:00)
[2022-05-21] MEDS ORDERED: ASPIRIN COATED 81 MG TABLET.EC PO SCH (10:00)
== END 2022-05-21 12:12 | disposition home health service (06) | DRG 560 ==
LOC: JER 02:36 → JERBED 07:45 → J6S 18:38
PROVIDERS: ADMIT Internal Medicine; ATTEND Internal Medicine
PROC: 0S9D3ZZ Drainage of Left Knee Joint, Percutaneous Approach (ICD-10-PCS; principal; 2022-05-16)
DX: T84.7XXA Infection and inflammatory reaction due to other internal orthopedic prosthetic devices, implants and grafts, initial encounter (principal); D62 Acute posthemorrhagic anemia; L02.416 Cutaneous abscess of left lower limb; Z68.42 Body mass index [BMI] 45.0-49.9, adult; M00.9 Pyogenic arthritis, unspecified; I10 Essential (primary) hypertension; E78.5 Hyperlipidemia, unspecified; Z99.3 Dependence on wheelchair; Z79.84 Long term (current) use of oral hypoglycemic drugs; E11.42 Type 2 diabetes mellitus with diabetic polyneuropathy; M25.462 Effusion, left knee; M21.372 Foot drop, left foot; Y83.8 Other surgical procedures as the cause of abnormal reaction of the patient, or of later complication, without mention of misadventure at the time of the procedure; E66.01 Morbid (severe) obesity due to excess calories
CPT/HCPCS: 0241U-QW; 10030; 36415; 36430; 73702-TC-RT; 80048; 80053; 82728; 82962; 83540; 83550; 83735; 84100; 85025; 85610; 86850; 86900; 86901; 86922; 87040; 87070; 87075; 87076; 87077; 87102; 87116; 87205; 87206; 87210; 93005; 93010; 97162-GP; 99285-25; P9058; Q9967

== ENCOUNTER 2024-01-27 12:00 | Inpatient (IN) | payer OTHER ==
[2024-01-27] MEDS: SODIUM CHLORIDE 0.9% 500 ML INFUS.BAG IV ONE ×4 (13:00→17:52)
[2024-01-27 13:11] LABS: BASO % 0.2 % (0-2.0); EOS % 0.6 % (0-4.5); HEMATOCRIT 38.4 % (32.4-45.2); HEMOGLOBIN 12.1 GM/dL (10.7-15.3); LYMPH % 12.8 % (8-40); MCH 28.4 pg (25.7-33.7); MCHC 31.5 g/dl (32.0-36.0); MEAN CELL VOLUME 90.1 fl (80-96); MEAN PLT VOLUME 9.5 fl (7.5-11.1); MONO % 4.9 % (3.8-10.2); NEUT % 81.5 % (42.8-82.8); PLATELET COUNT 357 10^3/uL (134-434); RBC 4.26 M/mm3 (3.60-5.2); WHITE BLOOD COUNT 9.3 K/mm3 (4.0-10.0)
[2024-01-27 13:48] LABS: INR 1.02 (0.83-1.09); PROTHROMBIN TIME (PATIENT) 11.5 SEC (9.7-13.0)
[2024-01-27 13:51] LABS: ACTIVATED PTT 19.3 SECONDS (25.2-36.5)
[2024-01-27 13:59] LABS: CALCIUM 10.4 mg/dL (8.5-10.1); CHLORIDE 108 mmol/L (98-107); SODIUM 141 mmol/L (136-145)
[2024-01-27 14:00] LABS: ALBUMIN 3.7 g/dl (3.4-5.0); BLOOD UREA NITROGEN 85.1 mg/dL (7-18); CO2 19 mmol/L (21-32); GLUCOSE,RANDOM 90 mg/dL (74-106)
[2024-01-27 14:02] LABS: ANION GAP 15 mmol/L (4-13); CREATININE 6.6 mg/dL (0.55-1.3); POTASSIUM 6.4 mmol/L (3.5-5.1); SGOT/AST 14 U/L (15-37)
[2024-01-27 14:04] LABS: BILIRUBIN,TOTAL 0.5 mg/dL (0.2-1); TOT PROT 8.5 g/dl (6.4-8.2)
[2024-01-27 14:05] LABS: ALK PHOS 98 U/L (45-117); SGPT/ALT 11 U/L (13-61)
[2024-01-27] MEDS ORDERED: SODIUM ZIRCONIUM CYCLOSILICATE (LOKELMA) 5 GM PACKET ONE (14:18)
[2024-01-27] MEDS ORDERED: CALCIUM GLUCONATE 10% - 1,000 MG/10 ML VIAL ONE (14:18)
[2024-01-27] MEDS ORDERED: DEXTROSE 50%-WATER 25 GM/50 ML DISP.SYRIN ONE (14:20)
[2024-01-27] MEDS ORDERED: INSULIN REGULAR HUMAN 100 UNITS/ML *VIAL ONE (14:20)
[2024-01-27] MEDS: CALCIUM GLUC IN NACL, ISO-OSM 1 GM/50 ML BAG IVPB ONE (14:25)
[2024-01-27] MEDS: DEXTROSE 50%-WATER - 25 GM/50 ML VIAL IVPUSH ONE ×2 (14:35→14:38)
[2024-01-27] MEDS: INSULIN REGULAR HUMAN 100 UNITS/ML *VIAL IVPUSH ONE (14:40)
[2024-01-27] MEDS: SODIUM ZIRCONIUM CYCLOSILICATE (LOKELMA) 5 GM PACKET PO SCH (14:44)
[2024-01-27 16:00] LABS: POTASSIUM 5.9 mmol/L (3.5-5.1)
[2024-01-27 16:06] LABS: CREATININE 5.8 mg/dL (0.55-1.3)
[2024-01-27 16:25] LABS: EPI CELLS >36 /uL (0-25.1); HYALINE CASTS 70 /uL (0-3.1); URINE APPEARANCE TURBID; URINE BACTERIA 108 /uL (0-1359); URINE BILIRUBIN NEGATIVE (NEGATIVE); URINE COLOR YELLOW; URINE GLUCOSE (UA) TRACE (NEGATIVE); URINE KETONE 1+ (NEGATIVE); URINE LEUK ESTERASE 3+ (NEGATIVE); URINE NITRITE NEGATIVE (NEGATIVE); URINE PROTEIN 3+ (NEGATIVE); URINE RBC 17 /uL (0-23.9); URINE WBC 3290 /uL (0-25.8)
[2024-01-27] MEDS ORDERED: VANCOMYCIN 1 GRAM (PRE-DOCKED) 1,000 MG/250 ML BAG IVPB ONE (16:27)
[2024-01-27 16:28] LABS: CALCIUM 8.8 mg/dL (8.5-10.1)
[2024-01-27] MEDS ORDERED: PIPERACILLIN/TAZOB 3.375 GM 3.375 GM/50 ML BAG IVPB ONE (16:28)
[2024-01-27] MEDS: PIPERACILLIN/TAZOB 3.375 GM 3.375 GM in DEXTROSE 5%-WATER - 50 ML IVPB ONE (16:38)
[2024-01-27] MEDS: VANCOMYCIN 1 GM PREMIX - 1 GM/200 ML BAG IVPB ONE (16:54)
[2024-01-27] MEDS: DEXTROSE 5%-0.45% SALINE 1,000 ML IV SCH (20:49)
[2024-01-27] MEDS: SODIUM ZIRCONIUM CYCLOSILICATE (LOKELMA) 5 GM PACKET PO ONE (23:00)
[2024-01-28] MEDS: SODIUM BICARBONATE 8.4% - 150 MEQ in DEXTROSE 5%-WATER - 1,000 ML IV SCH (00:37)
[2024-01-28 01:24] LABS: POTASSIUM 5.5 mmol/L (3.5-5.1)
[2024-01-28 01:26] LABS: BLOOD UREA NITROGEN 77.8 mg/dL (7-18)
[2024-01-28 01:29] LABS: CREATININE 5.5 mg/dL (0.55-1.3)
[2024-01-28] MEDS ORDERED: SODIUM ZIRCONIUM CYCLOSILICATE (LOKELMA) 10 GM PACKET ONE (06:10)
[2024-01-28] MEDS: SODIUM ZIRCONIUM CYCLOSILICATE (LOKELMA) 5 GM PACKET PO SCH (06:31)
[2024-01-28] MEDS: INSULIN ASPART SLIDING SCALE (NOVOLOG) 1 VIAL SQ SCH (08:12)
[2024-01-28 09:09] LABS: BASO % 0.4 % (0-2.0); EOS % 2.5 % (0-4.5); HEMATOCRIT 34.9 % (32.4-45.2); HEMOGLOBIN 10.9 GM/dL (10.7-15.3); LYMPH % 9.6 % (8-40); MCH 28.2 pg (25.7-33.7); MCHC 31.2 g/dl (32.0-36.0); MEAN CELL VOLUME 90.3 fl (80-96); MEAN PLT VOLUME 9.5 fl (7.5-11.1); MONO % 5.1 % (3.8-10.2); NEUT % 82.4 % (42.8-82.8); PLATELET COUNT 243 10^3/uL (134-434); RBC 3.86 M/mm3 (3.60-5.2); RDW 16.7 % (11.6-15.6); WHITE BLOOD COUNT 8.5 K/mm3 (4.0-10.0)
[2024-01-28] MEDS: ERTAPENEM SODIUM 0.5 GM in SODIUM CHLORIDE 50 ML IVPB SCH (09:10)
[2024-01-28 09:12] LABS: POTASSIUM 4.7 mmol/L (3.5-5.1)
[2024-01-28 09:13] LABS: CALCIUM 8.9 mg/dL (8.5-10.1)
[2024-01-28 09:14] LABS: ALBUMIN 2.6 g/dl (3.4-5.0); BLOOD UREA NITROGEN 71.2 mg/dL (7-18); MAGNESIUM 2.7 mg/dL (1.8-2.4)
[2024-01-28 09:17] LABS: CREATININE 4.8 mg/dL (0.55-1.3); PHOSPHOROUS 3.2 mg/dL (2.5-4.9)
[2024-01-28 09:18] LABS: BILIRUBIN,TOTAL 0.3 mg/dL (0.2-1); CHOLESTEROL 123 mg/dL (50-200)
[2024-01-28 09:20] LABS: LDL CHOLESTEROL (ONLY SJRH) 43 mg/dL (5-100)
[2024-01-28 09:21] LABS: HDL CHOLESTEROL 63 mg/dL (40-60)
[2024-01-28 09:25] LABS: TOT PROT 6.3 g/dl (6.4-8.2)
[2024-01-28] MEDS ORDERED: ERTAPENEM SODIUM 0.5 GM in SODIUM CHLORIDE 50 ML IVPB SCH (16:00)
[2024-01-28] MEDS: ATORVASTATIN CA 10 MG TABLET (FP) PO SCH (22:38)
[2024-01-28] MEDS: DONEPEZIL HCL 10 MG TABLET (FP) PO SCH (22:38)
[2024-01-29] MEDS: SODIUM ZIRCONIUM CYCLOSILICATE (LOKELMA) 5 GM PACKET PO SCH (09:41)
[2024-01-29 14:33] LABS: POTASSIUM 3.6 mmol/L (3.5-5.1)
[2024-01-29 14:37] LABS: CALCIUM 8.9 mg/dL (8.5-10.1)
[2024-01-29 14:38] LABS: ALBUMIN 2.6 g/dl (3.4-5.0); BLOOD UREA NITROGEN 56.7 mg/dL (7-18)
[2024-01-29 14:44] LABS: BILIRUBIN,TOTAL 0.4 mg/dL (0.2-1); TOT PROT 6.4 g/dl (6.4-8.2)
[2024-01-29] MEDS: CEFTRIAXONE 1 GM in DEXTROSE 5%-WATER - 50 ML IVPB SCH (15:01)
[2024-01-30 09:29] LABS: BASO % 0.4 % (0-2.0); EOS % 1.3 % (0-4.5); HEMATOCRIT 33.5 % (32.4-45.2); HEMOGLOBIN 10.6 GM/dL (10.7-15.3); LYMPH % 20.1 % (8-40); MCH 28.1 pg (25.7-33.7); MCHC 31.7 g/dl (32.0-36.0); MEAN CELL VOLUME 88.5 fl (80-96); MEAN PLT VOLUME 10.1 fl (7.5-11.1); MONO % 5.8 % (3.8-10.2); NEUT % 72.4 % (42.8-82.8); PLATELET COUNT 238 10^3/uL (134-434); RBC 3.79 M/mm3 (3.60-5.2); RDW 15.7 % (11.6-15.6); WHITE BLOOD COUNT 5.4 K/mm3 (4.0-10.0)
[2024-01-30 09:52] LABS: POTASSIUM 3.9 mmol/L (3.5-5.1)
[2024-01-30 10:14] LABS: ALBUMIN 2.4 g/dl (3.4-5.0); BLOOD UREA NITROGEN 46.2 mg/dL (7-18); MAGNESIUM 2.5 mg/dL (1.8-2.4)
[2024-01-30 10:18] LABS: CREATININE 2.2 mg/dL (0.55-1.3); TOT PROT 6.1 g/dl (6.4-8.2)
[2024-01-30 10:20] LABS: BILIRUBIN,TOTAL 0.4 mg/dL (0.2-1)
[2024-01-31 02:26] LABS: INR 1.15 (0.83-1.09); PROTHROMBIN TIME (PATIENT) 13.2 SEC (9.7-13.0)
[2024-01-31 02:29] LABS: ACTIVATED PTT 31.3 SECONDS (25.2-36.5)
[2024-01-31] MEDS ORDERED: HEPARIN NA (PORCINE) 5,000 UNITS/ML 1ML VIAL IVPUSH PRN ×2 (02:44)
[2024-01-31] MEDS: HEPARIN NA (PORCINE) 5,000 UNITS/ML 1ML VIAL IVPUSH ONE (03:39)
[2024-01-31] MEDS: HEPARIN INFUSION - 25,000 UNITS/500 ML INFUS.BAG IVPB SCH (03:39)
[2024-01-31 11:34] LABS: BASO % 0.6 % (0-2.0); EOS % 1.5 % (0-4.5); HEMOGLOBIN 10.7 GM/dL (10.7-15.3); LYMPH % 15.4 % (8-40); MCH 27.5 pg (25.7-33.7); MCHC 30.5 g/dl (32.0-36.0); MEAN CELL VOLUME 89.9 fl (80-96); MEAN PLT VOLUME 10.3 fl (7.5-11.1); NEUT % 76.5 % (42.8-82.8); PLATELET COUNT 213 10^3/uL (134-434); RDW 16.5 % (11.6-15.6); WHITE BLOOD COUNT 7.6 K/mm3 (4.0-10.0)
[2024-01-31 11:48] LABS: ALBUMIN 2.5 g/dl (3.4-5.0)
[2024-01-31 11:49] LABS: BLOOD UREA NITROGEN 38.7 mg/dL (7-18); CALCIUM 9.6 mg/dL (8.5-10.1); MAGNESIUM 2.4 mg/dL (1.8-2.4)
[2024-01-31 11:52] LABS: CREATININE 1.7 mg/dL (0.55-1.3)
[2024-01-31 11:53] LABS: BILIRUBIN,TOTAL 0.4 mg/dL (0.2-1); TOT PROT 6.7 g/dl (6.4-8.2)
[2024-01-31] MEDS: INSULIN ASPART SLIDING SCALE (NOVOLOG) 1 VIAL SQ SCH (13:14)
[2024-01-31] MEDS: AMOX TR/POT CLAV 500MG/125MG TABLETS (FP) PO SCH (18:02)
[2024-01-31 19:20] LABS: INR 1.96 (0.83-1.09); PROTHROMBIN TIME (PATIENT) 21.7 SEC (9.7-13.0)
[2024-02-01 09:10] LABS: HEMATOCRIT 37.4 % (32.4-45.2); HEMOGLOBIN 11.5 GM/dL (10.7-15.3); MCH 28.3 pg (25.7-33.7); MCHC 30.8 g/dl (32.0-36.0); MEAN CELL VOLUME 91.9 fl (80-96); MEAN PLT VOLUME 9.6 fl (7.5-11.1); PLATELET COUNT 276 10^3/uL (134-434); RBC 4.07 M/mm3 (3.60-5.2); RDW 16.7 % (11.6-15.6)
[2024-02-01 09:15] LABS: WHITE BLOOD COUNT 32.9 K/mm3 (4.0-10.0)
[2024-02-01 09:18] LABS: POTASSIUM 5.1 mmol/L (3.5-5.1)
[2024-02-01 09:31] LABS: ALBUMIN 2.3 g/dl (3.4-5.0); CALCIUM 9.3 mg/dL (8.5-10.1); CREATININE 2.1 mg/dL (0.55-1.3)
[2024-02-01 09:32] LABS: BILIRUBIN,TOTAL 0.5 mg/dL (0.2-1); BLOOD UREA NITROGEN 52.3 mg/dL (7-18); TOT PROT 6.1 g/dl (6.4-8.2)
[2024-02-01] MEDS ORDERED: PANTOPRAZOLE SODIUM 40 MG VIAL IVPUSH SCH (09:40)
[2024-02-01 09:46] LABS: ANISOCYTOSIS 0; MACROCYTOSIS 0
[2024-02-01] MEDS: APIXABAN 5 MG TABLET PO SCH (10:27)
[2024-02-01] MEDS: SODIUM CHLORIDE 1,000 ML IV SCH (11:27)
[2024-02-01] MEDS: PANTOPRAZOLE SODIUM 160 MG in SODIUM CHLORIDE 290 ML IVPB SCH (11:32)
[2024-02-01 13:23] LABS: BASO % 0.1 % (0-2.0); HEMATOCRIT 32.7 % (32.4-45.2); HEMOGLOBIN 10.1 GM/dL (10.7-15.3); LYMPH % 12.1 % (8-40); MCHC 30.8 g/dl (32.0-36.0); MEAN CELL VOLUME 91.1 fl (80-96); MEAN PLT VOLUME 9.3 fl (7.5-11.1); MONO % 4.8 % (3.8-10.2); PLATELET COUNT 192 10^3/uL (134-434); RBC 3.59 M/mm3 (3.60-5.2); RDW 16.8 % (11.6-15.6); WHITE BLOOD COUNT 7.8 K/mm3 (4.0-10.0)
[2024-02-01 13:26] LABS: INR 1.74 (0.83-1.09); PROTHROMBIN TIME (PATIENT) 19.7 SEC (9.7-13.0)
[2024-02-01 13:29] LABS: ACTIVATED PTT 34.3 SECONDS (25.2-36.5)
[2024-02-01 14:54] LABS: HEMATOCRIT 29.8 % (32.4-45.2); HEMOGLOBIN 9.3 GM/dL (10.7-15.3); MCHC 31.2 g/dl (32.0-36.0); MEAN CELL VOLUME 89.8 fl (80-96); MEAN PLT VOLUME 9.8 fl (7.5-11.1); PLATELET COUNT 205 10^3/uL (134-434); RBC 3.32 M/mm3 (3.60-5.2); RDW 16.6 % (11.6-15.6); WHITE BLOOD COUNT 9.9 K/mm3 (4.0-10.0)
[2024-02-01] MEDS: SODIUM CHLORIDE 1,000 ML IV STA (15:10)
[2024-02-01] MEDS: PANTOPRAZOLE SODIUM 40 MG VIAL IVPUSH ONE ×2 (15:25→19:14)
[2024-02-02 14:08] LABS: BASO % 0.3 % (0-2.0); EOS % 0.4 % (0-4.5); HEMATOCRIT 25.9 % (32.4-45.2); HEMOGLOBIN 8.1 GM/dL (10.7-15.3); LYMPH % 12.7 % (8-40); MCH 28.2 pg (25.7-33.7); MCHC 31.3 g/dl (32.0-36.0); MEAN CELL VOLUME 90.1 fl (80-96); MEAN PLT VOLUME 9.2 fl (7.5-11.1); MONO % 6.3 % (3.8-10.2); NEUT % 80.3 % (42.8-82.8); PLATELET COUNT 186 10^3/uL (134-434); RBC 2.87 M/mm3 (3.60-5.2); RDW 16.6 % (11.6-15.6); WHITE BLOOD COUNT 8.9 K/mm3 (4.0-10.0)
[2024-02-02 14:11] LABS: INR 1.5 (0.83-1.09); PROTHROMBIN TIME (PATIENT) 17.1 SEC (9.7-13.0)
[2024-02-02 14:14] LABS: ACTIVATED PTT 28.7 SECONDS (25.2-36.5)
[2024-02-02 14:26] LABS: POTASSIUM 3.4 mmol/L (3.5-5.1)
[2024-02-02 14:36] LABS: ALBUMIN 2.5 g/dl (3.4-5.0); BLOOD UREA NITROGEN 42.3 mg/dL (7-18); CALCIUM 9.4 mg/dL (8.5-10.1); MAGNESIUM 2.2 mg/dL (1.8-2.4)
[2024-02-02 14:39] LABS: CREATININE 1.8 mg/dL (0.55-1.3); PHOSPHOROUS 2.6 mg/dL (2.5-4.9)
[2024-02-02 14:41] LABS: BILIRUBIN,TOTAL 0.4 mg/dL (0.2-1); TOT PROT 5.8 g/dl (6.4-8.2)
[2024-02-02] MEDS: KCL 10 MEQ IVPB 10 MEQ/100 ML INFUS.BAG IVPB SCH (15:05)
[2024-02-02] MEDS ORDERED: LACTATED RINGERS SOLUTION 1,000 ML IV SCH (16:45)
[2024-02-02] MEDS: DONEPEZIL HCL 10 MG TABLET (FP) PO SCH (21:26)
[2024-02-02] MEDS: ATORVASTATIN CA 10 MG TABLET (FP) PO SCH (21:26)
[2024-02-02] MEDS: PANTOPRAZOLE 40 MG TABLET PO SCH (21:26)
[2024-02-03 08:34] LABS: HEMATOCRIT 22.3 % (32.4-45.2); HEMOGLOBIN 7.1 GM/dL (10.7-15.3); MCH 28.2 pg (25.7-33.7); MCHC 31.7 g/dl (32.0-36.0); MEAN CELL VOLUME 88.9 fl (80-96); MEAN PLT VOLUME 8.9 fl (7.5-11.1); PLATELET COUNT 188 10^3/uL (134-434); RDW 16.5 % (11.6-15.6); WHITE BLOOD COUNT 7.7 K/mm3 (4.0-10.0)
[2024-02-03 08:41] LABS: INR 1.25 (0.83-1.09); PROTHROMBIN TIME (PATIENT) 14.3 SEC (9.7-13.0)
[2024-02-03 08:51] LABS: POTASSIUM 3.2 mmol/L (3.5-5.1)
[2024-02-03 08:59] LABS: ALBUMIN 2.2 g/dl (3.4-5.0); CALCIUM 8.8 mg/dL (8.5-10.1)
[2024-02-03 09:00] LABS: BLOOD UREA NITROGEN 34.6 mg/dL (7-18)
[2024-02-03 09:02] LABS: CREATININE 1.6 mg/dL (0.55-1.3)
[2024-02-03 09:04] LABS: BILIRUBIN,TOTAL 0.4 mg/dL (0.2-1)
[2024-02-03] MEDS: SODIUM CHLORIDE 0.45% 1,000 ML IV SCH (13:55)
[2024-02-03] MEDS ORDERED: POTASSIUM CHLORIDE ORAL LIQUID 20 MEQ/15 ML PO ONE (15:00)
[2024-02-03] MEDS: KCL 10 MEQ IVPB 10 MEQ/100 ML INFUS.BAG IVPB SCH (15:20)
[2024-02-03] MEDS: POTASSIUM CHLORIDE ORAL LIQUID 20 MEQ/15 ML PO ONE (17:40)
[2024-02-03 21:34] VITALS: BMI 35.5
[2024-02-04 08:25] LABS: HEMATOCRIT 28.2 % (32.4-45.2); HEMOGLOBIN 9.3 GM/dL (10.7-15.3); MCH 29.3 pg (25.7-33.7); MEAN CELL VOLUME 88.7 fl (80-96); MEAN PLT VOLUME 9.2 fl (7.5-11.1); PLATELET COUNT 187 10^3/uL (134-434); RBC 3.18 M/mm3 (3.60-5.2); RDW 15.5 % (11.6-15.6); WHITE BLOOD COUNT 7.6 K/mm3 (4.0-10.0)
[2024-02-04 08:40] LABS: POTASSIUM 3.7 mmol/L (3.5-5.1)
[2024-02-04 08:44] LABS: ALBUMIN 2.4 g/dl (3.4-5.0); CALCIUM 9.1 mg/dL (8.5-10.1); MAGNESIUM 1.9 mg/dL (1.8-2.4)
[2024-02-04 08:45] LABS: BLOOD UREA NITROGEN 26.2 mg/dL (7-18)
[2024-02-04 08:47] LABS: CREATININE 1.5 mg/dL (0.55-1.3)
[2024-02-04 08:48] LABS: PHOSPHOROUS 1.9 mg/dL (2.5-4.9)
[2024-02-04 08:49] LABS: BILIRUBIN,TOTAL 0.6 mg/dL (0.2-1); TOT PROT 5.4 g/dl (6.4-8.2)
[2024-02-04] MEDS: D5-1/2NS+10 MEQ KCL - 10 MEQ/1,000 ML INFUS.BAG IV SCH (17:14)
[2024-02-05 12:14] LABS: POTASSIUM 4.1 mmol/L (3.5-5.1)
[2024-02-05 12:19] LABS: CALCIUM 9.5 mg/dL (8.5-10.1)
[2024-02-05 12:20] LABS: ALBUMIN 2.5 g/dl (3.4-5.0); BLOOD UREA NITROGEN 20.5 mg/dL (7-18)
[2024-02-05 12:23] LABS: CREATININE 1.5 mg/dL (0.55-1.3)
[2024-02-05 12:24] LABS: BILIRUBIN,TOTAL 0.7 mg/dL (0.2-1); TOT PROT 5.8 g/dl (6.4-8.2)
[2024-02-05 14:46] LABS: BASO % 0.4 % (0-2.0); EOS % 1.6 % (0-4.5); HEMATOCRIT 32.2 % (32.4-45.2); HEMOGLOBIN 10.3 GM/dL (10.7-15.3); LYMPH % 14.9 % (8-40); MCH 28.7 pg (25.7-33.7); MCHC 32.1 g/dl (32.0-36.0); MEAN CELL VOLUME 89.4 fl (80-96); MEAN PLT VOLUME 8.5 fl (7.5-11.1); MONO % 7.6 % (3.8-10.2); NEUT % 75.5 % (42.8-82.8); PLATELET COUNT 202 10^3/uL (134-434); RDW 15.7 % (11.6-15.6); WHITE BLOOD COUNT 8.8 K/mm3 (4.0-10.0)
[2024-02-05 14:54] LABS: INR 1.12 (0.83-1.09); PROTHROMBIN TIME (PATIENT) 12.8 SEC (9.7-13.0)
[2024-02-05 14:57] LABS: ACTIVATED PTT 27.5 SECONDS (25.2-36.5)
[2024-02-06 08:38] LABS: BASO % 0.3 % (0-2.0); EOS % 2.6 % (0-4.5); HEMATOCRIT 29.5 % (32.4-45.2); HEMOGLOBIN 9.9 GM/dL (10.7-15.3); LYMPH % 13.3 % (8-40); MCH 29.7 pg (25.7-33.7); MCHC 33.3 g/dl (32.0-36.0); MEAN PLT VOLUME 9.1 fl (7.5-11.1); MONO % 6.1 % (3.8-10.2); NEUT % 77.7 % (42.8-82.8); PLATELET COUNT 190 10^3/uL (134-434); RBC 3.32 M/mm3 (3.60-5.2); RDW 16.3 % (11.6-15.6); WHITE BLOOD COUNT 7.6 K/mm3 (4.0-10.0)
[2024-02-06 08:54] LABS: ALBUMIN 2.4 g/dl (3.4-5.0); BLOOD UREA NITROGEN 16.5 mg/dL (7-18); CALCIUM 9.2 mg/dL (8.5-10.1); POTASSIUM 3.3 mmol/L (3.5-5.1)
[2024-02-06 08:57] LABS: CREATININE 1.4 mg/dL (0.55-1.3)
[2024-02-06 08:59] LABS: BILIRUBIN,TOTAL 0.6 mg/dL (0.2-1); TOT PROT 5.5 g/dl (6.4-8.2)
[2024-02-06] MEDS ORDERED: KCL 10 MEQ IVPB 10 MEQ/100 ML INFUS.BAG IVPB SCH (10:00)
[2024-02-06] MEDS: POTASSIUM CHLORIDE ORAL LIQUID 20 MEQ/15 ML PO ONE (10:20)
[2024-02-06] MEDS: ENOXAPARIN NA (PORCINE) 30 MG/0.3 ML DISP.SYRIN SQ SCH (12:26)
[2024-02-06] MEDS: ZINC OXIDE 20% TOPICAL OINTMENT 30 GM TUBE TP SCH (12:49)
[2024-02-06] MEDS ORDERED: DEXTROSE 5%-WATER - 1,000 ML with POTASSIUM CHLORIDE 20 MEQ IV SCH (16:00)
[2024-02-06] MEDS: POTASSIUM CHLORIDE 20 MEQ in DEXTROSE 5%-WATER - 1,000 ML IV SCH (18:26)
[2024-02-07 08:13] LABS: INR 1.08 (0.83-1.09); PROTHROMBIN TIME (PATIENT) 12.4 SEC (9.7-13.0)
[2024-02-07 08:22] LABS: POTASSIUM 3.5 mmol/L (3.5-5.1)
[2024-02-07 08:26] LABS: CALCIUM 8.5 mg/dL (8.5-10.1)
[2024-02-07 08:27] LABS: ALBUMIN 2.4 g/dl (3.4-5.0); BASO % 0.3 % (0-2.0); BLOOD UREA NITROGEN 11.4 mg/dL (7-18); EOS % 2.3 % (0-4.5); HEMATOCRIT 27.9 % (32.4-45.2); HEMOGLOBIN 9.1 GM/dL (10.7-15.3); LYMPH % 15.5 % (8-40); MCH 29.3 pg (25.7-33.7); MCHC 32.6 g/dl (32.0-36.0); MEAN CELL VOLUME 89.7 fl (80-96); MEAN PLT VOLUME 9.1 fl (7.5-11.1); MONO % 6.3 % (3.8-10.2); NEUT % 75.6 % (42.8-82.8); PLATELET COUNT 183 10^3/uL (134-434); RBC 3.11 M/mm3 (3.60-5.2); RDW 16.4 % (11.6-15.6); WHITE BLOOD COUNT 7.7 K/mm3 (4.0-10.0)
[2024-02-07 08:30] LABS: CREATININE 1.3 mg/dL (0.55-1.3)
[2024-02-07 08:31] LABS: BILIRUBIN,TOTAL 0.6 mg/dL (0.2-1)
[2024-02-07 08:32] LABS: TOT PROT 5.3 g/dl (6.4-8.2)
[2024-02-08 06:59] LABS: HEMATOCRIT 29.2 % (32.4-45.2); HEMOGLOBIN 9.6 GM/dL (10.7-15.3); MCH 29.3 pg (25.7-33.7); MCHC 32.7 g/dl (32.0-36.0); MEAN CELL VOLUME 89.6 fl (80-96); MEAN PLT VOLUME 8.8 fl (7.5-11.1); PLATELET COUNT 184 10^3/uL (134-434); RBC 3.26 M/mm3 (3.60-5.2); RDW 16.3 % (11.6-15.6); WHITE BLOOD COUNT 8.7 K/mm3 (4.0-10.0)
[2024-02-08 11:57] VITALS: RESP 16; TEMP 98.2
[2024-02-08 15:25] VITALS: BP 117/73; PULSE 102
== END 2024-02-08 15:41 | disposition home or self-care (01) | DRG 871 ==
LOC: JER 12:00 → JERBED 19:18 → J4W 01-28 19:32
PROVIDERS: ADMIT Internal Medicine; ATTEND Internal Medicine
PROC: 0DJ08ZZ Inspection of Upper Intestinal Tract, Via Natural or Artificial Opening Endoscopic (ICD-10-PCS; principal; 2024-02-02 15:00)
PROC: 30233N1 Transfusion of Nonautologous Red Blood Cells into Peripheral Vein, Percutaneous Approach (ICD-10-PCS; 2024-02-03)
DX: A41.9 Sepsis, unspecified organism (principal); G93.41 Metabolic encephalopathy; K25.4 Chronic or unspecified gastric ulcer with hemorrhage; N39.0 Urinary tract infection, site not specified; N17.9 Acute kidney failure, unspecified; E87.20 Acidosis, unspecified; I82.401 Acute embolism and thrombosis of unspecified deep veins of right lower extremity; D62 Acute posthemorrhagic anemia; K92.1 Melena; E87.21 Acute metabolic acidosis; E87.0 Hyperosmolality and hypernatremia; R65.20 Severe sepsis without septic shock; E11.42 Type 2 diabetes mellitus with diabetic polyneuropathy; F03.90 Unspecified dementia, unspecified severity, without behavioral disturbance, psychotic disturbance, mood disturbance, and anxiety; I10 Essential (primary) hypertension; E78.5 Hyperlipidemia, unspecified; E87.6 Hypokalemia; E87.5 Hyperkalemia; I44.0 Atrioventricular block, first degree; L89.159 Pressure ulcer of sacral region, unspecified stage; E11.51 Type 2 diabetes mellitus with diabetic peripheral angiopathy without gangrene; R01.1 Cardiac murmur, unspecified; E86.0 Dehydration; K25.9 Gastric ulcer, unspecified as acute or chronic, without hemorrhage or perforation; K44.9 Diaphragmatic hernia without obstruction or gangrene
CPT/HCPCS: 0241U-QW; 36415; 36430; 71045-TC-FY; 76775-TC; 80048; 80053; 80061; 81003; 82272; 82550; 82570; 82962; 83036; 83605; 83735; 84100; 84156; 84300; 84484; 85025; 85027; 85610; 85730; 86850; 86900; 86901; 86922; 87040; 87086; 87186; 93005; 93010; 93306-TC; 93971; 94760; 97161-GP; 99285-25; J1644; P9058

== ENCOUNTER 2024-02-13 19:20 | Emergency (ER) | payer OTHER ==
[2024-02-13] MEDS ORDERED: ACETAMINOPHEN 325 MG TABLET (FP) ONE (20:01)
[2024-02-13] MEDS: ACETAMINOPHEN 500 MG TABLET (FP) PO ONE (20:04)
[2024-02-13 20:41] VITALS: BMI 32.3
[2024-02-14 03:39] VITALS: BP 113/73; PULSE 81; RESP 17; TEMP 97.5
== END 2024-02-14 07:31 | disposition home or self-care (01) ==
LOC: JER 19:20
DX: M25.561 Pain in right knee (principal); W06.XXXA Fall from bed, initial encounter
CPT/HCPCS: 73502-TC-RT-FY; 73552-TC-RT-FY; 73562-TC-RT-FY; 73590-TC-RT-FY; 73610-TC-RT-FY; 73630-TC-RT-FY; 99284-25

== ENCOUNTER 2024-02-16 18:33 | Inpatient (IN) | payer OTHER ==
[2024-02-16 21:09] LABS: BASO % 0.1 % (0-2.0); HEMATOCRIT 29.6 % (32.4-45.2); HEMOGLOBIN 9.1 GM/dL (10.7-15.3); LYMPH % 14.1 % (8-40); MCH 29.2 pg (25.7-33.7); MCHC 30.8 g/dl (32.0-36.0); MEAN CELL VOLUME 94.6 fl (80-96); MONO % 3.3 % (3.8-10.2); NEUT % 82.5 % (42.8-82.8); PLATELET COUNT 268 10^3/uL (134-434); RBC 3.12 M/mm3 (3.60-5.2); RDW 19.2 % (11.6-15.6); WHITE BLOOD COUNT 6.5 K/mm3 (4.0-10.0)
[2024-02-16] MEDS: LACTATED RINGERS SOLUTION 1000 ML INFUS.BAG IV ONE (21:11)
[2024-02-16] MEDS ORDERED: ONDANSETRON 4 MG/2 ML VIAL ONE (21:11)
[2024-02-16] MEDS ORDERED: FAMOTIDINE 20 MG/50 ML IVPB 20 MG/50 ML MG IVPB ONE (21:11)
[2024-02-16 21:14] LABS: VENOUS BASE EXCESS -14.9 mmol/L (-2-2); VENOUS O2 SATURATION 32.9 % (70-80); VENOUS PCO2 42.5 mmHg (38-52)
[2024-02-16 21:18] LABS: INR 1.16 (0.83-1.09)
[2024-02-16 21:20] LABS: ACTIVATED PTT 27.1 SECONDS (25.2-36.5)
[2024-02-16] MEDS: ONDANSETRON 4 MG/2 ML VIAL IVPUSH ONE (21:20)
[2024-02-16] MEDS: FAMOTIDINE 20 MG/50 ML IVPB 20 MG/50 ML MG IVPB ONE (21:20)
[2024-02-16 21:35] LABS: ALBUMIN 2.2 g/dl (3.4-5.0); BLOOD UREA NITROGEN 23.3 mg/dL (7-18); MAGNESIUM 2.2 mg/dL (1.8-2.4)
[2024-02-16 21:37] LABS: VENOUS PH 7.122 (7.310-7.410)
[2024-02-16 21:38] LABS: CREATININE 2.8 mg/dL (0.55-1.3); PHOSPHOROUS 3.5 mg/dL (2.5-4.9)
[2024-02-16 21:39] LABS: BILIRUBIN,TOTAL 0.5 mg/dL (0.2-1); TOT PROT 5.9 g/dl (6.4-8.2)
[2024-02-16 21:41] LABS: CALCIUM 10.4 mg/dL (8.5-10.1)
[2024-02-16] MEDS: SODIUM CHLORIDE 0.45% 1,000 ML IV SCH (21:54)
[2024-02-16] MEDS: KCL 20 MEQ PREMIX BAG 20 MEQ/100 ML INFUS.BAG IVPB SCH (21:54)
[2024-02-16 22:03] LABS: LACTIC ACID 14.8 mmol/L (0.4-2.0)
[2024-02-16] MEDS ORDERED: PANTOPRAZOLE SODIUM 40 MG VIAL ONE ×2 (22:04→23:48)
[2024-02-16] MEDS: PANTOPRAZOLE SODIUM 40 MG VIAL IVPUSH ONE ×2 (22:11→23:53)
[2024-02-16] MEDS: SODIUM CHLORIDE 0.45%/POT 20 MEQ/1,000 ML INFUS.BAG IV SCH (22:25)
[2024-02-17 00:35] LABS: HEMATOCRIT 28.2 % (32.4-45.2); HEMOGLOBIN 9.1 GM/dL (10.7-15.3); MCH 29.4 pg (25.7-33.7); MCHC 32.3 g/dl (32.0-36.0); MEAN CELL VOLUME 91.1 fl (80-96); MEAN PLT VOLUME 9.2 fl (7.5-11.1); PLATELET COUNT 231 10^3/uL (134-434); RDW 18.8 % (11.6-15.6); VENOUS BASE EXCESS -6.8 mmol/L (-2-2); VENOUS O2 SATURATION 42.3 % (70-80); VENOUS PCO2 39.9 mmHg (38-52); VENOUS PH 7.299 (7.310-7.410); WHITE BLOOD COUNT 6.8 K/mm3 (4.0-10.0)
[2024-02-17] MEDS: PANTOPRAZOLE SODIUM 160 MG in SODIUM CHLORIDE 290 ML IVPB SCH ×3 (00:52→08:37)
[2024-02-17 01:02] LABS: BLOOD UREA NITROGEN 24.8 mg/dL (7-18); CALCIUM 10.1 mg/dL (8.5-10.1)
[2024-02-17 01:06] LABS: CREATININE 2.4 mg/dL (0.55-1.3)
[2024-02-17 01:25] LABS: LACTIC ACID 8.4 mmol/L (0.4-2.0)
[2024-02-17] MEDS: LACTATED RINGERS SOLUTION 1000 ML INFUS.BAG IV ONE ×2 (01:37→02:22)
[2024-02-17 02:10] LABS: EPI CELLS >36 /uL (0-25.1); HYALINE CASTS 448 /uL (0-3.1); URINE APPEARANCE TURBID; URINE BACTERIA 5082 /uL (0-1359); URINE BILIRUBIN NEGATIVE (NEGATIVE); URINE COLOR DK YELLOW; URINE GLUCOSE (UA) NEGATIVE (NEGATIVE); URINE KETONE TRACE (NEGATIVE); URINE LEUK ESTERASE 3+ (NEGATIVE); URINE NITRITE NEGATIVE (NEGATIVE); URINE PROTEIN 3+ (NEGATIVE); URINE RBC 22 /uL (0-23.9); URINE WBC 7587 /uL (0-25.8)
[2024-02-17 02:18] LABS: YEAST NONE SEEN (NEGATIVE)
[2024-02-17] MEDS ORDERED: PIPERACILLIN/TAZOB 2.25 GM 2.25 GM/50 ML BAG IVPB ONE (04:05)
[2024-02-17] MEDS ORDERED: PIPERACILLIN/TAZOB 2.25 GM 2.25 GM in DEXTROSE 5%-WATER - 50 ML IVPB SCH (04:06)
[2024-02-17] MEDS: PIPERACILLIN/TAZOB 2.25 GM 2.25 GM in DEXTROSE 5%-WATER - 50 ML IVPB ONE (04:28)
[2024-02-17 04:47] LABS: HEMATOCRIT 24.6 % (32.4-45.2); HEMOGLOBIN 7.9 GM/dL (10.7-15.3); MCH 28.7 pg (25.7-33.7); MEAN CELL VOLUME 89.5 fl (80-96); MEAN PLT VOLUME 8.9 fl (7.5-11.1); PLATELET COUNT 199 10^3/uL (134-434); RBC 2.74 M/mm3 (3.60-5.2); RDW 18.2 % (11.6-15.6)
[2024-02-17 05:05] LABS: LACTIC ACID 2.6 mmol/L (0.4-2.0)
[2024-02-17 05:37] LABS: CHLORIDE 125 mmol/L (98-107); SODIUM 156 mmol/L (136-145)
[2024-02-17 05:39] LABS: CALCIUM 8.9 mg/dL (8.5-10.1)
[2024-02-17 05:40] LABS: BLOOD UREA NITROGEN 22.2 mg/dL (7-18); CO2 25 mmol/L (21-32); GLUCOSE,RANDOM 146 mg/dL (74-106)
[2024-02-17 05:43] LABS: CREATININE 1.9 mg/dL (0.55-1.3)
[2024-02-17 06:47] LABS: ANION GAP 7 mmol/L (4-13); POTASSIUM 2.8 mmol/L (3.5-5.1)
[2024-02-17 07:08] LABS: WHITE BLOOD COUNT 6.5 K/mm3 (4.0-10.0)
[2024-02-17] MEDS: KCL 10 MEQ IVPB 10 MEQ/100 ML INFUS.BAG IVPB SCH (08:33)
[2024-02-17 08:54] LABS: IRON SERUM 76 ug/dL (50-175); TOTAL IRON BINDING CAPACITY 82 ug/dL (250-450)
[2024-02-17] MEDS: POTASSIUM CHLORIDE 40 MEQ in DEXTROSE 5%-WATER - 1,000 ML IVPB SCH (09:18)
[2024-02-17 09:31] LABS: RETICULOCYTES 1.16 % (0.5-1.5)
[2024-02-17 10:26] LABS: LACTIC ACID 2.5 mmol/L (0.4-2.0)
[2024-02-17] MEDS: INSULIN ASPART SLIDING SCALE (NOVOLOG) 1 VIAL SQ SCH (11:44)
[2024-02-17] MEDS ORDERED: DEXTROSE 50%-WATER 25 GM/50 ML DISP.SYRIN ONE (17:09)
[2024-02-17] MEDS ORDERED: DEXTROSE 50%-WATER - 25 GM/50 ML VIAL IVPUSH PRN (17:24)
[2024-02-17] MEDS: DEXTROSE 50%-WATER 25 GM/50 ML DISP.SYRIN IVPUSH ONE (17:29)
[2024-02-17] MEDS: DONEPEZIL HCL 10 MG TABLET (FP) PO SCH (21:24)
[2024-02-17] MEDS: ATORVASTATIN CA 10 MG TABLET (FP) PO SCH (21:24)
[2024-02-18 08:21] LABS: BASO % 0.1 % (0-2.0); EOS % 1.9 % (0-4.5); HEMATOCRIT 29.2 % (32.4-45.2); HEMOGLOBIN 9.8 GM/dL (10.7-15.3); LYMPH % 9.4 % (8-40); MCH 29.5 pg (25.7-33.7); MCHC 33.5 g/dl (32.0-36.0); MEAN CELL VOLUME 88.2 fl (80-96); MEAN PLT VOLUME 8.9 fl (7.5-11.1); MONO % 3.8 % (3.8-10.2); NEUT % 84.8 % (42.8-82.8); PLATELET COUNT 149 10^3/uL (134-434); RBC 3.32 M/mm3 (3.60-5.2); RDW 16.8 % (11.6-15.6); WHITE BLOOD COUNT 7.6 K/mm3 (4.0-10.0)
[2024-02-18 08:50] LABS: CHLORIDE 120 mmol/L (98-107); POTASSIUM 3.3 mmol/L (3.5-5.1); SODIUM 149 mmol/L (136-145)
[2024-02-18 08:52] LABS: CALCIUM 8.2 mg/dL (8.5-10.1); GLUCOSE,RANDOM 127 mg/dL (74-106)
[2024-02-18 08:53] LABS: ALBUMIN 1.8 g/dl (3.4-5.0); ANION GAP 4 mmol/L (4-13); BLOOD UREA NITROGEN 16.5 mg/dL (7-18); CO2 24 mmol/L (21-32); MAGNESIUM 1.5 mg/dL (1.8-2.4)
[2024-02-18 08:55] LABS: CREATININE 1.6 mg/dL (0.55-1.3)
[2024-02-18 08:56] LABS: SGOT/AST 43 U/L (15-37); SGPT/ALT 18 U/L (13-61)
[2024-02-18 08:57] LABS: BILIRUBIN,TOTAL 0.6 mg/dL (0.2-1); TOT PROT 4.9 g/dl (6.4-8.2)
[2024-02-18 08:58] LABS: ALK PHOS 75 U/L (45-117)
[2024-02-18 09:03] LABS: PHOSPHOROUS 0.7 mg/dL (2.5-4.9)
[2024-02-18] MEDS: POTASSIUM PHOSPHATE 30 MM in SODIUM CHLORIDE 500 ML IVPB ONE (10:22)
[2024-02-18] MEDS: MAGNESIUM 1GM/D5W - 1 GM/100 ML IVPB IVPB ONE (10:22)
[2024-02-19 10:03] LABS: POTASSIUM 4.8 mmol/L (3.5-5.1)
[2024-02-19 10:06] LABS: CALCIUM 8.5 mg/dL (8.5-10.1)
[2024-02-19 10:07] LABS: BLOOD UREA NITROGEN 13.7 mg/dL (7-18)
[2024-02-19 10:10] LABS: CREATININE 1.2 mg/dL (0.55-1.3)
[2024-02-19 10:11] LABS: BILIRUBIN,TOTAL 0.6 mg/dL (0.2-1); TOT PROT 5.2 g/dl (6.4-8.2)
[2024-02-19] MEDS: PANTOPRAZOLE 40 MG TABLET PO SCH (10:24)
[2024-02-19] MEDS: SODIUM PHOSPHATE - 30 MM in DEXTROSE 5%-WATER - 500 ML IVPB ONE (14:48)
[2024-02-19] MEDS: MIRTAZAPINE 15 MG TABLET (FP) PO SCH (21:33)
[2024-02-19] MEDS: PANTOPRAZOLE SODIUM 40 MG VIAL IVPUSH SCH (21:34)
[2024-02-20 08:29] LABS: HEMATOCRIT 31.8 % (32.4-45.2); HEMOGLOBIN 10.3 GM/dL (10.7-15.3); MCHC 32.5 g/dl (32.0-36.0); MEAN CELL VOLUME 89.4 fl (80-96); MEAN PLT VOLUME 9.3 fl (7.5-11.1); PLATELET COUNT 182 10^3/uL (134-434); RBC 3.56 M/mm3 (3.60-5.2); RDW 17.1 % (11.6-15.6); WHITE BLOOD COUNT 8.5 K/mm3 (4.0-10.0)
[2024-02-20 08:53] LABS: POTASSIUM 5.6 mmol/L (3.5-5.1)
[2024-02-20 08:56] LABS: CALCIUM 8.1 mg/dL (8.5-10.1); MAGNESIUM 1.6 mg/dL (1.8-2.4)
[2024-02-20 08:59] LABS: CREATININE 1.1 mg/dL (0.55-1.3); PHOSPHOROUS 3.6 mg/dL (2.5-4.9)
[2024-02-20 09:40] LABS: ANISOCYTOSIS 3+; MACROCYTOSIS 0
[2024-02-20] MEDS: DEXTROSE 5%-WATER - 1,000 ML IV SCH (12:58)
[2024-02-20] MEDS: MAGNESIUM SULFATE IN WATER 2 GM/50 ML IVPB IVPB ONE (12:59)
[2024-02-20 20:14] LABS: POTASSIUM 3.6 mmol/L (3.5-5.1)
[2024-02-20 20:15] LABS: CALCIUM 8.3 mg/dL (8.5-10.1)
[2024-02-20 20:19] LABS: CREATININE 1.1 mg/dL (0.55-1.3)
[2024-02-20] MEDS: SODIUM CHLORIDE 1,000 ML IV STA (21:55)
[2024-02-21 07:30] LABS: BASO % 0.1 % (0-2.0); EOS % 1.5 % (0-4.5); HEMATOCRIT 30.1 % (32.4-45.2); HEMOGLOBIN 9.9 GM/dL (10.7-15.3); LYMPH % 14.5 % (8-40); MCH 29.4 pg (25.7-33.7); MCHC 32.8 g/dl (32.0-36.0); MEAN CELL VOLUME 89.8 fl (80-96); MEAN PLT VOLUME 8.6 fl (7.5-11.1); MONO % 4.8 % (3.8-10.2); NEUT % 79.1 % (42.8-82.8); PLATELET COUNT 172 10^3/uL (134-434); RBC 3.35 M/mm3 (3.60-5.2); RDW 17.2 % (11.6-15.6); WHITE BLOOD COUNT 7.1 K/mm3 (4.0-10.0)
[2024-02-21 08:34] LABS: POTASSIUM 3.4 mmol/L (3.5-5.1)
[2024-02-21 08:36] LABS: CALCIUM 7.8 mg/dL (8.5-10.1)
[2024-02-21 08:37] LABS: MAGNESIUM 2.1 mg/dL (1.8-2.4)
[2024-02-21 08:40] LABS: CREATININE 1.1 mg/dL (0.55-1.3); PHOSPHOROUS 2.7 mg/dL (2.5-4.9)
[2024-02-21] MEDS: ALBUMIN HUMAN 25% 100 ML VIAL IV ONE (13:31)
[2024-02-21] MEDS: FUROSEMIDE 40 MG/4 ML INJECTABLE VIAL IVPUSH ONE (13:32)
[2024-02-21] MEDS: POTASSIUM CHLORIDE TABS 20 MEQ TABLET.ER (FP) PO ONE (13:32)
[2024-02-21 15:27] VITALS: BMI 26.9
[2024-02-21] MEDS: AMINO ACIDS/PROTEIN HYDROLYS 30 ML LIQUID.PKT PO SCH (16:37)
[2024-02-21] MEDS: PANTOPRAZOLE 40 MG TABLET PO SCH (21:14)
[2024-02-22 08:56] LABS: BASO % 0.1 % (0-2.0); EOS % 1.5 % (0-4.5); HEMATOCRIT 29.4 % (32.4-45.2); HEMOGLOBIN 9.6 GM/dL (10.7-15.3); LYMPH % 12.1 % (8-40); MCH 29.4 pg (25.7-33.7); MCHC 32.8 g/dl (32.0-36.0); MEAN CELL VOLUME 89.6 fl (80-96); MEAN PLT VOLUME 8.8 fl (7.5-11.1); MONO % 5.9 % (3.8-10.2); NEUT % 80.4 % (42.8-82.8); PLATELET COUNT 178 10^3/uL (134-434); RBC 3.28 M/mm3 (3.60-5.2); RDW 17.6 % (11.6-15.6); WHITE BLOOD COUNT 7.2 K/mm3 (4.0-10.0)
[2024-02-22 09:13] LABS: POTASSIUM 3.7 mmol/L (3.5-5.1)
[2024-02-22 09:19] LABS: BLOOD UREA NITROGEN 11.1 mg/dL (7-18); CALCIUM 8.5 mg/dL (8.5-10.1)
[2024-02-22 09:23] LABS: CREATININE 1.1 mg/dL (0.55-1.3); PHOSPHOROUS 2.4 mg/dL (2.5-4.9)
[2024-02-22] MEDS: ONDANSETRON 4 MG/2 ML VIAL IVPUSH PRN (09:31)
[2024-02-22] MEDS: FUROSEMIDE 40 MG/4 ML INJECTABLE VIAL IVPUSH ONE (09:31)
[2024-02-22] MEDS: POTASSIUM CHLORIDE TABS 20 MEQ TABLET.ER (FP) PO ONE (09:31)
[2024-02-22] MEDS: ALBUMIN HUMAN 25% 12.5 GM/50 ML VIAL IV ONE (11:23)
[2024-02-22] MEDS ORDERED: ACETAMINOPHEN 325 MG TABLET (FP) PO PRN (13:01)
[2024-02-22 14:37] VITALS: RESP 18
[2024-02-22] MEDS ORDERED: ALBUTEROL SO4 2.5/IPRATROPIUM 0.5 INH SOL 3 ML VIAL.NEB. NEB PRN (15:24)
[2024-02-23] MEDS: FUROSEMIDE 40 MG TABLET (FP) PO SCH (10:06)
[2024-02-23 10:15] VITALS: BP 110/75; PULSE 78; TEMP 98.2
[2024-02-23] MEDS: FUROSEMIDE 40 MG/4 ML INJECTABLE VIAL IVPUSH ONE (11:00)
== END 2024-02-23 11:25 | DRG 378 ==
LOC: JER 18:33 → JERBED 02-17 04:24 → J4S 02-17 08:15
PROVIDERS: ADMIT Internal Medicine; ATTEND Nurse Practitioner
PROC: 30233N1 Transfusion of Nonautologous Red Blood Cells into Peripheral Vein, Percutaneous Approach (ICD-10-PCS; principal; 2024-02-17)
DX: K25.4 Chronic or unspecified gastric ulcer with hemorrhage (principal); D62 Acute posthemorrhagic anemia; N17.9 Acute kidney failure, unspecified; E87.0 Hyperosmolality and hypernatremia; I82.621 Acute embolism and thrombosis of deep veins of right upper extremity; E87.20 Acidosis, unspecified; I24.89 Other forms of acute ischemic heart disease; E83.39 Other disorders of phosphorus metabolism; I12.9 Hypertensive chronic kidney disease with stage 1 through stage 4 chronic kidney disease, or unspecified chronic kidney disease; E11.22 Type 2 diabetes mellitus with diabetic chronic kidney disease; N18.9 Chronic kidney disease, unspecified; Z89.612 Acquired absence of left leg above knee; F03.90 Unspecified dementia, unspecified severity, without behavioral disturbance, psychotic disturbance, mood disturbance, and anxiety; E78.5 Hyperlipidemia, unspecified; E87.6 Hypokalemia; E83.42 Hypomagnesemia; R62.7 Adult failure to thrive; K62.5 Hemorrhage of anus and rectum; E11.40 Type 2 diabetes mellitus with diabetic neuropathy, unspecified; Z96.653 Presence of artificial knee joint, bilateral; Z86.718 Personal history of other venous thrombosis and embolism
CPT/HCPCS: 0241U-QW; 36415; 36430; 70450-TC; 71045-TC-FY; 74176-TC; 80048; 80053; 81003; 82010; 82272; 82607; 82728; 82746; 82803; 82962; 83540; 83550; 83605; 83690; 83735; 84100; 84466; 84484; 85025; 85045; 85610; 85730; 86850; 86900; 86901; 86922; 87040; 87086; 93005; 93010; 97116-GP; 97162-GP; 99291; J3480; P9047; P9058